=== PATIENT | female | born 1955 | race Caucasian/White ===

== ENCOUNTER 2023-01-17 11:05 | Outpatient (OUT) | payer MEDICARE, SELFPAY ==
[2023-01-17 11:45] LABS: Basophils Absolute Auto 0.1 10^3/uL (0.0-0.1); Basophils Percent Auto 0.7 % (0.2-2.0); Eosinophils Percent Auto 0.2 % (0.9-7.0); Hematocrit 33.2 % (36.0-48.0); Immature Granulocytes Abs Auto 0.04 10^3/uL (0.00-0.03); Immature Granulocytes Pct Auto 0.3 % (0.0-0.5); Lymphocytes Absolute Auto 3.2 10^3/uL (1.2-3.8); Lymphocytes Percent Auto 27.4 % (20.5-60.0); Mean Corpuscular HGB Conc 33.1 g/dL (29.9-35.2); Mean Corpuscular Hemoglobin 30.4 pg (26.7-34.0); Mean Corpuscular Volume 91.7 fL (81.0-99.0); Monocytes Absolute Auto 0.8 10^3/uL (0.3-0.8); Monocytes Percent Auto 6.5 % (1.7-12.0); Neutrophils Absolute Auto 7.6 10^3/uL (1.4-6.5); Neutrophils Percent Auto 64.9 % (43.0-75.0); Platelet Count 260 10^3/uL (150-450); Red Blood Count 3.62 10^6/uL (4.20-5.40); Red Cell Distribution Width 13.2 % (11.0-15.0); White Blood Count 11.7 10^3/uL (4.0-11.0)
[2023-01-17 12:22] LABS: Estimated Average Glucose 154 mg/dL
[2023-01-17 12:25] LABS: Alanine Aminotransferase 24 U/L (14-59); Albumin Globulin Ratio 0.9; Albumin Level 3.6 g/dL (3.4-5.0); Alkaline Phosphatase 85 U/L (46-116); Anion Gap 13.3; Aspartate Amino Transferase 29 U/L (15-37); BUN Creatinine Ratio 7.3; Bilirubin Total 0.4 mg/dL (0.2-1.0); Calcium 8.9 mg/dL (8.5-10.1); Carbon Dioxide 25.3 mmol/L (21.0-32.0); Chloride 102 mmol/L (98-107); Cholesterol 109 mg/dL (<=200); Estimated GFR (African America 60 (>=60); Estimated GFR (Non-African Ame 50 (>=60); Glucose 115 mg/dL (74-106); HDL Cholesterol 36 mg/dL (40-60); Potassium 4.6 mmol/L (3.5-5.1); Sodium 136 mmol/L (136-145); Total Protein 7.6 g/dL (6.4-8.2); Triglycerides 71 mg/dL (<=150); VLDL CHOLESTEROL 14.2 mg/dL
== END 2023-01-17 11:06 | disposition home or self-care (01) ==
LOC: LAB 11:16
PROVIDERS: Family Provider Internal Medicine; PCP Family Medicine; Visit Provider Family Medicine
DX: E11.65 Type 2 diabetes mellitus with hyperglycemia (principal); I10 Essential (primary) hypertension
CPT/HCPCS: 36415; 80053; 80061; 83036; 85025

== ENCOUNTER 2023-02-13 11:13 | Outpatient (OUT) | payer MEDICARE, SELFPAY ==
--- NOTE | 2023-02-13 11:17 | MM_ITS ---
Patient Name: HOLLIE WEBER MR#: [id number] : 1955 Exam Date: 02/13/2023 Ordering Doctor: DR Vanessa Baldwin M.D. RADIOLOGY REPORT PROCEDURE: MM TOMOSYNTHESIS SCREENING BI COMPARISON: None. INDICATIONS: Screening Calculator Name NCI Breast Cancer Risk Assessment Tool 5 Year Breast Cancer Risk 1.90% Lifetime Breast Cancer Risk 6.40% Personal Breast Cancer No Personal Ovarian Cancer No Treatments None Family Cancers None LOCATION: [facility] BREAST COMPOSITION: Scattered areas fibroglandular density. FINDINGS: DIAGNOSTIC CATEGORY 2--BENIGN FINDING: RIGHT BREAST: No significant suspicious finding. LEFT BREAST: No significant suspicious finding. Scattered benign-appearing calcifications are present. Scattered benign-appearing lymph nodes are present. RECOMMENDATIONS: ROUTINE MAMMOGRAM AND CLINICAL EVALUATION IN 12 MONTHS. PLEASE NOTE: A NORMAL MAMMOGRAM DOES NOT EXCLUDE THE POSSIBILITY OF BREAST CANCER. A CLINICALLY SUSPICIOUS PALPABLE LUMP SHOULD BE BIOPSIED. Dictated by: Justin Blanco M.D. on 02/13/2023 at 15:13 Approved by: Justin Blanco M.D. on 02/13/2023 at 15:15
== END 2023-02-13 11:14 | disposition home or self-care (01) ==
LOC: MAMMO 11:13
PROVIDERS: Family Provider Internal Medicine; PCP Family Medicine; Visit Provider Family Medicine
DX: Z12.31 Encounter for screening mammogram for malignant neoplasm of breast (principal)
CPT/HCPCS: 77063; 77067

== ENCOUNTER 2023-05-30 13:42 | Outpatient (OUT) | payer MEDICARE, SELFPAY ==
--- OUTSIDE RECORDS SUMMARY | 2023-05-30 14:01 | XMS_ITS | CCD ---
Author Name Unknown Address [address] [place] [address] Organization [facility] Care Team Providers Care Sustainability Officer Name Role Phone Vanessa Baldwin Unavailable Allergies Allergy Classification Reported Allergen(s) Allergy Type Date of Onset Reaction(s) Facility (9 sources) Codeine Drug Allergy vomiting Lateral SV [facility] Other (9 sources) Morphine Drug Allergy vomiting [facility] Other (9 sources) Nalbuphine Drug Allergy Hallucinated [facility] Other Medications Current Medications Medication Drug Class(es) Dates Sig (Normalized) Sig (Original) 0.25 MG, 0.5 MG Dose 3 ML semaglutide 0.68 MG/ML Pen Injector [Ozempic] (4 sources) inject 0.5 mg by subcutaneous injection every week Ozempic (0.25 or 0.5 MG/DOSE) 2 MG/3ML 0.5mg Subcutaneous weekly Active inject 0.5 mg by sub cutaneous injection every week Ozempic (0.25 or 0.5 MG/DOSE) 2 MG/3ML 0.5mg Subcutaneous weekly for 90 days Active ALPRAZolam 0.5 mg oral tablet (9 sources) Benzodiazepine Start: 03-06-2023 take 1 tablet by mouth every eight hours ALPRAZolam 0.5 MG 1 tablet three times a day Feb, Active Start: 02-02-2023 take 1 tablet by mela th every eight hours ALPRAZolam 0.5 MG 1 tablet three times a day for 30 days Jan, Active take 1 tablet by mela th every eight hours ALPRAZolam 0.5 MG 1 tablet three times a day Active ARIPiprazole 2 mg oral tablet (9 sources) Atypical Antipsychotic take 1 tablet by mouth every twenty-four hours ARIPiprazole 2 MG 1 tablet once a day Active aspirin 81 mg delayed release oral tablet (9 sources) Platelet Aggregation Inhibitor, Nonsteroidal Anti-inflammatory Drug take 1 tablet by mouth every twenty-four hours Aspirin 81 81 MG 1 tablet once a day Active atorvastatin 20 mg oral tablet (9 sources) HMG-CoA Reductase Inhibitor Atorvastatin Calcium 20 MG 1 tablet every morning for 90 days Active carvedilol 3.125 mg oral tablet (9 sources) alpha-Adrenergic Willie, beta-Adrenergic Willie take 1 tablet by mouth every twelve hours Carvedilol 3.125 MG 1 tablet twice a day Active escitalopram 20 mg oral tablet (9 sources) Serotonin Reuptake Inhibitor take 1 tablet by mouth every twelve hours Escitalopram Oxalate 20 MG 1 tablet twice a day for 90 days Active gabapentin 800 mg oral tablet (9 sources) Anti-epileptic Agent Gabapentin 800 MG 1tablet four times a day for 90 days Active lisinopril 10 mg oral tablet (9 sources) Angiotensin Converting Enzyme Inhibitor take 1 tablet by mouth every twenty-four hours Lisinopril 10 MG 1 tablet once a day Active metFORMIN hydrochloride 500 mg oral tablet (9 sources) Biguanide take 2 tablets by mouth every twenty-four hours metFORMIN HCl 500 MG 2 tablets once a day Active methylPREDNISolone 4 mg oral tablet (3 sources) Corticosteroid Start : 04-10 methylPREDNISolone 4 MG as directed Orally for 6 days Mar, Active ozempic (0.25 or 0.5 mg/dose) 2 mg/3ml solution pen-injector (5 sources) inject 0.5 mg by subcutaneous injection every week Ozempic (0.25 or 0.5 MG/DOSE) 2 MG/3ML 0.5mg Subcutaneous weekly Active pantoprazole 40 mg delayed release oral tablet (9 sources) Proton Pump Inhibitor Pantoprazole Sodium 40 MG 1 tablet every morning for 90 days Active microencapsulated potassium chloride 20 meq extended release oral tablet (9 sources) take 1 tablet by mouth every twenty-four hours Klor-Con M20 20 MEQ 1 tablet with food Orally Once a day for 90 days Active spironolactone 25 mg oral tablet (9 sources) Aldosterone Antagonist take 1 tablet by mouth every twenty-four hours Spironolactone 25 MG 1 tablet once a day Active tiZANidine 4 mg oral tablet (8 sources) Central alpha-2 Adrenergic Agonist take 1 tablet by mouth every eight hours tiZANidine HCl 4 MG 1 tablet as needed Orally Three times a day for 10 days Active Problems Active Problems Problem Classification Problem Date Documented Da te Episodic/Chronic Anxiety disorders (11 sources) Anxiety; Translations: [Anxiety disorder, unspecified] Chronic Coronary atherosclerosis and other heart disease (10 sources) Coronary arteriosclerosis; Translations: [Atherosclerotic heart disease of [place] coronary artery without angina pectoris] Chronic Diabetes mellitus with complications (12 sources) Type 2 diabetes mellitus; Translations: [Type 2 diabetes mellitus with hyperglycemia] Chronic Esophageal disorders (10 sources) Gastroesophageal reflux disease without esophagitis; Translations: [Gastro-esophageal reflux disease without esophagitis] Chronic Essential hypertension (11 sources) Essential hypertension; Translations: [Essential (primary) hypertension] Chronic Other screening for suspected conditions (not mental disorders or infectious disease) (1 source) Encounter for screening mammogram for malignant neoplasm of breast Episodic Screening and history of mental health and substance abuse codes (1 source) Personal history of nicotine dependence Episodic Spondylosis; intervertebral disc disorders; other back problems (1 source) Muscle spasm of back Episodic Past or Other Problems Problem Classification Problem Date Documented Da te Episodic/Chronic Unclassified (1 source) Lumbar pain M54.50 Vital Signs Date Time Vital Sign Value Performing Clinician Facility 04-10-2023 11:15-0500 Body height 162.56 cm Vanessa Baldwin Other [facility] Other 04-10-2023 11:15-0500 Body mass index (BMI) [Ratio] 40.16 kg/m2 Vanessa Baldwin [facility] Other 04-10-2023 11:15-0500 Body weight 106.14 kg Vanessa Baldwin Other [facility] Other 04-10-2023 11:15-0500 Diastolic blood pressure 84 mm[Hg] Vanessa Baldwin Other [facility] Other 04-10-2023 11:15-0500 SaO2% (BldA) [Mass fraction] 95 % Vanessa Baldwin Other [facility] Other 04-10-2023 11:15-0500 Systolic blood pressure 126 mm[Hg] Vanessa Baldwin Other [facility] Other 01-24-2023 11:15-0400 Body height 162.56 cm Vanessa Baldwin [facility] Other 01-24-2023 11:15-0400 Body mass index (BMI) [Ratio] 39.37 kg/m2 Vanessa Baldwin Other [facility] Other 01-24-2023 11:15-0400 Body weight 104.06 kg Vanessa Baldwin Other [facility] Other 01-24-2023 11:15-0400 Diastolic blood pressure 74 mm[Hg] Vanessa Baldwin Other [facility] Other 01-24-2023 11:15-0400 Systolic blood pressure 112 mm[Hg] Vanessa Baldwin Other [facility] Other 01-17-2023 10:30-0400 Body height 162.56 cm Vanessa Baldwin Other [facility] Other 01-17-2023 10:30-0400 Body mass index (BMI) [Ratio] 39.82 kg/m2 Vanessa Baldwin Other [facility] Other 01-17-2023 10:30-0400 Body weight 105.24 kg Vanessa Baldwin Other [facility] Other 01-17-2023 10:30-0400 Diastolic blood pressure 64 mm[Hg] Vanessa Baldwin Other [facility] Other 01-17-2023 10:30-0400 Systolic blood pressure 100 mm[Hg] Vanessa Baldwin Other [facility] Other Encounters Encounter Date Encounter Type Care Provider Facility Start: 05-02-2023 End: 05-02-2023 ambulatory Vanessa Nicolasa [facility] Other Start: 05-02-2023 Telephone encounter Vanessa Nicolasa [facility] Start: 04-24-2023 End: 04-24-2023 ambulatory Vanessa Nicolasa [facility] Other Start: 04-24-2023 Telephone encounter Vanessa Nicolasa [facility] Start: 04-10-2023 End: 04-10-2023 ambulatory Vanessa Nicolasa [facility] Other Start: 04-10-2023 Office outpatient vi sit 15 minutes Vanessa Nicolasa [facility] Start: 04-03-2023 End: 04-03-2023 ambulatory Vanessa Nicolasa [facility] Other Start: 04-03-2023 Telephone encounter Vanessa Nicolasa [facility] Start: 03-06-2023 End: 03-06-2023 ambulatory Vanessa Nicolasa Other [facility] Other Start: 03-06-2023 Telephone encounter Vanessa Baldwin [facility] Start: 02-02-2023 End: 02-02-2023 ambulatory Vanessa Nicolasa [facility] Other Start: 02-02-2023 Telephone encounter Vanessa Baldwin [facility] Start: 01-24-2023 End: 01-24-2023 ambulatory Vanessa Nicolasa [facility] Other Start: 01-24-2023 Office outpatient vi sit 15 minutes Vanessa Nicolasa [facility] Start: 01-17-2023 End: 01-17-2023 ambulatory Vanessa Baldwin [facility] Other Start: 01-17-2023 Office outpatient ne w 45 minutes Vanessa Baldwin [facility] Immunizations Immunization Date Immunization Notes Care Provider Keyana bass 04-10-2023 influenza, high dose seasonal, preservative-free Vanessa Baldwin [facility] Other Payers Date Payer Category Payer Policy ID Private Health Insurance [id number] Social History Date Type Detail Facility Unknown if ever smoked [facility] Other Sex Assigned At Sex Assigned At Bir th [facility] Other Evaluation note 04-10-2023 Note Date & Type Note Facility 04-10-2023 Evaluation note Encounter Date Diagnosis Assessment Notes Mar, Lumbar paraspinal muscle spasm (ICD-10 - M62.830) Take meds prn and try to stretch often and use heat and ice. Mar, Anxiety (ICD-10 - F41.9) Pt states she is stable on present meds and doses. Mar, Essential (primary) hypertension (ICD-10 - I10) Blood pressure remains well controlled at this time. Denies cardiac symptoms. Shows no signs or symptoms or poor control. Patient to continue with above medication and we will continue to monitor. Advised to pay attention to body and symptoms. Any developing patterns. Stay well hydrated. [facility] Other Evaluation note 02-02-2023 Note Date & Type Note Facility 02-02-2023 Evaluation note Encounter Date Diagnosis Assessment Notes Jan, Type 2 diabetes mellitus with hyperglycemia , without long-term current use of insulin (ICD-10 - E11.65) [facility] Other Evaluation note 01-24-2023 Note Date & Type Note Facility 01-24-2023 Evaluation note Encounter Date Diagnosis Assessment Notes Dec, Lumbar pain (ICD-10 - M54.50) Hx of adverse reactions to steroids. add muscle relaxer to tylenol. Pt declines referral to PT at this time Dec, Type 2 diabetes mellitus with hyperglycemi a, without long-term current use of insulin (ICD-10 - E11.65) Reviewed labs, gave pt a copy - A1C7.0. Cholesterol well controlled. Continue present meds. [facility] Other Evaluation note 01-17-2023 Note Date & Type Note Facility 01-17-2023 Evaluation note Encounter Date Diagnosis Assessment Notes Dec, Essential (primary) hypertension (ICD-10 - I10) Refilled meds for chronic problems Dec, Type 2 diabetes mellitus with hyperglycemia, without long-term current use of insulin (ICD-10 - E11.65) Check labs today diabetic eye exam annually Dec, Coronary artery disease involving [place] coronary artery of [place] heart without angina pectoris (ICD-10 - I25.10) Pt agrees to referral to get established with a local rubber curer. Dec, Anxiety (ICD-10 - F41.9) pt states her chronic problem is controlled w xanax tid and lexapro Dec, GERD without esophagitis (ICD-10 - K21.9) refilled med for chronic problem Dec, Screening mammogram for breast cancer (ICD-10 - Z12.31) Dec, Personal history of nicotine dependence (ICD-10 - Z87.891) [facility] Other Evaluation note Note Date & Type Note Facility Evaluation note No Information [facility] Other History general Narrative - Reported Note Date & Type Note Facility History general Narrative - Reported Type Medical History Hypertention Medical History Diabetes Medical History Neuropathy Medical History Heart Attack Surgical History Hysterectomy Surgical History Back surgery Surgical History Right CTR Surgical History Bilateral shoulder surgery Surgical History Heart Stents X2 Surgical History Left TKR [facility] Other History general Narrative - Reported Note Date & Type Note Facility History general Narrative - Reported Type Medical History Hypertention Medical History Diabetes Medical History Neuropathy Medical History Heart Attack Medical History GERD Surgical History Hysterectomy Surgical History Back surgery Surgical History Right CTR Surgical History Bilateral shoulder surgery Surgical History Heart Stents X2 Surgical History Left TKR [facility] Other Reason for Referral Reason *Waiting for appt Get established, has stents, moved from [place]. Had [place] 2014 Diagnosis 1 Coronary artery dise ase involving [place] coronary artery of [place] heart without angina pectoris (I25.10) Referral Organization [facility] [place] Referring Provider First Name Vanessa Referring Provider Last Name Nicolasa Referring Provider Specialty [facility] Referred Organization [facility] Cardiology Referred Provider Alexandru Pachecoa Referred Address [address] [place] [address],[place] [address],[place], [place],[id number] Referred Provider Specialty Cardiovascul ar Disease Referral Priority Routine General Notes Radha Baker 02:31:53 PM >received today, sent P2P. pt may need to fill out a records release form to have old records sent to us Additional Source Comments REASON FOR VISIT (unrecogniz ed section and content) Check Up-Medsback painRefill RefillrefillRefill3 month Follow upcoughingCardio Referral Update FOR RECORDS PERTAINING TO PATIENTS WHO ARE OR HAVE BEEN ENROLLED IN A CHEMICAL DEPENDENCY/SUBSTANCEABUSE PROGRAM, SOME INFORMATION MAY BE OMITTED. This clinical summary was aggregated from multiple sources. Caution should be exercised in using it in the provision of clinical care. This summary normalizes information from multiple sources, and as a consequence, information in this document may materially change the coding, format and clinical context of patient data. In addition, data may be omitted in some cases. CLINICAL DECISIONS SHOULD BE BASED ON THE PRIMARY CLINICAL RECORDS. [employer] provides no warranty or guarantee of the accuracy or completeness of information in this document.
[2023-05-30 14:18] LABS: Estimated Average Glucose 283 mg/dL; Glycohemoglobin A1C 11.5 % (4.5-6.2)
[2023-05-30 14:23] LABS: Basophils Absolute Auto 0.1 10^3/uL (0.0-0.1); Basophils Percent Auto 0.8 % (0.2-2.0); Hematocrit 36.6 % (36.0-48.0); Immature Granulocytes Abs Auto 0.07 10^3/uL (0.00-0.03); Immature Granulocytes Pct Auto 0.5 % (0.0-0.5); Lymphocytes Absolute Auto 3.6 10^3/uL (1.2-3.8); Lymphocytes Percent Auto 25.1 % (20.5-60.0); Mean Corpuscular HGB Conc 32.8 g/dL (29.9-35.2); Mean Corpuscular Hemoglobin 29.7 pg (26.7-34.0); Mean Corpuscular Volume 90.6 fL (81.0-99.0); Mean Platelet Volume 10.9 fL (9.5-13.5); Monocytes Absolute Auto 0.9 10^3/uL (0.3-0.8); Neutrophils Absolute Auto 9.7 10^3/uL (1.4-6.5); Neutrophils Percent Auto 67.6 % (43.0-75.0); Platelet Count 242 10^3/uL (150-450); Red Blood Count 4.04 10^6/uL (4.20-5.40); Red Cell Distribution Width 12.6 % (11.0-15.0); White Blood Count 14.3 10^3/uL (4.0-11.0)
== END 2023-05-30 13:43 | disposition home or self-care (01) ==
LOC: LAB 13:44
PROVIDERS: Family Provider Internal Medicine; PCP Family Medicine; Visit Provider Family Medicine
DX: E11.65 Type 2 diabetes mellitus with hyperglycemia (principal)
CPT/HCPCS: 36415; 83036; 85025

== ENCOUNTER 2023-07-24 12:42 | Outpatient (OUT) | payer MEDICARE, SELFPAY ==
--- NOTE | 2023-07-24 13:56 | PM.CN ---
Consult Note: HPI Data of Consult Patient: new to practice Consult date: 07/24/23 Requesting Physician: Maribell Malik MD Primary Care Provider: Vanessa Baldwin MD Family Provider: Shai Abdalla DO Consult Narrative Reason for consult: low back pain Narrative: 67yof who presents for evaluation. longstanding low back pain, had lumbar fusion 16 years ago in [place]. no recent MRI. has completed PT and engages in series of provider directed home exercises >6 weeks, without benefit. utilizes gabapentin, xanax. denies adverse med side effects. cc:: CC: Maribell Malik MD Review of Systems ROS Status of ROS 10 or more systems reviewed and unremarkable except as noted in history and below Meds Home Medications and Allergies Home Medications ?Medication ?Instructions ?Recorded ?Confirmed ?Type alprazolam 0.25 mg tablet (Xanax) 0.25 mg PO TID 07/24/23 07/24/23 History aripiprazole 2 mg tablet (Abilify) 2 mg PO DAILY 07/24/23 07/24/23 History aspirin 325 mg capsule 325 mg PO DAILY 07/24/23 07/24/23 History atorvastatin 20 mg tablet 20 mg PO DAILY 07/24/23 07/24/23 History carvedilol 3.125 mg tablet 3.125 mg PO BID 07/24/23 07/24/23 History escitalopram oxalate 20 mg tablet 20 mg PO BID 07/24/23 07/24/23 History (Lexapro) etodolac 400 mg tablet (Lodine) 400 mg PO Q12H PRN pain 07/24/23 07/24/23 History gabapentin 800 mg tablet 800 mg PO TID 07/24/23 07/24/23 History lisinopril 10 mg tablet 10 mg PO DAILY 07/24/23 07/24/23 History metformin 500 mg tablet 500 mg PO TID 07/24/23 07/24/23 History pantoprazole 40 mg granules 40 mg PO DAILY 07/24/23 07/24/23 History delayed-release for susp in packet (Protonix) potassium 20 mg chewable tablet 20 mg PO .QD 07/24/23 07/24/23 History spironolactone 25 mg tablet 25 mg PO DAILY 07/24/23 07/24/23 History tizanidine 4 mg capsule (Zanaflex) 4 mg PO TID PRN muscle spasticity 07/24/23 07/24/23 History Exam Narrative Exam Narrative: Psych-alert and oriented x 3. Attentive and appropriate, constitutionally normal, displays normal mood and affect per situation. There are no obvious deficits in memory, reasoning, or intellect.? Skin-no obvious rashes, bruising, erythema noted to the patient's area of pain.? Extremities- extremities are warm with minimal edema and palpable pulses. Lumbar-tenderness to palpation noted in the lumbar spine and paraspinal musculature. Pain is elicited with flexion, extension, and lateral rotation of the lumbar spine. Range of motion is diminished with these motions. Facet loading maneuvers are positive. Strength-noted to be unremarkable Sensory-no notable sensory deficits in the bilateral lower extremities to touch or pinprick in all dermatomal distributions with the exception to decreased sensation to the bilateral L4, 5 dermatomal distribution Coordination remains intact.? Gait remains non-antalgic. Assessment and Plan Assessment and Plan (1) Lumbar stenosis with neurogenic claudication: (2) Lumbar postlaminectomy syndrome: Plan 67yof who presents for evaluation. worsening low back pain for several years. failed conservative measures, as noted. given no recent MRI, would like to update lumbar mri without contrast. she is in agreement. meds reviewed. will trial etodolac 400mg bid prn and tizanidine 4mg tid prn. follow up after imaging.
== END 2023-07-24 12:43 | disposition home or self-care (01) ==
LOC: PM 12:43
PROVIDERS: Family Provider Internal Medicine; PCP Family Medicine; Visit Provider Anesthesiology
DX: M48.062 Spinal stenosis, lumbar region with neurogenic claudication (principal); M96.1 Postlaminectomy syndrome, not elsewhere classified
CPT/HCPCS: G0463

== ENCOUNTER 2023-08-01 09:47 | Outpatient (OUT) | payer MEDICARE, SELFPAY ==
--- NOTE | 2023-08-01 09:50 | MR_ITS ---
[address] [address] Patient Name: HOLLIE WEBER MRN: [facility]:[id number] date: 1955 Sex: F Assigned Patient Location: MRI Current Patient Location: MRI Accession/Order Number: [id number] Exam Date: 08/01/2023 10:06 Report Date: 08/01/2023 14:29 At the request of: VERONICA GIEDRAITIS Procedure: MR lumbar spine wo con EXAM: MR lumbar spine wo con CLINICAL INDICATION: lumbar stenosis, neurogenic claudication COMPARISON: None TECHNIQUE/PROTOCOL: Noncontrast lumbar spine MR protocol (Sagittal T1, T2, STIR and axial T1, T2 sequences). FINDINGS: Segmentation: Normal. Conus: Terminates at L1. Spinal Cord and Cauda Equina: Normal. Epidural Hematoma: None. Alignment: Normal. Marrow Signal: Normal. Vertebral Body Heights: Maintained. Sacroiliac Joints: Grossly normal given only partially visualized. Paraspinal Soft Tissues: Normal. Retroperitoneal Soft Tissues: No acute abnormalities. Postoperative Changes: Posterior instrumented fusion from L3 to L5 with laminectomies. Spondylotic Changes: Multilevel spondylotic changes include diffuse disc desiccation and varying degrees of intervertebral disc height loss, osteophytic ridging, and facet/ligamentum flavum hypertrophy. T12-L1: No disc bulge or herniation. No high-grade spinal canal narrowing. Mild bilateral foraminal narrowing. Mild bilateral facet/ligamentum flavum hypertrophy. L1-L2: No disc bulge or herniation. No high-grade spinal canal or foraminal narrowing. Mild bilateral facet/ligamentum flavum hypertrophy. L2-L3: Disc bulge indents the ventral thecal sac. This in conjunction with moderate bilateral facet/ligamentum flavum hypertrophy overall results in moderate spinal canal narrowing. Moderate bilateral foraminal narrowing. Small bilateral facet joint effusions. L3-L4: Laminectomy changes. No disc bulge or herniation. No high-grade spinal canal narrowing. Mild bilateral foraminal narrowing. L4-L5: Laminectomy changes. No disc bulge or herniation. No high-grade spinal canal narrowing. Mild bilateral foraminal narrowing. L5-S1: No disc bulge or herniation. No high-grade spinal canal narrowing. Mild bilateral foraminal narrowing. Mild bilateral facet hypertrophy. MR/MR lumbar spine wo con IMPRESSION: 1. Multilevel spondylotic changes without high-grade spinal canal or foraminal narrowing at any lumbar level. 2. Spinal canal narrowing is moderate at L2-L3. 3. Foraminal narrowing is moderate bilaterally at L2-L3. 4. Posterior instrumented fusion from L3 to L5 with laminectomies. Electronically authenticated by: JACKIE SY Date: 08/01/2023 14:29
== END 2023-08-01 09:48 | disposition home or self-care (01) ==
LOC: MRI 09:47
PROVIDERS: Family Provider Internal Medicine; PCP Family Medicine; Visit Provider Anesthesiology
DX: M48.062 Spinal stenosis, lumbar region with neurogenic claudication (principal); M47.816 Spondylosis without myelopathy or radiculopathy, lumbar region
CPT/HCPCS: 72148

== ENCOUNTER 2023-08-03 09:35 | Outpatient (OUT) | payer MEDICARE, SELFPAY ==
--- NOTE | 2023-08-03 09:47 | P.CN_ITS ---
Consult Note: HPI Data of Consult Patient: new to practice Consult date: 07/24/23 Requesting Physician: Lucy Mccallum NP Primary Care Provider: Vanessa Baldwin MD Family Provider: Shai Abdalla DO Consult Narrative Reason for consult: low back pain Narrative: 67yof who presents for evaluation. longstanding low back pain, had lumbar fusion 16 years ago in [place]. has completed PT and engages in series of provider directed home exercises >6 weeks, without benefit. utilizes gabapentin, xanax, lodine, zanaflex. denies adverse med side effects. Lumbar MRI completed results below. Patient reports pain 8/10 increasing to 10/10 with standing and activity, pain most significant in low back. cc:: CC: Lucy Mccallum NP Review of Systems ROS Status of ROS 10 or more systems reviewed and unremark able except as noted in history and below Musculoskeletal Reports: back pain Meds Home Medications and Allergies Home Medications ?Medication ?Instructions ?Recorded ?Confirmed ?Type alprazolam 0.25 mg tablet (Xanax) 0.25 mg PO TID 07/24/23 07/24/23 History aripiprazole 2 mg tablet (Abilify) 2 mg PO DAILY 07/24/23 07/24/23 History aspirin 325 mg capsule 325 mg PO DAILY 07/24/23 07/24/23 History atorvastatin 20 mg tablet 20 mg PO DAILY 07/24/23 07/24/23 History carvedilol 3.125 mg tablet 3.125 mg PO BID 07/24/23 07/24/23 History escitalopram oxalate 20 mg tablet 20 mg PO BID 07/24/23 07/24/23 History (Lexapro) etodolac 400 mg tablet (Lodine) 400 mg PO Q12H PRN pain 07/24/23 07/24/23 History gabapentin 800 mg tablet 800 mg PO TID 07/24/23 07/24/23 History lisinopril 10 mg tablet 10 mg PO DAILY 07/24/23 07/24/23 History metformin 500 mg tablet 500 mg PO TID 07/24/23 07/24/23 History pantoprazole 40 mg granules 40 mg PO DAILY 07/24/23 07/24/23 History delayed-release for susp in packet (Protonix) potassium 20 mg chewable tablet 20 mg PO .QD 07/24/23 07/24/23 History spironolactone 25 mg tablet 25 mg PO DAILY 07/24/23 07/24/23 History tizanidine 4 mg capsule (Zanaflex) 4 mg PO TID PRN muscle spasticity 07/24/23 07/24/23 History Allergies Allergy/AdvReac Type Severity Reaction Status Date / Time codeine Allergy Mild Verified 07/24/23 14:14 morphine Allergy Mild Verified 07/24/23 14:14 [email or web address] [From Nubain] AdvReac Mild Verified 07/24/23 14:14 Exam Constitutional Documenting provider has reviewed patient's vital signs: yes Common normals: no apparent distress, oriented x3, healthy appearing, alert and well nourished General appearance: cooperative HENMT Common normals: normocephalic, hearing grossly normal bilaterally and moist oral mucous membranes Head and scalp: normocephalic Eye Common normals: PERRL Pupil: PERRL Neck & C-Spine Common normals: full ROM General: normal visual inspection Chest Common normals: inspection of chest normal Respiratory Common normals: normal respiratory effort, no retractions and no use of accessory muscles Back & Pelvis Thoracic spine/upper back: pain with ROM Lumbar spine/lower back: ROM limited, pain with ROM, lumbar spinal tenderness, paraspinal muscle tenderness and straight leg raise negative bilaterally Sacroiliac joints: SI joint(s) abnormal Other: positive facet loading tenderenss over bilateral L1-2 L2-3 facets bilateral positive dandy(patricks), gaenslens, thigh thrust, compression test Neuro Common normals: oriented x3, CN's II-XII intact bilaterally, moves all extremities, no focal motor deficits, no sensory deficits noted and deep tendon reflexes 2+ bilaterally Sensorium/orientation: alert Gait (neuro): antalgic Motor exam: strength 5/5 throughout and no movement abnormalities noted Psych Common normals: mental status grossly normal, thought process normal, cooperative, affect normal, speech normal and activity/motor behavior normal Speech: normal speech Thought process: normal thought process Results Imaging Lumbar MRI: Attestation: I have reviewed the pertinent imaging results. Radiologist's impression: T12-L1: No disc bulge or herniation. No high-grade spinal canal narrowing. Mild bilateral foraminal narrowing. Mild bilateral facet/ligamentum flavum hypertrophy. L1-L2: No disc bulge or herniation. No high-grade spinal canal or foraminal narrowing. Mild bilateral facet/ligamentum flavum hypertrophy. L2-L3: Disc bulge indents the ventral thecal sac. This in conjunction with moderate bilateral facet/ligamentum flavum hypertrophy overall results in moderate spinal canal narrowing. Moderate bilateral foraminal narrowing. Small bilateral facet joint effusions. L3-L4: Laminectomy changes. No disc bulge or herniation. No high-grade spinal canal narrowing. Mild bilateral foraminal narrowing. L4-L5: Laminectomy changes. No disc bulge or herniation. No high-grade spinal canal narrowing. Mild bilateral foraminal narrowing. L5-S1: No disc bulge or herniation. No high-grade spinal canal narrowing. Mild bilateral foraminal narrowing. Mild bilateral facet hypertrophy. Assessment and Plan Assessment and Plan (1) Lumbar stenosis with neurogenic claudication: (2) Lumbar postlaminectomy syndrome: (3) S/P lumbar fusion: (4) Lumbar spondylosis: Plan bilateral L1-2 L2-3 MBB x2 working towards RFA continue medications, NNCP chroniz benzo f/u 1 week after each injection
--- OUTSIDE RECORDS SUMMARY | 2023-08-03 09:50 | XMS_ITS | CCD ---
Author Organization [facility] Care Team Providers Care Lithographers Printer Name Role Phone Vanessa Baldwin Unavailable Helena GUERRA, Maribell Art Attending Unavailable Allergies Allergy Classification Reported Allergen(s) Allergy Type Date of Onset Reaction(s) Facility (10 sources) Codeine Drug Allergy 4 [facility] (10 sources) Morphine Drug Allergy 4 [facility] (9 sources) Nalbuphine Drug Allergy [facility] (powering [employer]) [facility] Other (1 source) Nalbuphine Drug Allergy 4 [facility] Medications Current Medications Medication Drug Class(es) Dates [...] days Active ALPRAZolam 0.5 mg oral tablet (12 sources) Benzodiazepine Start: 05-29-2023 End: 06-30-2023 take 0.5 mg by mouth three times daily Alprazolam Active 0.5 MG PO Three times daily June 30, 2023 1:06pm Start: 03-06-2023 take 1 tablet by mela th every [...] day Active ARIPiprazole 2 mg oral tablet (10 sources) Atypical Antipsychotic Start: 05-29-2023 take 2 mg by mouth once daily Aripiprazole Active 2 MG PO Daily May 29, 2023 1:00am take 1 tablet by mela th every twenty-four hours ARIPiprazole 2 MG 1 tablet once a day Active aspirin 81 mg delayed release oral tablet (10 sources) Platelet Aggregation Inhibitor, Nonsteroidal Anti-inflammatory Drug Start: 05-29-2023 take 1 tablet by mouth once daily Aspirin (Adult Aspirin Regimen) 81 mg tablet,delayed release (DR/EC) Active 81 MG PO Daily May 29, 2023 1:00am take 1 tablet by mela th every twenty-four hours Aspirin 81 81 MG 1 tablet once a day Active atorvastatin 20 mg oral tablet (10 sources) HMG-CoA Reductase Inhibitor Start: 05-29-2023 take 20 mg by mouth once daily Atorvastatin Active 20 MG PO Daily May 29, 2023 1:00am Atorvastatin Salvador cium 20 MG 1 tablet every morning for 90 days Active carvedilol 3.125 mg oral tablet (10 sources) alpha-Adrenergic Willie, beta-Adrenergic Willie Start: 05-29-2023 take 3.125 mg by mouth twice daily Carvedilol Active 3.125 MG PO Twice daily May 29, 2023 1:00am take 1 tablet by mela th every twelve hours Carvedilol 3.125 MG 1 tablet twice a day Active escitalopram 20 mg oral tablet (10 sources) Serotonin Reuptake Inhibitor Start: 05-29-2023 take 20 mg by mouth twice daily Escitalopram Oxalate Active 20 MG PO Twice daily May 29, 2023 1:00am take 1 tablet by mela th every twelve hours Escitalopram Oxalate 20 MG 1 tablet twic e a day for 90 days Active gabapentin 800 mg oral tablet (10 sources) Anti-epileptic Agent Start: 05-29-2023 take 800 mg by mouth four times daily Gabapentin Active 800 MG PO Four times daily May 29, 2023 1:00am Gabapentin 800 M G 1tablet four times a day for 90 days Active lisinopril 10 mg oral tablet (10 sources) Angiotensin Converting Enzyme Inhibitor Start: 05-29-2023 take 10 mg by mouth once daily Lisinopril Active 10 MG PO Daily May 29, 2023 1:00am take 1 tablet by mela th every twenty-four hours Lisinopril 10 MG 1 tablet once a day Active metFORMIN hydrochloride 500 mg oral tablet (10 sources) Biguanide Start: 05-29-2023 take 2 tablets by mouth once daily Metformin Active 500 MG PO Daily May 29, 2023 1:00am 2 tablets once a day take 2 tablets by mo [facility] every twenty-four hours metFORMIN HCl 500 MG 2 tablets once a day Active methylPREDNISolone 4 mg oral tablet (3 sources) Corticosteroid Start: 04-10-2023 methylPREDNISolone 4 MG as directed Orally for 6 days Mar, Active ozempic (0.25 or 0.5 mg/dose) 2 mg/3ml solution pen-injector (5 sources) inject 0.5 mg by subcutaneous injection every week Ozempic (0.25 or 0.5 MG/DOSE) 2 MG/3ML 0.5mg Subcutaneous weekly Active pantoprazole 40 mg delayed release oral tablet (10 sources) Proton Pump Inhibitor Start: 05-29-2023 take 40 mg by mouth once daily in the morning Pantoprazole Active 40 MG PO Every morning May 29, 2023 1:00am Pantoprazole Sod ium 40 MG 1 tablet every morning for 90 days Active microencapsulated potassium chloride 20 meq extended release oral tablet (10 sources) Start: 05-29-2023 Potassium Chlo ride (Klor-Con M20) 20 mEq tablet,ER particles/crystals Active 20 MEQ PO Daily May 29, 2023 1:00am take 1 tablet by mela every twenty-four hours Klor-Con M20 20 MEQ 1 tablet with food Orally Once a day for 90 days Active spironolactone 25 mg oral tablet (10 sources) Aldosterone Antagonist Start: 05-29-2023 take 25 mg by mouth once daily Spironolactone Active 25 MG PO Daily May 29, 2023 1:00am take 1 tablet by mela every twenty-four hours Spironolactone 25 MG 1 tablet once a day Active Tirzepatide (1 source) Start: 06-08-2023 Tirzepatide (Mounjaro) 2.5 mg/0.5 mL pen injector Active 2.5 MG SUBCUT every week 2 June 08, 2023 12:00am tiZANidine 4 mg oral tablet (9 sources) Central alpha-2 Adrenergic Agonist Start: 05-29-2023 take 4 mg by mouth three times daily Tizanidine Active 4 MG PO Three times daily May 29, 2023 1:00am take 1 tablet by mouth every eig ht hours tiZANidine HCl 4 MG 1 tablet as needed Orally Three times a day for 10 days Active Completed/Discontinued Medications Medication Drug Class(es) Dates Sig (Normalized) Sig (Original) Semaglutide (2 sources) Start: 05-30-2023 End: 06-08-2023 Semaglutide (Ozempic) 0.25 mg or 0.5 mg (2 mg/3 mL) pen injector Discontinued 0.5 MG SUBCUT every week 3 May 30, 2023 1:00am June 08, 2023 12:49pm for 4 weeks Start: 05-29-2023 End: 05-30-2023 inject 0.5 mg by subcutaneous injection every week Semaglutide (Ozempic) 0.25 mg or 0.5 mg (2 mg/3 mL) pen injector Discontinued 0.5 MG SUBCUT every week May 29, 2023 1:00am May 30, 2023 2:13pm 0.5mg Subcutaneous weekly Problems Active Problems Problem Classification Problem Date Documented Da te Episodic/Chronic Anxiety disorders (13 sources) Anxiety; Translations: [Anxiety disorder, unspecified] Chronic Coronary atherosclerosis and other heart disease (10 sources) Coronary arteriosclerosis; Translations: [Atherosclerotic heart disease of ewiiaapaayp coronary artery without angina pectoris] Chronic Diabetes mellitus with complications (14 sources) Type 2 diabetes mellitus; Translations: [Type 2 diabetes mellitus with hyperglycemia] Chronic Esophageal disorders (10 sources) Gastroesophageal reflux disease without esophagitis; Translations: [Gastro-esophageal reflux disease without esophagitis] Chronic Essential hypertension (12 sources) Essential hypertension; Translations: [Essential (primary) hypertension] Chronic Other screening for suspected conditions (not mental disorders or infectious disease) (1 source) Encounter for screening mammogram for malignant neoplasm of breast Episodic Screening and history of mental health and substance abuse codes (1 source) Personal history of nicotine dependence Episodic Spondylosis; intervertebral disc disorders; other back problems (2 sources) Muscle spasm of back; Translations: [Spasm of muscle of lower back] Episodic Past or Other Problems Problem Classification Problem Date Documented Da te Episodic/Chronic Unclassified (1 source) Lumbar pain M54.50 Results Test Name Value Interpretation Reference Range Facil ity Basophils Auto (Bld) [#/Vol] on 05-30-2023 Basophils (Bld) [#/Vol] 0.1 10 3/uL 0.0-0.1 [facility] Basophils/100 WBC Auto (Bld) on 05-30-2023 Basophils/100 WBC (Bld) 0.8 % 0.2-2.0 [facility] Eosinophils/100 WBC Auto (Bl d)on 05-30-2023 Eosinophils/100 WBC (Bld) 0.0 % 0.9-7.0 [facility] Erythrocyte distribution wid th Auto (RBC) [Ratio]on 05-30-2023 Erythrocyte distribution width (RBC) [Ratio] 12.6 % 11.0-15.0 [facility] Glucose mean value [Mass/vol ume] in Blood Estimated from glycated hemoglobinon 05-30-2023 Average glucose Estimated from glycated hemoglobin (Bld) [Mass/Vol] 283 mg/dL [facility] Hematocrit Auto (Bld) [Volum e fraction]on 05-30-2023 Hematocrit (Bld) [Volume fraction] 36.6 % 36.0-48.0 [facility] Hemoglobin [Mass/volume] in Bloodon 05-30-2023 Hemoglobin (Bld) [Mass/Vol] 12.0 g/dL 12.0-16.0 [facility] Laboratory - Hematology and Cell countson 05-30-2023 HbA1c (Bld) [Mass fraction] 11.5 % 4.5-6.2 [facility] Comment on above: ADA RECOMMENDED LIMI T 4.0 - 6.0ADA THERAPEUTIC TARGET < 7.0ACTION SUGGESTED> 7.0 Immature granulocytes/100 WBC (Bld) 0.5 % 0.0-0.5 [facility] Leukocytes [#/volume] correc krysta for nucleated erythrocytes in Blood by Automated counon 05-30-2023 WBC corrected for nucl RBC Auto (Bld) [#/Vol] 14.3 10 3/uL 4.0-11.0 [facility] Lymphocytes Auto (Bld) [#/Vo l]on 05-30-2023 Lymphocytes (Bld) [#/Vol] 3.6 10 3/uL 1.2-3.8 [facility] Lymphocytes/100 WBC Auto (Bl d)on 05-30-2023 Lymphocytes/100 WBC (Bld) 25.1 % 20.5-60.0 [facility] MCH Auto (RBC) [Entitic mass ]on 05-30-2023 MCH (RBC) [Entitic mass] 29.7 pg 26.7-34.0 [facility] MCHC Auto (RBC) [Mass/Vol]on 05-30-2023 MCHC (RBC) [Mass/Vol] 32.8 g/dL 29.9-35.2 [facility] MCV Auto (RBC) [Entitic vol] on 05-30-2023 MCV (RBC) [Entitic vol] 90.6 fL 81.0-99.0 [facility] Monocytes Auto (Bld) [#/Vol] on 05-30-2023 Monocytes (Bld) [#/Vol] 0.9 10 3/uL 0.3-0.8 [facility] Monocytes/100 WBC Auto (Bld) on 05-30-2023 Monocytes/100 WBC (Bld) 6.0 % 1.7-12.0 [facility] Neutrophils Auto (Bld) [#/Vo l]on 05-30-2023 Neutrophils (Bld) [#/Vol] 9.7 10 3/uL 1.4-6.5 [facility] Neutrophils/100 WBC Auto (Bl d)on 05-30-2023 Neutrophils/100 WBC (Bld) 67.6 % 43.0-75.0 [facility] No Panel Informationon 05-29 Eosinophils # (Auto) 0.0 10 3/uL 0.0-0.7 [facility] Immature Granulocyte # (Auto) 0.07 10 3/uL 0.00-0.03 [facility] Platelet mean volume Auto (B ld) [Entitic vol]on 05-30-2023 Platelet mean volume (Bld) [Entitic vol] 10.9 fL 9.5-13.5 [facility] Platelets Auto (Bld) [#/Vol] on 05-30-2023 Platelets (Bld) [#/Vol] 242 10 3/uL 150-450 [facility] RBC Auto (Bld) [#/Vol]on RBC (Bld) [#/Vol] 4.04 10 6/uL 4.20-5.40 [facility] Vital Signs Date Time Vital Sign Value Performing Clinician Facility 07-10-2023 11:10-0400 Body height 162.56 cm [facility] 07-10-2023 11:10-0400 Body mass index (BMI) [Ratio] 40.6 kg/m2 [facility] 07-10-2023 11:10-0400 Body weight 107.27 kg [facility] 07-10-2023 11:10-0400 Diastolic blood pressure 76 mm[Hg] [facility] 07-10-2023 11:10-0400 Heart rate 77 /min [facility] 07-10-2023 11:10-0400 Systolic blood pressure 115 mm[Hg] [facility] 05-30-2023 13:03-0500 Body height 162.56 cm [facility] 05-30-2023 13:03-0500 Body mass index (BMI) [Ratio] 40.8 kg/m2 [facility] 05-30-2023 13:03-0500 Body weight 108.12 kg [facility] 05-30-2023 13:03-0500 Diastolic blood pressure 80 mm[Hg] [facility] 05-30-2023 13:03-0500 Heart rate 90 /min [facility] 05-30-2023 13:03-0500 SaO2% (BldA) [Mass fraction] 97 % [facility] 05-30-2023 13:03-0500 Systolic blood pressure 126 mm[Hg] [facility] 04-10-2023 11:15-0500 Body height 162.56 cm Vanessa Baldwin Other [facility] Other 04-10-2023 11:15-0500 Body mass index (BMI) [Ratio] 40.16 kg/m2 Vanessa Baldwin Other [facility] Other 04-10-2023 11:15-0500 Body weight 106.14 kg Vanessa Baldwin Other [facility] Other 04-10-2023 11:15-0500 Diastolic blood pressure 84 mm[Hg] Vanessa Baldwin Other [facility] Other 04-10-2023 11:15-0500 SaO2% (BldA) [Mass fraction] 95 % Vanessa Baldwin Other [facility] Other 04-10-2023 11:15-0500 Systolic blood pressure 126 mm[Hg] Vanessa Baldwin Other [facility] Other 01-24-2023 11:15-0400 Body height 162.56 cm Vanessa Baldwin Other [facility] Other 01-24-2023 11:15-0400 Body mass index (BMI) [Ratio] 39.37 kg/m2 Vanessa Baldwin Other [facility] Other 01-24-2023 11:15-0400 Body weight 104.06 kg Vanessa Baldwin Other [facility] Other 01-24-2023 11:15-0400 Diastolic blood pressure 74 mm[Hg] Vanessa Baldwin Other [facility] Other 01-24-2023 11:15-0400 Systolic blood pressure 112 mm[Hg] Vanessa Baldwin Other [facility] Other 01-17-2023 10:30-0400 Body height 162.56 cm Vanessa Baldwin Other [facility] Other 01-17-2023 10:30-0400 Body mass index (BMI) [Ratio] 39.82 kg/m2 Vanessa Baldwin Other [facility] Other 01-17-2023 10:30-0400 Body weight 105.24 kg Vanessa Baldwin Other [facility] Other 01-17-2023 10:30-0400 Diastolic blood pressure 64 mm[Hg] Vanessa Baldwin Other [facility] Other 01-17-2023 10:30-0400 Systolic blood pressure 100 mm[Hg] Vanessa Baldwin Other [facility] Other Encounters Encounter Date Encounter Type Care Provider Facility Start: 07-24-2023 End: 07-25-2023 ambulatory Maribell Malik MD Facility:[facility] Start: 07-10-2023 End: 07-10-2023 ambulatory [facility] Work Phone: Start: 07-10-2023 End: 07-10-2023 Patient encounter procedure [facility] Work Phone: Start: 05-30-2023 End: 05-30-2023 Patient encounter procedure [facility] Work Phone: Start: 05-02-2023 End: 05-02-2023 ambulatory Vanessa Baldwin Other [facility] Other Start: 05-02-2023 Telephone encounter Vanessa Baldwin [employer] Start: 04-24-2023 End: 04-24-2023 ambulatory Vanessa Baldwin Other [facility] Other Start: 04-24-2023 Telephone encounter Vanessa DICK [facility] Start: 04-10-2023 End: 04-10-2023 ambulatory Vanessa Baldwin Other [facility] Other Start: 04-10-2023 Office outpatient visit 15 minutes Vanessa Baldwin [facility] Start: 04-03-2023 End: 04-03-2023 ambulatory Vanessa Baldwin Other [facility] Other Start: 04-03-2023 Telephone encounter Vanessa Baldwin [facility] Start: 03-06-2023 End: 03-06-2023 ambulatory Vanessa Baldwin Other [facility] Other Start: 03-06-2023 Telephone encounter Vanessa Baldwin [facility] Start: 02-02-2023 End: 02-02-2023 ambulatory Vanessa Baldwin Other [facility] Other Start: 02-02-2023 Telephone encounter Vanessa Baldwin [facility] Start: 01-24-2023 End: 01-24-2023 ambulatory Vanessa Baldwin Other [facility] Other Start: 01-24-2023 Office outpatient visit 15 minutes Vanessa Baldwin [facility] Start: 01-17-2023 End: 01-17-2023 ambulatory Vanessa Baldwin Other [facility] Other Start: 01-17-2023 Office outpatient ne w 45 minutes Vanessa Baldwin [facility] Immunizations Immunization Date Immunization Notes Care Provider Fa shelia 04-10-2023 influenza, high dose seasonal, preservative-free Vanessa Nicolasa Other [facility] Other 04-10-2023 influenza virus vaccine, unspecified formulation [facility] Payers Date Payer Category Payer Private Health Insurance 1955 Unknown [id number] Private Health Insurance [id number] Social History Date Type Detail Facility Unknown if ever smoked [facility] Other Sex Assigned At Sex Assigned At Bir th [facility] Other Start: 05-29-2023 Tobacco smoking status NHIS Ex-smoker (finding) [facility] Start: 1955 Sex Assigned At Female F [facility] Evaluation note 04-10-2023 Note Date & Type [...] symptoms. Any developing patterns. Stay well hydrated. [facility] Other Evaluation note 02-02-2023 Note Date & Type Note Facility 02-02-2023 Evaluation note Encounter Date Diagnosis Assessment Notes Jan, Type 2 diabetes mellitus with hyperglycemia , without long-term current use of insulin (ICD-10 - E11.65) [facility] Other Evaluation note 01-24-2023 Note Date & [...] A1C7.0. Cholesterol well controlled. Continue present meds. [facility] Other Evaluation note 01-17-2023 Note Date & Type Note Facility 01-17-2023 Evaluation note Encounter Date Diagnosis Assessment Notes Dec, Essential (primary) hypertension (ICD-10 - I10) Refilled meds for chronic problems Dec, Type 2 diabetes mellitus with hyperglycemia, without long-term current use of insulin (ICD-10 - E11.65) Check labs today diabetic eye exam annually Dec, Coronary artery disease involving ewiiaapaayp coronary artery of ewiiaapaayp heart without angina pectoris (ICD-10 - I25.10) Pt agrees to referral to get established with a local sr community manager. Dec, Anxiety (ICD-10 - F41.9) pt states her chronic problem is controlled w xanax tid and lexapro Dec, GERD without esophagitis (ICD-10 - K21.9) refilled med for chronic problem Dec, Screening mammogram for breast cancer (ICD-10 - Z12.31) Dec, Personal history of nicotine dependence (ICD-10 - Z87.891) [facility] Other Evaluation note Note Date & Type Note Facility Evaluation note No Information [facility] Other Evaluation note Note Date & Type Note Facility Evaluation note Diagnosis Onset Date Anxiety acute [id number] acute [facility] Work Phone: History general Narrative - Reported Note Date & Type Note Facility History general Narrative - Reported Type Medical History Hypertention Medical History Diabetes Medical History Neuropathy Medical History Heart Attack Surgical History Hysterectomy Surgical History Back surgery Surgical History Right CTR Surgical History Bilateral shoulder surgery Surgical History Heart Stents X2 Surgical History Left TKR [facility] Other History general Narrative - Reported Note Date & Type Note Facility History general Narrative - Reported Type Medical History Hypertention Medical History Diabetes Medical History Neuropathy Medical History Heart Attack Medical History GERD Surgical History Hysterectomy Surgical History Back surgery Surgical History Right CTR Surgical History Bilateral shoulder surgery Surgical History Heart Stents X2 Surgical History Left TKR [facility] Other Reason for Referral Reason *Waiting for appt Get established, has stents, moved from [place]. Had [place] in 2015 Diagnosis 1 Coronary artery dise ase involving ewiiaapaayp coronary artery of ewiiaapaayp heart without angina pectoris (I25.10) Referral Organization [facility] Darrin montero Referring Provider First Name Vanessa Referring Provider Last Name Nicolasa Referring Provider Specialty Family [facility] Referred Organization [facility] Cardiology Referred Provider Christal Pacheco Referred Address [address],[place], [place],[id number] Referred Provider Specialty Cardiovascul ar Disease Referral Priority Routine General Notes Radha Baker 02:31:53 PM >received today, sent P2P. pt may need to fill out a records release form to have old records sent to us Chief Complaint and Reason for Visit Chief Complaint weightloss 3 MONTH CHECK UP Reason for Visit Anxiety [id number] Family History No Family History Records Found Relationship Condition Age at Onset Recorded Date/T vanessa daughter Hypertension Unknown father Diabetes mellitus Unknown Heart disease Unknown History of stroke Unknown Hypertension Unknown Unknown Not Specified Unknown Diabetes mellitus Unknown Family history of mental disorder Unknown natural son Family history of mental disorder Unknown Advance Directives No Advanced Directives Records Found Advance Directive Response Recorded Date/ Time Advance Directives No April 18, 2023 4:51pm Summary Purpose Additional Source Comments REASON FOR VISIT (unrecogniz ed section and content) Check Up-Medsback painRefill RefillrefillRefill3 month Follow upcoughingCardio Referral Update Care Teams (unrecognized sec tion and content) Team Status: Active Member Role Status Dates Vanessa Baldwin MD Primary Care Provider Active Team Status: Inactive Member Role Status Dates Vanessa Baldwin MD Primary Care Provide r, Attending Provider Active Start: May 30, 2023 End: May 30, 2023 Team Status: Inactive Member Role Status Dates Vanessa Baldwin MD Primary Care Provide r, Attending Provider Active Start: July 10, 2023 End: July 10, 2023 Goals (unrecognized section and content) Goals may be documented in a n alternate section INFORMATION SOURCE (unrecogn ized section and content) DATE CREATED AUTHOR 07/26/2023 [facility] FOR RECORDS PERTAINING TO PATIENTS WHO ARE [...] BE BASED ON THE PRIMARY CLINICAL RECORDS. [employer] provides no warranty or guarantee of the accuracy or completeness of information in this document.
== END 2023-08-03 09:36 | disposition home or self-care (01) ==
LOC: PM 09:36
PROVIDERS: Family Provider Internal Medicine; PCP Family Medicine; Visit Provider Nurse Practitioner
DX: M48.062 Spinal stenosis, lumbar region with neurogenic claudication (principal); M96.1 Postlaminectomy syndrome, not elsewhere classified; Z98.890 Other specified postprocedural states; M47.816 Spondylosis without myelopathy or radiculopathy, lumbar region
CPT/HCPCS: G0463

== ENCOUNTER 2023-08-08 11:22 | Emergency (ER) | payer MEDICARE, SELFPAY ==
[2023-08-08] VITALS (14 sets, daily range): BP systolic 143–181; BP diastolic 85–97; PULSE 65–88; TEMP 36.7; O2SAT 94–98; BMI 39.1
--- NOTE | 2023-08-08 11:31 | CT_ITS ---
The [address] [address] Patient Name: HOLLIE WEBER MRN: [id number] date: 1955 Sex: F Assigned Patient Location: ER Current Patient Location: ER Accession/Order Number: [id number] Exam Date: 08/08/2023 11:37 Report Date: 08/08/2023 11:55 At the request of: SARAHY RUSSELL Procedure: CT stroke head/brain wo con EXAM: CT stroke head/brain wo con HISTORY: Stroke COMPARISON: None available at the time of dictation. TECHNIQUE: Axial unenhanced CT images were obtained through the brain. Individualized dose optimization technique was used for the performed procedure by employing the following: Automated exposure control, adjustment of the mA and/or kV according to patient's size, and/or the use of the iterative construction technique. Coronal and sagittal reformats were performed. FINDINGS: No acute intracranial abnormality. No acute infarct, hemorrhage or mass. No midline shift. Puente-white matter differentiation is preserved. Mild cerebral volume loss. No acute osseous abnormality. Paranasal sinuses are clear. Mastoid air cells are open. Orbits are normal. CT/CT stroke head/brain wo con IMPRESSION: 1. No acute intracranial abnormality. No acute intracranial infarct visualized by this modality. (MRI is more sensitive). No acute intracranial hemorrhage Electronically authenticated by: MATEO AL Date: 08/08/2023 11:55
--- NOTE | 2023-08-08 11:34 | ED.NEUROSD1 ---
HPI - Neuro Symptoms/Deficit General Chief Complaint: Neuro Symptoms/Deficit Stated Complaint: STROKE LIKE SYMPTOMS Time Seen by Provider: 08/08/23 11:31 Source: patient and family Mode of arrival: walk-in Limitations: no limitations History of Present Illness HPI Narrative: This patient is here for a problem with her. She said when she woke up this morning everything was fine she had no difficulties whatsoever. She said she was talking to a family member on the telephone and noticed that she had some slurring of her speech and she was not able to express what she wanted to express. I saw this patient immediately upon arrival and now at this time she is admits that she is much better. She did not notice any diplopia dysarthria or dysphagia. She does not have a headache. She did not notice any weakness of her trunk torso or extremities. The family has arrived after she had a CAT scan. The son was with her during this event and he says very emphatically that she did not have any slurring of her words he says that sometimes she can express what she wants to say. This is not a new phenomenon common she had a stroke in [place] approximately 4 to 5 years ago and occasionally has expressive aphasia. In fact that is what happened today the way he describes it and she concurs that she has had these episodes before. Related Data Home Medications ?Medication ?Instructions ?Recorded ?Confirmed alprazolam 0.25 mg tablet (Xanax) 0.25 mg PO TID 07/24/23 07/24/23 aripiprazole 2 mg tablet (Abilify) 2 mg PO DAILY 07/24/23 07/24/23 aspirin 325 mg capsule 325 mg PO DAILY 07/24/23 07/24/23 atorvastatin 20 mg tablet 20 mg PO DAILY 07/24/23 07/24/23 carvedilol 3.125 mg tablet 3.125 mg PO BID 07/24/23 07/24/23 escitalopram oxalate 20 mg tablet 20 mg PO BID 07/24/23 07/24/23 (Lexapro) etodolac 400 mg tablet (Lodine) 400 mg PO Q12H PRN pain 07/24/23 07/24/23 gabapentin 800 mg tablet 800 mg PO TID 07/24/23 07/24/23 lisinopril 10 mg tablet 10 mg PO DAILY 07/24/23 07/24/23 metformin 500 mg tablet 500 mg PO TID 07/24/23 07/24/23 pantoprazole 40 mg granules 40 mg PO DAILY 07/24/23 07/24/23 delayed-release for susp in packet (Protonix) potassium 20 mg chewable tablet 20 mg PO .QD 07/24/23 07/24/23 spironolactone 25 mg tablet 25 mg PO DAILY 07/24/23 07/24/23 tizanidine 4 mg capsule (Zanaflex) 4 mg PO TID PRN muscle spasticity 07/24/23 07/24/23 Allergies Allergy/AdvReac Type Severity Reaction Status Date / Time codeine Allergy Mild Verified 07/24/23 14:14 morphine Allergy Mild Verified 07/24/23 14:14 nalbuphine [From Nubain] AdvReac Mild Verified 07/24/23 14:14 [facility] Medical History (Updated 08/08/23 @ 13:00 by José Miguel Shultz MD) Low back pain ?M54.50 - Low back pain, unspecified (ICD-10) Osteoarthritis ?M19.90 - Unspecified osteoarthritis, unspecified site (ICD-10) Heartburn ?R12 - Heartburn (ICD-10) Acid reflux ?K21.9 - Gastro-esophageal reflux disease without esophagitis (ICD-10) Diabetes ?E11.9 - Type 2 diabetes mellitus without complications (ICD-10) Past heart attack ?I25.2 - Old myocardial infarction (ICD-10) Hypertension ?I10 - Essential (primary) hypertension (ICD-10) High cholesterol ?E78.00 - Pure hypercholesterolemia, unspecified (ICD-10) Surgical History (Updated 08/08/23 @ 09:52 by Kassidy Macias) History of total knee replacement ?Z96.659 - Presence of unspecified artificial knee joint (ICD-10) H/O shoulder surgery ?Z98.890 - Other specified postprocedural states (ICD-10) History of lumbar surgery ?Z98.890 - Other specified postprocedural states (ICD-10) History of hysterectomy ?Z90.710 - Acquired absence of both cervix and uterus (ICD-10) Exam Narrative Exam Narrative: Patient was seen on arrival and is awake and alert following all commands. She is not repeating herself. She has no headache. Vital signs are noted. Based on her history a CT was ordered immediately without delay. It was put on the stroke protocol. It was read in a timely fashion and is negative for any acute process Examination here initially showed her GCS to be 15. She acknowledges that she has no difficulty with her speech or expressing herself at this time. The NIH score is 0. Cognition is normal. Her lungs were clear there is no respiratory distress. Heart rate and rhythm were normal. Skin is warm and dry mucous membranes are moist and pink. Constitutional Vital Signs, click to edit/add: Last Vital Signs Temp 98.1 F 08/08/23 11:26 Pulse 74 08/08/23 11:26 Resp 18 08/08/23 11:26 BP 181/90 H 08/08/23 11:26 Pulse Ox 98 08/08/23 11:38 O2 Del Method Room Air 08/08/23 11:38 Course Vital Signs Vital signs: Vital Signs Temperature 98.1 F 08/08/23 11:26 Pulse Rate 74 08/08/23 11:26 Respiratory Rate 18 08/08/23 11:26 Blood Pressure 181/90 H 08/08/23 11:26 Pulse Oximetry 95 08/08/23 11:26 Oxygen Delivery Method Room Air 08/08/23 11:26 Temperature 98.1 F 08/08/23 11:26 Pulse Rate 74 08/08/23 11:26 Respiratory Rate 18 08/08/23 11:26 Blood Pressure 181/90 H 08/08/23 11:26 Pulse Oximetry 98 08/08/23 11:38 Oxygen Delivery Method Room Air 08/08/23 11:38 MDM - Neuro Symptoms/Deficit MDM Narrative Medical decision making narrative: This patient presents with what appears to be a recurring episode of expressive aphasia that was transient. It does not appear to be an acute neurological deficit today. I did speak with primary care doctor she will see her on and do a carotid ultrasound. Additionally they will look into the decreasing levels of sodium. This was explained to the patient and she will make the follow-up appointment. CT angiography of the head was not advised at this time. Lab Data Labs: Lab Results 08/08/23 08/08/23 Range/Units 11:30 11:40 WBC 15.9 H (4.0-11.0) 10^3/uL RBC 4.28 (4.20-5.40) 10^6/uL Hgb 12.6 (12.0-16.0) g/dL Hct 37.5 (36.0-48.0) % MCV 87.6 (81.0-99.0) fL MCH 29.4 (26.7-34.0) pg MCHC 33.6 (29.9-35.2) g/dL RDW 13.1 (11.0-15.0) % Plt Count 261 (150-450) 10^3/uL MPV 10.6 (9.5-13.5) fL Neut % (Auto) 64.0 (43.0-75.0) % Lymph % (Auto) 28.9 (20.5-60.0) % [place] % (Auto) 6.0 (1.7-12.0) % Eos % (Auto) 0.3 L (0.9-7.0) % Baso % (Auto) 0.4 (0.2-2.0) % Neut # (Auto) 10.2 H (1.4-6.5) 10^3/uL Lymph # (Auto) 4.6 H (1.2-3.8) 10^3/uL [place] # (Auto) 1.0 H (0.3-0.8) 10^3/uL Eos # (Auto) 0.0 (0.0-0.7) 10^3/uL Baso # (Auto) 0.1 (0.0-0.1) 10^3/uL Abs Immat Gran (auto) 0.06 H (0.00-0.03) 10^3/uL Imm/Tot Granulo (auto) 0.4 (0.0-0.5) % PT 10.9 (9.0-11.6) sec INR 1.03 Sodium 124 L* (136-145) mmol/L Potassium 4.1 (3.5-5.1) mmol/L Chloride 89 L (98-107) mmol/L Carbon Dioxide 21.5 (21.0-32.0) mmol/L Anion Gap 17.6 BUN 11.0 (7.0-18.0) mg/dL Creatinine 1.19 H (0.55-1.02) mg/dL Est GFR ( Amer) 55 L (>=60) Est GFR (Non-Af Amer) 45 L (>=60) BUN/Creatinine Ratio 9.2 Glucose 110 H (74-106) mg/dL Calcium 9.8 (8.5-10.1) mg/dL Total Bilirubin 0.6 (0.2-1.0) mg/dL AST 25 (15-37) U/L ALT 21 (14-59) U/L Alkaline Phosphatase 99 (46-116) U/L Troponin I High Sens 6.4 (4.0-51.3) pg/mL Total Protein 8.7 H (6.4-8.2) g/dL Albumin 4.3 (3.4-5.0) g/dL Globulin 4.4 g/dL Albumin/Globulin Ratio 1.0 POC Glucose 106 (74-106) mg/dL Discharge Plan Discharge Stand Alone Forms: Portal Instructions Chief Complaint: Neuro Symptoms/Deficit Clinical Impression: Expressive aphasia, Disorder of electrolytes Patient Disposition: Home, Self-Care Time of Disposition Decision: 13:00 Prescriptions / Home Meds: No Action metformin 500 mg tablet 500 mg PO TID potassium 20 mg tablet,chewable 20 mg PO .QD escitalopram oxalate [Lexapro] 20 mg tablet 20 mg PO BID aspirin 325 mg capsule 325 mg PO DAILY aripiprazole [Abilify] 2 mg tablet 2 mg PO DAILY atorvastatin 20 mg tablet 20 mg PO DAILY pantoprazole [Protonix] [address] for susp in packet 40 mg PO DAILY carvedilol 3.125 mg tablet 3.125 mg PO BID Rx Instructions: must administer with a meal/food spironolactone 25 mg tablet 25 mg PO DAILY lisinopril 10 mg tablet 10 mg PO DAILY alprazolam [Xanax] 0.25 mg tablet 0.25 mg PO TID gabapentin 800 mg tablet 800 mg PO TID etodolac [Lodine] 400 mg tablet 400 mg PO Q12H PRN (Reason: pain) tizanidine [Zanaflex] 4 mg capsule 4 mg PO TID PRN (Reason: muscle spasticity) Print Language: Luxembourger Additional Instructions: Continue aspirin/follow-up with your doctor on /return any worrisome or different symptoms Referrals: Vanessa Baldwin MD [Primary Care Provider] - 1 week
[2023-08-08 11:36] LABS: Glucometer 106 mg/dL (74-106)
[2023-08-08 11:47] LABS: Basophils Absolute Auto 0.1 10^3/uL (0.0-0.1); Basophils Percent Auto 0.4 % (0.2-2.0); Eosinophils Percent Auto 0.3 % (0.9-7.0); Hematocrit 37.5 % (36.0-48.0); Hemoglobin 12.6 g/dL (12.0-16.0); Immature Granulocytes Abs Auto 0.06 10^3/uL (0.00-0.03); Immature Granulocytes Pct Auto 0.4 % (0.0-0.5); Lymphocytes Absolute Auto 4.6 10^3/uL (1.2-3.8); Lymphocytes Percent Auto 28.9 % (20.5-60.0); Mean Corpuscular HGB Conc 33.6 g/dL (29.9-35.2); Mean Corpuscular Hemoglobin 29.4 pg (26.7-34.0); Mean Corpuscular Volume 87.6 fL (81.0-99.0); Mean Platelet Volume 10.6 fL (9.5-13.5); Neutrophils Absolute Auto 10.2 10^3/uL (1.4-6.5); Platelet Count 261 10^3/uL (150-450); Red Blood Count 4.28 10^6/uL (4.20-5.40); Red Cell Distribution Width 13.1 % (11.0-15.0); White Blood Count 15.9 10^3/uL (4.0-11.0)
[2023-08-08 12:03] LABS: Alanine Aminotransferase 21 U/L (14-59); Albumin Level 4.3 g/dL (3.4-5.0); Alkaline Phosphatase 99 U/L (46-116); Anion Gap 17.6; Aspartate Amino Transferase 25 U/L (15-37); BUN Creatinine Ratio 9.2; Bilirubin Total 0.6 mg/dL (0.2-1.0); Calcium 9.8 mg/dL (8.5-10.1); Carbon Dioxide 21.5 mmol/L (21.0-32.0); Chloride 89 mmol/L (98-107); Estimated GFR (African America 55 (>=60); Estimated GFR (Non-African Ame 45 (>=60); Glucose 110 mg/dL (74-106); Potassium 4.1 mmol/L (3.5-5.1); Total Protein 8.7 g/dL (6.4-8.2); Troponin I High Sensitivity 6.4 pg/mL (4.0-51.3)
[2023-08-08 12:04] LABS: Globulin 4.4 g/dL
[2023-08-08 12:05] LABS: Sodium 124 mmol/L (136-145)
[2023-08-08 12:12] LABS: INR 1.03; Prothrombin Time 10.9 sec (9.0-11.6)
--- NOTE | 2023-08-08 13:20 | ECG_ITS ---
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
== END 2023-08-08 13:17 | disposition home or self-care (01) ==
PROVIDERS: Emergency Provider Emergency Medicine Emergency Medical Services; Family Provider Internal Medicine; PCP Family Medicine
DX: E87.8 Other disorders of electrolyte and fluid balance, not elsewhere classified (principal); R47.01 Aphasia; E11.9 Type 2 diabetes mellitus without complications; Z79.82 Long term (current) use of aspirin; Z79.899 Other long term (current) drug therapy; Z79.84 Long term (current) use of oral hypoglycemic drugs; M19.90 Unspecified osteoarthritis, unspecified site; R12 Heartburn; K21.9 Gastro-esophageal reflux disease without esophagitis; I25.2 Old myocardial infarction; I10 Essential (primary) hypertension; E78.00 Pure hypercholesterolemia, unspecified; Z96.659 Presence of unspecified artificial knee joint; Z90.710 Acquired absence of both cervix and uterus; Z86.73 Personal history of transient ischemic attack (TIA), and cerebral infarction without residual deficits
CPT/HCPCS: 36415; 70450; 80053; 84484; 85025; 85610; 93005; 99285

== ENCOUNTER 2023-08-16 14:15 | Outpatient (OUT) | payer MEDICARE, SELFPAY ==
--- NOTE | 2023-08-16 | XR_ITS ---
[address] [address] Patient Name: HOLLIE WEBER MRN: [id number] date: 1955 Sex: F Assigned Patient Location: Current Patient Location: Accession/Order Number: [id number] Exam Date: 08/16/2023 14:17 Report Date: 08/16/2023 15:17 At the request of: ANSELMO GUAJARDO Procedure: XR foot MARIANNE min 3V EXAMINATION: XR foot MARIANNE min 3V HISTORY: BILATERAL FOOT PAIN COMPARISON: No relevant comparison available. FINDINGS: RIGHT FINDINGS: BONES: No acute fracture or dislocation. Moderate enthesopathic spurring of the calcaneus. Mild to moderate degenerative changes with joint space narrowing and marginal osteophyte formation SOFT TISSUES: Negative. No visible soft tissue swelling. OTHER: Negative. LEFT FINDINGS: BONES: No acute fracture or dislocation. Moderate enthesopathic spurring of the calcaneus. Mild to moderate degenerative changes with joint space narrowing and marginal osteophyte formation SOFT TISSUES: Negative. No visible soft tissue swelling. OTHER: Negative. XR/XR foot MARIANNE min 3V IMPRESSION: RIGHT CONCLUSION: Mild to moderate degenerative changes LEFT CONCLUSION: Mild to moderate degenerative changes Electronically authenticated by: KERVIN TRINIDAD Date: 08/16/2023 15:17
== END 2023-08-16 14:16 | disposition home or self-care (01) ==
LOC: EC 14:15
PROVIDERS: Family Provider Internal Medicine; PCP Family Medicine; Visit Provider Podiatrist Foot & Ankle Surgery
DX: M79.671 Pain in right foot (principal); M79.672 Pain in left foot
CPT/HCPCS: 73630

== ENCOUNTER 2023-08-28 10:18 | Day surgery (SDC) | payer MEDICARE, SELFPAY ==
--- OUTSIDE RECORDS SUMMARY | 2023-08-28 10:29 | XMS_ITS ---
Patient Summarization (C-CDA 2.1 CCD) Created on: August 28, 2023 Shireen Valverde : 1955 Sex: Female Author Organization Sample organization Care Team Providers Care Correctional Substance Abuse Counselor Name Role Phone Vanessa Baldwin Helena GUERRA, Maribell Art Attending Unavailable Allergies Allergy Classification Reported Allergen(s) Allergy Type Date of Onset Reaction(s) Facility (10 sources) Codeine Drug Allergy 4 [facility] (10 sources) Morphine Drug Allergy 4 [facility] (9 sources) Nalbuphine Drug Allergy Hallucinated [facility] Other (1 source) Nalbuphine Drug Allergy 4 [facility] Encounters Encounter Date Encounter Type Care Provider Facility Start: 07-24-2023 End: 07-25-2023 ambulatory Maribell Malik MD Facility:[facility] Start: 07-10-2023 End: 07-10-2023 ambulatory [facility] Work Phone: Start: 07-10-2023 End: 07-10-2023 Patient encounter procedure [facility] Work Phone: Start: 05-30-2023 End: 05-30-2023 Patient encounter procedure [facility] Work Phone: Start: 05-02-2023 End: 05-02-2023 ambulatory Vanessa Baldwin Other [facility] Other Start: 05-02-2023 Telephone encounter Vanessa Baldwin [employer] Start: 04-24-2023 End: 04-24-2023 ambulatory Vanessa Baldwin Other [facility] Other Start: 04-24-2023 Telephone encounter Vanessa Baldwin [facility] Start: 04-10-2023 End: 04-10-2023 ambulatory Vanessa Baldwin Other [facility] Other Start: 04-10-2023 Office outpatient visit 15 minutes Vanessa Baldwin [facility] Start: 04-03-2023 End: 04-03-2023 ambulatory Vanessa Baldwin Other [facility] Other Start: 04-03-2023 Telephone encounter Vanessa Baldwin [facility] Start: 03-06-2023 End: 03-06-2023 ambulatory Vanessa Nicolasa Other [facility] Other Start: 03-06-2023 Telephone encounter Vanessa Baldwin [facility] Start: 02-02-2023 End: 02-02-2023 ambulatory Vanessa Nicolasa Other [facility] Other Start: 02-02-2023 Telephone encounter Vanessa Baldwin [facility] Start: 01-24-2023 End: 01-24-2023 ambulatory Vanessa Baldwin Other [facility] Other Start: 01-24-2023 Office outpatient visit 15 minutes Vanessa Baldwin [facility] Start: 01-17-2023 End: 01-17-2023 ambulatory Vanessa Baldwin Other [facility] Other Start: 01-17-2023 Office outpatient ne w 45 minutes Vanessa Nicolasa [facility] Immunizations Immunization Date Immunization Notes Care Provider Fa cility 04-10-2023 influenza, high dose seasonal, preservative-free Vanessa Nicolasa Other [facility] Other 04-10-2023 influenza virus vaccine, unspecified formulation [facility] Medications Current Medications Medication Drug Class(es) [...] a day take 2 tablets by mo [facility] every twenty-four hours metFORMIN HCl 500 MG [...] tablet by mela th every twenty-four hours Klor-Con M20 20 MEQ 1 tablet with food Orally Once a day for 90 days Active spironolactone 25 mg oral tablet (10 sources) Aldosterone Antagonist Start: 05-29-2023 take 25 mg by mouth once daily Spironolactone Active 25 MG PO Daily May 29, 2023 1:00am take 1 tablet by mela th every twenty-four hours Spironolactone 25 MG 1 [...] May 30, 2023 2:13pm 0.5mg Subcutaneous weekly Payers Date Payer Category Payer Private Health Insurance 1955 Unknown [id number] Private Health Insurance [id number] Problems Active Problems Problem Classification Problem Date Documented Da te Episodic/Chronic Anxiety disorders (13 sources) Anxiety; Translations: [Anxiety disorder, unspecified] Chronic Coronary atherosclerosis and other heart disease (10 sources) Coronary arteriosclerosis; Translations: [Atherosclerotic heart disease of [place] coronary artery without angina pectoris] Chronic Diabetes [...] Basophils (Bld) [#/Vol] 0.1 10 3/uL 0.0-0.1 [facility] Basophils/100 WBC Auto (Bld) on 05-30-2023 Basophils/100 WBC (Bld) 0.8 % 0.2-2.0 [facility] Eosinophils/100 WBC Auto (Bl d)on 05-30-2023 Eosinophils/100 WBC (Bld) 0.0 % 0.9-7.0 [facility] Erythrocyte distribution wid th Auto (RBC) [Ratio]on 05-30-2023 Erythrocyte distribution width (RBC) [Ratio] 12.6 % 11.0-15.0 [facility] Glucose mean value [Mass/vol ume] in Blood Estimated from glycated hemoglobinon 05-30-2023 Average glucose Estimated from glycated hemoglobin (Bld) [Mass/Vol] 283 mg/dL [facility] Hematocrit Auto (Bld) [Volum e fraction]on 05-30-2023 Hematocrit (Bld) [Volume fraction] 36.6 % 36.0-48.0 [facility] Hemoglobin [Mass/volume] in Bloodon 05-30-2023 Hemoglobin (Bld) [Mass/Vol] 12.0 g/dL 12.0-16.0 [facility] Laboratory - Hematology and Cell countson 05-30-2023 HbA1c (Bld) [Mass fraction] 11.5 % 4.5-6.2 [facility] Comment on above: ADA RECOMMENDED LIMI T 4.0 - 6.0ADA THERAPEUTIC TARGET < 7.0ACTION SUGGESTED> 7.0 Immature granulocytes/100 WBC (Bld) 0.5 % 0.0-0.5 [facility] Leukocytes [#/volume] correc krysta for nucleated erythrocytes in Blood by Automated counon 05-30-2023 WBC corrected for nucl RBC Auto (Bld) [#/Vol] 14.3 10 3/uL 4.0-11.0 [facility] Lymphocytes Auto (Bld) [#/Vo l]on 05-30-2023 Lymphocytes (Bld) [#/Vol] 3.6 10 3/uL 1.2-3.8 [facility] Lymphocytes/100 WBC Auto (Bl d)on 05-30-2023 Lymphocytes/100 WBC (Bld) 25.1 % 20.5-60.0 [facility] MCH Auto (RBC) [Entitic mass ]on 05-30-2023 MCH (RBC) [Entitic mass] 29.7 pg 26.7-34.0 [facility] MCHC Auto (RBC) [Mass/Vol]on 05-30-2023 MCHC (RBC) [Mass/Vol] 32.8 g/dL 29.9-35.2 [facility] MCV Auto (RBC) [Entitic vol] on 05-30-2023 MCV (RBC) [Entitic vol] 90.6 fL 81.0-99.0 [facility] Monocytes Auto (Bld) [#/Vol] on 05-30-2023 Monocytes (Bld) [#/Vol] 0.9 10 3/uL 0.3-0.8 [facility] Monocytes/100 WBC Auto (Bld) on 05-30-2023 Monocytes/100 WBC (Bld) 6.0 % 1.7-12.0 [facility] Neutrophils Auto (Bld) [#/Vo l]on 05-30-2023 Neutrophils (Bld) [#/Vol] 9.7 10 3/uL 1.4-6.5 [facility] Neutrophils/100 WBC Auto (Bl d)on 05-30-2023 Neutrophils/100 WBC (Bld) 67.6 % 43.0-75.0 [facility] No Panel Informationon 05-29 Eosinophils # (Auto) 0.0 10 3/uL 0.0-0.7 [facility] Immature Granulocyte # (Auto) 0.07 10 3/uL 0.00-0.03 [facility] Platelet mean volume Auto (B ld) [Entitic vol]on 05-30-2023 Platelet mean volume (Bld) [Entitic vol] 10.9 fL 9.5-13.5 [facility] Platelets Auto (Bld) [#/Vol] on 05-30-2023 Platelets (Bld) [#/Vol] 242 10 3/uL 150-450 [facility] RBC Auto (Bld) [#/Vol]on RBC (Bld) [#/Vol] 4.04 10 6/uL 4.20-5.40 [facility] Social History Date Type Detail Facility Start: 05-29-2023 Tobacco smoking status NHIS Ex-smoker (finding) [facility] Start: 1955 Sex Assigned At Female F [facility] Unknown if ever smoked [facility] [employer] Other Sex Assigned At Sex Assigned At Bir th [facility] Other Vital Signs Date Time Vital Sign Value Performing Clinician Facility 07-10-2023 11:10-0400 Body height 162.56 cm [facility] 07-10-2023 11:10-0400 Body mass index (BMI) [Ratio] 40.6 kg/m2 [facility] 07-10-2023 11:10-0400 Body weight 107.27 kg [facility] 07-10-2023 11:10-0400 Diastolic blood pressure 76 mm[Hg] [facility] 07-10-2023 11:10-0400 Heart rate 77 /min [facility] 07-10-2023 11:10-0400 Systolic blood pressure 115 mm[Hg] [facility] 05-30-2023 13:03-0500 Body height 162.56 cm [facility] 05-30-2023 13:03-0500 Body mass index (BMI) [Ratio] 40.8 kg/m2 [facility] 05-30-2023 13:03-0500 Body weight 108.12 kg [facility] 05-30-2023 13:03-0500 Diastolic blood pressure 80 mm[Hg] [facility] 05-30-2023 13:03-0500 Heart rate 90 /min [facility] 05-30-2023 13:03-0500 SaO2% (BldA) [Mass fraction] 97 % [facility] 05-30-2023 13:03-0500 Systolic blood pressure 126 mm[Hg] [facility] 04-10-2023 11:15-0500 Body height 162.56 cm Vanessa Baldwin Other [facility] Other 04-10-2023 11:15-0500 Body mass index (BMI) [Ratio] 40.16 kg/m2 Vanessa Baldwin Other [facility] [employer] Other 04-10-2023 11:15-0500 Body weight 106.14 kg Vanessa Baldwin Other [facility] Other 04-10-2023 11:15-0500 Diastolic blood pressure 84 mm[Hg] Vanessa Baldwin Other [facility] Other 04-10-2023 11:15-0500 SaO2% (BldA) [Mass fraction] 95 % Vanessa Baldwin Other [facility] Other 04-10-2023 11:15-0500 Systolic blood pressure 126 mm[Hg] Vanessa Baldwin Other [facility] Other 01-24-2023 11:15-0400 Body height 162.56 cm Vanessa Baldwin Other [facility] Other 01-24-2023 11:15-0400 Body mass index (BMI) [Ratio] 39.37 kg/m2 Vanessa Baldwin Other [facility] Other 01-24-2023 11:15-0400 Body weight 104.06 kg Vanessa Baldwin Other [facility] Other 01-24-2023 11:15-0400 Diastolic blood pressure 74 mm[Hg] Vanessa Baldwin Other [facility] Other 01-24-2023 11:15-0400 Systolic blood pressure 112 mm[Hg] Vanessa Baldwin Other [facility] Other 01-17-2023 10:30-0400 Body height 162.56 cm Vanessa Baldwin Other [facility] Other 01-17-2023 10:30-0400 Body mass index (BMI) [Ratio] 39.82 kg/m2 Vanessa Baldwin Other [facility] Other 01-17-2023 10:30-0400 Body weight 105.24 kg Vanessa Baldwin Other [facility] Other 01-17-2023 10:30-0400 Diastolic blood pressure 64 mm[Hg] Vanessa Baldwin Other [facility] Other 01-17-2023 10:30-0400 Systolic blood pressure 100 mm[Hg] Vanessa Baldwin Other [facility] Other Evaluation note 04-10-2023 Note Date & [...] symptoms. Any developing patterns. Stay well hydrated. [facility] Other Evaluation note 02-02-2023 Note Date & Type Note Facility 02-02-2023 Evaluation note Encounter Date Diagnosis Assessment Notes Jan, Type 2 diabetes mellitus with hyperglycemia , without long-term current use of insulin (ICD-10 - E11.65) [facility] Other Evaluation note 01-24-2023 Note Date & [...] A1C7.0. Cholesterol well controlled. Continue present meds. [facility] Other Evaluation note 01-17-2023 Note Date & Type Note Facility 01-17-2023 Evaluation note Encounter Date Diagnosis Assessment Notes Dec, Essential (primary) hypertension (ICD-10 - I10) Refilled meds for chronic problems Dec, Type 2 diabetes mellitus with hyperglycemia, without long-term current use of insulin (ICD-10 - E11.65) Check labs today diabetic eye exam annually Dec, Coronary artery disease involving [place] coronary artery of [place] heart without angina pectoris (ICD-10 - I25.10) Pt agrees to referral to get established with a local sales clerk food. Dec, Anxiety (ICD-10 - F41.9) pt states her chronic problem is controlled w xanax tid and lexapro Dec, GERD without esophagitis (ICD-10 - K21.9) refilled med for chronic problem Dec, Screening mammogram for breast cancer (ICD-10 - Z12.31) Dec, Personal history of nicotine dependence (ICD-10 - Z87.891) [facility] Other Evaluation note Note Date & Type Note Facility Evaluation note No Information [facility] Other Evaluation note Note Date & Type Note Facility Evaluation note Diagnosis Onset Date Anxiety acute [id number] acute [facility] Work Phone: History general Narrative - Reported Note Date & Type Note Facility History general Narrative - Reported Type Medical History Hypertention Medical History Diabetes Medical History Neuropathy Medical History Heart Attack Surgical History Hysterectomy Surgical History Back surgery Surgical History Right CTR Surgical History Bilateral shoulder surgery Surgical History Heart Stents X2 Surgical History Left TKR [facility] Other History general Narrative - Reported Note Date & Type Note Facility History general Narrative - Reported Type Medical History Hypertention Medical History Diabetes Medical History Neuropathy Medical History Heart Attack Medical History GERD Surgical History Hysterectomy Surgical History Back surgery Surgical History Right CTR Surgical History Bilateral shoulder surgery Surgical History Heart Stents X2 Surgical History Left TKR [facility] Other Reason for Referral Reason *Waiting for appt Get established, has stents, moved from [place]. Had [place] in 2015 Diagnosis 1 Coronary artery dise ase involving [place] coronary artery of [place] heart without angina pectoris (I25.10) Referral Organization [facility] Darrin mnotero Referring Provider First Name Vanessa Referring Provider Last Name Nicolasa Referring Provider Specialty Family [facility] Referred Organization [facility] Cardiology Referred Provider Christal Pacheco Referred Address [address],[place], [id number] Referred Provider Specialty Cardiovascul ar Disease Referral Priority Routine General Notes Radha Baker 02:31:53 PM >received today, sent P2P. pt may need to fill out a records release form to have old records sent to us Chief Complaint and Reason for Visit Chief Complaint weightloss 3 MONTH CHECK UP Reason for Visit Anxiety [id number] Family History No Family History Records Found [...] section and content) DATE CREATED AUTHOR 07/26/2023 [facility] FOR RECORDS PERTAINING TO PATIENTS WHO ARE [...] BE BASED ON THE PRIMARY CLINICAL RECORDS. [employer] provides no warranty or guarantee of the accuracy or completeness of information in this document.
[2023-08-28 11:00] VITALS: BP 119/71; PULSE 68; TEMP 36.7; O2SAT 96
[2023-08-28 11:02] LABS: Glucometer 104 mg/dL (74-106)
[2023-08-28 11:26] VITALS: PULSE 69; O2SAT 96
[2023-08-28] MEDS: BUPIVACAINE HCL 0.25% PF 25 MG/10 ML VIAL INJ (11:26)
[2023-08-28] MEDS: LIDOCAINE HCL 2% PF 100 MG/5 ML VIAL INJ (11:27)
[2023-08-28 11:30] VITALS: BP 159/71; BP 170/73; PULSE 66; O2SAT 92
--- NOTE | 2023-08-28 11:30 | W.PM.PROCNOT ---
Date of procedure: 08/28/23 Pre-op diagnosis: Lumbar spondylosis Post-op diagnosis: same as pre-op Procedure: Procedure: Bilateral L1-2, L2-3 medial branch block Medications: Bupivacaine 0.25% 6cc The patient was seen and examined in the preoperative holding area.? An informed consent was obtained and placed on the chart.? The patient was brought to the medical procedure unit and placed in the prone position.? A timeout was completed verifying correct patient, procedure site, positioning, plan, and special equipment.? Using aseptic technique, the needle was placed at left L1. Under direct fluoroscopic visualization a Quincke-tipped spinal needle was advanced to the junction of the superior articulating process with the transverse process at the designated medial branch segment.? Preceded by negative aspiration, the above-mentioned injectate was placed in 1 mL aliquots.? The procedure was repeated at left L2, 3.? The needle was removed and insertion site was covered. The same procedure, at the same levels, was completed on the right side. The patient was taken to the postprocedural recovery area and monitored for an appropriate length of time before found suitable for discharge in the company of a responsible adult. Anesthesia: Local Surgeon: Maribell Malik Pathology: none sent Condition: stable Disposition: no change
== END 2023-08-28 11:34 | disposition home or self-care (01) ==
LOC: SURGOUT 10:19
PROVIDERS: Family Provider Internal Medicine; PCP Family Medicine; Visit Provider Anesthesiology
DX: M47.816 Spondylosis without myelopathy or radiculopathy, lumbar region (principal); Z79.84 Long term (current) use of oral hypoglycemic drugs
CPT/HCPCS: 36415; 64493; 64494; 82948

== ENCOUNTER 2023-08-30 09:58 | Outpatient (OUT) | payer MEDICARE, SELFPAY ==
--- OUTSIDE RECORDS SUMMARY | 2023-08-30 10:11 | XMS_ITS ---
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 Name Role Phone Vanessa Baldwin Helena GUERRA, Maribell Art Attending Unavailable Allergies Allergy Classification Reported Allergen(s) Allergy Type Date of Onset Reaction(s) Facility (10 sources) Codeine Drug Allergy 4 [facility] (10 sources) Morphine Drug Allergy 4 [facility] (9 sources) Nalbuphine Drug Allergy Hallucinated [facility] Other (1 source) Nalbuphine Drug Allergy 4 [facility] Encounters Encounter Date Encounter Type Care Provider Facility Start: 07-24-2023 End: 07-25-2023 ambulatory Maribell Malik MD Facility:[facility] Start: 07-10-2023 End: 07-10-2023 ambulatory [facility] Work Phone: Start: 07-10-2023 End: 07-10-2023 Patient encounter procedure [facility] Work Phone: Start: 05-30-2023 End: 05-30-2023 Patient encounter procedure [facility] Work Phone: Start: 05-02-2023 End: 05-02-2023 ambulatory Vanessa Baldwin Other [facility] Other Start: 05-02-2023 Telephone encounter Vanessa Baldwin [employer] Start: 04-24-2023 End: 04-24-2023 ambulatory Vanessa Baldwin Other [facility] Other Start: 04-24-2023 Telephone encounter Vanessa Baldwin [facility] Start: 04-10-2023 End: 04-10-2023 ambulatory Vanessa Baldwin Other [facility] Other Start: 04-10-2023 Office outpatient visit 15 minutes Vanessa Baldwin [facility] Start: 04-03-2023 End: 04-03-2023 ambulatory Vanessa Baldwin Other [facility] Other Start: 04-03-2023 Telephone encounter Vanessa Baldwin [facility] Start: 03-06-2023 End: 03-06-2023 ambulatory Vanessa Nicolasa Other [facility] Other Start: 03-06-2023 Telephone encounter Vanessa Baldwin [facility] Start: 02-02-2023 End: 02-02-2023 ambulatory Vanessa Nicolasa Other [facility] Other Start: 02-02-2023 Telephone encounter Vanessa Baldwin [facility] Start: 01-24-2023 End: 01-24-2023 ambulatory Vanessa Baldwin Other [facility] Other Start: 01-24-2023 Office outpatient visit 15 minutes Vanessa Baldwin [facility] Start: 01-17-2023 End: 01-17-2023 ambulatory Vanessa Baldwin Other [facility] Other Start: 01-17-2023 Office outpatient ne w 45 minutes Vanessa Nicolasa [facility] Immunizations Immunization Date Immunization Notes Care Provider Fa cility 04-10-2023 influenza, high dose seasonal, preservative-free Vanessa Nicolasa Other [facility] Other 04-10-2023 influenza virus vaccine, unspecified formulation [facility] Medications Current Medications Medication Drug Class(es) Dates [...] a day take 2 tablets by mo [facility] every twenty-four hours metFORMIN HCl [...] Category Payer Private Health Insurance 1955 Unknown [id number] Private Health Insurance [id number] Problems Active Problems Problem Classification Problem Date Documented Da te Episodic/Chronic Anxiety disorders (13 sources) Anxiety; Translations: [Anxiety disorder, unspecified] Chronic Coronary atherosclerosis and other heart disease (10 sources) Coronary arteriosclerosis; Translations: [Atherosclerotic heart disease of [place] coronary artery without angina pectoris] Chronic Diabetes [...] Basophils (Bld) [#/Vol] 0.1 10 3/uL 0.0-0.1 [facility] Basophils/100 WBC Auto (Bld) on 05-30-2023 Basophils/100 WBC (Bld) 0.8 % 0.2-2.0 [facility] Eosinophils/100 WBC Auto (Bl d)on 05-30-2023 Eosinophils/100 WBC (Bld) 0.0 % 0.9-7.0 [facility] Erythrocyte distribution wid th Auto (RBC) [Ratio]on 05-30-2023 Erythrocyte distribution width (RBC) [Ratio] 12.6 % 11.0-15.0 [facility] Glucose mean value [Mass/vol ume] in Blood Estimated from glycated hemoglobinon 05-30-2023 Average glucose Estimated from glycated hemoglobin (Bld) [Mass/Vol] 283 mg/dL [facility] Hematocrit Auto (Bld) [Volum e fraction]on 05-30-2023 Hematocrit (Bld) [Volume fraction] 36.6 % 36.0-48.0 [facility] Hemoglobin [Mass/volume] in Bloodon 05-30-2023 Hemoglobin (Bld) [Mass/Vol] 12.0 g/dL 12.0-16.0 [facility] Laboratory - Hematology and Cell countson 05-30-2023 HbA1c (Bld) [Mass fraction] 11.5 % 4.5-6.2 [facility] Comment on above: ADA RECOMMENDED LIMI T 4.0 - 6.0ADA THERAPEUTIC TARGET < 7.0ACTION SUGGESTED> 7.0 Immature granulocytes/100 WBC (Bld) 0.5 % 0.0-0.5 [facility] Leukocytes [#/volume] correc krysta for nucleated erythrocytes in Blood by Automated counon 05-30-2023 WBC corrected for nucl RBC Auto (Bld) [#/Vol] 14.3 10 3/uL 4.0-11.0 [facility] Lymphocytes Auto (Bld) [#/Vo l]on 05-30-2023 Lymphocytes (Bld) [#/Vol] 3.6 10 3/uL 1.2-3.8 [facility] Lymphocytes/100 WBC Auto (Bl d)on 05-30-2023 Lymphocytes/100 WBC (Bld) 25.1 % 20.5-60.0 [facility] MCH Auto (RBC) [Entitic mass ]on 05-30-2023 MCH (RBC) [Entitic mass] 29.7 pg 26.7-34.0 [facility] MCHC Auto (RBC) [Mass/Vol]on 05-30-2023 MCHC (RBC) [Mass/Vol] 32.8 g/dL 29.9-35.2 [facility] MCV Auto (RBC) [Entitic vol] on 05-30-2023 MCV (RBC) [Entitic vol] 90.6 fL 81.0-99.0 [facility] Monocytes Auto (Bld) [#/Vol] on 05-30-2023 Monocytes (Bld) [#/Vol] 0.9 10 3/uL 0.3-0.8 [facility] Monocytes/100 WBC Auto (Bld) on 05-30-2023 Monocytes/100 WBC (Bld) 6.0 % 1.7-12.0 [facility] Neutrophils Auto (Bld) [#/Vo l]on 05-30-2023 Neutrophils (Bld) [#/Vol] 9.7 10 3/uL 1.4-6.5 [facility] Neutrophils/100 WBC Auto (Bl d)on 05-30-2023 Neutrophils/100 WBC (Bld) 67.6 % 43.0-75.0 [facility] No Panel Informationon 05-29 Eosinophils # (Auto) 0.0 10 3/uL 0.0-0.7 [facility] Immature Granulocyte # (Auto) 0.07 10 3/uL 0.00-0.03 [facility] Platelet mean volume Auto (B ld) [Entitic vol]on 05-30-2023 Platelet mean volume (Bld) [Entitic vol] 10.9 fL 9.5-13.5 [facility] Platelets Auto (Bld) [#/Vol] on 05-30-2023 Platelets (Bld) [#/Vol] 242 10 3/uL 150-450 [facility] RBC Auto (Bld) [#/Vol]on RBC (Bld) [#/Vol] 4.04 10 6/uL 4.20-5.40 [facility] Social History Date Type Detail Facility Start: 05-29-2023 Tobacco smoking status NHIS Ex-smoker (finding) [facility] Start: 1955 Sex Assigned At Female F [facility] Unknown if ever smoked [facility] [place] Other Sex Assigned At Sex Assigned At Bir th [facility] Other Vital Signs Date Time Vital Sign Value Performing Clinician Facility 07-10-2023 11:10-0400 Body height 162.56 cm [facility] 07-10-2023 11:10-0400 Body mass index (BMI) [Ratio] 40.6 kg/m2 [facility] 07-10-2023 11:10-0400 Body weight 107.27 kg [facility] 07-10-2023 11:10-0400 Diastolic blood pressure 76 mm[Hg] [facility] 07-10-2023 11:10-0400 Heart rate 77 /min [facility] 07-10-2023 11:10-0400 Systolic blood pressure 115 mm[Hg] [facility] 05-30-2023 13:03-0500 Body height 162.56 cm [facility] 05-30-2023 13:03-0500 Body mass index (BMI) [Ratio] 40.8 kg/m2 [facility] 05-30-2023 13:03-0500 Body weight 108.12 kg [facility] 05-30-2023 13:03-0500 Diastolic blood pressure 80 mm[Hg] [facility] 05-30-2023 13:03-0500 Heart rate 90 /min [facility] 05-30-2023 13:03-0500 SaO2% (BldA) [Mass fraction] 97 % [facility] 05-30-2023 13:03-0500 Systolic blood pressure 126 mm[Hg] [facility] 04-10-2023 11:15-0500 Body height 162.56 cm Vanessa Baldwin Other [facility] Other 04-10-2023 11:15-0500 Body mass index (BMI) [Ratio] 40.16 kg/m2 Vanessa Baldwin Other [facility] Other 04-10-2023 11:15-0500 Body weight 106.14 kg Vanessa Baldwin Other [facility] Other 04-10-2023 11:15-0500 Diastolic blood pressure 84 mm[Hg] Vanessa Baldwin Other [facility] Other 04-10-2023 11:15-0500 SaO2% (BldA) [Mass fraction] 95 % Vanessa Baldwin Other [facility] Other 04-10-2023 11:15-0500 Systolic blood pressure 126 mm[Hg] Vanessa Baldwin Other [facility] Other 01-24-2023 11:15-0400 Body height 162.56 cm Vanessa Baldwin Other [facility] Other 01-24-2023 11:15-0400 Body mass index (BMI) [Ratio] 39.37 kg/m2 Vanessa Baldwin Other [facility] Other 01-24-2023 11:15-0400 Body weight 104.06 kg Vanessa Baldwin Other [facility] Other 01-24-2023 11:15-0400 Diastolic blood pressure 74 mm[Hg] Vanessa Baldwin Other [facility] Other 01-24-2023 11:15-0400 Systolic blood pressure 112 mm[Hg] Vanessa Baldwin Other [facility] Other 01-17-2023 10:30-0400 Body height 162.56 cm Vanessa Baldwin Other [facility] Other 01-17-2023 10:30-0400 Body mass index (BMI) [Ratio] 39.82 kg/m2 Vanessa Baldwin Other [facility] Other 01-17-2023 10:30-0400 Body weight 105.24 kg Vanessa Baldwin Other [facility] Other 01-17-2023 10:30-0400 Diastolic blood pressure 64 mm[Hg] Vanessa Baldwin Other [facility] Other 01-17-2023 10:30-0400 Systolic blood pressure 100 mm[Hg] Vanessa Baldwin Other [facility] Other Evaluation note 04-10-2023 Note Date & [...] symptoms. Any developing patterns. Stay well hydrated. [facility] Other Evaluation note 02-02-2023 Note Date & Type Note Facility 02-02-2023 Evaluation note Encounter Date Diagnosis Assessment Notes Jan, Type 2 diabetes mellitus with hyperglycemia , without long-term current use of insulin (ICD-10 - E11.65) [facility] Other Evaluation note 01-24-2023 Note Date & [...] A1C7.0. Cholesterol well controlled. Continue present meds. [facility] Other Evaluation note 01-17-2023 Note Date & Type Note Facility 01-17-2023 Evaluation note Encounter Date Diagnosis Assessment Notes Dec, Essential (primary) hypertension (ICD-10 - I10) Refilled meds for chronic problems Dec, Type 2 diabetes mellitus with hyperglycemia, without long-term current use of insulin (ICD-10 - E11.65) Check labs today diabetic eye exam annually Dec, Coronary artery disease involving [place] coronary artery of [place] heart without angina pectoris (ICD-10 - I25.10) Pt agrees to referral to get established with a local director of hospitality. Dec, Anxiety (ICD-10 - F41.9) pt states her chronic problem is controlled w xanax tid and lexapro Dec, GERD without esophagitis (ICD-10 - K21.9) refilled med for chronic problem Dec, Screening mammogram for breast cancer (ICD-10 - Z12.31) Dec, Personal history of nicotine dependence (ICD-10 - Z87.891) [facility] Other Evaluation note Note Date & Type Note Facility Evaluation note No Information [facility] Other Evaluation note Note Date & Type Note Facility Evaluation note Diagnosis Onset Date Anxiety acute [id number] acute [facility] Work Phone: History general Narrative - Reported Note Date & Type Note Facility History general Narrative - Reported Type Medical History Hypertention Medical History Diabetes Medical History Neuropathy Medical History Heart Attack Surgical History Hysterectomy Surgical History Back surgery Surgical History Right CTR Surgical History Bilateral shoulder surgery Surgical History Heart Stents X2 Surgical History Left TKR [facility] Other History general Narrative - Reported Note Date & Type Note Facility History general Narrative - Reported Type Medical History Hypertention Medical History Diabetes Medical History Neuropathy Medical History Heart Attack Medical History GERD Surgical History Hysterectomy Surgical History Back surgery Surgical History Right CTR Surgical History Bilateral shoulder surgery Surgical History Heart Stents X2 Surgical History Left TKR [facility] Other Reason for Referral Reason *Waiting for appt Get established, has stents, moved from [place]. Had [place] in 2015 Diagnosis 1 Coronary artery dise ase involving [place] coronary artery of [place] heart without angina pectoris (I25.10) Referral Organization [facility] Darrin montero Referring Provider First Name Vanessa Referring Provider Last Name Nicolasa Referring Provider Specialty Family [facility] Referred Organization [facility] Cardiology Referred Provider Christal Pacheco Referred Address [address],[place], [place],[id number] Referred Provider Specialty Cardiovascul ar Disease Referral Priority Routine General Notes Radha Baker 02:31:53 PM >received today, sent P2P. pt may need to fill out a records release form to have old records sent to us Chief Complaint and Reason for Visit Chief Complaint weightloss 3 MONTH CHECK UP Reason for Visit Anxiety [id number] Family History No Family History Records Found [...] section and content) DATE CREATED AUTHOR 07/26/2023 [facility] FOR RECORDS PERTAINING TO PATIENTS WHO ARE [...] BE BASED ON THE PRIMARY CLINICAL RECORDS. [employer] provides no warranty or guarantee of the accuracy or completeness of information in this document.
--- NOTE | 2023-08-30 10:48 | P.CN_ITS ---
Consult Note: HPI Data of Consult Patient: known to practice within the last 3 years Consult date: 07/24/23 Requesting Physician: Lucy Mccallum NP Primary Care Provider: Vanessa Baldwin MD Family Provider: Shai Abdalla, Consult Narrative Reason for consult: low back pain Narrative: 67yof who presents for evaluation. longstanding low back pain, had lumbar fusion 16 years ago in [place]. has completed PT and engages in series of provider directed home exercises >6 weeks, without benefit. utilizes gabapentin, xanax, lodine, zanaflex. denies adverse med side effects. Lumbar MRI completed results below. Patient reports pain 8/10 increasing to 10/10 with standing and activity, pain most significant in low back. Recently underwent bilateral L1-2 L2-3 MBB #1 with greater than 80% improvement in low back pain and functional ability immediately following and hours after. cc:: CC: Lucy Mccallum NP Review of Systems ROS Status of ROS 10 or more systems reviewed and unremark able except as noted in history and below Musculoskeletal Reports: back pain PFSH PFSH Medical History (Updated 08/08/23 @ 13:00 by José Miguel Shultz MD) Low back pain ?M54.50 - Low back pain, unspecified (ICD-10) Osteoarthritis ?M19.90 - Unspecified osteoarthritis, unspecified site (ICD-10) Heartburn ?R12 - Heartburn (ICD-10) Acid reflux ?K21.9 - Gastro-esophageal reflux disease without esophagitis (ICD-10) Diabetes ?E11.9 - Type 2 diabetes mellitus without complications (ICD-10) Past heart attack ?I25.2 - Old myocardial infarction (ICD-10) Hypertension ?I10 - Essential (primary) hypertension (ICD-10) High cholesterol ?E78.00 - Pure hypercholesterolemia, unspecified (ICD-10) Surgical History History of total knee replacement ?Z96.659 - Presence of unspecified artificial knee joint (ICD-10) H/O shoulder surgery ?Z98.890 - Other specified postprocedural states (ICD-10) History of lumbar surgery ?Z98.890 - Other specified postprocedural states (ICD-10) History of hysterectomy ?Z90.710 - Acquired absence of both cervix and uterus (ICD-10) Meds Home Medications and Allergies Home Medications ?Medication ?Instructions ?Recorded ?Confirmed ?Type alprazolam 0.25 mg tablet (Xanax) 0.25 mg PO TID 07/24/23 08/28/23 History aripiprazole 2 mg tablet (Abilify) 2 mg PO DAILY 07/24/23 08/28/23 History aspirin 325 mg capsule 325 mg PO DAILY 07/24/23 08/28/23 History atorvastatin 20 mg tablet 20 mg PO DAILY 07/24/23 08/28/23 History carvedilol 3.125 mg tablet 3.125 mg PO BID 07/24/23 08/28/23 History escitalopram oxalate 20 mg tablet 20 mg PO BID 07/24/23 08/28/23 History (Lexapro) etodolac 400 mg tablet (Lodine) 400 mg PO Q12H PRN pain 07/24/23 08/28/23 History gabapentin 800 mg tablet 800 mg PO TID 07/24/23 08/28/23 History lisinopril 10 mg tablet 10 mg PO DAILY 07/24/23 08/28/23 History metformin 500 mg tablet 500 mg PO TID 07/24/23 08/28/23 History pantoprazole 40 mg granules 40 mg PO DAILY 07/24/23 08/28/23 History delayed-release for susp in packet (Protonix) potassium 20 mg chewable tablet 20 mg PO .QD 07/24/23 08/28/23 History spironolactone 25 mg tablet 25 mg PO DAILY 07/24/23 08/28/23 History tizanidine 4 mg capsule (Zanaflex) 4 mg PO TID PRN muscle spasticity 07/24/23 08/28/23 History Allergies Allergy/AdvReac Type Severity Reaction Status Date / Time codeine Allergy Mild Verified 08/28/23 10:57 morphine Allergy Mild Verified 08/28/23 10:57 nalbuphine [From Nubain] AdvReac Mild Verified 08/28/23 10:57 Exam Constitutional Documenting provider has reviewed patient's vital signs: yes Common normals: no apparent distress, oriented x3, healthy appearing, alert and well nourished General appearance: cooperative HENMT Common normals: normocephalic, hearing grossly normal bilaterally and moist oral mucous membranes Head and scalp: normocephalic Eye Common normals: PERRL Pupil: PERRL Neck & C-Spine Common normals: full ROM General: normal visual inspection Chest Common normals: inspection of chest normal Respiratory Common normals: normal respiratory effort, no retractions and no use of accessory muscles Back & Pelvis Thoracic spine/upper back: pain with ROM Lumbar spine/lower back: ROM limited, pain with ROM, lumbar spinal tenderness, paraspinal muscle tenderness and straight leg raise negative bilaterally Sacroiliac joints: SI joint(s) abnormal Other: positive facet loading tenderenss over bilateral L1-2 L2-3 facets bilateral positive dandy(patricks), gaenslens, thigh thrust, compression test Extremity Common normals: normal to inspection and full ROM Neuro Common normals: oriented x3, CN's II-XII intact bilaterally, moves all extremities, no focal motor deficits, no sensory deficits noted and deep tendon reflexes 2+ bilaterally Sensorium/orientation: alert Gait (neuro): antalgic Motor exam: strength 5/5 throughout and no movement abnormalities noted Psych Common normals: mental status grossly normal, thought process normal, cooperative, affect normal, speech normal and activity/motor behavior normal Speech: normal speech Thought process: normal thought process Results Additional Findings Additional findings: If on a controlled substance or opioids, I have checked an [place] report on this patient and there are no aberrancies noted in the prescribing history.??If on a controlled substance or opioid a drug screen was completed and reviewed within the last year, and if there has not been a drug screen completed we ordered one today to monitor higher risk, state monitored pain medication use. As part of providing excellent, safe, comprehensive care, the following was completed at our patient's visit: 1. A medication reconciliation and review to ensure accurate knowledge of current/active medications, including asking our patients to inform us about any avlp-pge-[id number] medications or herbal remedies/nutritional supplement s/alternative remedies. 2. A review to specifically ensure our patients have had annual screening for screening for depression, screening for tobacco use, and screening for unhealthy alcohol use. For concerning screenings had a discussion with the patient, provided patient education, and recommended follow-up with primary care provider when appropriate. If patient noted with a risk of falling, they received education on strength, gait, and balance training to prevent future risk of falling. Assessment and Plan Assessment and Plan (1) Lumbar stenosis with neurogenic claudication: (2) Lumbar postlaminectomy syndrome: (3) S/P lumbar fusion: (4) Lumbar spondylosis: Plan bilateral L1-2 L2-3 MBB x2 working towards RFA continue medications, NNCP chronic benzo use f/u 1 week after each injection
== END 2023-08-30 09:59 | disposition home or self-care (01) ==
LOC: PM 09:58
PROVIDERS: Family Provider Internal Medicine; PCP Family Medicine; Visit Provider Nurse Practitioner
DX: M48.062 Spinal stenosis, lumbar region with neurogenic claudication (principal); M96.1 Postlaminectomy syndrome, not elsewhere classified; M47.816 Spondylosis without myelopathy or radiculopathy, lumbar region
CPT/HCPCS: G0463

== ENCOUNTER 2023-09-27 10:22 | Outpatient (OUT) | payer MEDICARE, SELFPAY ==
--- OUTSIDE RECORDS SUMMARY | 2023-09-27 10:33 | XMS_ITS | CCD ---
Author Organization [facility] Care Team Providers Care Junior Database Administrator Name Role Phone Vanessa Baldwin Unavailable Helena GUERRA, Maribell Art Attending Unavailable Helena GUERRA, Maribell Art Attending Unavailable Allergies Allergy Classification Reported Allergen(s) Allergy Type Date of Onset Reaction(s) Facility (10 sources) Codeine Drug Allergy 4 [facility] (10 sources) Morphine Drug Allergy 4 [facility] (9 sources) Nalbuphine Drug Allergy [employer] Other (1 source) Nalbuphine Drug Allergy 4 [facility] Medications Current Medications Medication Drug Class(es) Dates [...] Active 0.5 MG PO Three times daily 90 June 30, 2023 1:06pm Start: 03-06-2023 take [...] 1 tablet by mela every twenty-four hours Lisinopril 10 MG 1 tablet once a day Active metFORMIN hydrochloride 500 mg oral tablet (10 sources) Biguanide Start: 05-29-2023 take 2 tablets by mouth once daily Metformin Active 500 MG PO Daily May 29, 2023 1:00am 2 tablets once a day take 2 tablets by mo [facility] every twenty-four hours metFORMIN HCl 500 [...] injector Active 2.5 MG SUBCUT every week 05 24June 08, 2023 12:00am tiZANidine 4 mg oral [...] Coronary arteriosclerosis; Translations: [Atherosclerotic heart disease of venetie ira coronary artery without angina pectoris] Chronic Diabetes [...] Basophils (Bld) [#/Vol] 0.1 10 3/uL 0.0-0.1 [facility] Basophils/100 WBC Auto (Bld) on 05-30-2023 Basophils/100 WBC (Bld) 0.8 % 0.2-2.0 [facility] Eosinophils/100 WBC Auto (Bl d)on 05-30-2023 Eosinophils/100 WBC (Bld) 0.0 % 0.9-7.0 [facility] Erythrocyte distribution wid th Auto (RBC) [Ratio]on 05-30-2023 Erythrocyte distribution width (RBC) [Ratio] 12.6 % 11.0-15.0 [facility] Glucose mean value [Mass/vol ume] in Blood Estimated from glycated hemoglobinon 05-30-2023 Average glucose Estimated from glycated hemoglobin (Bld) [Mass/Vol] 283 mg/dL [facility] Hematocrit Auto (Bld) [Volum e fraction]on 05-30-2023 Hematocrit (Bld) [Volume fraction] 36.6 % 36.0-48.0 [facility] Hemoglobin [Mass/volume] in Bloodon 05-30-2023 Hemoglobin (Bld) [Mass/Vol] 12.0 g/dL 12.0-16.0 [facility] Laboratory - Hematology and Cell countson 05-30-2023 HbA1c (Bld) [Mass fraction] 11.5 % 4.5-6.2 [facility] Comment on above: ADA RECOMMENDED LIMI T 4.0 - 6.0ADA THERAPEUTIC TARGET < 7.0ACTION SUGGESTED> 7.0 Immature granulocytes/100 WBC (Bld) 0.5 % 0.0-0.5 [facility] Leukocytes [#/volume] correc krysta for nucleated erythrocytes in Blood by Automated counon 05-30-2023 WBC corrected for nucl RBC Auto (Bld) [#/Vol] 14.3 10 3/uL 4.0-11.0 [facility] Lymphocytes Auto (Bld) [#/Vo l]on 05-30-2023 Lymphocytes (Bld) [#/Vol] 3.6 10 3/uL 1.2-3.8 [facility] Lymphocytes/100 WBC Auto (Bl d)on 05-30-2023 Lymphocytes/100 WBC (Bld) 25.1 % 20.5-60.0 [facility] MCH Auto (RBC) [Entitic mass ]on 05-30-2023 MCH (RBC) [Entitic mass] 29.7 pg 26.7-34.0 [facility] MCHC Auto (RBC) [Mass/Vol]on 05-30-2023 MCHC (RBC) [Mass/Vol] 32.8 g/dL 29.9-35.2 [facility] MCV Auto (RBC) [Entitic vol] on 05-30-2023 MCV (RBC) [Entitic vol] 90.6 fL 81.0-99.0 [facility] Monocytes Auto (Bld) [#/Vol] on 05-30-2023 Monocytes (Bld) [#/Vol] 0.9 10 3/uL 0.3-0.8 [facility] Monocytes/100 WBC Auto (Bld) on 05-30-2023 Monocytes/100 WBC (Bld) 6.0 % 1.7-12.0 [facility] Neutrophils Auto (Bld) [#/Vo l]on 05-30-2023 Neutrophils (Bld) [#/Vol] 9.7 10 3/uL 1.4-6.5 [facility] Neutrophils/100 WBC Auto (Bl d)on 05-30-2023 Neutrophils/100 WBC (Bld) 67.6 % 43.0-75.0 [facility] No Panel Informationon 05-29 Eosinophils # (Auto) 0.0 10 3/uL 0.0-0.7 [facility] Immature Granulocyte # (Auto) 0.07 10 3/uL 0.00-0.03 [facility] Platelet mean volume Auto (B ld) [Entitic vol]on 05-30-2023 Platelet mean volume (Bld) [Entitic vol] 10.9 fL 9.5-13.5 [facility] Platelets Auto (Bld) [#/Vol] on 05-30-2023 Platelets (Bld) [#/Vol] 242 10 3/uL 150-450 [facility] RBC Auto (Bld) [#/Vol]on RBC (Bld) [#/Vol] 4.04 10 6/uL 4.20-5.40 [facility] Vital Signs Date Time Vital Sign Value Performing Clinician Facility 07-10-2023 11:10-0400 Body height 162.56 cm [facility] 07-10-2023 11:10-0400 Body mass index (BMI) [Ratio] 40.6 kg/m2 [facility] 07-10-2023 11:10-0400 Body weight 107.27 kg [facility] 07-10-2023 11:10-0400 Diastolic blood pressure 76 mm[Hg] [facility] 07-10-2023 11:10-0400 Heart rate 77 /min [facility] 07-10-2023 11:10-0400 Systolic blood pressure 115 mm[Hg] [facility] 05-30-2023 13:03-0500 Body height 162.56 cm [facility] 05-30-2023 13:03-0500 Body mass index (BMI) [Ratio] 40.8 kg/m2 [facility] 05-30-2023 13:03-0500 Body weight 108.12 kg [facility] 05-30-2023 13:03-0500 Diastolic blood pressure 80 mm[Hg] [facility] 05-30-2023 13:03-0500 Heart rate 90 /min [facility] 05-30-2023 13:03-0500 SaO2% (BldA) [Mass fraction] 97 % [facility] 05-30-2023 13:03-0500 Systolic blood pressure 126 mm[Hg] [facility] 04-10-2023 11:15-0500 Body height 162.56 cm Vanessa Baldwin Other [facility] Other 04-10-2023 11:15-0500 Body mass index (BMI) [Ratio] 40.16 kg/m2 Vanessa Baldwin Other [facility] Other 04-10-2023 11:15-0500 Body weight 106.14 kg Vanessa Baldwin Other [facility] Other 04-10-2023 11:15-0500 Diastolic blood pressure 84 mm[Hg] Vanessa Baldwin Other [facility] Other 04-10-2023 11:15-0500 SaO2% (BldA) [Mass fraction] 95 % Vanessa Baldwin Other [facility] Other 04-10-2023 11:15-0500 Systolic blood pressure 126 mm[Hg] Vanessa Baldwin Other [facility] Other 01-24-2023 11:15-0400 Body height 162.56 cm Vanessa Baldwin Other [facility] Other 01-24-2023 11:15-0400 Body mass index (BMI) [Ratio] 39.37 kg/m2 Vanessa Baldwin Other [facility] Other 01-24-2023 11:15-0400 Body weight 104.06 kg Vanessa Baldwin Other [facility] Other 01-24-2023 11:15-0400 Diastolic blood pressure 74 mm[Hg] Vanessa Baldwin Other [facility] Other 01-24-2023 11:15-0400 Systolic blood pressure 112 mm[Hg] Vanessa Baldwin Other [facility] Other 01-17-2023 10:30-0400 Body height 162.56 cm Vanessa Baldwin Other [facility] Other 01-17-2023 10:30-0400 Body mass index (BMI) [Ratio] 39.82 kg/m2 Vanessa Baldwin Other [facility] Other 01-17-2023 10:30-0400 Body weight 105.24 kg Vanessa Baldwin Other [facility] Other 01-17-2023 10:30-0400 Diastolic blood pressure 64 mm[Hg] Vanessa Baldwin Other [facility] Other 01-17-2023 10:30-0400 Systolic blood pressure 100 mm[Hg] Vanessa Baldwin Other [facility] Other Encounters Encounter Date Encounter Type Care Provider Facility Start: 08-28-2023 End: 08-28-2023 ambulatory Maribell Malik MD Facility: [facility] Start: 07-24-2023 End: 07-24-2023 ambulatory Maribell Malik MD Facility: [facility] Start: 07-10-2023 End: 07-10-2023 ambulatory [facility] Work Phone: Start: 07-10-2023 End: 07-10-2023 Patient encounter procedure [facility] Work Phone: Start: 05-30-2023 End: 05-30-2023 Patient encounter procedure [facility] Work Phone: Start: 05-02-2023 End: 05-02-2023 ambulatory Vanessa Baldwin Other [facility] Other Start: 05-02-2023 Telephone encounter Vanessa Baldwin [employer] Start: 04-24-2023 End: 04-24-2023 ambulatory Vanessa Baldwin Other [facility] Other Start: 04-24-2023 Telephone encounter Vanessa Nicolasa [facility] Start: 04-10-2023 End: 04-10-2023 ambulatory Vanessa Nicolasa Other [facility] Other Start: 04-10-2023 Office outpatient visit 15 minutes Vanessa Nicolasa [facility] Start: 04-03-2023 End: 04-03-2023 ambulatory Vanessa Nicolasa Other [facility] Other Start: 04-03-2023 Telephone encounter Vanessa Nicolasa [facility] Start: 03-06-2023 End: 03-06-2023 ambulatory Vanessa Nicolasa Other [facility] Other Start: 03-06-2023 Telephone encounter Vanessa Nicolasa [facility] Start: 02-02-2023 End: 02-02-2023 ambulatory Vanessa Nicolasa Other [facility] Other Start: 02-02-2023 Telephone encounter Vanessa Nicolasa [facility] Start: 01-24-2023 End: 01-24-2023 ambulatory Vanessa Nicolasa Other [facility] Other Start: 01-24-2023 Office outpatient visit 15 minutes Vanessa Nicolasa [facility] Start: 01-17-2023 End: 01-17-2023 ambulatory Vanessa Nicolasa Other [facility] Other Start: 01-17-2023 Office outpatient ne w 45 minutes Vanessa Baldwin [facility] Immunizations Immunization Date Immunization Notes Care Provider Fa cility 04-10-2023 influenza, high dose seasonal, preservative-free Vanessa Baldwin Other [facility] Other 04-10-2023 influenza virus vaccine, unspecified formulation [facility] Payers Date Payer Category Payer Private Health Insurance 1955 Unknown [id number] 1955 Unknown [id number] Private Health Insurance [id number] Social History Date Type Detail Facility Unknown if ever smoked [facility] Other Sex Assigned At Sex Assigned At Bir th [facility] Other Start: 05-29-2023 Tobacco smoking status NHIS Ex-smoker (finding) [facility] Start: 1955 Sex Assigned At Female F [facility] Evaluation note 04-10-2023 Note Date & [...] symptoms. Any developing patterns. Stay well hydrated. [facility] Other Evaluation note 02-02-2023 Note Date & Type Note Facility 02-02-2023 Evaluation note Encounter Date Diagnosis Assessment Notes Jan, Type 2 diabetes mellitus with hyperglycemia , without long-term current use of insulin (ICD-10 - E11.65) [facility] Other Evaluation note 01-24-2023 Note Date & [...] A1C7.0. Cholesterol well controlled. Continue present meds. 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 Dec, Anxiety (ICD-10 - F41.9) pt states her chronic problem is controlled w xanax tid and lexapro Dec, GERD without esophagitis (ICD-10 - K21.9) refilled med for chronic problem Dec, Screening mammogram for breast cancer (ICD-10 - Z12.31) Dec, Personal history of nicotine dependence (ICD-10 - Z87.891) [facility] Other Evaluation note Note Date & Type Note Facility Evaluation note No Information [email or web address] Other Evaluation note Note Date & Type Note Facility Evaluation note Diagnosis Onset Date Anxiety acute [id number] [facility] Work Phone: History general Narrative - Reported Note Date & Type Note Facility History general Narrative - Reported Type Medical History Hypertention Medical History Diabetes Medical History Neuropathy Medical History Heart Attack Surgical History Hysterectomy Surgical History Back surgery Surgical History Right CTR Surgical History Bilateral shoulder surgery Surgical History Heart Stents X2 Surgical History Left TKR [facility] Other History general Narrative - Reported Note Date & Type Note Facility History general Narrative - Reported Type Medical History Hypertention Medical History Diabetes Medical History Neuropathy Medical History Heart Attack Medical History GERD Surgical History Hysterectomy Surgical History Back surgery Surgical History Right CTR Surgical History Bilateral shoulder surgery Surgical History Heart Stents X2 Surgical History Left TKR [facility] Other Reason for Referral Reason *Waiting for appt Get established, has stents, moved from [place]. Had [place] in 2015 Diagnosis 1 Coronary artery dise ase involving venetie ira coronary artery of venetie ira heart without angina pectoris (I25.10) Referral Organization [facility] [place] Referring Provider First Name Vanessa Referring Provider Last Name Nicolasa Referring Provider Specialty Family [facility] cine Referred Organization [facility] Cardiology Referred Provider TaraChristal Referred Address [address] [place] [address],[place] [address],[place], [place],[id number] Referred Provider Specialty Cardiovascul ar Disease Referral Priority Routine General Notes MinRadha carbajal 02:31:53 PM >received today, sent P2P. pt may need to fill out a records release form to have old records sent to us Chief Complaint and Reason for Visit Chief Complaint weightloss 3 MONTH CHECK UP Reason for Visit Anxiety [id number] Family History No Family History Records Found Relationship Condition Age at Onset Recorded Date/T vnaessa daughter Hypertension Unknown father Diabetes mellitus Unknown [...] ized section and content) DATE CREATED AUTHOR 09/07/2023 [facility] FOR RECORDS PERTAINING TO PATIENTS WHO [...] BE BASED ON THE PRIMARY CLINICAL RECORDS. [employer] [facility]. provides no warranty or guarantee of the accuracy or completeness of information in this document.
--- NOTE | 2023-09-27 10:36 | US_ITS ---
[address] [address] Patient Name: HOLLIE WEBER MRN: [id number] date: 1955 Sex: F Assigned Patient Location: CARD Current Patient Location: Accession/Order Number: [id number] Exam Date: 09/27/2023 10:40 Report Date: 09/28/2023 06:13 At the request of: JAYASHREE GOLDEN Procedure: US carotid duplex BI EXAMINATION: US carotid duplex BI HISTORY: Expressive Aphasia R47.01 COMPARISON: No relevant comparison available. TECHNIQUE: Duplex Doppler ultrasound analysis of carotid and vertebral arteries. . Bilateral carotid arterial duplex examination was performed using B-mode, color flow and spectral analysis. Carotid stenosis is reported according to validated velocity parameters, similar to NASCET criteria. FINDINGS: RIGHT CAROTID ARTERY: No visible stenosis or plaque. Subclavian: 143.70 cm/s / 17.94 cm/s CCA: Prox: 78.81 cm/s / 16.69 cm/s Mid: 72.34 cm/s / 19.28 cm/s Distal: 54.22 cm/s / 14.11 cm/s BULB: 40.55 cm/s / 11.98 cm/s ICA: Prox: 57.03 cm/s / 17.47 cm/s Mid: 54.84 cm/s / 15.28 cm/s Distal: 85.28 cm/s / 25.75 cm/s ECA: 114.54 cm/s / 14.38 cm/s VERTEBRAL: 64.43 cm/s / 20.83 cm/s ICA/CCA ratio: 1.6 LEFT CAROTID ARTERY: Mild plaque without significant stenosis. Subclavian: 108.2 cm/s / 0.0 cm/s CCA: Prox: 84.57 cm/s / 19.52 cm/s Mid: 81.40 cm/s / 16.69 cm/s Distal: 60.69 cm/s / 19.28 cm/s BULB: 63.28 cm/s / 17.99 cm/s ICA: Prox: 70.92 cm/s / 19.22 cm/s Mid: 77.35 cm/s / 24.06 cm/s Distal: 74.09 cm/s / 25.67 cm/s ECA: 80.55 cm/s / 12.75 cm/s VERTEBRAL: 54.72 cm/s / 12.75 cm/s ICA/CCA ratio: 1.3 US/US carotid duplex BI IMPRESSION: 1. 0-49% flow stenosis within the right left carotid arteries. 2. Minimal atherosclerotic disease. Spectral Doppler US Thresholds Stenosis (%) PSV (cm/sec) VICA/VCCA 0-49 <150 <2.5 50-69 150-225 2.5-4.0 >70 >225 >4.0 Electronically authenticated by: GUSTAVO MANLEY Date: 09/28/2023 06:13
[2023-09-27 12:19] LABS: Anion Gap 12.9; BUN Creatinine Ratio 5.9; Calcium 9.7 mg/dL (8.5-10.1); Carbon Dioxide 27.5 mmol/L (21.0-32.0); Chloride 95 mmol/L (98-107); Estimated GFR (African America >60 (>=60); Estimated GFR (Non-African Ame 54 (>=60); Glucose 152 mg/dL (74-106); Potassium 4.4 mmol/L (3.5-5.1); Sodium 131 mmol/L (136-145)
[2023-09-27 12:32] LABS: Basophils Absolute Auto 0.1 10^3/uL (0.0-0.1); Basophils Percent Auto 0.6 % (0.2-2.0); Hematocrit 35.1 % (36.0-48.0); Hemoglobin 11.8 g/dL (12.0-16.0); Immature Granulocytes Abs Auto 0.05 10^3/uL (0.00-0.03); Immature Granulocytes Pct Auto 0.4 % (0.0-0.5); Lymphocytes Absolute Auto 3.1 10^3/uL (1.2-3.8); Lymphocytes Percent Auto 25.1 % (20.5-60.0); Mean Corpuscular HGB Conc 33.6 g/dL (29.9-35.2); Mean Corpuscular Hemoglobin 29.6 pg (26.7-34.0); Mean Platelet Volume 10.6 fL (9.5-13.5); Monocytes Absolute Auto 0.9 10^3/uL (0.3-0.8); Neutrophils Absolute Auto 8.4 10^3/uL (1.4-6.5); Neutrophils Percent Auto 66.9 % (43.0-75.0); Platelet Count 302 10^3/uL (150-450); Red Blood Count 3.99 10^6/uL (4.20-5.40); Red Cell Distribution Width 12.9 % (11.0-15.0); White Blood Count 12.5 10^3/uL (4.0-11.0)
--- NOTE | 2023-09-27 14:00 | CA_ITS ---
Patient Name: HOLLIE WEBER MR#: [id number] : 1955 Exam Date: 09/27/2023 Ordering Doctor: DR Vanessa Baldwin M.D. ECHOCARDIOGRAM REPORT PROCEDURE: CA ECHO DOPPLER COMPLETE INDICATIONS: Aphasia, h/o CVA, [place], cardiac stent, hypertension, diabetes COMPARISON: None. DESCRIPTION: COMPLETE ECHOCARDIOGRAM Real-time transthoracic echocardiography with 2D, M-mode, spectral and color flow Doppler performed. QUALITY: Technically difficult due to patients condition. LEFT VENTRICLE: Normal chamber size. Mild concentric left ventricular hypertrophy. There is akinesis of the mid and distal septum and the entire apex. The remaining segments contract well. Left ventricular systolic function is mildly reduced. LV EF: Mildly reduced left ventricular ejection fraction, (45-50%). DIASTOLIC: ATRIAL SEPTUM: Visually appears intact. LEFT ATRIUM: Normal chamber size. RIGHT ATRIUM: Normal chamber size. RIGHT VENTRICLE: Normal chamber size. Normal right ventricular systolic function. TRICUSPID VALVE: Normal mobility and thickness. No stenosis with no regurgitation. Unable to assess right-sided pressures due to lack of measurable tricuspid regurgitation. MITRAL VALVE: Normal mobility and thickness. No evidence of mitral valve stenosis. There is no mitral annular calcification. No mitral regurgitation. AORTIC VALVE: Normal trileaflet appearance. No visible sclerosis. Normal leaflet mobility. No evidence of aortic valve stenosis. No aortic regurgitation. AORTIC ROOT: Normal diameter and appearance. PULMONIC VALVE: Normal thickness and mobility. No stenosis. No regurgitation. PERICARDIUM: No evidence of pericardial effusion. IVC: Collapses with inspirations. IVC is normal in size. PLEURA: CONCLUSION: 1. Mild concentric left ventricular hypertrophy. There is akinesis of the mid and distal septum and the entire apex. Global left ventricular systolic function is mildly reduced. LVEF is estimated at 45 to 50%. 2. Normal right ventricular size and systolic function. 3. No significant valvular dysfunction. 4. Unable to assess right-sided pressures due to lack of measurable tricuspid regurgitation. 5. No pericardial effusion. Adult Echocardiography Procedure Report Left Ventricle LVEDD (3.7 - 5.6 cm): 4.76 cm LVESD (2.2 - 4.0 cm): 2.85 cm LVIVS thickness (0.6 - 1.2 cm): 1.25 cm LVPW thickness (0.5 - 1.0 cm): 1.10 cm e': 0.06 m/s E - e': 10.07 LVOT Max Gradient: 3.50 mm[Hg], 4.13 mm[Hg] LVOT Area (cm2): 0.98 m/s Peak Velocity (LVOT): 0.94 m/s, 1.02 m/s Mean Velocity (LVOT): 0.59 m/s LVOT Diameter 2.61 cm Left Atrium LA Volume Index (2D A2C): 25.43 ml/m2 Left Atrium Systolic Dimension: 4.03 cm Mitral Valve MV E to A Ratio: 0.67 Mitral Valve A-Wave Peak Velocity: 0.84 m/s Mitral Valve E-Wave Peak Velocity: 0.57 m/s Right Ventricle Aorta AO Root Diam: 3.66 cm Ascending Ao Diam: 3.24 cm Aortic Valve AoV Area (Peak Mann): 5.60 cm2, 5.50 cm2, 5.69 cm2 AoV Area (VTI): 5.45 cm2, 5.69 cm2, 5.23 cm2 Peak Velocity(Antegrade Flow): 0.91 m/s, 0.95 m/s Peak Gradient(Antegrade Flow): 3.28 mm[Hg], 3.62 mm[Hg] Mean Velocity(Antegrade Flow): 0.61 m/s, 0.64 m/s Mean Gradient(Antegrade Flow): 1.71 mm[Hg], 1.88 mm[Hg] Velocity Time Integral: 20.35 cm, 21.49 cm Tricuspid Valve Pulmonic Valve Peak Velocity: 0.88 m/s Peak Gradient: 3.01 mm[Hg], 3.11 mm[Hg] Right Atrium Right Atrium Systolic Pressure: 20.91 ml, 20.91 ml Dictated by: Ming Hilton M.D. on 09/29/2023 at 09:14 Approved by: Ming Hilton M.D. on 09/29/2023 at 09:18
== END 2023-09-27 10:23 | disposition home or self-care (01) ==
LOC: CARD 10:23
PROVIDERS: Family Provider Internal Medicine; PCP Family Medicine; Visit Provider Family Medicine
DX: R47.01 Aphasia (principal); E87.1 Hypo-osmolality and hyponatremia; D72.829 Elevated white blood cell count, unspecified
CPT/HCPCS: 36415; 80048; 85025; 93306; 93880

== ENCOUNTER 2023-10-02 10:05 | Day surgery (SDC) | payer MEDICARE, SELFPAY ==
[2023-10-02 10:23] VITALS: BP 148/81; PULSE 71; TEMP 36.2; O2SAT 96
[2023-10-02 10:27] LABS: Glucometer 124 mg/dL (74-106)
[2023-10-02 11:03] VITALS: PULSE 79; O2SAT 94
[2023-10-02 11:04] VITALS: BP 138/64
[2023-10-02] MEDS: BUPIVACAINE HCL 0.25% PF 25 MG/10 ML VIAL INJ (11:05)
[2023-10-02] MEDS: LIDOCAINE HCL 2% 400 MG/20 ML MDV 15 ML INJ (11:05)
[2023-10-02 11:06] VITALS: BP 135/64; PULSE 73; O2SAT 96
--- NOTE | 2023-10-02 11:08 | W.PM.PROCNOT ---
Date of procedure: 10/02/23 Pre-op diagnosis: Pain due to lumbar spondylosis without myelopathy Post-op diagnosis: same as pre-op Procedure: Procedure: Bilateral L1-2, L2-3 medial branch block Medications: Bupivacaine 0.25% 6cc The patient was seen and examined in the preoperative holding area.? An informed consent was obtained and placed on the chart.? The patient was brought to the medical procedure unit and placed in the prone position.? A timeout was completed verifying correct patient, procedure site, positioning, plan, and special equipment.? Using aseptic technique, the needle was placed at left L1. Under direct fluoroscopic visualization a Quincke-tipped spinal needle was advanced to the junction of the superior articulating process with the transverse process at the designated medial branch segment.? Preceded by negative aspiration, the above-mentioned injectate was placed in 1 mL aliquots.? The procedure was repeated at left L2, 3.? The needle was removed and insertion site was covered. The same procedure, at the same levels, was completed on the right side. The patient was taken to the postprocedural recovery area and monitored for an appropriate length of time before found suitable for discharge in the company of a responsible adult. Anesthesia: Local Surgeon: Maribell Malik Pathology: none sent Condition: stable Disposition: no change
== END 2023-10-02 11:13 | disposition home or self-care (01) ==
PROVIDERS: Family Provider Internal Medicine; PCP Family Medicine; Visit Provider Anesthesiology
DX: M47.816 Spondylosis without myelopathy or radiculopathy, lumbar region (principal); Z79.84 Long term (current) use of oral hypoglycemic drugs
CPT/HCPCS: 36415; 64493; 64494; 82948; J0665

== ENCOUNTER 2023-10-05 11:09 | Outpatient (OUT) | payer MEDICARE, SELFPAY ==
--- NOTE | 2023-10-05 11:20 | PM.CN ---
Consult Note: HPI Data of Consult Patient: known to practice within the last 3 years Consult date: 07/24/23 Requesting Physician: Lucy Mccallum NP Primary Care Provider: Vanessa Baldwin MD Family Provider: Shai Abdalla, Consult Narrative Reason for consult: low back pain Narrative: [id number] who presents for evaluation. longstanding low back pain, had lumbar fusion 16 years ago in [place]. has completed PT and engages in series of provider directed home exercises >6 weeks, without benefit. utilizes gabapentin, xanax, lodine, zanaflex. denies adverse med side effects. Lumbar MRI completed results below. Patient reports pain 8/10 increasing to 10/10 with standing and activity, pain most significant in low back. Recently underwent bilateral L1-2 L2-3 MBB #1 and #2 with greater than 80% improvement in low back pain and functional ability immediately following and hours after. cc:: CC: Lucy Mccallum NP Review of Systems ROS Status of ROS 10 or more systems reviewed and unremarkable except as noted in history and below Musculoskeletal Reports: back pain PFSH PFSH Medical History Low back pain ?M54.50 - Low back pain, unspecified (ICD-10) Osteoarthritis ?M19.90 - Unspecified osteoarthritis, unspecified site (ICD-10) Heartburn ?R12 - Heartburn (ICD-10) Acid reflux ?K21.9 - Gastro-esophageal reflux disease without esophagitis (ICD-10) Diabetes ?E11.9 - Type 2 diabetes mellitus without complications (ICD-10) Past heart attack ?I25.2 - Old myocardial infarction (ICD-10) Hypertension ?I10 - Essential (primary) hypertension (ICD-10) High cholesterol ?E78.00 - Pure hypercholesterolemia, unspecified (ICD-10) Surgical History History of total knee replacement ?Z96.659 - Presence of unspecified artificial knee joint (ICD-10) H/O shoulder surgery ?Z98.890 - Other specified postprocedural states (ICD-10) History of lumbar surgery ?Z98.890 - Other specified postprocedural states (ICD-10) History of hysterectomy ?Z90.710 - Acquired absence of both cervix and uterus (ICD-10) Meds Home Medications and Allergies Home Medications ?Medication ?Instructions ?Recorded ?Confirmed ?Type alprazolam 0.25 mg tablet (Xanax) 0.25 mg PO TID 07/24/23 10/02/23 History aripiprazole 2 mg tablet (Abilify) 2 mg PO DAILY 07/24/23 10/02/23 History aspirin 325 mg capsule 325 mg PO DAILY 07/24/23 10/02/23 History atorvastatin 20 mg tablet 20 mg PO DAILY 07/24/23 10/02/23 History carvedilol 3.125 mg tablet 3.125 mg PO BID 07/24/23 10/02/23 History escitalopram oxalate 20 mg tablet 20 mg PO BID 07/24/23 10/02/23 History (Lexapro) etodolac 400 mg tablet (Lodine) 400 mg PO Q12H PRN pain 07/24/23 10/02/23 History gabapentin 800 mg tablet 800 mg PO TID 07/24/23 10/02/23 History lisinopril 10 mg tablet 10 mg PO DAILY 07/24/23 10/02/23 History metformin 500 mg tablet 500 mg PO TID 07/24/23 10/02/23 History pantoprazole 40 mg granules 40 mg PO DAILY 07/24/23 10/02/23 History delayed-release for susp in packet (Protonix) potassium 20 mg chewable tablet 20 mg PO .QD 07/24/23 10/02/23 History spironolactone 25 mg tablet 25 mg PO DAILY 07/24/23 10/02/23 History tizanidine 4 mg capsule (Zanaflex) 4 mg PO TID PRN muscle spasticity 07/24/23 10/02/23 History Allergies Allergy/AdvReac Type Severity Reaction Status Date / Time codeine Allergy Mild Unknown Verified 10/02/23 10:28 morphine Allergy Mild Unknown Verified 10/02/23 10:28 [id number] [From Nubain] AdvReac Mild Unknown Verified 10/02/23 10:28 Exam Constitutional Documenting provider has reviewed patient's vital signs: yes Common normals: no apparent distress, oriented x3, healthy appearing, alert and well nourished General appearance: cooperative HENMT Common normals: normocephalic, hearing grossly normal bilaterally and moist oral mucous membranes Head and scalp: normocephalic Eye Common normals: PERRL Pupil: PERRL Neck & C-Spine Common normals: full ROM General: normal visual inspection Chest Common normals: inspection of chest normal Respiratory Common normals: normal respiratory effort, no retractions and no use of accessory muscles Back & Pelvis Thoracic spine/upper back: pain with ROM Lumbar spine/lower back: ROM limited, pain with ROM, lumbar spinal tenderness, paraspinal muscle tenderness and straight leg raise negative bilaterally Sacroiliac joints: SI joint(s) abnormal Other: positive facet loading tenderenss over bilateral L1-2 L2-3 facets bilateral positive dandy(patricks), gaenslens, thigh thrust, compression test Extremity Common normals: normal to inspection and full ROM Neuro Common normals: oriented x3, CN's II-XII intact bilaterally, moves all extremities, no focal motor deficits, no sensory deficits noted and deep tendon reflexes 2+ bilaterally Sensorium/orientation: alert Gait (neuro): antalgic Motor exam: strength 5/5 throughout and no movement abnormalities noted Psych Common normals: mental status grossly normal, thought process normal, cooperative, affect normal, speech normal and activity/motor behavior normal Speech: normal speech Thought process: normal thought process Results Additional Findings Additional findings: If on a controlled substance or opioids, I have checked an [place] report on this patient and there are no aberrancies noted in the prescribing history.??If on a controlled substance or opioid a drug screen was completed and reviewed within the last year, and if there has not been a drug screen completed we ordered one today to monitor higher risk, state monitored pain medication use. As part of providing excellent, safe, comprehensive care, the following was completed at our patient's visit: 1. A medication reconciliation and review to ensure accurate knowledge of current/active medications, including asking our patients to inform us about any [id number] medications or herbal remedies/nutritional supplements/alternative remedies. 2. A review to specifically ensure our patients have had annual screening for screening for depression, screening for tobacco use, and screening for unhealthy alcohol use. For concerning screenings had a discussion with the patient, provided patient education, and recommended follow-up with primary care provider when appropriate. If patient noted with a risk of falling, they received education on strength, gait, and balance training to prevent future risk of falling. Assessment and Plan Assessment and Plan (1) Lumbar stenosis with neurogenic claudication: (2) Lumbar postlaminectomy syndrome: (3) S/P lumbar fusion: (4) Lumbar spondylosis: Plan bilateral L1-2 L2-3 facet thermal RFA under fluoroscopy, risks vs benefits reviewed. To be completed under IV sedation due to inability to lie flat and safely tolerate the procedure. Patient took xanax prior to MBBs and reports difficulty tolerating the procedures/lying flat increase tizanidine 4-8mg TID PRN myofascial pain/pain NNCP chronic benzo use f/u 1 month after RFA complete
== END 2023-10-05 11:10 | disposition home or self-care (01) ==
LOC: PM 11:09
PROVIDERS: Family Provider Internal Medicine; PCP Family Medicine; Visit Provider Nurse Practitioner
DX: M48.062 Spinal stenosis, lumbar region with neurogenic claudication (principal); M96.1 Postlaminectomy syndrome, not elsewhere classified; M47.816 Spondylosis without myelopathy or radiculopathy, lumbar region; Z98.1 Arthrodesis status
CPT/HCPCS: G0463

== ENCOUNTER 2023-11-13 06:45 | Day surgery (SDC) | payer MEDICARE, SELFPAY ==
--- OUTSIDE RECORDS SUMMARY | 2023-11-13 06:48 | XMS_ITS | CCD ---
Author Organization [facility] CliniSyor Care Team Providers Care Stoner Out Name Role Phone Vanessa Baldwin Unavailable Helena GUERRA, Maribell Art Attending Unavailable Monicaitis , Maribell Art Attending Unavailable Helena GUERRA, Maribell Art Attending Unavailable Allergies Allergy Classification Reported Allergen(s) Allergy Type Date of Onset Reaction(s) Facility (12 sources) Codeine Drug Allergy 4 [facility] (12 sources) Morphine Drug Allergy 4 [facility] (9 sources) Nalbuphine Drug Allergy [facility] Other (3 sources) Nalbuphine Drug Allergy 4 [facility] Medications [...] Subcutaneous weekly for 90 days Active ALPRAZolam 0.25 mg oral tablet (20 sources) Benzodiazepine Start: 07-28-2023 End: 08-28-2023 take 0.25 mg by mouth three times daily Alprazolam Active 0.25 MG PO Three times daily 90 August 28, 2023 4:31pm Start: 05-29-2023 End: 07-28-2023 take 0.5 mg by mouth three times daily Alprazolam Discontinued 0.5 MG PO Three times daily May 30, 2023 2:25pm June 30, 2023 1:07pm Start: 03-06-2023 take 1 tablet by mela [...] day Active ARIPiprazole 2 mg oral tablet (14 sources) Atypical Antipsychotic Start: 05-29-2023 End: 07-17-2023 take 2 mg by mouth once daily Aripiprazole Active 2 MG PO Daily July 17, 2023 4:32pm take 1 tablet by mela th every twenty-four hours ARIPiprazole 2 MG 1 tablet once a day Active aspirin 81 mg delayed release oral tablet (12 sources) Platelet Aggregation Inhibitor, Nonsteroidal Anti-inflammatory Drug Start: 05-29-2023 take 1 tablet by mouth once daily Aspirin (Adult Aspirin Regimen) 81 mg tablet,delayed release (DR/EC) Active 81 MG PO Daily May 29, 2023 1:00am take 1 tablet by mela th every twenty-four hours Aspirin 81 81 MG 1 tablet once a day Active atorvastatin 20 mg oral tablet (15 sources) HMG-CoA Reductase Inhibitor Start: 05-29-2023 End: 10-09-2023 take 20 mg by mouth once daily Atorvastatin Active 20 MG PO Daily October 09, 2023 2:29pm Atorvastatin Salvador cium 20 MG 1 tablet every morning for 90 days Active carvedilol 3.125 mg oral tablet (15 sources) alpha-Adrenergic Willie, beta-Adrenergic Willie Start: 05-29-2023 End: 10-09-2023 take 3.125 mg by mouth twice daily Carvedilol Active 3.125 MG PO Twice daily October 09, 2023 2:29pm take 1 tablet by mela th every twelve hours Carvedilol 3.125 MG 1 tablet twice a day Active escitalopram 20 mg oral tablet (16 sources) Serotonin Reuptake Inhibitor Start: 08-10-2023 take 20 mg by mouth once daily Escitalopram Oxalate Active 20 MG PO Daily August 10, 2023 2:00pm Start: 05-29-2023 End: 08-10-2023 take 20 mg by mouth twice daily Escitalopram Oxalate Discontinued 20 MG PO Twice daily July 17, 2023 4:33pm August 10, 2023 2:10pm take 1 tablet by mela every twelve hours Escitalopram Oxalate 20 MG 1 tablet twice a day for 90 days Active gabapentin 800 mg oral tablet (15 sources) Anti-epileptic Agent Start: 07-17-2023 End: 10-09-2023 take 800 mg by mouth three times daily Gabapentin Active 800 MG PO Three times daily October 09, 2023 2:29pm Start: 05-29-2023 End: 07-17-2023 take 800 mg by mouth four times daily Gabapentin Discontinued 800 MG PO Four times daily May 29, 2023 1:00am July 17, 2023 4:34pm Gabapentin 800 M G 1tablet four times a day for 90 days Active isopropyl alcohol 0.7 ml/ml medicated pad (2 sources) Start: 09-25-2023 Alcohol Swabs Active 1 PAD TOPICAL Twice daily September 25, 2023 12:00am lisinopril 10 mg oral tablet (15 sources) Angiotensin Converting Enzyme Inhibitor Start: 05-29-2023 End: 10-09-2023 take 10 mg by mouth once daily Lisinopril Active 10 MG PO Daily October 09, 2023 2:29pm [facility] Lisinopril 10 MG 1 tablet once a day Active metFORMIN hydrochloride 500 mg oral tablet (13 sources) Biguanide Start: 10-09-2023 take 2 tablets by mouth once daily Metformin Active 1000 MG PO Daily October 09, 2023 2:29pm 2 tablets once a day Start: 05-29-2023 End: 10-09-2023 take 2 tablets by mouth once daily Metformin Discontinued 500 MG PO Daily May 29, 2023 1:00am October 09, 2023 2:30pm 2 tablets once a day take 2 tablets by mo [facility] every twenty-four hours metFORMIN HCl 500 MG [...] pantoprazole 40 mg delayed release oral tablet (15 sources) Proton Pump Inhibitor Start: 05-29-2023 End: 10-09-2023 take 40 mg by mouth once daily in the morning Pantoprazole Active 40 MG PO Every morning October 09, 2023 2:30pm Pantoprazole Sod ium 40 MG 1 tablet every morning for 90 days Active microencapsulated potassium chloride 20 meq extended release oral tablet (15 sources) Start: 05-29-2023 End: 10-09-2023 Potassium Chloride (Klor-Con M20) 20 mEq tablet,ER particles/crystals Active 20 MEQ PO Daily October 09, 2023 2:30pm take 1 tablet by mela th every twenty-four hours Klor-Con M20 20 MEQ 1 tablet with food Orally Once a day for 90 days Active Semaglutide (7 sources) Start: 10-25-2023 Semaglutide (O zempic) 0.25 mg or 0.5 mg (2 mg/3 mL) pen injector Active 0.25 MG SUBCUT every week October 25, 2023 12:00am for 4 weeks Start: 05-30-2023 End: 06-08-2023 Semaglutide (Ozempic) 0.25 m g or 0.5 mg (2 mg/3 mL) pen injector Discontinued 0.5 MG SUBCUT every week May 30, 2023 1:00am June 08, 2023 12:49pm for 4 weeks Start: 05-29-2023 End: 05-30-2023 inject 0.5 mg by subcutaneous injection every week Semaglutide (Ozempic) 0.25 mg or 0.5 mg (2 mg/3 mL) pen injector Discontinued 0.5 MG SUBCUT every week May 29, 2023 1:00am May 30, 2023 2:13pm 0.5mg Subcutaneous weekly spironolactone 25 mg oral tablet (15 sources) Aldosterone Antagonist Start: 05-29-2023 End: 10-09-2023 take 25 mg by mouth once daily Spironolactone Active 25 MG PO Daily 90 October 09, 2023 2:30pm take 1 tablet by mela th every twenty-four hours Spironolactone 25 MG 1 tablet once a day Active tiZANidine 4 mg oral tablet (11 sources) Central alpha-2 Adrenergic Agonist Start: 05-29-2023 take 4 mg by mouth three times daily Tizanidine Active 4 MG PO Three times daily May 29, 2023 1:00am take 1 tablet by mouth every eig ht hours tiZANidine HCl 4 MG 1 tablet as needed Orally Three times a day for 10 days Active Completed/Discontinued Medications Medication Drug Class(es) Dates Sig (Normalized) Sig (Original) Tirzepatide (7 sources) Start: 09-20-2023 End: 10-25-2023 Tirzepatide (Mounjaro) 2.5 mg/0.5 mL pen injector Discontinued 2.5 MG SUBCUT every week 6 September 20, 2023 10:39am October 25, 2023 8:26am Start: 09-20-2023 Tirzepatide (M ounjaro) 2.5 mg/0.5 mL pen injector Active 2.5 MG SUBCUT every week 6 September 20, 2023 10:39am Start: 07-10-2023 End: 09-20-2023 Tirzepatide (Mounjaro) 2.5 m g/0.5 mL pen injector Discontinued 2.5 MG SUBCUT every week 6 July 10, 2023 12:00am September 20, 2023 10:39am Start: 06-08-2023 End: 07-10-2023 Tirzepatide (Mounjaro) 2.5 m g/0.5 mL pen injector Discontinued 2.5 MG SUBCUT every week 2 June 08, 2023 12:00am July 10, 2023 11:31am Start: 06-08-2023 Tirzepatide (M ounjaro) 2.5 mg/0.5 mL pen injector Active 2.5 MG SUBCUT every week 2 June 08, 2023 12:00am Problems Active Problems Problem Classification Problem Date Documented Da te Episodic/Chronic Acquired foot deformities (3 sources) Hammer toe; Translations: [Other hammer toe(s) (acquired), left foot] 07-28-2023 Chronic Anxiety disorders (19 sources) Anxiety; Translations: [Anxiety disorder, unspecified] Chronic Coronary atherosclerosis and other heart disease (10 sources) Coronary arteriosclerosis; Translations: [Atherosclerotic heart disease of [place] coronary artery without angina pectoris] Chronic Diabetes mellitus with complications (20 sources) Type 2 diabetes mellitus; Translations: [Type 2 diabetes mellitus with hyperglycemia] Chronic Diseases of white blood cells (4 sources) Leukocytosis; Translations: [Elevated white blood cell count, unspecified] 08-10-2023 Chronic Esophageal disorders (10 sources) Gastroesophageal reflux disease without esophagitis; Translations: [Gastro-esophageal reflux disease without esophagitis] Chronic Essential hypertension (14 sources) Essential hypertension; Translations: [Essential (primary) hypertension] Chronic Fluid and electrolyte disorders (4 sources) Hyponatremia; Translations: [Hypo-osmolality and hyponatremia] 08-10-2023 Episodic Mood disorders (6 sources) Severe major depression, single episode; Translations: [Major depressive disorder, single episode, severe without psychotic features] 07-28-2023 Chronic Other nervous system disorders (2 sources) Expressive dysphasia; Translations: [Aphasia] 08-10-2023 Chronic Other nervous system disorders (3 sources) Aphasia; Translations: [Aphasia] 08-10-2023 Chronic Other screening for suspected conditions (not mental disorders or infectious disease) (1 source) Encounter for screening mammogram for malignant neoplasm of breast Episodic Screening and history of mental health and substance abuse codes (1 source) Personal history of nicotine dependence Episodic Spondylosis; intervertebral disc disorders; other back problems (11 sources) Muscle spasm of back; Translations: [Spasm of muscle of lower back] Episodic Past or Other Problems Problem Classification Problem Date Documented Da te Episodic/Chronic Unclassified (1 source) Lumbar pain M54.50 Results Test Name Value Interpretation Reference Range Facility Basophils Auto (Bld) [#/Vol] on 09-27-2023 Basophils (Bld) [#/Vol] 0.1 10 3/uL 0.0-0.1 [facility] Basophils/100 WBC Auto (Bld) on 09-27-2023 Basophils/100 WBC (Bld) 0.6 % 0.2-2.0 [facility] Eosinophils/100 WBC Auto (Bl d)on 09-27-2023 Eosinophils/100 WBC (Bld) 0.0 % Low 0.9-7.0 [facility] Erythrocyte distribution wid th Auto (RBC) [Ratio]on 09-27-2023 Erythrocyte distribution width (RBC) [Ratio] 12.9 % 11.0-15.0 [facility] Estimated glomerular filtrat ion rate (GFR) non- Americanon 09-27-2023 GFR/1.73 sq M.predicted among non-blacks MDRD (S/P/Bld) [Vol rate/Area] 54 mL/min/{1.73_m2} Low >=60 [facility] Hematocrit Auto (Bld) [Volum e fraction]on 09-27-2023 Hematocrit (Bld) [Volume fraction] 35.1 % Low 36.0-48.0 [facility] Hemoglobin [Mass/volume] in Bloodon 09-27-2023 Hemoglobin (Bld) [Mass/Vol] 11.8 g/dL Low 12.0-16.0 [facility] Laboratory - Chemistry and C hemistry - challengeon 09-27-2023 Calcium [Mass/Vol] 9.7 mg/dL 8.5-10.1 [facility] Chloride [Moles/Vol] 95 mmol/L Low 98-107 [facility] CO2 [Moles/Vol] 27.5 mmol/L 21.0-32.0 [facility] Creatinine [Mass/Vol] 1.02 mg/dL 0.55-1.02 [facility] GFR/1.73 sq M.predicted MDRD (S/P/Bld) [Vol rate/Area] mL/min/{1.73_m2} >=60 [facility] Glucose [Mass/Vol] 152 mg/dL High 74-106 [facility] Potassium [Moles/Vol] 4.4 mmol/L 3.5-5.1 [facility] Sodium [Moles/Vol] 131 mmol/L Low 136-145 [facility] Urea nitrogen [Mass/Vol] 6.0 mg/dL Low 7.0-18.0 [facility] Urea nitrogen/Creatinine [Mass ratio] 5.9 mg/mg [facility] Laboratory - Hematology and Cell countson 09-27-2023 Immature granulocytes/100 WBC (Bld) 0.4 % 0.0-0.5 [facility] Leukocytes [#/volume] correc krysta for nucleated erythrocytes in Blood by Automated counon 09-27-2023 WBC corrected for nucl RBC Auto (Bld) [#/Vol] 12.5 10 3/uL High 4.0-11.0 [facility] Lymphocytes Auto (Bld) [#/Vo l]on 09-27-2023 Lymphocytes (Bld) [#/Vol] 3.1 10 3/uL 1.2-3.8 [facility] Lymphocytes/100 WBC Auto (Bl d)on 09-27-2023 Lymphocytes/100 WBC (Bld) 25.1 % 20.5-60.0 [facility] MCH Auto (RBC) [Entitic mass ]on 09-27-2023 MCH (RBC) [Entitic mass] 29.6 pg 26.7-34.0 [facility] MCHC Auto (RBC) [Mass/Vol]on 09-27-2023 MCHC (RBC) [Mass/Vol] 33.6 g/dL 29.9-35.2 [facility] MCV Auto (RBC) [Entitic vol] on 09-27-2023 MCV (RBC) [Entitic vol] 88.0 fL 81.0-99.0 [facility] Monocytes Auto (Bld) [#/Vol] on 09-27-2023 Monocytes (Bld) [#/Vol] 0.9 10 3/uL High 0.3-0.8 [facility] Monocytes/100 WBC Auto (Bld) on 09-27-2023 Monocytes/100 WBC (Bld) 7.0 % 1.7-12.0 [facility] Neutrophils Auto (Bld) [#/Vo l]on 09-27-2023 Neutrophils (Bld) [#/Vol] 8.4 10 3/uL High 1.4-6.5 [facility] Neutrophils/100 WBC Auto (Bl d)on 09-27-2023 Neutrophils/100 WBC (Bld) 66.9 % 43.0-75.0 [facility] No Panel Informationon 09-26 Eosinophils # (Auto) 0.0 10 3/uL 0.0-0.7 [facility] Immature Granulocyte # (Auto) 0.05 10 3/uL High 0.00-0.03 [facility] Platelet mean volume Auto (B ld) [Entitic vol]on 09-27-2023 Platelet mean volume (Bld) [Entitic vol] 10.6 fL 9.5-13.5 [facility] Platelets Auto (Bld) [#/Vol] on 09-27-2023 Platelets (Bld) [#/Vol] 302 10 3/uL 150-450 [facility] RBC Auto (Bld) [#/Vol]on RBC (Bld) [#/Vol] 3.99 10 6/uL Low 4.20-5.40 [facility] Serum or plasma anion gap de terminationon 09-27-2023 Anion gap [Moles/Vol] 12.9 mmol/L [facility] Basophils Auto (Bld) [#/Vol] on 08-08-2023 Basophils (Bld) [#/Vol] 0.1 10 3/uL 0.0-0.1 [facility] Basophils/100 WBC Auto (Bld) on 08-08-2023 Basophils/100 WBC (Bld) 0.4 % 0.2-2.0 [facility] Eosinophils/100 WBC Auto (Bl d)on 08-08-2023 Eosinophils/100 WBC (Bld) 0.3 % Low 0.9-7.0 [facility] Erythrocyte distribution wid th Auto (RBC) [Ratio]on 08-08-2023 Erythrocyte distribution width (RBC) [Ratio] 13.1 % 11.0-15.0 [facility] Estimated glomerular filtrat ion rate (GFR) non- Americanon 08-08-2023 GFR/1.73 sq M.predicted among non-blacks MDRD (S/P/Bld) [Vol rate/Area] 45 mL/min/{1.73_m2} Low >=60 [facility] Globulin Calc (S) [Mass/Vol] on 08-08-2023 Globulin (S) [Mass/Vol] 4.4 g/dL [facility] Hematocrit Auto (Bld) [Volum e fraction]on 08-08-2023 Hematocrit (Bld) [Volume fraction] 37.5 % 36.0-48.0 [facility] Hemoglobin [Mass/volume] in Bloodon 08-08-2023 Hemoglobin (Bld) [Mass/Vol] 12.6 g/dL 12.0-16.0 [facility] INR in Platelet poor plasma by Coagulation assayon 08-08-2023 INR Coag (PPP) [Relative time] 1.03 {INR} [facility] Comment on above: DESIRED INR:2.0-3.0 CONDITIONS NOT LISTED BELOW2.5-3.5 FOR PROSTHETIC HEART VALVE REPLACEMENT2.5-3.5 RECURRENT THROMBOSIS Laboratory - Chemistry and C hemistry - challengeon 08-08-2023 Albumin [Mass/Vol] 4.3 g/dL 3.4-5.0 [facility] ALP [Catalytic activity/Vol] 99 U/L 46-116 [facility] ALT [Catalytic activity/Vol] 21 U/L 14-59 [facility] AST [Catalytic activity/Vol] 25 U/L 15-37 [facility] Bilirubin [Mass/Vol] 0.6 mg/dL 0.2-1.0 [facility] Calcium [Mass/Vol] 9.8 mg/dL 8.5-10.1 [facility] Chloride [Moles/Vol] 89 mmol/L Low 98-107 [facility] CO2 [Moles/Vol] 21.5 mmol/L 21.0-32.0 [facility] Creatinine [Mass/Vol] 1.19 mg/dL High 0.55-1.02 [facility] GFR/1.73 sq M.predicted MDRD (S/P/Bld) [Vol rate/Area] 55 mL/min/{1.73_m2} Low >=60 [facility] Glucose [Mass/Vol] 110 mg/dL High 74-106 [facility] Potassium [Moles/Vol] 4.1 mmol/L 3.5-5.1 [facility] Protein [Mass/Vol] 8.7 g/dL High 6.4-8.2 [facility] Sodium [Moles/Vol] 124 mmol/L Low 136-145 [facility] Comment on above: RESULTS CALLED TO MARTÍNEZ HAMPTON RN @BY Rosibel Joshi [id number] Urea nitrogen [Mass/Vol] 11.0 mg/dL 7.0-18.0 [facility] Urea nitrogen/Creatinine [Mass ratio] 9.2 mg/mg [facility] Laboratory - Hematology and Cell countson 08-08-2023 Immature granulocytes/100 WBC (Bld) 0.4 % 0.0-0.5 [facility] Leukocytes [#/volume] correc krysta for nucleated erythrocytes in Blood by Automated counon 08-08-2023 WBC corrected for nucl RBC Auto (Bld) [#/Vol] 15.9 10 3/uL High 4.0-11.0 [facility] Lymphocytes Auto (Bld) [#/Vo l]on 08-08-2023 Lymphocytes (Bld) [#/Vol] 4.6 10 3/uL High 1.2-3.8 [facility] Lymphocytes/100 WBC Auto (Bl d)on 08-08-2023 Lymphocytes/100 WBC (Bld) 28.9 % 20.5-60.0 [facility] MCH Auto (RBC) [Entitic mass ]on 08-08-2023 MCH (RBC) [Entitic mass] 29.4 pg 26.7-34.0 [facility] MCHC Auto (RBC) [Mass/Vol]on 08-08-2023 MCHC (RBC) [Mass/Vol] 33.6 g/dL 29.9-35.2 [facility] MCV Auto (RBC) [Entitic vol] on 08-08-2023 MCV (RBC) [Entitic vol] 87.6 fL 81.0-99.0 [facility] Monocytes Auto (Bld) [#/Vol] on 08-08-2023 Monocytes (Bld) [#/Vol] 1.0 10 3/uL High 0.3-0.8 [facility] Monocytes/100 WBC Auto (Bld) on 08-08-2023 Monocytes/100 WBC (Bld) 6.0 % 1.7-12.0 [facility] Neutrophils Auto (Bld) [#/Vo l]on 08-08-2023 Neutrophils (Bld) [#/Vol] 10.2 10 3/uL High 1.4-6.5 [facility] Neutrophils/100 WBC Auto (Bl d)on 08-08-2023 Neutrophils/100 WBC (Bld) 64.0 % 43.0-75.0 [facility] No Panel Informationon 08-07 Eosinophils # (Auto) 0.0 10 3/uL 0.0-0.7 [facility] Immature Granulocyte # (Auto) 0.06 10 3/uL High 0.00-0.03 [facility] Troponin I High Sensitivity 6.4 pg/mL 4.0-51.3 [facility] Comment on above: CUT-OFF POINTS HAVE BEEN ESTABLISHED BASED ON THE FOURTHIVERS DEFINITION OF MYOCARDIAL INFARCTION. THE UPPERREFERENCE LIMIT (URL) OF TROPONIN, DEFINED THE 99THPERCENTILE OF cTnI DISTRIBUTION IN A REFERENCE POPULATION,HAS BEEN CONFIRMED THE DECISION THRESHOLD FOR MIDIAGNOSIS.99TH PERCENTILE = 51.4 PG/MLNOTE: HIGH-SENSITIVITY TROPONIN ASSAY IS NOT INTENDED TO BEUSED IN ISOLATION BUT SHOULD BE INTERPRETED IN CONJUNCTIONWITH OTHER DIAGNOSTIC AND CLINICAL INFORMATION. Platelet mean volume Auto (B ld) [Entitic vol]on 08-08-2023 Platelet mean volume (Bld) [Entitic vol] 10.6 fL 9.5-13.5 [facility] Platelets Auto (Bld) [#/Vol] on 08-08-2023 Platelets (Bld) [#/Vol] 261 10 3/uL 150-450 [facility] Prothrombin time (PT)on 07-25 PT Coag (PPP) [Time] 10.9 s 9.0-11.6 [facility] RBC Auto (Bld) [#/Vol]on RBC (Bld) [#/Vol] 4.28 10 6/uL 4.20-5.40 [facility] Serum or plasma albumin/glob ulin mass ratioon 08-08-2023 Albumin/Globulin [Mass ratio] 1.0 {ratio} [facility] Serum or plasma anion gap de terminationon 08-08-2023 Anion gap [Moles/Vol] 17.6 mmol/L [facility] Basophils Auto (Bld) [#/Vol] on 05-30-2023 Basophils (Bld) [#/Vol] 0.1 10 3/uL 0.0-0.1 [facility] Basophils/100 WBC Auto (Bld) on 05-30-2023 Basophils/100 WBC (Bld) 0.8 % 0.2-2.0 [facility] Eosinophils/100 WBC Auto (Bl d)on 05-30-2023 Eosinophils/100 WBC (Bld) 0.0 % 0.9-7.0 [facility] Erythrocyte distribution wid th Auto (RBC) [Ratio]on 05-30-2023 Erythrocyte distribution width (RBC) [Ratio] 12.6 % 11.0-15.0 [facility] Glucose mean value [Mass/vol ume] in Blood Estimated from glycated hemoglobinon 05-30-2023 Average glucose Estimated from glycated hemoglobin (Bld) [Mass/Vol] 283 mg/dL [facility] Hematocrit Auto (Bld) [Volum e fraction]on 05-30-2023 Hematocrit (Bld) [Volume fraction] 36.6 % 36.0-48.0 [facility] Hemoglobin [Mass/volume] in Bloodon 05-30-2023 Hemoglobin (Bld) [Mass/Vol] 12.0 g/dL 12.0-16.0 [facility] Laboratory - Hematology and Cell countson 05-30-2023 HbA1c (Bld) [Mass fraction] 11.5 % 4.5-6.2 [facility] Comment on above: ADA RECOMMENDED LIMI T 4.0 - 6.0ADA THERAPEUTIC TARGET < 7.0ACTION SUGGESTED> 7.0 Immature granulocytes/100 WBC (Bld) 0.5 % 0.0-0.5 [facility] Leukocytes [#/volume] correc krysta for nucleated erythrocytes in Blood by Automated counon 05-30-2023 WBC corrected for nucl RBC Auto (Bld) [#/Vol] 14.3 10 3/uL 4.0-11.0 [facility] Lymphocytes Auto (Bld) [#/Vo l]on 05-30-2023 Lymphocytes (Bld) [#/Vol] 3.6 10 3/uL 1.2-3.8 [facility] Lymphocytes/100 WBC Auto (Bl d)on 05-30-2023 Lymphocytes/100 WBC (Bld) 25.1 % 20.5-60.0 [facility] MCH Auto (RBC) [Entitic mass ]on 05-30-2023 MCH (RBC) [Entitic mass] 29.7 pg 26.7-34.0 [facility] MCHC Auto (RBC) [Mass/Vol]on 05-30-2023 MCHC (RBC) [Mass/Vol] 32.8 g/dL 29.9-35.2 [facility] MCV Auto (RBC) [Entitic vol] on 05-30-2023 MCV (RBC) [Entitic vol] 90.6 fL 81.0-99.0 [facility] Monocytes Auto (Bld) [#/Vol] on 05-30-2023 Monocytes (Bld) [#/Vol] 0.9 10 3/uL 0.3-0.8 [facility] Monocytes/100 WBC Auto (Bld) on 05-30-2023 Monocytes/100 WBC (Bld) 6.0 % 1.7-12.0 [facility] Neutrophils Auto (Bld) [#/Vo l]on 05-30-2023 Neutrophils (Bld) [#/Vol] 9.7 10 3/uL 1.4-6.5 [facility] Neutrophils/100 WBC Auto (Bl d)on 05-30-2023 Neutrophils/100 WBC (Bld) 67.6 % 43.0-75.0 [facility] No Panel Informationon 05-29 Eosinophils # (Auto) 0.0 10 3/uL 0.0-0.7 [facility] Immature Granulocyte # (Auto) 0.07 10 3/uL 0.00-0.03 [facility] Platelet mean volume Auto (B ld) [Entitic vol]on 05-30-2023 Platelet mean volume (Bld) [Entitic vol] 10.9 fL 9.5-13.5 [facility] Platelets Auto (Bld) [#/Vol] on 05-30-2023 Platelets (Bld) [#/Vol] 242 10 3/uL 150-450 [facility] RBC Auto (Bld) [#/Vol]on RBC (Bld) [#/Vol] 4.04 10 6/uL 4.20-5.40 [facility] Vital Signs Date Time Vital Sign Value Performing Clinician Facility 10-26-2023 11:10-0400 Body height 162.56 cm [facility] 10-26-2023 11:10-0400 Body mass index (BMI) [Ratio] 40.3 kg/m2 [facility] 10-26-2023 11:10-0400 Body weight 106.59 kg [facility] 10-26-2023 11:10-0400 Diastolic blood pressure 68 mm[Hg] [facility] 10-26-2023 11:10-0400 Heart rate 75 /min [facility] 10-26-2023 11:10-0400 Systolic blood pressure 102 mm[Hg] [facility] 10-09-2023 11:21-0400 Body height 162.56 cm [facility] 10-09-2023 11:21-0400 Body mass index (BMI) [Ratio] 40.6 kg/m2 [facility] 10-09-2023 11:21-0400 Body weight 107.5 kg [facility] 10-09-2023 11:21-0400 Diastolic blood pressure 68 mm[Hg] [facility] 10-09-2023 11:21-0400 Heart rate 69 /min [facility] 10-09-2023 11:21-0400 Systolic blood pressure 105 mm[Hg] [facility] 08-10-2023 13:38-0400 Body height 162.56 cm [facility] 08-10-2023 13:38-0400 Body mass index (BMI) [Ratio] 39.2 kg/m2 [facility] 08-10-2023 13:38-0400 Body weight 103.64 kg [facility] 08-10-2023 13:38-0400 Diastolic blood pressure 70 mm[Hg] [facility] 08-10-2023 13:38-0400 Heart rate 71 /min [facility] 08-10-2023 13:38-0400 Systolic blood pressure 106 mm[Hg] [facility] 07-27-2023 09:31-0400 Body height 162.56 cm [facility] 07-27-2023 09:31-0400 Body mass index (BMI) [Ratio] 40.1 kg/m2 [facility] 07-27-2023 09:31-0400 Body weight 106.14 kg [facility] 07-27-2023 09:31-0400 Diastolic blood pressure 73 mm[Hg] [facility] 07-27-2023 09:31-0400 Heart rate 66 /min [facility] 07-27-2023 09:31-0400 Systolic blood pressure 137 mm[Hg] [facility] 07-10-2023 11:10-0400 Body height 162.56 cm [facility] 07-10-2023 11:10-0400 Body mass index (BMI) [Ratio] 40.6 kg/m2 [facility] 07-10-2023 11:10-0400 Body weight 107.27 kg [facility] 07-10-2023 11:10-0400 Diastolic blood pressure 76 mm[Hg] [facility] 07-10-2023 11:10-0400 Heart rate 77 /min [facility] 07-10-2023 11:10-0400 Systolic blood pressure 115 mm[Hg] [facility] 05-30-2023 13:03-0500 Body height 162.56 cm [facility] 05-30-2023 13:03-0500 Body mass index (BMI) [Ratio] 40.8 kg/m2 [facility] 05-30-2023 13:03-0500 Body weight 108.12 kg [facility] 05-30-2023 13:03-0500 Diastolic blood pressure 80 mm[Hg] [facility] 05-30-2023 13:03-0500 Heart rate 90 /min [facility] 05-30-2023 13:03-0500 SaO2% (BldA) [Mass fraction] 97 % [facility] 05-30-2023 13:03-0500 Systolic blood pressure 126 mm[Hg] [facility] 04-10-2023 11:15-0500 Body height 162.56 cm Vanessa Baldwin Other [facility] 04-10-2023 11:15-0500 Body mass index (BMI) [Ratio] 40.16 kg/m2 Vanessa Baldwin Other [facility] 04-10-2023 11:15-0500 Body weight 106.14 kg Vanessa Baldwin Other [facility] Other 04-10-2023 11:15-0500 Diastolic blood pressure 84 mm[Hg] Vanessa Baldwin Other [facility] Other 04-10-2023 11:15-0500 SaO2% (BldA) [Mass fraction] 95 % Vanessa Baldwin Other [facility] Other 04-10-2023 11:15-0500 Systolic blood pressure 126 mm[Hg] Vanessa Baldwin Other [facility] Other 01-24-2023 11:15-0400 Body height 162.56 cm Vanessa Baldwin Other [facility] Other 01-24-2023 11:15-0400 Body mass index (BMI) [Ratio] 39.37 kg/m2 Vanessa Baldwin Other [facility] Other 01-24-2023 11:15-0400 Body weight 104.06 kg Vanessa Baldwin Other [facility] Other 01-24-2023 11:15-0400 Diastolic blood pressure 74 mm[Hg] Vanessa Baldwin Other [facility] Other 01-24-2023 11:15-0400 Systolic blood pressure 112 mm[Hg] Vanessa Baldwin Other [facility] Other 01-17-2023 10:30-0400 Body height 162.56 cm Vanessa Baldwin Other [facility] Other 01-17-2023 10:30-0400 Body mass index (BMI) [Ratio] 39.82 kg/m2 Vanessa Baldwin Other [facility] Other 01-17-2023 10:30-0400 Body weight 105.24 kg Vanessa Baldwin Other [facility] Other 01-17-2023 10:30-0400 Diastolic blood pressure 64 mm[Hg] Vanessa Baldwin Other [facility] Other 01-17-2023 10:30-0400 Systolic blood pressure 100 mm[Hg] Vanessa Baldwin Other [facility] Other Encounters Encounter Date Encounter Type Care Provider Facility Start: 10-26-2023 End: 10-26-2023 ambulatory [facility] Work Phone: Start: 10-26-2023 End: 10-26-2023 Patient encounter procedure [facility] Work Phone: Start: 10-09-2023 End: 10-09-2023 ambulatory [facility] Work Phone: Start: 10-09-2023 End: 10-09-2023 Patient encounter procedure [facility] Work Phone: Start: 10-02-2023 End: 10-02-2023 ambulatory Maribell Malik MD Facility: [facility] Start: 09-27-2023 [facility]-patient [facility] Work Phone: Start: 08-28-2023 End: 08-28-2023 [facility] Start: 08-10-2023 End: 08-10-2023 Patient encounter procedure [facility] Work Phone: Start: 08-08-2023 Non-patient / Non-visit [facility] Work Phone: Start: 07-27-2023 End: 07-27-2023 Patient encounter procedure [facility] Work Phone: Start: 07-24-2023 End: 07-24-2023 ambulatory Maribell Malik MD Facility: [facility] Start: 07-10-2023 End: 07-10-2023 ambulatory [facility] Work Phone: Start: 07-10-2023 End: 07-10-2023 Patient encounter procedure [facility] Work Phone: Start: 05-30-2023 End: 05-30-2023 Patient encounter procedure [facility] Work Phone: Start: 05-02-2023 End: 05-02-2023 ambulatory Vanessa Baldwin Other [facility] Other Start: 05-02-2023 Telephone encounter Vanessa Baldwin [facility] Start: 04-24-2023 End: 04-24-2023 ambulatory Vanessa Baldwin Other [facility] Other Start: 04-24-2023 Telephone encounter Vanessa Baldwin [facility] Start: 04-10-2023 End: 04-10-2023 ambulatory Vanessa Baldwin Other [facility] Other Start: 04-10-2023 Office outpatient visit 15 minutes Vanessa Baldwin [facility] Start: 04-03-2023 End: 04-03-2023 ambulatory Vanessa Baldwin Other [facility] Other Start: 04-03-2023 Telephone encounter Vanessa Baldwin [facility] Start: 03-06-2023 End: 03-06-2023 ambulatory Vanessa Baldwin Other [facility] Other Start: 03-06-2023 Telephone encounter Vanessa Baldwin [facility] Start: 02-02-2023 End: 02-02-2023 ambulatory Vanessa Baldwin Other [facility] Other Start: 02-02-2023 Telephone encounter Vanessa Baldwin [facility] Start: 01-24-2023 End: 01-24-2023 ambulatory Vanessa Baldwin Other [facility] Other Start: 01-24-2023 Office outpatient visit 15 minutes Vanessa Baldwin [facility] Start: 01-17-2023 End: 01-17-2023 ambulatory Vanessa Baldwin Other [facility] Other Start: 01-17-2023 Office outpatient ne w 45 minutes Vanessa Baldwin [facility] Plan of Treatment Date Care Activity Detail Author Patient Education Low back pain in adults [facility] Work Phone: US Heart Transthoracic [facility] US.doppler Carotid a rteries - bilateral [facility] Immunizations Immunization Date Immunization Notes Care Provider Fa cility 04-10-2023 influenza, high dose seasonal, preservative-free Vanessa Baldwin Other [facility] Other 04-10-2023 influenza virus vaccine, unspecified formulation [facility] Payers Date Payer Category Payer Private Health Insurance 1955 Unknown [id number] 1955 Unknown [id number] 1955 Unknown [id number] Private Health Insurance [id number] Social History Date Type Detail Facility Unknown if ever smoked [facility] Other Sex Assigned At Sex Assigned At Bir th [facility] Other Start: 05-29-2023 Tobacco smoking status NHIS Ex-smoker (finding) [facility] Start: 1955 Sex Assigned At Female [facility] Medical Equipment Procedure Code Equipment Code Equipment Origin al Text Equipment Identifier Dates Blood Sugar Diagnostic (Accu-Chek Guide Test Strips) strip Start: 09-25-2023 Lancets (Accu-Ch ek Softclix Lancets) misc Start: 09-25-2023 Blood Sugar Diagnostic (Accu-Chek Guide Test Strips) strip Start: 09-25-2023 Lancets (Accu-Ch ek Softclix Lancets) misc Start: 09-25-2023 Evaluation note 04-10-2023 Note Date & Type [...] symptoms. Any developing patterns. Stay well hydrated. [facility] Other Evaluation note 02-02-2023 Note Date & Type Note Facility 02-02-2023 Evaluation note Encounter Date Diagnosis Assessment Notes Jan, Type 2 diabetes mellitus with hyperglycemia , without long-term current use of insulin (ICD-10 - E11.65) [facility] Other Evaluation note 01-24-2023 Note Date & [...] A1C7.0. Cholesterol well controlled. Continue present meds. [facility] Other Evaluation note 01-17-2023 Note Date & Type Note Facility 01-17-2023 Evaluation note Encounter Date Diagnosis Assessment Notes Dec, Essential (primary) hypertension (ICD-10 - I10) Refilled meds for chronic problems Dec, Type 2 diabetes mellitus with hyperglycemia, without long-term current use of insulin (ICD-10 - E11.65) Check labs today diabetic eye exam annually Dec, Coronary artery disease involving sleetmute coronary artery of sleetmute heart without angina pectoris (ICD-10 - I25.10) Pt agrees to referral to get established with a local resort desk clerk. Dec, Anxiety (ICD-10 - F41.9) pt states her chronic problem is controlled w xanax tid and lexapro Dec, GERD without esophagitis (ICD-10 - K21.9) refilled med for chronic problem Dec, Screening mammogram for breast cancer (ICD-10 - Z12.31) Dec, Personal history of nicotine dependence (ICD-10 - Z87.891) [facility] Other Evaluation note Note Date & Type Note Facility Evaluation note No Information [facility] Other Evaluation note Note Date & Type Note Facility Evaluation note Diagnosis Onset Date Anxiety acute [id number] [facility] Work Phone: Evaluation note Note Date & Type Note Facility Evaluation note Diagnosis Onset Date Anxiety acute Depression, major, single episode, severe acute Diabetic peripheral neuropathy acute Hammertoe of left foot acute Lumbar back pain with radicu lopathy affecting lower extremity acute Anxiety acute Depression, major, single episode, severe acute Expressive aphasia acute Hyponatremia acute Leukocytosis acute Lumbar back pain with radicu lopathy affecting lower extremity acute [facility] Work Phone: Evaluation note Note Date & Type Note Facility Evaluation note Diagnosis Onset Date Anxiety acute Depression, major, single episode, severe acute Expressive aphasia acute Hyponatremia acute Leukocytosis acute Lumbar back pain with radicu lopathy affecting lower extremity acute Anxiety acute Depression, major, single episode, severe acute Expressive aphasia acute Lumbar back pain with radicu lopathy affecting lower extremity acute Diabetic peripheral neuropathy acute Lumbar back pain with radicu lopathy affecting lower extremity acute [facility] Work Phone: History general Narrative - Reported Note Date & Type Note Facility History general Narrative - Reported Type Medical History Hypertention Medical History Diabetes Medical History Neuropathy Medical History Heart Attack Surgical History Hysterectomy Surgical History Back surgery Surgical History Right CTR Surgical History Bilateral shoulder surgery Surgical History Heart Stents X2 Surgical History Left TKR [facility] Other History general Narrative - Reported Note Date & Type Note Facility History general Narrative - Reported Type Medical History Hypertention Medical History Diabetes Medical History Neuropathy Medical History Heart Attack Medical History GERD Surgical History Hysterectomy Surgical History Back surgery Surgical History Right CTR Surgical History Bilateral shoulder surgery Surgical History Heart Stents X2 Surgical History Left TKR [facility] Other Reason for Referral Reason *Waiting for appt Get established, has stents, moved from [place]. Had [place] in 2015 Diagnosis 1 Coronary artery dise ase involving sleetm[place] coronary artery of [place]etm[place] heart without angina pectoris (I25.10) Referral Organization [facility] Referring Provider First Name Vanessa Referring Provider Last Name Nicolasa Referring Provider Specialty Family [facility] Referred Organization [facility] Cardiology Referred Provider Christal Pacheco Referred Address [address] [place] [address],[address],[id number] Referred Provider Specialty Cardiovascul ar Disease Referral Priority Routine General Notes Radha Baker 02:31:53 PM >received today, sent P2P. pt may need to fill out a records release form to have old records sent to us Chief Complaint and Reason for Visit Chief Complaint weightloss 3 MONTH CHECK UP Reason for Visit Anxiety [id number] Chief Complaint foot exams for shoes [facility] follow up 3 month follow up Reason for Visit Anxiety Depression, major, single episode, severe Diabetic peripheral neuropathy Hammertoe of left foot Lumbar back pain with radiculopathy affecting lower extremity Anxiety Depression, major, single episode, severe Expressive aphasia Hyponatremia Leukocytosis Lumbar back pain with radiculopathy affecting lower extremity Chief Complaint [facility] follow up 3 month follow up discuss meds Reason for Visit Anxiety Depression, major, single episode, severe Expressive aphasia Hyponatremia Leukocytosis Lumbar back pain with radiculopathy affecting lower extremity Anxiety Depression, major, single episode, severe Expressive aphasia Lumbar back pain with radiculopathy affecting lower extremity Diabetic peripheral neuropathy Lumbar back pain with radiculopathy affecting lower extremity Family History Relationship Condition Age at Onset Recorded Date/T vanessa daughter Hypertension Unknown father Diabetes mellitus Unknown Heart disease Unknown History of stroke Unknown Hypertension Unknown Unknown Not Specified Unknown Diabetes mellitus Unknown Family history of mental disorder Unknown natural son Family history of mental disorder Unknown Relationship Condition Age at Onset Recorded Date/T vanessa daughter Hypertension Unknown father Diabetes mellitus Unknown Heart disease Unknown History of stroke Unknown Hypertension Unknown Unknown mother Unknown Diabetes mellitus Unknown Family history of mental disorder Unknown son Family history of mental disorder Unknown Advance Directives Advance Directive Response Recorded Date/ Time Advance Directives No April 18, 2023 4:51pm Summary Purpose Additional Source Comments REASON FOR VISIT (unrecogniz ed section and content) Check Up-Medsback painRefill RefillrefillRefill3 month Follow upcoughingCardio Referral Update Care Teams (unrecognized sec tion and content) Team Status: Active Member Role Status Dates Vanessa Baldwin MD Primary Care Provider Active Team Status: Active Member Role Status Dates Vanessa Baldwin MD Primary Care Provider Active Start: August 08, 2023 José Miguel Shultz Attending Provider Active Start: August 08, 2023 Team Status: Inactive Member Role Status Dates Vanessa Baldwin MD Primary Care Provide r, Attending Provider Active Start: August 10, 2023 End: August 10, 2023 Team Status: Active Member Role Status Dates Vanessa Baldwin MD Primary Care Provide r, Attending Provider Active Start: September 27, 2023 Team Status: Inactive Member Role Status Dates Vanessa Baldwin MD Primary Care Provide r, Attending Provider Active Start: October 09, 2023 End: October 09, 2023 Team Status: Inactive Member Role Status Dates Vanessa Baldwin MD Primary Care Provide r, Attending Provider Active Start: October 26, 2023 End: October 26, 2023 Team Status: Active Member Role Status Abdias Baldwin MD Primary Care Provider Active Team Status: Inactive Member Role Status Abdias Baldwin MD Primary Care Provide r, Attending Provider Active Start: May 30, 2023 End: May 30, 2023 Team Status: Inactive Member Role Status Abdias Baldwin MD Primary Care Provide r, Attending Provider Active Start: July 10, 2023 End: July 10, 2023 Team Status: Inactive Member Role Status Abdias Baldwin MD Primary Care Provide r, Attending Provider Active Start: July 27, 2023 End: July 27, 2023 Team Status: Active Member Role Status Abdias Baldwin MD Primary Care Provider Active Start: August 08, 2023 José Miguel Lexii Attending Provider Active Start: August 08, 2023 Team Status: Inactive Member Role Status Abdias Baldwin MD Primary Care Provide r, Attending Provider Active Start: August 10, 2023 End: August 10, 2023 Team Status: Active Member Role Status Abdias Baldwin MD Primary Care Provide r, Attending Provider Active Start: September 27, 2023 Team Status: Inactive Member Role Status Abdias Baldwin MD Primary Care Provide r, Attending Provider Active Start: October 09, 2023 End: October 09, 2023 Team Status: Inactive Member Role Status Abdias Baldwin MD Primary Care Provide r, Attending Provider Active Start: October 26, 2023 End: October 26, 2023 Goals (unrecognized section and content) Goals may be documented in a n alternate section INFORMATION SOURCE (unrecogn ized section and content) DATE CREATED AUTHOR 10/14/2023 [facility] FOR RECORDS PERTAINING TO PATIENTS WHO ARE [...] BE BASED ON THE PRIMARY CLINICAL RECORDS. [email or web address] [facility]. provides no warranty or guarantee of the accuracy or completeness of information in this document.
[2023-11-13 07:11] LABS: Glucometer 202 mg/dL (74-106)
[2023-11-13 07:16] VITALS: BP 133/70; PULSE 82; TEMP 36.3; O2SAT 94
[2023-11-13] MEDS: 0.9 % SODIUM CHLORIDE 500 ML IV (07:19)
[2023-11-13] MEDS: LIDOCAINE HCL 2% 400 MG/20 ML MDV 16 ML INJ (08:13)
[2023-11-13] MEDS: TRIAMCINOLONE ACETONIDE 40 MG/ML VIAL 80 MG INJ (08:13)
[2023-11-13] MEDS: BUPIVACAINE HCL 0.25% PF 25 MG/10 ML VIAL 4 ML INJ (08:13)
--- NOTE | 2023-11-13 08:18 | P.ON_ITS ---
Date of procedure: 11/13/23 Pre-op diagnosis: Pain due to lumbar spondylosis without myelopathy Post-op diagnosis: same as pre-op Procedure: Procedure: Bilateral L1-2, L2-3 radiofrequency ablation Medications: Bupivacaine 0.25% 6cc, lidocaine 2% 5cc, kenalog 80mg The patient was seen and examined in the preoperative holding area.? The site was marked.? Written informed consent was obtained and placed on the chart.? The patient was brought to the medical procedure unit and placed in the prone position.? A timeout was completed verifying correct patient, procedure, positioning, and special requirements.? The skin overlying the target points, the designated medial branch, were prepped and draped in the usual sterile fashion.? The target point was achieved with a 20-gauge 15 cm with a 10 mm curved active tip radiofrequency cannula under direct fluoroscopic visualization.? The needle was inserted at level L1 on the right side. Needle tip position was confirmed with lateral fluoroscopic position.? Motor stimulation was carried out at 2 Hz up to 5 volts with the absence of extremity activity.? This was repeated at level L2, 3 on right side.?? Sensory stimulation was carried out.? Concordant pain was realized at the above- mentioned sites.? Then radiofrequency lesioning was carried out times 90 seconds at 80 degrees times 2 lesions at each level.? The radiofrequency probe was removed prior to cannula removal.? The above-mentioned injectate was placed in 1 mL increments.? The needle was removed. The same procedure, with the same steps, was then completed on the left side at the same levels. Insertion sites were covered.? The patient was taken to the postoperative recovery area and monitored for an appropriate length of time before being found suitable for discharge in the company of a responsible adult. Anesthesia: MAC Surgeon: Maribell Malik Pathology: none sent Condition: stable Disposition: no change
[2023-11-13 08:23] VITALS: BP 103/47; PULSE 70; TEMP 36.3; O2SAT 95
[2023-11-13 08:31] VITALS: BP 95/49; PULSE 67; TEMP 36.6; O2SAT 93
== END 2023-11-13 08:47 | disposition home or self-care (01) ==
LOC: SURGOUT 06:46
PROVIDERS: Family Provider Internal Medicine; PCP Family Medicine; Visit Provider Anesthesiology
DX: M47.816 Spondylosis without myelopathy or radiculopathy, lumbar region (principal); E11.9 Type 2 diabetes mellitus without complications; Z79.84 Long term (current) use of oral hypoglycemic drugs
CPT/HCPCS: 36415; 64635; 64636; 82948; J0665; J2704; J3301

== ENCOUNTER 2023-12-14 09:57 | Outpatient (OUT) | payer MEDICARE, SELFPAY ==
--- OUTSIDE RECORDS SUMMARY | 2023-12-14 10:18 | XMS_ITS | CCD ---
Author Organization [facility] Care Team Providers Care Clinical Education Academic Coordinator Name Role Phone Vanessa Baldwin Unavailable Monicaitis , Maribell Art Attending Unavailable Giedraitis , Andviet Art Attending Unavailable Aprileditis , Maribell Art Attending Unavailable Helena GUERRA, Maribell Art Attending Unavailable Richard Baker Attending Unavailab Richard Head Admitting Unavailab Vanessa Burleson Primary Care Unavailable Allergies Allergy Classification Reported Allergen(s) Allergy Type Date of Onset Reaction(s) Facility (12 sources) Codeine Drug Allergy 4 [facility] (12 sources) Morphine Drug Allergy 4 [facility] (9 sources) Nalbuphine Drug Allergy [facility] Other (4 sources) Nalbuphine; Translations: [nalbuphine] Drug Allergy 4 [facility] (1 source) Codeine Drug Allergy [address] [place] [address] Repository (1 source) Morphine Drug Allergy [address] [place] [address] Repository Medications Current Medications Medication Drug Class(es) Dates [...] Active 0.25 MG PO Three times daily August 28, 2023 4:31pm Start: 05-29-2023 End: [...] 2023 2:10pm take 1 tablet by mela th every [...] a day take 2 tablets by mo [facility] every twenty-four hours metFORMIN HCl 500 [...] 09, 2023 2:30pm take 1 tablet by [facility] every twenty-four hours Klor-Con M20 20 MEQ [...] daily Spironolactone Active 25 MG PO Daily October 09, 2023 2:30pm take [...] 25, 2023 8:26am Start: 09-20-2023 Tirzepatide (M franciscojaro) 2.5 mg/0.5 mL pen injector Active 2.5 [...] 10, 2023 11:31am Start: 06-08-2023 Tirzepatide (M ruthnjaro) 2.5 mg/0.5 mL pen injector Active 2.5 [...] Coronary arteriosclerosis; Translations: [Atherosclerotic heart disease of [place] coronary artery without angina pectoris] Chronic Diabetes [...] Basophils (Bld) [#/Vol] 0.1 10 3/uL 0.0-0.1 [facility] Basophils/100 WBC Auto (Bld) on 09-27-2023 Basophils/100 WBC (Bld) 0.6 % 0.2-2.0 [facility] Eosinophils/100 WBC Auto (Bl d)on 09-27-2023 Eosinophils/100 WBC (Bld) 0.0 % Low 0.9-7.0 [facility] Erythrocyte distribution wid th Auto (RBC) [Ratio]on 09-27-2023 Erythrocyte distribution width (RBC) [Ratio] 12.9 % 11.0-15.0 [facility] Estimated glomerular filtrat ion rate (GFR) non- Americanon 09-27-2023 GFR/1.73 sq M.predicted among non-blacks MDRD (S/P/Bld) [Vol rate/Area] 54 mL/min/{1.73_m2} Low >=60 [facility] Hematocrit Auto (Bld) [Volum e fraction]on 09-27-2023 Hematocrit (Bld) [Volume fraction] 35.1 % Low 36.0-48.0 [facility] Hemoglobin [Mass/volume] in Bloodon 09-27-2023 Hemoglobin (Bld) [Mass/Vol] 11.8 g/dL Low 12.0-16.0 [facility] Laboratory - Chemistry and C hemistry - challengeon 09-27-2023 Calcium [Mass/Vol] 9.7 mg/dL 8.5-10.1 [facility] Chloride [Moles/Vol] 95 mmol/L Low 98-107 [facility] CO2 [Moles/Vol] 27.5 mmol/L 21.0-32.0 [facility] Creatinine [Mass/Vol] 1.02 mg/dL 0.55-1.02 [facility] GFR/1.73 sq M.predicted MDRD (S/P/Bld) [Vol rate/Area] mL/min/{1.73_m2} >=60 [facility] Glucose [Mass/Vol] 152 mg/dL High 74-106 [facility] Potassium [Moles/Vol] 4.4 mmol/L 3.5-5.1 [facility] Sodium [Moles/Vol] 131 mmol/L Low 136-145 [facility] Urea nitrogen [Mass/Vol] 6.0 mg/dL Low 7.0-18.0 [facility] Urea nitrogen/Creatinine [Mass ratio] 5.9 mg/mg [facility] Laboratory - Hematology and Cell countson 09-27-2023 Immature granulocytes/100 WBC (Bld) 0.4 % 0.0-0.5 [facility] Leukocytes [#/volume] correc krysta for nucleated erythrocytes in Blood by Automated counon 09-27-2023 WBC corrected for nucl RBC Auto (Bld) [#/Vol] 12.5 10 3/uL High 4.0-11.0 [facility] Lymphocytes Auto (Bld) [#/Vo l]on 09-27-2023 Lymphocytes (Bld) [#/Vol] 3.1 10 3/uL 1.2-3.8 [facility] Lymphocytes/100 WBC Auto (Bl d)on 09-27-2023 Lymphocytes/100 WBC (Bld) 25.1 % 20.5-60.0 [facility] MCH Auto (RBC) [Entitic mass ]on 09-27-2023 MCH (RBC) [Entitic mass] 29.6 pg 26.7-34.0 [facility] MCHC Auto (RBC) [Mass/Vol]on 09-27-2023 MCHC (RBC) [Mass/Vol] 33.6 g/dL 29.9-35.2 [facility] MCV Auto (RBC) [Entitic vol] on 09-27-2023 MCV (RBC) [Entitic vol] 88.0 fL 81.0-99.0 [facility] Monocytes Auto (Bld) [#/Vol] on 09-27-2023 Monocytes (Bld) [#/Vol] 0.9 10 3/uL High 0.3-0.8 [facility] Monocytes/100 WBC Auto (Bld) on 09-27-2023 Monocytes/100 WBC (Bld) 7.0 % 1.7-12.0 [facility] Neutrophils Auto (Bld) [#/Vo l]on 09-27-2023 Neutrophils (Bld) [#/Vol] 8.4 10 3/uL High 1.4-6.5 [facility] Neutrophils/100 WBC Auto (Bl d)on 09-27-2023 Neutrophils/100 WBC (Bld) 66.9 % 43.0-75.0 [facility] No Panel Informationon 09-26 Eosinophils # (Auto) 0.0 10 3/uL 0.0-0.7 [facility] Immature Granulocyte # (Auto) 0.05 10 3/uL High 0.00-0.03 [facility] Platelet mean volume Auto (B ld) [Entitic vol]on 09-27-2023 Platelet mean volume (Bld) [Entitic vol] 10.6 fL 9.5-13.5 [facility] Platelets Auto (Bld) [#/Vol] on 09-27-2023 Platelets (Bld) [#/Vol] 302 10 3/uL 150-450 [facility] RBC Auto (Bld) [#/Vol]on RBC (Bld) [#/Vol] 3.99 10 6/uL Low 4.20-5.40 [facility] Serum or plasma anion gap de terminationon 09-27-2023 Anion gap [Moles/Vol] 12.9 mmol/L [facility] Basophils Auto (Bld) [#/Vol] on 08-08-2023 Basophils (Bld) [#/Vol] 0.1 10 3/uL 0.0-0.1 [facility] Basophils/100 WBC Auto (Bld) on 08-08-2023 Basophils/100 WBC (Bld) 0.4 % 0.2-2.0 [facility] Eosinophils/100 WBC Auto (Bl d)on 08-08-2023 Eosinophils/100 WBC (Bld) 0.3 % Low 0.9-7.0 [facility] Erythrocyte distribution wid th Auto (RBC) [Ratio]on 08-08-2023 Erythrocyte distribution width (RBC) [Ratio] 13.1 % 11.0-15.0 [facility] Estimated glomerular filtrat ion rate (GFR) non- Americanon 08-08-2023 GFR/1.73 sq M.predicted among non-blacks MDRD (S/P/Bld) [Vol rate/Area] 45 mL/min/{1.73_m2} Low >=60 [facility] Globulin Calc (S) [Mass/Vol] on 08-08-2023 Globulin (S) [Mass/Vol] 4.4 g/dL [facility] Hematocrit Auto (Bld) [Volum e fraction]on 08-08-2023 Hematocrit (Bld) [Volume fraction] 37.5 % 36.0-48.0 [facility] Hemoglobin [Mass/volume] in Bloodon 08-08-2023 Hemoglobin (Bld) [Mass/Vol] 12.6 g/dL 12.0-16.0 [facility] INR in Platelet poor plasma by Coagulation assayon 08-08-2023 INR Coag (PPP) [Relative time] 1.03 {INR} [facility] Comment on above: DESIRED INR:2.0-3.0 CONDITIONS NOT LISTED BELOW2.5-3.5 FOR PROSTHETIC HEART VALVE REPLACEMENT2.5-3.5 RECURRENT THROMBOSIS Laboratory - Chemistry and C hemistry - challengeon 08-08-2023 Albumin [Mass/Vol] 4.3 g/dL 3.4-5.0 [facility] ALP [Catalytic activity/Vol] 99 U/L 46-116 [facility] ALT [Catalytic activity/Vol] 21 U/L 14-59 [facility] AST [Catalytic activity/Vol] 25 U/L 15-37 [facility] Bilirubin [Mass/Vol] 0.6 mg/dL 0.2-1.0 [facility] Calcium [Mass/Vol] 9.8 mg/dL 8.5-10.1 [facility] Chloride [Moles/Vol] 89 mmol/L Low 98-107 [facility] CO2 [Moles/Vol] 21.5 mmol/L 21.0-32.0 [facility] Creatinine [Mass/Vol] 1.19 mg/dL High 0.55-1.02 [facility] GFR/1.73 sq M.predicted MDRD (S/P/Bld) [Vol rate/Area] 55 mL/min/{1.73_m2} Low >=60 [facility] Glucose [Mass/Vol] 110 mg/dL High 74-106 [facility] Potassium [Moles/Vol] 4.1 mmol/L 3.5-5.1 [facility] Protein [Mass/Vol] 8.7 g/dL High 6.4-8.2 [facility] Sodium [Moles/Vol] 124 mmol/L Low 136-145 [facility] Comment on above: RESULTS CALLED TO MARTÍNEZ HAMPTON RN @BY Rosibel Joshi [id number] Urea nitrogen [Mass/Vol] 11.0 mg/dL 7.0-18.0 [facility] Urea nitrogen/Creatinine [Mass ratio] 9.2 mg/mg [facility] Laboratory - Hematology and Cell countson 08-08-2023 Immature granulocytes/100 WBC (Bld) 0.4 % 0.0-0.5 [facility] Leukocytes [#/volume] correc krysta for nucleated erythrocytes in Blood by Automated counon 08-08-2023 WBC corrected for nucl RBC Auto (Bld) [#/Vol] 15.9 10 3/uL High 4.0-11.0 [facility] Lymphocytes Auto (Bld) [#/Vo l]on 08-08-2023 Lymphocytes (Bld) [#/Vol] 4.6 10 3/uL High 1.2-3.8 [facility] Lymphocytes/100 WBC Auto (Bl d)on 08-08-2023 Lymphocytes/100 WBC (Bld) 28.9 % 20.5-60.0 [facility] MCH Auto (RBC) [Entitic mass ]on 08-08-2023 MCH (RBC) [Entitic mass] 29.4 pg 26.7-34.0 [facility] MCHC Auto (RBC) [Mass/Vol]on 08-08-2023 MCHC (RBC) [Mass/Vol] 33.6 g/dL 29.9-35.2 [facility] MCV Auto (RBC) [Entitic vol] on 08-08-2023 MCV (RBC) [Entitic vol] 87.6 fL 81.0-99.0 [facility] Monocytes Auto (Bld) [#/Vol] on 08-08-2023 Monocytes (Bld) [#/Vol] 1.0 10 3/uL High 0.3-0.8 [facility] Monocytes/100 WBC Auto (Bld) on 08-08-2023 Monocytes/100 WBC (Bld) 6.0 % 1.7-12.0 [facility] Neutrophils Auto (Bld) [#/Vo l]on 08-08-2023 Neutrophils (Bld) [#/Vol] 10.2 10 3/uL High 1.4-6.5 [facility] Neutrophils/100 WBC Auto (Bl d)on 08-08-2023 Neutrophils/100 WBC (Bld) 64.0 % 43.0-75.0 [facility] No Panel Informationon 08-07 Eosinophils # (Auto) 0.0 10 3/uL 0.0-0.7 [facility] Immature Granulocyte # (Auto) 0.06 10 3/uL High 0.00-0.03 [facility] Troponin I High Sensitivity 6.4 pg/mL 4.0-51.3 [facility] Comment on above: CUT-OFF POINTS HAVE BEEN ESTABLISHED BASED ON THE FOURTHIVERSAL DEFINITION OF MYOCARDIAL INFARCTION. THE UPPERREFERENCE LIMIT [...] volume (Bld) [Entitic vol] 10.6 fL 9.5-13.5 [facility] Platelets Auto (Bld) [#/Vol] on 08-08-2023 Platelets (Bld) [#/Vol] 261 10 3/uL 150-450 [facility] Prothrombin time (PT)on 07-25 PT Coag (PPP) [Time] 10.9 s 9.0-11.6 [facility] RBC Auto (Bld) [#/Vol]on RBC (Bld) [#/Vol] 4.28 10 6/uL 4.20-5.40 [facility] Serum or plasma albumin/glob ulin mass ratioon 08-08-2023 Albumin/Globulin [Mass ratio] 1.0 {ratio} [facility] Serum or plasma anion gap de terminationon 08-08-2023 Anion gap [Moles/Vol] 17.6 mmol/L Fi relaCount includes the [facility] Basophils Auto (Bld) [#/Vol] on 05-30-2023 Basophils (Bld) [#/Vol] 0.1 10 3/uL 0.0-0.1 [facility] Basophils/100 WBC Auto (Bld) on 05-30-2023 Basophils/100 WBC (Bld) 0.8 % 0.2-2.0 [facility] Eosinophils/100 WBC Auto (Bl d)on 05-30-2023 Eosinophils/100 WBC (Bld) 0.0 % 0.9-7.0 [facility] Erythrocyte distribution wid th Auto (RBC) [Ratio]on 05-30-2023 Erythrocyte distribution width (RBC) [Ratio] 12.6 % 11.0-15.0 [facility] Glucose mean value [Mass/vol ume] in Blood Estimated from glycated hemoglobinon 05-30-2023 Average glucose Estimated from glycated hemoglobin (Bld) [Mass/Vol] 283 mg/dL [facility] Hematocrit Auto (Bld) [Volum e fraction]on 05-30-2023 Hematocrit (Bld) [Volume fraction] 36.6 % 36.0-48.0 [facility] Hemoglobin [Mass/volume] in Bloodon 05-30-2023 Hemoglobin (Bld) [Mass/Vol] 12.0 g/dL 12.0-16.0 [facility] Laboratory - Hematology and Cell countson 05-30-2023 HbA1c (Bld) [Mass fraction] 11.5 % 4.5-6.2 [facility] Comment on above: ADA RECOMMENDED LIMI T 4.0 - 6.0ADA THERAPEUTIC TARGET < 7.0ACTION SUGGESTED> 7.0 Immature granulocytes/100 WBC (Bld) 0.5 % 0.0-0.5 [facility] Leukocytes [#/volume] correc krysta for nucleated erythrocytes in Blood by Automated counon 05-30-2023 WBC corrected for nucl RBC Auto (Bld) [#/Vol] 14.3 10 3/uL 4.0-11.0 [facility] Lymphocytes Auto (Bld) [#/Vo l]on 05-30-2023 Lymphocytes (Bld) [#/Vol] 3.6 10 3/uL 1.2-3.8 [facility] Lymphocytes/100 WBC Auto (Bl d)on 05-30-2023 Lymphocytes/100 WBC (Bld) 25.1 % 20.5-60.0 [facility] MCH Auto (RBC) [Entitic mass ]on 05-30-2023 MCH (RBC) [Entitic mass] 29.7 pg 26.7-34.0 [facility] MCHC Auto (RBC) [Mass/Vol]on 05-30-2023 MCHC (RBC) [Mass/Vol] 32.8 g/dL 29.9-35.2 [facility] MCV Auto (RBC) [Entitic vol] on 05-30-2023 MCV (RBC) [Entitic vol] 90.6 fL 81.0-99.0 [facility] Monocytes Auto (Bld) [#/Vol] on 05-30-2023 Monocytes (Bld) [#/Vol] 0.9 10 3/uL 0.3-0.8 [facility] Monocytes/100 WBC Auto (Bld) on 05-30-2023 Monocytes/100 WBC (Bld) 6.0 % 1.7-12.0 [facility] Neutrophils Auto (Bld) [#/Vo l]on 05-30-2023 Neutrophils (Bld) [#/Vol] 9.7 10 3/uL 1.4-6.5 [facility] Neutrophils/100 WBC Auto (Bl d)on 05-30-2023 Neutrophils/100 WBC (Bld) 67.6 % 43.0-75.0 [facility] No Panel Informationon 05-29 Eosinophils # (Auto) 0.0 10 3/uL 0.0-0.7 [facility] Immature Granulocyte # (Auto) 0.07 10 3/uL 0.00-0.03 [facility] Platelet mean volume Auto (B ld) [Entitic vol]on 05-30-2023 Platelet mean volume (Bld) [Entitic vol] 10.9 fL 9.5-13.5 [facility] Platelets Auto (Bld) [#/Vol] on 05-30-2023 Platelets (Bld) [#/Vol] 242 10 3/uL 150-450 [facility] RBC Auto (Bld) [#/Vol]on RBC (Bld) [#/Vol] 4.04 10 6/uL 4.20-5.40 [facility] Vital Signs Date Time Vital Sign Value Performing Clinician Facility 10-26-2023 11:10-0400 Body height 162.56 cm [facility] 10-26-2023 11:10-0400 Body mass index (BMI) [Ratio] 40.3 kg/m2 [facility] 10-26-2023 11:10-0400 Body weight 106.59 kg [facility] 10-26-2023 11:10-0400 Diastolic blood pressure 68 mm[Hg] [facility] 10-26-2023 11:10-0400 Heart rate 75 /min [facility] 10-26-2023 11:10-0400 Systolic blood pressure 102 mm[Hg] [facility] 10-09-2023 11:21-0400 Body height 162.56 cm [facility] 10-09-2023 11:21-0400 Body mass index (BMI) [Ratio] 40.6 kg/m2 [facility] 10-09-2023 11:21-0400 Body weight 107.5 kg [facility] 10-09-2023 11:21-0400 Diastolic blood pressure 68 mm[Hg] [facility] 10-09-2023 11:21-0400 Heart rate 69 /min [facility] 10-09-2023 11:21-0400 Systolic blood pressure 105 mm[Hg] [facility] 08-10-2023 13:38-0400 Body height 162.56 cm [facility] 08-10-2023 13:38-0400 Body mass index (BMI) [Ratio] 39.2 kg/m2 [facility] 08-10-2023 13:38-0400 Body weight 103.64 kg [facility] 08-10-2023 13:38-0400 Diastolic blood pressure 70 mm[Hg] [facility] 08-10-2023 13:38-0400 Heart rate 71 /min [facility] 08-10-2023 13:38-0400 Systolic blood pressure 106 mm[Hg] [facility] 07-27-2023 09:31-0400 Body height 162.56 cm [facility] 07-27-2023 09:31-0400 Body mass index (BMI) [Ratio] 40.1 kg/m2 [facility] 07-27-2023 09:31-0400 Body weight 106.14 kg [facility] 07-27-2023 09:31-0400 Diastolic blood pressure 73 mm[Hg] [facility] 07-27-2023 09:31-0400 Heart rate 66 /min [facility] 07-27-2023 09:31-0400 Systolic blood pressure 137 mm[Hg] [facility] 07-10-2023 11:10-0400 Body height 162.56 cm [facility] 07-10-2023 11:10-0400 Body mass index (BMI) [Ratio] 40.6 kg/m2 [facility] 07-10-2023 11:10-0400 Body weight 107.27 kg [facility] 07-10-2023 11:10-0400 Diastolic blood pressure 76 mm[Hg] [facility] 07-10-2023 11:10-0400 Heart rate 77 /min [facility] 07-10-2023 11:10-0400 Systolic blood pressure 115 mm[Hg] [facility] 05-30-2023 13:03-0500 Body height 162.56 cm [facility] 05-30-2023 13:03-0500 Body mass index (BMI) [Ratio] 40.8 kg/m2 [facility] 05-30-2023 13:03-0500 Body weight 108.12 kg [facility] 05-30-2023 13:03-0500 Diastolic blood pressure 80 mm[Hg] [facility] 05-30-2023 13:03-0500 Heart rate 90 /min [facility] 05-30-2023 13:03-0500 SaO2% (BldA) [Mass fraction] 97 % [facility] 05-30-2023 13:03-0500 Systolic blood pressure 126 mm[Hg] [facility] 04-10-2023 11:15-0500 Body height 162.56 cm Vanessa Baldwin Other [facility] [employer] Other 04-10-2023 11:15-0500 Body mass index (BMI) [Ratio] 40.16 kg/m2 Vanessa Baldwin Other [employer] Other 04-10-2023 11:15-0500 Body weight 106.14 kg Vanessa Baldwin Other [employer] Other 04-10-2023 11:15-0500 Diastolic blood pressure 84 mm[Hg] Vanessa Baldwin Other [employer] Other 04-10-2023 11:15-0500 SaO2% (BldA) [Mass fraction] 95 % Vanessa Baldwin Other [employer] Other 04-10-2023 11:15-0500 Systolic blood pressure 126 mm[Hg] Vanessa Baldwin Other [employer] Other 01-24-2023 11:15-0400 Body height 162.56 cm Vanessa Baldwin Other [employer] Other 01-24-2023 11:15-0400 Body mass index (BMI) [Ratio] 39.37 kg/m2 Vanessa Baldwin Other [employer] Other 01-24-2023 11:15-0400 Body weight 104.06 kg Vanessa Baldwin Other [employer] Other 01-24-2023 11:15-0400 Diastolic blood pressure 74 mm[Hg] Vanessa Baldwin Other [employer] Other 01-24-2023 11:15-0400 Systolic blood pressure 112 mm[Hg] Vanessa Baldwin Other [employer] Other 01-17-2023 10:30-0400 Body height 162.56 cm Vanessa Baldwin Other [employer] Other 01-17-2023 10:30-0400 Body mass index (BMI) [Ratio] 39.82 kg/m2 Vanessa Baldwin Other [employer] Other 01-17-2023 10:30-0400 Body weight 105.24 kg Vanessa Baldwin Other [employer] Other 01-17-2023 10:30-0400 Diastolic blood pressure 64 mm[Hg] Vanessa Baldwin Other [employer] Other 01-17-2023 10:30-0400 Systolic blood pressure 100 mm[Hg] Vanessa Baldwin Other [employer] Other Encounters Encounter Date Encounter Type Care Provider Facility Start: 11-28-2023 ambulatory Richard Fisher acility:[facility] Start: 11-13-2023 End: 11-13-2023 ambulatory Maribell Malik MD Facility:[facility] Start: 10-26-2023 End: 10-26-2023 ambulatory [facility] Work Phone: Start: 10-26-2023 End: 10-26-2023 Patient encounter procedure [facility] Work Phone: Start: 10-09-2023 End: 10-09-2023 ambulatory [facility] Work Phone: Start: 10-09-2023 End: 10-09-2023 Patient encounter procedure [facility] Work Phone: Start: 10-02-2023 End: 10-02-2023 ambulatory Maribell Malik MD Facility: [facility] Start: 09-27-2023 Non-patient / Non-visit [facility] Work Phone: Start: 08-28-2023 End: 08-28-2023 ambulatory Maribell Malik MD Facility: [facility] Start: 08-10-2023 End: 08-10-2023 Patient encounter procedure [facility] Work Phone: Start: 08-08-2023 Non-patient / Non-visit [facility] Work Phone: Start: 07-27-2023 End: 07-27-2023 Patient encounter procedure [facility] Work Phone: Start: 07-24-2023 End: 07-24-2023 ambulatory Maribell Malik MD Facility: [facility] Start: 07-10-2023 End: 07-10-2023 ambulatory [facility] Work Phone: Start: 07-10-2023 End: 07-10-2023 Patient encounter procedure [facility] Work Phone: Start: 05-30-2023 End: 05-30-2023 Patient encounter procedure [facility] Work Phone: Start: 05-02-2023 End: 05-02-2023 ambulatory Vanessa Bladwin Other [employer] Other Start: 05-02-2023 Telephone encounter Vanessajose manuel Baldwin [facility] Start: 04-24-2023 End: 04-24-2023 ambulatory Vanessa Nicolasa Other [employer] Other Start: 04-24-2023 Telephone encounter Vanessa Nicolasa [facility] Start: 04-10-2023 End: 04-10-2023 ambulatory Vanessa Nicolasa Other [employer] Other Start: 04-10-2023 Office outpatient visit 15 minutes Vanessa Baldwin [facility] Start: 04-03-2023 End: 04-03-2023 ambulatory Vanessa Baldwin Other [employer] Other Start: 04-03-2023 Telephone encounter Vanessajose manuel Baldwin [facility] Start: 03-06-2023 End: 03-06-2023 ambulatory Vanessa Nicolasa Other [employer] Other Start: 03-06-2023 Telephone encounter Vanessa Nicolasa [facility] Start: 02-02-2023 End: 02-02-2023 ambulatory Vanessa Nicolasa Other [employer] Other Start: 02-02-2023 Telephone encounter Vanessa Nicolasa [facility] Start: 01-24-2023 End: 01-24-2023 ambulatory Vanessa Baldwin Other [employer] Other Start: 01-24-2023 Office outpatient visit 15 minutes Vanessa Baldwin [facility] Start: 01-17-2023 End: 01-17-2023 ambulatory Vanessa Baldwin Other [employer] Other Start: 01-17-2023 Office outpatient ne w 45 minutes Vanessa Baldwin [facility] Plan of Treatment Date Care Activity Detail Author Patient Education Low back pain in adults [facility] Work Phone: US Heart Transthoracic [facility] US.doppler Carotid a rteries - bilateral [facility] Immunizations Immunization Date Immunization Notes Care Provider Keyana bass 04-10-2023 influenza, high dose seasonal, preservative-free Vanessa Baldwin Other [facility] [employer] Other 04-10-2023 influenza virus vaccine, unspecified formulation [facility] Payers Date Payer Category Payer Self-pay 2023 Private Health Insurance 1955 Unknown [id number] [id number]. [id number] 1955 Unknown [id number] 2.16. [id number] 1955 Unknown [id number] 2.16. [id number] 1955 Unknown [id number] 2.16. [id number] Private Health Insurance [id number] Unknown [id number] Social History Date Type Detail Facility Unknown if ever smoked [facility] [employer] Other Sex Assigned At Sex Assigned At Bir th [employer] Other Start: 05-29-2023 Tobacco smoking status NHIS Ex-smoker (finding) [facility] Start: 1955 Sex Assigned At Female F [facility] Medical Equipment Procedure Code Equipment Code Equipment Origin al Text Equipment Identifier Dates Blood Sugar Diagnostic (Accu-Chek Guide Test Strips) strip Start: 09-25-2023 Lancets (Accu-Ch ek Softclix Lancets) [facility] Start: 09-25-2023 Blood Sugar Diagnostic (Accu-Chek Guide Test Strips) strip Start: 09-25-2023 Lancets (Accu-Ch ek Softclix Lancets) [facility] Start: 09-25-2023 Evaluation note 01-15-2024 Note Date & Type Note Facility 04-10-2023 [...] symptoms. Any developing patterns. Stay well hydrated. [employer] Other Evaluation note 02-02-2023 Note Date & Type Note Facility 02-02-2023 Evaluation note Encounter Date Diagnosis Assessment Notes Jan, Type 2 diabetes mellitus with hyperglycemia , without long-term current use of insulin (ICD-10 - E11.65) [employer] Other Evaluation note 01-24-2023 Note Date & [...] A1C7.0. Cholesterol well controlled. Continue present meds. [employer] Other Evaluation note 01-17-2023 Note Date & Type Note Facility 01-17-2023 Evaluation note Encounter Date Diagnosis Assessment Notes Dec, Essential (primary) hypertension (ICD-10 - I10) Refilled meds for chronic problems Dec, Type 2 diabetes mellitus with hyperglycemia, without long-term current use of insulin (ICD-10 - E11.65) Check labs today diabetic eye exam annually Dec, Coronary artery disease involving [place] coronary artery of [place] heart without angina pectoris (ICD-10 - I25.10) Pt agrees to referral to get established with a local sw[facility] tender. Dec, Anxiety (ICD-10 - F41.9) pt states her chronic problem is controlled w xanax tid and lexapro Dec, GERD without esophagitis (ICD-10 - K21.9) refilled med for chronic problem Dec, Screening mammogram for breast cancer (ICD-10 - Z12.31) Dec, Personal history of nicotine dependence (ICD-10 - Z87.891) [employer] Other Evaluation note Note Date & Type Note Facility Evaluation note No Information [employer] Other Evaluation note Note Date & Type Note Facility Evaluation note Diagnosis Onset Date Anxiety acute [id number] acute [facility] Work Phone: Evaluation note Note Date & [...] with radicu lopathy affecting lower extremity acute [facility] Work Phone: Evaluation note Note Date & [...] with radicu lopathy affecting lower extremity acute [facility] Work Phone: History general Narrative - Reported Note Date & Type Note Facility History general Narrative - Reported Type Medical History Hypertention Medical History Diabetes Medical History Neuropathy Medical History Heart Attack Surgical History Hysterectomy Surgical History Back surgery Surgical History Right CTR Surgical History Bilateral shoulder surgery Surgical History Heart Stents X2 Surgical History Left TKR [employer] Other History general Narrative - Reported Note Date & Type Note Facility History general Narrative - Reported Type Medical History Hypertention Medical History Diabetes Medical History Neuropathy Medical History Heart Attack Medical History GERD Surgical History Hysterectomy Surgical History Back surgery Surgical History Right CTR Surgical History Bilateral shoulder surgery Surgical History Heart Stents X2 Surgical History Left TKR [employer] Other Reason for Referral Reason *Waiting for appt Get established, has stents, moved from [place]. Had DC in 2015 Diagnosis 1 Coronary artery dise ase involving [place] coronary artery of [place] heart without angina pectoris (I25.10) Referral Organization [facility] Rm Clifford C winston Referring Provider First Name Vanessa Referring Provider Last Name Nicolasa Referring Provider Specialty Family [facility] cine Referred Organization [facility] Cardiology Referred Provider Christal Pacheco Referred Address [address] [place] [address],[address],[phone] Referred Provider Specialty Cardiovascul ar Disease Referral Priority Routine General Notes Radha Baker 02:31:53 PM >received today, sent P2P. pt may need to fill out a records release form to have old records sent to us Chief Complaint and Reason for Visit Chief Complaint weightloss 3 MONTH CHECK UP Reason for Visit Anxiety [id number] Chief Complaint foot exams for shoes [facility] follow up 3 month follow up Reason for Visit Anxiety Depression, major, single episode, severe Diabetic peripheral neuropathy Hammertoe of left foot Lumbar back pain with radiculopathy affecting lower extremity Anxiety Depression, major, single episode, severe Expressive aphasia Hyponatremia Leukocytosis Lumbar back pain with radiculopathy affecting lower extremity Chief Complaint [facility] follow up 3 month follow up discuss meds Reason for Visit Anxiety Depression, major, single episode, severe Expressive aphasia Hyponatremia Leukocytosis Lumbar back pain with radiculopathy affecting lower extremity Anxiety Depression, major, single episode, severe Expressive aphasia Lumbar back pain with radiculopathy affecting lower extremity Diabetic peripheral neuropathy Lumbar back pain with radiculopathy affecting lower extremity Family History No Family History Records Found [...] 2023 End: October 26, 2023 Team Status: Inactive Member Role Status [...] July 27, 2023 End: July 27, 2023 Goals (unrecognized section and content) Goals may be documented in a n alternate section INFORMATION SOURCE (unrecogn ized section and content) DATE CREATED AUTHOR 2023 [facility] DATE CREATED AUTHOR 'S ERNESTO ATION 11/29/2023 [facility] FOR RECORDS PERTAINING TO PATIENTS WHO ARE [...] BE BASED ON THE PRIMARY CLINICAL RECORDS. [facility]. provides no warranty or guarantee of the accuracy or completeness of information in this document.
--- NOTE | 2023-12-14 10:40 | P.CN_ITS ---
Consult Note: HPI Data of Consult Patient: known to practice within the last 3 years Consult date: 07/24/23 Requesting Physician: Lucy Mccallum NP Primary Care Provider: Vanessa Baldwin MD Family Provider: Shai Abdalla, Consult Narrative Reason for consult: low back pain Narrative: 67yof who presents for evaluation. longstanding low back pain, had lumbar fusion 16 years ago in [place]. has completed PT and engages in series of provider directed home exercises >6 weeks, without benefit. utilizes gabapentin, xanax, lodine, zanaflex. denies adverse med side effects. Lumbar MRI completed results below. Patient reports pain 6/10 increasing to 6/10 with standing and activity, pain most significant in low back. Recently underwent bilateral L1-2 L2-3 facet joint RFA with 80% improvement ongoing in axial low back pain. cc:: CC: Lucy Mccallum NP Review of Systems ROS Status of ROS 10 or more systems reviewed and unremark able except as noted in history and below Musculoskeletal Reports: back pain, extremity pain and joint pain PFSH PFSH Medical History Low back pain ?M54.50 - Low back pain, unspecified (ICD-10) Osteoarthritis ?M19.90 - Unspecified osteoarthritis, unspecified site (ICD-10) Heartburn ?R12 - Heartburn (ICD-10) Acid reflux ?K21.9 - Gastro-esophageal reflux disease without esophagitis (ICD-10) Diabetes ?E11.9 - Type 2 diabetes mellitus without complications (ICD-10) Past heart attack ?I25.2 - Old myocardial infarction (ICD-10) Hypertension ?I10 - Essential (primary) hypertension (ICD-10) High cholesterol ?E78.00 - Pure hypercholesterolemia, unspecified (ICD-10) Surgical History History of total knee replacement ?Z96.659 - Presence of unspecified artificial knee joint (ICD-10) H/O shoulder surgery ?Z98.890 - Other specified postprocedural states (ICD-10) History of lumbar surgery ?Z98.890 - Other specified postprocedural states (ICD-10) History of hysterectomy ?Z90.710 - Acquired absence of both cervix and uterus (ICD-10) Meds Home Medications and Allergies Home Medications ?Medication ?Instructions ?Recorded ?Confirmed ?Type alprazolam 0.25 mg tablet (Xanax) 0.25 mg PO TID 07/24/23 11/13/23 History aripiprazole 2 mg tablet (Abilify) 2 mg PO DAILY 07/24/23 11/13/23 History aspirin 325 mg capsule 325 mg PO DAILY 07/24/23 11/13/23 History atorvastatin 20 mg tablet 20 mg PO DAILY 07/24/23 11/13/23 History carvedilol 3.125 mg tablet 3.125 mg PO BID 07/24/23 11/13/23 History escitalopram oxalate 20 mg tablet 20 mg PO BID 07/24/23 11/13/23 History (Lexapro) etodolac 400 mg tablet (Lodine) 400 mg PO Q12H PRN pain 07/24/23 11/13/23 History gabapentin 800 mg tablet 800 mg PO TID 07/24/23 11/13/23 History lisinopril 10 mg tablet 10 mg PO DAILY 07/24/23 11/13/23 History metformin 500 mg tablet 500 mg PO TID 07/24/23 11/13/23 History pantoprazole 40 mg granules 40 mg PO DAILY 07/24/23 11/13/23 History delayed-release for susp in packet (Protonix) potassium 20 mg chewable tablet 20 mg PO .QD 07/24/23 11/13/23 History spironolactone 25 mg tablet 25 mg PO DAILY 07/24/23 11/13/23 History tizanidine 4 mg capsule (Zanaflex) 4 mg PO TID PRN muscle spasticity 07/24/23 11/13/23 History Allergies Allergy/AdvReac Type Severity Reaction Status Date / Time codeine Allergy Mild Unknown Verified 11/13/23 07:20 morphine Allergy Mild Unknown Verified 11/13/23 07:20 nalbuphine [From Nubain] AdvReac Mild Unknown Verified 11/13/23 07:20 Exam Constitutional Documenting provider has reviewed patient's vital signs: yes Common normals: no apparent distress, oriented x3, healthy appearing, alert and well nourished General appearance: cooperative HENMT Common normals: normocephalic, hearing grossly normal bilaterally and moist oral mucous membranes Head and scalp: normocephalic Eye Common normals: PERRL Pupil: PERRL Neck & C-Spine Common normals: full ROM General: normal visual inspection Chest Common normals: inspection of chest normal Respiratory Common normals: normal respiratory effort, no retractions and no use of accessory muscles Back & Pelvis Thoracic spine/upper back: pain with ROM Lumbar spine/lower back: ROM limited and straight leg raise positive left; no pain with ROM Sacroiliac joints: SI joint(s) abnormal Other: bilateral positive dandy(patricks), gaenslens, thigh thrust, compression test positive left straight leg raise Extremity Common normals: normal to inspection and full ROM Neuro Common normals: oriented x3, CN's II-XII intact bilaterally, moves all extremities, no focal motor deficits, no sensory deficits noted and deep tendon reflexes 2+ bilaterally Sensorium/orientation: alert Gait (neuro): antalgic Motor exam: strength 5/5 throughout and no movement abnormalities noted Psych Common normals: mental status grossly normal, thought process normal, cooperative, affect normal, speech normal and activity/motor behavior normal Speech: normal speech Thought process: normal thought process Results Additional Findings Additional findings: If on a controlled substance or opioids, I have checked an [place] report on this patient and there are no aberrancies noted in the prescribing history.??If on a controlled substance or opioid a drug screen was completed and reviewed within the last year, and if there has not been a drug screen completed we ordered one today to monitor higher risk, state monitored pain medication use. As part of providing excellent, safe, comprehensive care, the following was completed at our patient's visit: 1. A medication reconciliation and review to ensure accurate knowledge of current/active medications, including asking our patients to inform us about any [id number] medications or herbal remedies/nutritional supplements/alternative remedies. 2. A review to specifically ensure our patients have had annual screening for screening for depression, screening for tobacco use, and screening for unhealthy alcohol use. For concerning screenings had a discussion with the patient, provided patient education, and recommended follow-up with primary care provider when appropriate. If patient noted with a risk of falling, they received education on strength, gait, and balance training to prevent future risk of falling. Assessment and Plan Assessment and Plan (1) Sacroiliitis: (2) Lumbar spondylosis: (3) S/P lumbar fusion: (4) Lumbar postlaminectomy syndrome: (5) Lumbar stenosis with neurogenic claudication: Plan bilateral SIJ injection under fluoroscopy continue HEP as tolerated continue current medications f/u 1-2 weeks after SIJ injection
== END 2023-12-14 09:58 | disposition home or self-care (01) ==
LOC: PM 09:57
PROVIDERS: Family Provider Internal Medicine; PCP Family Medicine; Visit Provider Nurse Practitioner
DX: M47.816 Spondylosis without myelopathy or radiculopathy, lumbar region (principal); M46.1 Sacroiliitis, not elsewhere classified; M96.1 Postlaminectomy syndrome, not elsewhere classified; M48.062 Spinal stenosis, lumbar region with neurogenic claudication; Z98.1 Arthrodesis status
CPT/HCPCS: G0463

== ENCOUNTER 2024-01-21 12:49 | Emergency (ER) | payer OTHER, SELFPAY ==
--- OUTSIDE RECORDS SUMMARY | 2024-01-21 13:02 | XMS_ITS | CCD ---
Author Organization [facility] Care Team Providers Care Driller Helper Name Role Phone Vanessa Baldwin Unavailable Helena GUERRA, Maribell Art Attending Unavailable Helena GUERRA, Andviet Art Attending Unavailable Helena GUERRA, Maribell Art Attending Unavailable Helena GUERRA, Maribell Art Attending Unavailable Richard Baker Attending Unavailab Richard Head Admitting Unavailab Vanessa Burleson Primary Care Unavailable MD Vanessa Baldwin Primary Care Provider MD Richard Baker Attending Provider Allergies Allergy Classification Reported Allergen(s) Allergy Type Date of Onset Reaction(s) Facility (13 sources) Codeine Drug Allergy 4 [facility] (13 sources) Morphine Drug Allergy 4 [facility] (9 sources) Nalbuphine Drug Allergy [facility] Other (5 sources) Nalbuphine; Translations: [nalbuphine] Drug Allergy 4 [facility] (1 source) Codeine Drug Allergy [address] [facility] Repository (1 source) Morphine Drug Allergy [address] [place] [address] Repository Medications Current Medications Medication Drug Class(es) [...] tablet (20 sources) Benzodiazepine Start: 07-28-2023 End: 01-03-2024 take 0.25 mg by mouth three times daily Alprazolam Active 0.25 MG PO Three times daily January 03, 2024 8:21am Start: 05-29-2023 End: 07-28-2023 take 0.5 mg [...] 1 tablet three times a day Active amoxicillin 875 mg / clavulanate 125 mg oral tablet (1 source) Penicillin-class Antibacterial Start: 01-09-2024 take 1 tablet by mouth twice daily Amoxicillin-Pot Clavulanate Active 1 TAB PO Twice daily January 09, 2024 12:00am ARIPiprazole 2 mg oral tablet (17 sources) Atypical Antipsychotic Start: 05-29-2023 End: 01-03-2024 take 2 mg by mouth once daily Aripiprazole Active 2 MG PO Daily January 03, 2024 8:21am take 1 tablet by mela th every twenty-four hours ARIPiprazole 2 MG 1 tablet once a day Active aspirin 81 mg delayed release oral tablet (14 sources) Platelet Aggregation Inhibitor, Nonsteroidal Anti-inflammatory Drug Start: 05-29-2023 End: 01-03-2024 take 1 tablet by mouth once daily Aspirin (Adult Aspirin Regimen) 81 mg tablet,delayed release (DR/EC) Active 81 MG PO Daily January 03, 2024 8:21am take 1 tablet by mela th every twenty-four hours Aspirin 81 81 MG 1 tablet once a day Active atorvastatin 20 mg oral tablet (19 sources) HMG-CoA Reductase Inhibitor Start: 05-29-2023 End: 01-03-2024 take 20 mg by mouth once daily Atorvastatin Active 20 MG PO Daily January 03, 2024 8:22am Atorvastatin Salvador cium 20 MG 1 tablet every morning for 90 days Active carvedilol 3.125 mg oral tablet (19 sources) alpha-Adrenergic Willie, beta-Adrenergic Willie Start: 05-29-2023 End: 01-03-2024 take 3.125 mg by mouth twice daily Carvedilol Active 3.125 MG PO Twice daily January 03, 2024 8:22am take 1 tablet by mela th every twelve hours Carvedilol 3.125 MG 1 tablet twice a day Active escitalopram 20 mg oral tablet (20 sources) Serotonin Reuptake Inhibitor Start: 08-10-2023 End: 01-03-2024 take 20 mg by mouth once daily Escitalopram Oxalate Active 20 MG PO Daily January 03, 2024 8:22am Start: 05-29-2023 End: 08-10-2023 take 20 mg by mouth twice daily Escitalopram Oxalate Discontinued 20 MG PO Twice daily July 17, 2023 4:33pm August 10, 2023 2:10pm take 1 tablet by mela th every twelve hours Escitalopram Oxalate 20 MG 1 tablet twice a day for 90 days Active isopropyl alcohol 0.7 ml/ml medicated pad (3 sources) Start: 09-25-2023 Alcohol Swabs Active 1 PAD TOPICAL Twice daily September 25, 2023 12:00am lisinopril 10 mg oral tablet (19 sources) Angiotensin Converting Enzyme Inhibitor Start: 05-29-2023 End: 01-03-2024 take 10 mg by mouth once daily Lisinopril Active 10 MG PO Daily January 03, 2024 8:22am take 1 tablet by mela th every twenty-four hours Lisinopril 10 MG 1 tablet once a day Active metFORMIN hydrochloride 500 mg oral tablet (16 sources) Biguanide Start: 10-09-2023 End: 01-03-2024 take 2 tablets by mouth once daily Metformin Active 1000 MG PO Daily January 03, 2024 8:22am 2 tablets once a day Start: 05-29-2023 End: 10-09-2023 take 2 tablets by mouth once daily Metformin Discontinued 500 MG PO Daily May 29, 2023 1:00am October 09, 2023 2:30pm 2 tablets once a day take 2 tablets by [facility] every twenty-four hours metFORMIN HCl 500 MG [...] pantoprazole 40 mg delayed release oral tablet (19 sources) Proton Pump Inhibitor Start: 05-29-2023 End: 01-03-2024 take 40 mg by mouth once daily in the morning Pantoprazole Active 40 MG PO Every morning January 03, 2024 8:22am Pantoprazole Sod ium 40 MG 1 tablet every morning for 90 days Active microencapsulated potassium chloride 20 meq extended release oral tablet (20 sources) Start: 01-03-2024 take 1 tablet by mouth once daily Potassium Chloride (Klor-Con M20) 20 mEq tablet,ER particles/crystals Active 0 .ROUTE .COMPLEX January 03, 2024 8:22am TAKE 1 TABLET BY MOUTH EVERY DAY Start: 05-29-2023 End: 01-01-2024 Potassium Chloride (Klor-Con M20) 20 mEq tablet,ER particles/crystals Discontinued 20 MEQ PO Daily December 21, 2023 12:20pm January 01, 2024 8:54am take 1 tablet by [facility] every twenty-four hours Klor-Con M20 20 MEQ 1 tablet with food Orally Once a day for 90 days Active pregabalin 225 mg oral capsule (4 sources) Start: 11-23-2023 End: 01-03-2024 take 225 mg by mouth twice daily Pregabalin Active 225 MG PO Twice daily 60 January 03, 2024 8:22am Start: 10-26-2023 End: 11-23-2023 take 1 capsule by mouth twice daily Pregabalin (Lyrica) 200 mg capsule Discontinued 200 MG PO Twice daily 60 October 26, 2023 12:00am November 23, 2023 8:39am Semaglutide (12 sources) Start: 01-03-2024 Semaglutide (O zempic) 0.25 mg or 0.5 mg (2 mg/3 mL) pen injector Active 0.25 MG SUBCUT every week 4.784 90 January 03, 2024 8:22am Start: 10-26-2023 End: 01-03-2024 Semaglutide (Ozempic) 0.25 m g or 0.5 mg (2 mg/3 mL) pen injector Discontinued 0.25 MG SUBCUT every week 4.78October 26, 2023 11:29am January 03, 2024 8:24am Start: 10-25-2023 End: 10-26-2023 Semaglutide (Ozempic) 0.25 m g or 0.5 mg (2 mg/3 mL) pen injector Discontinued 0.25 MG SUBCUT every week 3 October 25, 2023 12:00am October 26, 2023 11:40am for 4 weeks Start: 10-25-2023 Semaglutide (O zempic) 0.25 mg or 0.5 mg (2 mg/3 mL) pen injector Active 0.25 MG SUBCUT every week 3 October 25, 2023 12:00am for 4 weeks [...] Subcutaneous weekly spironolactone 25 mg oral tablet (19 sources) Aldosterone Antagonist Start: 05-29-2023 End: 01-03-2024 take 25 mg by mouth once daily Spironolactone Active 25 MG PO Daily January 03, 2024 8:23am take 1 tablet by mela th every twenty-four hours Spironolactone 25 MG 1 tablet once a day Active tiZANidine 4 mg oral tablet (12 sources) Central alpha-2 Adrenergic Agonist Start: 05-29-2023 take 4 mg by mouth three times daily Tizanidine Active 4 MG PO Three times daily May 29, 2023 1:00am take 1 tablet by mouth every eig ht hours tiZANidine HCl 4 MG 1 tablet as needed Orally Three times a day for 10 days Active Completed/Discontinued Medications Medication Drug Class(es) Dates Sig (Normalized) Sig (Original) gabapentin 800 mg oral tablet (18 sources) Anti-epileptic Agent Start: 07-17-2023 End: 10-26-2023 take 800 mg by mouth three times daily Gabapentin Discontinued 800 MG PO Three times daily October 09, 2023 2:29pm October 26, 2023 11:40am Start: 05-29-2023 End: 07-17-2023 take 800 mg by mouth four times daily Gabapentin Discontinued 800 MG PO Four times daily May 29, 2023 1:00am July 17, 2023 4:34pm Gabapentin 800 M G 1tablet four times a day for 90 days Active Potassium Chloride (Klor-Con M20) 20 mEq tablet,ER particles/crystals (1 source) Start: 01-01-2024 End: 01-03-2024 take 1 tablet by mouth once daily Potassium Chloride (Klor-Con M20) 20 mEq tablet,ER particles/crystals Discontinued 0 .ROUTE .COMPLEX January 01, 2024 8:54am January 03, 2024 8:23am TAKE 1 TABLET BY MOUTH EVERY DAY Tirzepatide (10 sources) Start: 09-20-2023 End: 10-25-2023 Tirzepatide (Mounjaro) [...] Documented Da te Episodic/Chronic Acquired foot deformities (4 sources) Hammer toe; Translations: [Other hammer toe(s) (acquired), left foot] 07-28-2023 Chronic Anxiety disorders (20 sources) Anxiety; Translations: [Anxiety disorder, unspecified] Chronic Coronary atherosclerosis and other heart disease (10 sources) Coronary arteriosclerosis; Translations: [Atherosclerotic heart disease of [place] coronary artery without angina pectoris] Chronic Diabetes mellitus with complications (20 sources) Type 2 diabetes mellitus; Translations: [Type 2 diabetes mellitus with hyperglycemia] Chronic Diseases of white blood cells (5 sources) Leukocytosis; Translations: [Elevated white blood cell count, unspecified] 08-10-2023 Chronic Esophageal disorders (10 sources) Gastroesophageal reflux disease without esophagitis; Translations: [Gastro-esophageal reflux disease without esophagitis] Chronic Essential hypertension (15 sources) Essential hypertension; Translations: [Essential (primary) hypertension] Chronic Fluid and electrolyte disorders (5 sources) Hyponatremia; Translations: [Hypo-osmolality and hyponatremia] 08-10-2023 Episodic Mood disorders (7 sources) Severe major depression, single episode; Translations: [Major depressive disorder, single episode, severe without psychotic features] 07-28-2023 Chronic Other nervous system disorders (3 sources) Expressive dysphasia; Translations: [Aphasia] 08-10-2023 Chronic [...] Spondylosis; intervertebral disc disorders; other back problems (14 sources) Muscle spasm of back; Translations: [Spasm of muscle of lower back] Episodic Past or Other Problems Problem Classification Problem Date Documented Da te Episodic/Chronic Unclassified (1 source) Lumbar pain M54.50 Results Test Name Value Interpretation Reference Range Facility Basophils Auto (Bld) [#/Vol] on 09-27-2023 Basophils (Bld) [#/Vol] 0.1 10 3/uL 0.0-0.[address] [facility] Basophils/100 WBC Auto (Bld) on 09-27-2023 Basophils/100 WBC (Bld) 0.6 % 0.2-2.[address] [facility] Eosinophils/100 WBC Auto (Bl d)on 09-27-2023 Eosinophils/100 WBC (Bld) 0.0 % Low 0.9-7.[address] [facility] Erythrocyte distribution wid th Auto (RBC) [Ratio]on 09-27-2023 Erythrocyte distribution width (RBC) [Ratio] 12.9 % 11.0-15.[address] [facility] Estimated glomerular filtrat ion rate (GFR) non- Americanon 09-27-2023 GFR/1.73 sq M.predicted among non-blacks MDRD (S/P/Bld) [Vol rate/Area] 54 mL/min/{1.73_m2} Low >=[address] [facility] Hematocrit Auto (Bld) [Volum e fraction]on 09-27-2023 Hematocrit (Bld) [Volume fraction] 35.1 % Low 36.0-48.[address] [facility] Hemoglobin [Mass/volume] in Bloodon 09-27-2023 Hemoglobin (Bld) [Mass/Vol] 11.8 g/dL Low 12.0-16.[address] [facility] Laboratory - Chemistry and C hemistry - challengeon 09-27-2023 Calcium [Mass/Vol] 9.7 mg/dL 8.5-10.1 [facility] Chloride [Moles/Vol] 95 mmol/L Low 98-107 [facility] CO2 [Moles/Vol] 27.5 mmol/L 21.0-32.0 [facility] Creatinine [Mass/Vol] 1.02 mg/dL 0.55-1.02 [facility] GFR/1.73 sq M.predicted MDRD (S/P/Bld) [Vol rate/Area] mL/min/{1.73_m2} >=[address] [facility] Glucose [Mass/Vol] 152 mg/dL High 74-106 [facility] Potassium [Moles/Vol] 4.4 mmol/L 3.5-5.1 [facility] Sodium [Moles/Vol] 131 mmol/L Low 136-145 [facility] Urea nitrogen [Mass/Vol] 6.0 mg/dL Low 7.0-18.[address] [facility] Urea nitrogen/Creatinine [Mass ratio] 5.9 mg/mg [facility] Laboratory - Hematology and Cell countson 09-27-2023 Immature granulocytes/100 WBC (Bld) 0.4 % 0.0-0.[address] [facility] Leukocytes [#/volume] correc krysta for nucleated erythrocytes in Blood by Automated counon 09-27-2023 WBC corrected for nucl RBC Auto (Bld) [#/Vol] 12.5 10 3/uL High 4.0-11.[address] [facility] Lymphocytes Auto (Bld) [#/Vo l]on 09-27-2023 Lymphocytes (Bld) [#/Vol] 3.1 10 3/uL 1.2-3.[address] [facility] Lymphocytes/100 WBC Auto (Bl d)on 09-27-2023 Lymphocytes/100 WBC (Bld) 25.1 % 20.5-60.[address] [facility] MCH Auto (RBC) [Entitic mass ]on 09-27-2023 MCH (RBC) [Entitic mass] 29.6 pg 26.7-34.[address] [facility] MCHC Auto (RBC) [Mass/Vol]on 09-27-2023 MCHC (RBC) [Mass/Vol] 33.6 g/dL 29.9-35.2 [facility] MCV Auto (RBC) [Entitic vol] on 09-27-2023 MCV (RBC) [Entitic vol] 88.0 fL 81.0-99.[address] [facility] Monocytes Auto (Bld) [#/Vol] on 09-27-2023 Monocytes (Bld) [#/Vol] 0.9 10 3/uL High 0.3-0.[address] [facility] Monocytes/100 WBC Auto (Bld) on 09-27-2023 Monocytes/100 WBC (Bld) 7.0 % 1.7-12.[address] [facility] Neutrophils Auto (Bld) [#/Vo l]on 09-27-2023 Neutrophils (Bld) [#/Vol] 8.4 10 3/uL High 1.4-6.[address] [facility] Neutrophils/100 WBC Auto (Bl d)on 09-27-2023 Neutrophils/100 WBC (Bld) 66.9 % 43.0-75.[address] [facility] No Panel Informationon 09-26 Eosinophils # (Auto) 0.0 10 3/uL 0.0-0.7 [facility] Immature Granulocyte # (Auto) 0.05 10 3/uL High 0.00-0.[address] [facility] Platelet mean volume Auto (B ld) [Entitic vol]on 09-27-2023 Platelet mean volume (Bld) [Entitic vol] 10.6 fL 9.5-13.[address] [facility] Platelets Auto (Bld) [#/Vol] on 09-27-2023 Platelets (Bld) [#/Vol] 302 10 3/uL 150-[address] [facility] RBC Auto (Bld) [#/Vol]on RBC (Bld) [#/Vol] 3.99 10 6/uL Low 4.20-5.40 [facility] Serum or plasma anion gap de terminationon 09-27-2023 Anion gap [Moles/Vol] 12.9 mmol/L Fi [facility] Basophils Auto (Bld) [#/Vol] on 08-08-2023 Basophils (Bld) [#/Vol] 0.1 10 3/uL 0.0-0.[address] [facility] Basophils/100 WBC Auto (Bld) on 08-08-2023 Basophils/100 WBC (Bld) 0.4 % 0.2-2.[address] [facility] Eosinophils/100 WBC Auto (Bl d)on 08-08-2023 Eosinophils/100 WBC (Bld) 0.3 % Low 0.9-7.[address] [facility] Erythrocyte distribution wid th Auto (RBC) [Ratio]on 08-08-2023 Erythrocyte distribution width (RBC) [Ratio] 13.1 % 11.0-15.[address] [facility] Estimated glomerular filtrat ion rate (GFR) non- Americanon 08-08-2023 GFR/1.73 sq M.predicted among non-blacks MDRD (S/P/Bld) [Vol rate/Area] 45 mL/min/{1.73_m2} Low >=[address] [facility] Globulin Calc (S) [Mass/Vol] on 08-08-2023 Globulin (S) [Mass/Vol] 4.4 g/dL [facility] Hematocrit Auto (Bld) [Volum e fraction]on 08-08-2023 Hematocrit (Bld) [Volume fraction] 37.5 % 36.0-48.[address] [facility] Hemoglobin [Mass/volume] in Bloodon 08-08-2023 Hemoglobin (Bld) [Mass/Vol] 12.6 g/dL 12.0-16.[address] [facility] INR in Platelet poor plasma by Coagulation assayon 08-08-2023 INR Coag (PPP) [Relative time] 1.03 {INR} [facility] Comment on above: DESIRED INR:2.0-3.0 CONDITIONS NOT LISTED BELOW2.5-3.5 FOR PROSTHETIC HEART VALVE REPLACEMENT2.5-3.5 RECURRENT THROMBOSIS Laboratory - Chemistry and C hemistry - challengeon 08-08-2023 Albumin [Mass/Vol] 4.3 g/dL 3.4-5.0 [facility] ALP [Catalytic activity/Vol] 99 U/L 46-[address] [facility] ALT [Catalytic activity/Vol] 21 U/L 14-[address] [facility] AST [Catalytic activity/Vol] 25 U/L 15-[address] [facility] Bilirubin [Mass/Vol] 0.6 mg/dL 0.2-1.0 [facility] Calcium [Mass/Vol] 9.8 mg/dL 8.5-10.1 [facility] Chloride [Moles/Vol] 89 mmol/L Low 98-107 [facility] CO2 [Moles/Vol] 21.5 mmol/L 21.0-32.0 [facility] Creatinine [Mass/Vol] 1.19 mg/dL High 0.55-1.02 [facility] GFR/1.73 sq M.predicted MDRD (S/P/Bld) [Vol rate/Area] 55 mL/min/{1.73_m2} Low >=[address] [facility] Glucose [Mass/Vol] 110 mg/dL High 74-106 [facility] Potassium [Moles/Vol] 4.1 mmol/L 3.5-5.1 [facility] Protein [Mass/Vol] 8.7 g/dL High 6.4-8.2 [facility] Sodium [Moles/Vol] 124 mmol/L Low 136-145 [facility] Comment on above: RESULTS CALLED TO MARTÍNEZ HAMPTON RN @BY Rosibel Joshi [id number] Urea nitrogen [Mass/Vol] 11.0 mg/dL 7.0-18.[address] [facility] Urea nitrogen/Creatinine [Mass ratio] 9.2 mg/mg [facility] Laboratory - Hematology and Cell countson 08-08-2023 Immature granulocytes/100 WBC (Bld) 0.4 % 0.0-0.[address] [facility] Leukocytes [#/volume] correc krysta for nucleated erythrocytes in Blood by Automated counon 08-08-2023 WBC corrected for nucl RBC Auto (Bld) [#/Vol] 15.9 10 3/uL High 4.0-11.[address] [facility] Lymphocytes Auto (Bld) [#/Vo l]on 08-08-2023 Lymphocytes (Bld) [#/Vol] 4.6 10 3/uL High 1.2-3.[address] [facility] Lymphocytes/100 WBC Auto (Bl d)on 08-08-2023 Lymphocytes/100 WBC (Bld) 28.9 % 20.5-60.[address] [facility] MCH Auto (RBC) [Entitic mass ]on 08-08-2023 MCH (RBC) [Entitic mass] 29.4 pg 26.7-34.[address] [facility] MCHC Auto (RBC) [Mass/Vol]on 08-08-2023 MCHC (RBC) [Mass/Vol] 33.6 g/dL 29.9-35.2 [facility] MCV Auto (RBC) [Entitic vol] on 08-08-2023 MCV (RBC) [Entitic vol] 87.6 fL 81.0-99.[address] [facility] Monocytes Auto (Bld) [#/Vol] on 08-08-2023 Monocytes (Bld) [#/Vol] 1.0 10 3/uL High 0.3-0.[address] [facility] Monocytes/100 WBC Auto (Bld) on 08-08-2023 Monocytes/100 WBC (Bld) 6.0 % 1.7-12.[address] [facility] Neutrophils Auto (Bld) [#/Vo l]on 08-08-2023 Neutrophils (Bld) [#/Vol] 10.2 10 3/uL High 1.4-6.[address] [facility] Neutrophils/100 WBC Auto (Bl d)on 08-08-2023 Neutrophils/100 WBC (Bld) 64.0 % 43.0-75.[address] [facility] No Panel Informationon 08-07 Eosinophils # (Auto) 0.0 10 3/uL 0.0-0.7 [facility] Immature Granulocyte # (Auto) 0.06 10 3/uL High 0.00-0.[address] [facility] Troponin I High Sensitivity 6.4 pg/mL 4.0-51.[address] [facility] Comment on above: CUT-OFF POINTS HAVE BEEN ESTABLISHED BASED ON THE FOURTHUNIVERSAL DEFINITION OF MYOCARDIAL INFARCTION. THE UPPERREFERENCE LIMIT [...] (Bld) [Entitic vol] 10.6 fL 9.5-13.[address] [facility] Platelets Auto (Bld) [#/Vol] on 08-08-2023 Platelets (Bld) [#/Vol] 261 10 3/uL 150-[address] [facility] Prothrombin time (PT)on 07-25 PT Coag (PPP) [Time] 10.9 s 9.0-11.6 [facility] RBC Auto (Bld) [#/Vol]on RBC (Bld) [#/Vol] 4.28 10 6/uL 4.20-5.40 [facility] Serum or plasma albumin/glob ulin mass ratioon 08-08-2023 Albumin/Globulin [Mass ratio] 1.0 {ratio} [facility] Serum or plasma anion gap de terminationon 08-08-2023 Anion gap [Moles/Vol] 17.6 mmol/L Fi [facility] Basophils Auto (Bld) [#/Vol] on 05-30-2023 Basophils (Bld) [#/Vol] 0.1 10 3/uL 0.0-0.[address] [facility] Basophils/100 WBC Auto (Bld) on 05-30-2023 Basophils/100 WBC (Bld) 0.8 % 0.2-2.[address] [facility] Eosinophils/100 WBC Auto (Bl d)on 05-30-2023 Eosinophils/100 WBC (Bld) 0.0 % 0.9-7.[address] [facility] Erythrocyte distribution wid th Auto (RBC) [Ratio]on 05-30-2023 Erythrocyte distribution width (RBC) [Ratio] 12.6 % 11.0-15.[address] [facility] Glucose mean value [Mass/vol ume] in Blood Estimated from glycated hemoglobinon 05-30-2023 Average glucose Estimated from glycated hemoglobin (Bld) [Mass/Vol] 283 mg/dL [facility] Hematocrit Auto (Bld) [Volum e fraction]on 05-30-2023 Hematocrit (Bld) [Volume fraction] 36.6 % 36.0-48.[address] [facility] Hemoglobin [Mass/volume] in Bloodon 05-30-2023 Hemoglobin (Bld) [Mass/Vol] 12.0 g/dL 12.0-16.[address] [facility] Laboratory - Hematology and Cell countson 05-30-2023 HbA1c (Bld) [Mass fraction] 11.5 % 4.5-6.[address] [facility] Comment on above: ADA RECOMMENDED LIMI T 4.0 - 6.0ADA THERAPEUTIC TARGET < 7.0ACTION SUGGESTED> 7.0 Immature granulocytes/100 WBC (Bld) 0.5 % 0.0-0.[address] [facility] Leukocytes [#/volume] correc krysta for nucleated erythrocytes in Blood by Automated counon 05-30-2023 WBC corrected for nucl RBC Auto (Bld) [#/Vol] 14.3 10 3/uL 4.0-11.[address] [facility] Lymphocytes Auto (Bld) [#/Vo l]on 05-30-2023 Lymphocytes (Bld) [#/Vol] 3.6 10 3/uL 1.2-3.[address] [facility] Lymphocytes/100 WBC Auto (Bl d)on 05-30-2023 Lymphocytes/100 WBC (Bld) 25.1 % 20.5-60.[address] [facility] MCH Auto (RBC) [Entitic mass ]on 05-30-2023 MCH (RBC) [Entitic mass] 29.7 pg 26.7-34.[address] [facility] MCHC Auto (RBC) [Mass/Vol]on 05-30-2023 MCHC (RBC) [Mass/Vol] 32.8 g/dL 29.9-35.2 [facility] MCV Auto (RBC) [Entitic vol] on 05-30-2023 MCV (RBC) [Entitic vol] 90.6 fL 81.0-99.[address] [facility] Monocytes Auto (Bld) [#/Vol] on 05-30-2023 Monocytes (Bld) [#/Vol] 0.9 10 3/uL 0.3-0.[address] [facility] Monocytes/100 WBC Auto (Bld) on 05-30-2023 Monocytes/100 WBC (Bld) 6.0 % 1.7-12.[address] [facility] Neutrophils Auto (Bld) [#/Vo l]on 05-30-2023 Neutrophils (Bld) [#/Vol] 9.7 10 3/uL 1.4-6.[address] [facility] Neutrophils/100 WBC Auto (Bl d)on 05-30-2023 Neutrophils/100 WBC (Bld) 67.6 % 43.0-75.[address] [facility] No Panel Informationon 05-29 Eosinophils # (Auto) 0.0 10 3/uL 0.0-0.7 [facility] Immature Granulocyte # (Auto) 0.07 10 3/uL 0.00-0.[address] [facility] Platelet mean volume Auto (B ld) [Entitic vol]on 05-30-2023 Platelet mean volume (Bld) [Entitic vol] 10.9 fL 9.5-13.[address] [facility] Platelets Auto (Bld) [#/Vol] on 05-30-2023 Platelets (Bld) [#/Vol] 242 10 3/uL 150-[address] [facility] RBC Auto (Bld) [#/Vol]on RBC (Bld) [#/Vol] 4.04 10 6/uL 4.20-5.40 [facility] Vital Signs Date Time Vital Sign Value Performing Clinician Facility 01-09-2024 09:07-0400 Body mass index (BMI) [Ratio] 43.4 kg/m2 MD Vanessa Baldwin Work Phone: [facility] 01-09-2024 09:07-0400 Body temperature 98.7 [degF] MD Vanessa Baldwin Work Phone: [facility] 01-09-2024 08:09-0400 Body height 162.56 cm MD Vanessa Baldwin Work Phone: [facility] 01-09-2024 08:09-0400 Body weight 114.81 kg MD Vanessa Baldwin Work Phone: [facility] 01-09-2024 08:09-0400 Diastolic blood pressure 62 mm[Hg] MD Vanessa Baldwin Work Phone: [facility] 01-09-2024 08:09-0400 Heart rate 71 /min MD Vanessa Baldwin Work Phone: [facility] 01-09-2024 08:09-0400 Respiratory rate 16 /min MD Vanessa Baldwin Work Phone: [facility] 01-09-2024 08:09-0400 SaO2% (BldA) [Mass fraction] 97 % MD Vanessa Baldwin Work Phone: [facility] 01-09-2024 08:09-0400 Systolic blood pressure 122 mm[Hg] MD Vanessa Baldwin Work Phone: [facility] [facility] 11:10-0400 Body height 162.56 cm [facility] 10-26-2023 11:10-0400 Body mass index (BMI) [Ratio] 40.3 kg/m2 [facility] 10-26-2023 11:10-0400 Body weight 106.59 kg [facility] 10-26-2023 11:10-0400 Diastolic blood pressure 68 mm[Hg] [facility] 10-26-2023 11:10-0400 Heart rate 75 /min [facility] 10-26-2023 11:10-0400 Systolic blood pressure 102 mm[Hg] [facility] 10-09-2023 11:21-0400 Body height 162.56 cm [facility] 10-09-2023 11:21-0400 Body mass index (BMI) [Ratio] 40.6 kg/m2 [facility] 10-09-2023 11:21-0400 Body weight 107.5 kg [facility] 10-09-2023 11:21-0400 Diastolic blood pressure 68 mm[Hg] [facility] 10-09-2023 11:21-0400 Heart rate 69 /min [facility] 10-09-2023 11:21-0400 Systolic blood pressure 105 mm[Hg] [facility] 08-10-2023 13:38-0400 Body height 162.56 cm [facility] 08-10-2023 13:38-0400 Body mass index (BMI) [Ratio] 39.2 kg/m2 [facility] 08-10-2023 13:38-0400 Body weight 103.64 kg [facility] 08-10-2023 13:38-0400 Diastolic blood pressure 70 mm[Hg] [facility] 08-10-2023 13:38-0400 Heart rate 71 /min [facility] 08-10-2023 13:38-0400 Systolic blood pressure 106 mm[Hg] [facility] 07-27-2023 09:31-0400 Body height 162.56 cm [facility] 07-27-2023 09:31-0400 Body mass index (BMI) [Ratio] 40.1 kg/m2 [facility] 07-27-2023 09:31-0400 Body weight 106.14 kg [facility] 07-27-2023 09:31-0400 Diastolic blood pressure 73 mm[Hg] [facility] 07-27-2023 09:31-0400 Heart rate 66 /min [facility] 07-27-2023 09:31-0400 Systolic blood pressure 137 mm[Hg] [facility] 07-10-2023 11:10-0400 Body height 162.56 cm [facility] 07-10-2023 11:10-0400 Body mass index (BMI) [Ratio] 40.6 kg/m2 [facility] 07-10-2023 11:10-0400 Body weight 107.27 kg [facility] 07-10-2023 11:10-0400 Diastolic blood pressure 76 mm[Hg] [facility] 07-10-2023 11:10-0400 Heart rate 77 /min [facility] 07-10-2023 11:10-0400 Systolic blood pressure 115 mm[Hg] [facility] 05-30-2023 13:03-0500 Body height 162.56 cm [facility] 05-30-2023 13:03-0500 Body mass index (BMI) [Ratio] 40.8 kg/m2 [facility] 05-30-2023 13:03-0500 Body weight 108.12 kg [facility] 05-30-2023 13:03-0500 Diastolic blood pressure 80 mm[Hg] [facility] 05-30-2023 13:03-0500 Heart rate 90 /min [facility] 05-30-2023 13:03-0500 SaO2% (BldA) [Mass fraction] 97 % [facility] 05-30-2023 13:03-0500 Systolic blood pressure 126 mm[Hg] [facility] 04-10-2023 11:15-0500 Body height 162.56 cm Vanessa Baldwin Other [employer] [facility] [employer] Other 04-10-2023 11:15-0500 Body mass index (BMI) [Ratio] 40.16 kg/m2 Vanessa Baldwin Other [employer] Other 04-10-2023 11:15-0500 Body weight 106.14 kg Vanessa Baldwin Other [employer] Other 04-10-2023 11:15-0500 Diastolic blood pressure 84 mm[Hg] Vanessa Baldwin Other [employer] Other 04-10-2023 11:15-0500 SaO2% (BldA) [Mass fraction] 95 % Vanessa Baldwin Other [employer] Other 04-10-2023 11:15-0500 Systolic blood pressure 126 mm[Hg] Vanessa Baldwin Other [employer] Other 01-24-2023 11:15-0400 Body height 162.56 cm Vanessa Baldwin Other [employer] Other 01-24-2023 11:15-0400 Body mass index (BMI) [Ratio] 39.37 kg/m2 Vanessa Baldwin Other [employer] Other 01-24-2023 11:15-0400 Body weight 104.06 kg Vanessa Baldwin Other [employer] Other 01-24-2023 11:15-0400 Diastolic blood pressure 74 mm[Hg] Vanessa Baldwin Other [employer] Other 01-24-2023 11:15-0400 Systolic blood pressure 112 mm[Hg] Vanessa Baldwin Other [employer] Other 01-17-2023 10:30-0400 Body height 162.56 cm Vanessa Baldwin Other [employer] Other 01-17-2023 10:30-0400 Body mass index (BMI) [Ratio] 39.82 kg/m2 Vanessa Baldwin Other [employer] Other 01-17-2023 10:30-0400 Body weight 105.24 kg Vanessa Baldwin Other [employer] Other 01-17-2023 10:30-0400 Diastolic blood pressure 64 mm[Hg] Vanessa Baldwin Other [employer] Other 01-17-2023 10:30-0400 Systolic blood pressure 100 mm[Hg] Vanessa Baldwin Other [employer] Other Encounters Encounter Date Encounter Type Care Provider Facility Start: 01-09-2024 End: 01-09-2024 ambulatory MD Vanessa Baldwin Work Phone: [facility] Work Phone: Start: 01-09-2024 End: 01-09-2024 Patient encounter procedure MD Vanessa Baldwin Work Phone: [facility] Work Phone: Start: 12-26-2023 Registered Recurring MD Vanessa Baldwin Work Phone: [facility] Start: 12-26-2023 ambulatory Richard Fisher acility:[facility] Start: 11-13-2023 End: 11-13-2023 ambulatory Maribell Malik MD Facility:[facility] Start: 10-26-2023 End: 10-26-2023 ambulatory [facility] Work Phone: Start: 10-26-2023 End: 10-26-2023 Patient encounter procedure [facility] Work Phone: Start: 10-09-2023 End: 10-09-2023 ambulatory [facility] Work Phone: Start: 10-09-2023 End: 10-09-2023 Patient encounter procedure [facility] Work Phone: Start: 10-02-2023 End: 10-02-2023 ambulatory Maribell Malik MD Facility:[facility] Start: 09-27-2023 Non-patient / Non-visit [facility] Work Phone: Start: 08-28-2023 End: 08-28-2023 ambulatory Maribell Malik MD Facility:[facility] Start: 08-10-2023 End: 08-10-2023 Patient encounter procedure [facility] Work Phone: Start: 08-08-2023 Non-patient / Non-visit [facility] Work Phone: Start: 07-27-2023 End: 07-27-2023 Patient encounter procedure [facility] Work Phone: Start: 07-24-2023 End: 07-24-2023 ambulatory Maribell Malik MD Facility:[facility] Start: 07-10-2023 End: 07-10-2023 ambulatory [facility] Work Phone: Start: 07-10-2023 End: 07-10-2023 Patient encounter procedure [facility] Work Phone: Start: 05-30-2023 End: 05-30-2023 Patient encounter procedure [facility] Work Phone: Start: 05-02-2023 End: 05-02-2023 ambulatory Vanessa Baldwin Other [employer] Other Start: 05-02-2023 Telephone encounter Vanessa Baldwin [employer] Start: 04-24-2023 End: 04-24-2023 ambulatory Vanessa Baldwin Other [employer] Other Start: 04-24-2023 Telephone encounter Vanessa Baldwin [place] Start: 04-10-2023 End: 04-10-2023 ambulatory Vanessa Baldwin Other [employer] Other Start: 04-10-2023 Office outpatient visit 15 minutes Vanessa Baldwin [place] Start: 04-03-2023 End: 04-03-2023 ambulatory Vanessa Baldwin Other [employer] Other Start: 04-03-2023 Telephone encounter Vanessa Baldwin [place] Start: 03-06-2023 End: 03-06-2023 ambulatory Vanessa Baldwin Other [employer] Other Start: 03-06-2023 Telephone encounter Vanessa Nicolasa [place] Start: 02-02-2023 End: 02-02-2023 ambulatory Vanessa Baldwin Other [employer] Other Start: 02-02-2023 Telephone encounter Vanessa Baldwin [place] Start: 01-24-2023 End: 01-24-2023 ambulatory Vanessa Baldwin Other [employer] Other Start: 01-24-2023 Office outpatient visit 15 minutes Vanessa Baldwin [place] Start: 01-17-2023 End: 01-17-2023 ambulatory Vanessa Baldwin Other [employer] Other Start: 01-17-2023 Office outpatient ne w 45 minutes Vanessa Baldwin [place] Plan of Treatment Date Care Activity Detail Author Patient Education Low back pain in adults [facility] Work Phone: US Heart Transthoracic [facility] US.doppler Carotid a rteries - bilateral [facility] Immunizations Immunization Date Immunization Notes Care Provider Fa cility 04-10-2023 influenza, high dose seasonal, preservative-free Vanessa Baldwin Other [employer] Other 04-10-2023 influenza virus vaccine, unspecified formulation [facility] Payers Date Payer Category Payer Self-pay 2023 Private Health Insurance 1955 Unknown [id number] 1955 Unknown [id number] 1955 Unknown [id number] 1955 Unknown [id number] Medicare [facility] [id number] Private Health Insurance [id number] Unknown [id number] Social History Date Type Detail Facility Unknown if ever smoked [employer] Other Sex Assigned At Sex Assigned At Bir th [employer] Other Start: 05-29-2023 Tobacco smoking status NHIS Ex-smoker (finding) [facility] Start: 1955 Sex Assigned At Female F [facility] Procedure Code Equipment Code Equipment Origin al Text Equipment Identifier Dates Blood Sugar Diagnostic (Accu-Chek Guide Test Strips) strip Start: 09-25-2023 Lancets (Accu-Ch ek Softclix Lancets) misc Start: 09-25-2023 Blood Sugar Diagnostic (Accu-Chek Guide Test Strips) strip Start: 09-25-2023 Lancets (Accu-Ch ek Softclix Lancets) misc Start: 09-25-2023 Blood Sugar Diagnostic (Accu-Chek Guide Test Strips) strip Start: 12-19-2023 Lancets (Accu-Ch ek Softclix Lancets) misc Start: 09-25-2023 Blood Sugar Diagnostic (Accu-Chek Guide Test Strips) strip Start: 09-25-2023 End: 12-19-2023 Clinical Notes 01-17-2023 to 04-10-2023 Note Date & Type Note Facility [...] symptoms. Any developing patterns. Stay well hydrated. [employer] Other 11-09-2023 Evaluation note* Encounter Date Diagnosis Assessment Notes Treatment Notes Treatment Clinical Notes Jan, Type 2 diabetes mellitus with hyperglycemia, without long-term current use of insulin (ICD-10 - E11.65) [employer] Other 10-31-2023 Evaluation note* Encounter Date Diagnosis Assessment Notes Treatment Notes Treatment Clinical Notes Dec, Lumbar pain (ICD-10 - M54.50) Hx of adverse reactions to steroids. add muscle relaxer to tylenol. Pt declines referral to PT at this time Dec, Type 2 diabetes mellitus with hyperglycemia, without long-term current use of insulin (ICD-10 - E11.65) Reviewed labs, gave pt a copy - A1C7.0. Cholesterol well controlled. Continue present meds. [employer] Other [id number] Evaluation note* Encounter Date Diagnosis Assessment Notes Treatment Notes Treatment Clinical Notes Dec, Essential (primary) hypertension (ICD-10 - I10) Refilled meds for chronic problems Dec, Type 2 diabetes mellitus with hyperglycemia, without long-term current use of insulin (ICD-10 - E11.65) Check labs today diabetic eye exam annually Dec, Coronary artery disease involving [place] coronary artery of [place] heart without angina pectoris (ICD-10 - I25.10) Pt agrees to referral to get established with a local armorer technician. Dec, Anxiety (ICD-10 - F41.9) pt states her chronic problem is controlled w xanax tid and lexapro Dec, GERD without esophagitis (ICD-10 - K21.9) refilled med for chronic problem Dec, Screening mammogram for breast cancer (ICD-10 - Z12.31) Dec, Personal history of nicotine dependence (ICD-10 - Z87.891) [employer] Other Evaluation noteNo [employer]Nort [employer] Other Evaluation note* Diagnosis Onset Date Resolution Status Anxiety acute [id number] acute [facility] Work Phone: Evaluation note* Diagnosis Onset Date Resolution Status Anxiety acute Depression, major, single episode, severe acute Diabetic peripheral neuropathy acute Hammertoe of left foot acute Lumbar back pain with radicu lopathy affecting lower extremity acute Anxiety acute Depression, major, single episode, severe acute Expressive aphasia acute Hyponatremia acute Leukocytosis acute Lumbar back pain with radicu lopathy affecting lower extremity acute [facility] Work Phone: Evaluation note* Diagnosis Onset Date Resolution Status Anxiety acute Depression, major, single episode, severe acute Expressive aphasia acute Hyponatremia acute Leukocytosis acute Lumbar back pain with radicu lopathy affecting lower extremity acute Anxiety acute Depression, major, single episode, severe acute Expressive aphasia acute Lumbar back pain with radicu lopathy affecting lower extremity acute Diabetic peripheral neuropathy acute Lumbar back pain with radicu lopathy affecting lower extremity acute [facility] Work Phone: Evaluation note* Diagnosis Onset Date Resolution Status [id number] acute Diabetic peripheral neuropathy acute Lumbar back pain with radicu lopathy affecting lower extremity acute [facility] Work Phone: History general Narrative - Reported* Type Description Date Medical History Hypertention Medical History Diabetes Medical History Neuropathy Medical History Heart Attack Surgical History Hysterectomy Surgical History Back surgery Surgical History Right CTR Surgical History Bilateral shoulder surgery Surgical History Heart Stents X2 Surgical History Left TKR [employer] Other History general Narrative - Reported* Type Description Date Medical History Hypertention Medical History Diabetes Medical History Neuropathy Medical History Heart Attack Medical History GERD Surgical History Hysterectomy Surgical History Back surgery Surgical History Right CTR Surgical History Bilateral shoulder surgery Surgical History Heart Stents X2 Surgical History Left TKR [employer] Other Reason for Referral Reason *Waiting for appt Get established, has stents, moved from [place]. Had [place] in 2015 Diagnosis 1 Coronary artery dise ase involving [place] coronary artery of [place] heart without angina pectoris (I25.10) Referral Organization [facility] Darrin montero Referring Provider First Name Vanessa Referring Provider Last Name Nicolasa Referring Provider Specialty [facility] Referred Organization [facility] Cardiology Referred Provider Christal Pacheco Referred Address [address] [place] [address],[address],[id number] Referred Provider Specialty Cardiovascul ar Disease Referral Priority Routine General Notes Radha Baker 02:31:53 PM >received today, sent P2P. pt may need to fill out a records release form to have old records sent to us Chief Complaint and Reason for Visit Chief Complaint weightloss 3 MONTH CHECK UP Reason for Visit Anxiety [id number] Chief Complaint foot exams for shoes [facility] follow up 3 month follow up Reason for Visit Anxiety Depression, major, single episode, severe Diabetic peripheral neuropathy Hammertoe of left foot Lumbar back pain with radiculopathy affecting lower extremity Anxiety Depression, major, single episode, severe Expressive aphasia Hyponatremia Leukocytosis Lumbar back pain with radiculopathy affecting lower extremity Chief Complaint [facility] follow up 3 month follow up discuss meds Reason for Visit Anxiety Depression, major, single episode, severe Expressive aphasia Hyponatremia Leukocytosis Lumbar back pain with radiculopathy affecting lower extremity Anxiety Depression, major, single episode, severe Expressive aphasia Lumbar back pain with radiculopathy affecting lower extremity Diabetic peripheral neuropathy Lumbar back pain with radiculopathy affecting lower extremity Chief Complaint discuss meds [facility] 3 month f/u Reason for Visit [id number] Diabetic peripheral neuropathy Lumbar back pain with [...] Baldwin MD Primary Care Provider Active Start: December 26, 2023 Richard Baker MD Attending Provider Active Start: December 26, 2023 Team Status: Inactive Member Role Status Dates Vanessa Baldwin MD Primary Care Provide r, Attending Provider Active Start: January 09, 2024 End: January 09, 2024 Team Status: Active Member Role Status Dates Vanessa Baldwin MD Primary Care Provider Active Team Status: Active Member Role Status Abdias [...] Baldwin MD Primary Care Provider Active Start: December 26, 2023 Richard Baker MD Attending Provider Active Start: December 26, 2023 Team Status: Inactive Member Role Status Abdias Baldwin MD Primary Care Provide r, Attending Provider Active Start: January 09, 2024 End: January 09, 2024 Goals (unrecognized section and content) Goals may be documented in a n alternate section INFORMATION SOURCE (unrecogn ized section and content) DATE CREATED AUTHOR 2023 [facility] DATE CREATED AUTHOR 'S ERNESTO ATION 12/27/2023 [facility] FOR RECORDS PERTAINING TO PATIENTS [...] BE BASED ON THE PRIMARY CLINICAL RECORDS. [employer] [facility]. provides no warranty or guarantee of the accuracy or completeness of information in this document.
[2024-01-21 13:18] VITALS: BP 122/76; PULSE 74; TEMP 37.1; O2SAT 95; BMI 37.4
--- NOTE | 2024-01-21 13:22 | XR_ITS ---
[address] [address] Patient Name: HOLLIE WEBER MRN: [id number] date: 1955 Sex: F Assigned Patient Location: ER Current Patient Location: ER Accession/Order Number: [id number] Exam Date: 01/21/2024 14:25 Report Date: 01/21/2024 15:31 At the request of: LARRY SMALLS Procedure: XR chest 2V CHEST X-RAY. INDICATION: Congestion. Cough. COMPARISON: There are no previous studies available for comparison. TECHNIQUE: Frontal and lateral chest radiographs. FINDINGS: TUBES AND LINES: None. LUNGS: Lungs are clear. PLEURA: No effusions or pneumothorax. HEART AND MEDIASTINUM: Within normal limits. OSSEOUS STRUCTURES: No acute abnormality. XR/XR chest 2V IMPRESSION: No acute findings. Electronically authenticated by: LIU MUNOZ Date: 01/21/2024 15:31
[2024-01-21 15:18] LABS: Influenza Virus A Antigen Negative; Influenza Virus B Antigen Negative; Internal Control Within Normal Limits; SARS-CoV-2 Ag POSITIVE (NEGATIVE)
[2024-01-21 15:54] VITALS: O2SAT 99
[2024-01-21 15:55] VITALS: BP 126/74; PULSE 74; O2SAT 99
--- NOTE | 2024-01-21 18:36 | ED.URI1 ---
HPI - URI/Sore Throat General Chief Complaint: Upper Respiratory Infection Stated Complaint: NASAL, CHEST CONGESTION Time Seen by Provider: 01/21/24 15:53 Source: patient Limitations: no limitations History of Present Illness HPI Narrative: Patient is coming with 1 day history of runny nose associated with cough no shortness of breath and she has been feeling tired Related Data Home Medications ?Medication ?Instructions ?Recorded ?Confirmed alprazolam 0.25 mg tablet (Xanax) 0.25 mg PO TID 07/24/23 11/13/23 aripiprazole 2 mg tablet (Abilify) 2 mg PO DAILY 07/24/23 11/13/23 aspirin 325 mg capsule 325 mg PO DAILY 07/24/23 11/13/23 atorvastatin 20 mg tablet 20 mg PO DAILY 07/24/23 11/13/23 carvedilol 3.125 mg tablet 3.125 mg PO BID 07/24/23 11/13/23 escitalopram oxalate 20 mg tablet 20 mg PO BID 07/24/23 11/13/23 (Lexapro) etodolac 400 mg tablet (Lodine) 400 mg PO Q12H PRN pain 07/24/23 11/13/23 gabapentin 800 mg tablet 800 mg PO TID 07/24/23 11/13/23 lisinopril 10 mg tablet 10 mg PO DAILY 07/24/23 11/13/23 metformin 500 mg tablet 500 mg PO TID 07/24/23 11/13/23 pantoprazole 40 mg granules 40 mg PO DAILY 07/24/23 11/13/23 delayed-release for susp in packet (Protonix) potassium 20 mg chewable tablet 20 mg PO .QD 07/24/23 11/13/23 spironolactone 25 mg tablet 25 mg PO DAILY 07/24/23 11/13/23 tizanidine 4 mg capsule (Zanaflex) 4 mg PO TID PRN muscle spasticity 07/24/23 11/13/23 Previous Rx's ?Medication ?Instructions ?Recorded acetaminophen 650 mg 650 mg PO Q8H PRN fever or pain 01/21/24 tablet,extended release (Tylenol 8 #20 tabs Hour) guaifenesin 600 mg tablet, 600 mg PO Q12H PRN congestion #14 01/21/24 extended release 12 hr (Mucinex) tabs Allergies Allergy/AdvReac Type Severity Reaction Status Date / Time codeine Allergy Mild Unknown Verified 11/13/23 07:20 morphine Allergy Mild Unknown Verified 11/13/23 07:20 nalbuphine (From Nubain) AdvReac Mild Unknown Verified 11/13/23 07:20 Review of Systems ROS Status of ROS 10 or more systems reviewed and unremarkable except as noted in history and below PFSH PFS Medical History Low back pain ?M54.50 - Low back pain, unspecified (ICD-10) Osteoarthritis ?M19.90 - Unspecified osteoarthritis, unspecified site (ICD-10) Heartburn ?R12 - Heartburn (ICD-10) Acid reflux ?K21.9 - Gastro-esophageal reflux disease without esophagitis (ICD-10) Diabetes ?E11.9 - Type 2 diabetes mellitus without complications (ICD-10) Past heart attack ?I25.2 - Old myocardial infarction (ICD-10) Hypertension ?I10 - Essential (primary) hypertension (ICD-10) High cholesterol ?E78.00 - Pure hypercholesterolemia, unspecified (ICD-10) Surgical History History of total knee replacement ?Z96.659 - Presence of unspecified artificial knee joint (ICD-10) H/O shoulder surgery ?Z98.890 - Other specified postprocedural states (ICD-10) History of lumbar surgery ?Z98.890 - Other specified postprocedural states (ICD-10) History of hysterectomy ?Z90.710 - Acquired absence of both cervix and uterus (ICD-10) Exam Narrative Exam Narrative: Nurses notes and vital signs reviewed and patient is not hypoxic. General: Well-appearing and in no apparent distress. Skin: Warm, dry, no pallor noted. No rash. Head: Normocephalic, atraumatic. Neck: Supple, non-tender. Eye: Pupils are equal, round and EOMI. No scleral icterus. Ears, Nose, Mouth, and Throat: TM are clear, no nasal mucosal hypertrophy. Oral mucosa is moist, no posterior oropharynx erythema, uvula is mid-line Cardiovascular: Regular Rate and Rhythm without murmur, gallop or rub. Respiratory: No accessory muscle use or respiratory distress. Lungs are clear to auscultation, no wheezing, rales or rhonchi Chest Wall: no tenderness Back: No midline thoracic or lumbar vertebral tenderness. No CVA tenderness Musculoskeletal: normal ROM, no calf or popliteal tenderness, no lower extremity edema/swelling GI: Abdomen is soft, non-distended. Normal bowel sounds. No masses appreciated. No tenderness to palpation. No rebound, guarding, or rigidity noted. Neurological: A&O x4. No cranial nerve dysfunction observed. No truncal ataxia. Moves all extremities. Sensation intact. Psychiatric: Cooperative and interactive. Normal mood and affect. Constitutional Vital Signs, click to edit/add: Last Vital Signs Temp 98.8 F 01/21/24 13:18 Pulse 74 01/21/24 15:55 Resp 18 01/21/24 15:55 BP 126/74 01/21/24 15:55 Pulse Ox 99 01/21/24 15:55 O2 Del Method Room Air 01/21/24 15:54 Course Vital Signs Vital signs: Vital Signs Temperature 98.8 F 01/21/24 13:18 Pulse Rate 74 01/21/24 13:18 Respiratory Rate 18 01/21/24 13:18 Blood Pressure 122/76 01/21/24 13:18 Pulse Oximetry 95 01/21/24 13:18 Temperature 98.8 F 01/21/24 13:18 Pulse Rate 74 01/21/24 15:55 Respiratory Rate 18 01/21/24 15:55 Blood Pressure 126/74 01/21/24 15:55 Pulse Oximetry 99 01/21/24 15:55 Oxygen Delivery Method Room Air 01/21/24 15:54 MDM - URI/Sore Throat MDM Narrative Medical decision making narrative: Patient presented to us with a mild symptoms of upper respiratory tract infection Chest x-ray showed no acute pathology COVID test is positive The patient was instructed about hydration and fever control with Tylenol as well as Mucinex for supportive care The patient is to follow up with primary care physician in next 2-3 days or to return to the emergency department should any of the signs or symptoms worsen or new symptoms develop. The patient agrees with the following Diagnosis and Treatment plan and the patient will be discharged home. Lab Data Labs: Lab Results 01/21/24 Range/Units 13:20 Influenza Type A Ag Negative Influenza Type B Ag Negative SARS-CoV-2 Ag (CV2AG) Positive A (NEGATIVE) Discharge Plan Discharge Chief Complaint: Upper Respiratory Infection Clinical Impression: COVID-19 Patient Disposition: Home, Self-Care Time of Disposition Decision: 15:58 Condition: Good Prescriptions / Home Meds: New acetaminophen [Tylenol 8 Hour] 650 mg tablet extended release 650 mg PO Q8H PRN (Reason: fever or pain) Qty: 20 0RF guaifenesin [Mucinex] 600 mg tablet extended release 12hr 600 mg PO Q12H PRN (Reason: congestion) Qty: 14 0RF No Action metformin 500 mg tablet 500 mg PO TID potassium 20 mg tablet,chewable 20 mg PO .QD escitalopram oxalate [Lexapro] 20 mg tablet 20 mg PO BID aspirin 325 mg capsule 325 mg PO DAILY aripiprazole [Abilify] 2 mg tablet 2 mg PO DAILY atorvastatin 20 mg tablet 20 mg PO DAILY pantoprazole [Protonix] [address] for susp in packet 40 mg PO DAILY carvedilol 3.125 mg tablet 3.125 mg PO BID Rx Instructions: must administer with a meal/food spironolactone 25 mg tablet 25 mg PO DAILY lisinopril 10 mg tablet 10 mg PO DAILY alprazolam [Xanax] 0.25 mg tablet 0.25 mg PO TID gabapentin 800 mg tablet 800 mg PO TID etodolac [Lodine] 400 mg tablet 400 mg PO Q12H PRN (Reason: pain) tizanidine [Zanaflex] 4 mg capsule 4 mg PO TID PRN (Reason: muscle spasticity) Print Language: [place] Instructions: COVID-19 (Coronavirus Disease 2019) (ED) Referrals: Vanessa Baldwin MD [Primary Care Provider] - 1 week Discharge Date/Time: 01/21/24 16:05
== END 2024-01-21 16:05 | disposition home or self-care (01) ==
PROVIDERS: Emergency Provider Emergency Medicine; Family Provider Internal Medicine; PCP Family Medicine
DX: U07.1 COVID-19 (principal)
CPT/HCPCS: 71046; 87804; 87811; 99284

== ENCOUNTER 2024-02-03 09:16 | Emergency (ER) | payer OTHER, SELFPAY ==
[2024-02-03 09:20] VITALS: BP 155/56; PULSE 66; TEMP 36.5; O2SAT 93; BMI 38.3
--- OUTSIDE RECORDS SUMMARY | 2024-02-03 09:21 | XMS_ITS | CCD ---
Author Organization [facility] Care Team Providers Care Legislative Aide Name Role Phone Vanessa Baldwin Unavailable Helena GUERRA, Maribell Art Attending Unavailable Helena GUERRA, Andviet Art Attending Unavailable Helena GUERRA, Maribell Art Attending Unavailable Helena GUERRA, Maribell Art Attending Unavailable Richard Baker Attending Unavailab Richard Head Admitting Unavailab Vanessa Burleson Primary Care Unavailable MD Vanessa Baldwin Primary Care Provider [phone] MD Richard Baker Attending Provider [phone] Allergies Allergy Classification Reported Allergen(s) Allergy Type Date of Onset Reaction(s) Facility (13 sources) Codeine Drug Allergy 4 [facility] (13 sources) Morphine Drug Allergy 4 [facility] (9 sources) Nalbuphine Drug Allergy [facility] Other (5 sources) Nalbuphine; Translations: [nalbuphine] Drug Allergy 4 [facility] (1 source) Codeine Drug Allergy 4 [facility] Repository (1 source) Morphine Drug Allergy [address] [place] [address] Repository Medications Current Medications Medication Drug Class(es) [...] once a day take 2 tablets by [facility] every twenty-four hours metFORMIN HCl [...] 01, 2024 8:54am take 1 tablet by [facility] every twenty-four hours Klor-Con M20 20 MEQ [...] Coronary arteriosclerosis; Translations: [Atherosclerotic heart disease of [place] coronary artery without angina pectoris] Chronic Diabetes [...] Basophils (Bld) [#/Vol] 0.1 10 3/uL 0.0-0.1 [facility] Basophils/100 WBC Auto (Bld) on 09-27-2023 Basophils/100 WBC (Bld) 0.6 % 0.2-2.0 [facility] Eosinophils/100 WBC Auto (Bl d)on 09-27-2023 Eosinophils/100 WBC (Bld) 0.0 % Low 0.9-7.0 [facility] Erythrocyte distribution wid th Auto (RBC) [Ratio]on 09-27-2023 Erythrocyte distribution width (RBC) [Ratio] 12.9 % 11.0-15.0 [facility] Estimated glomerular filtrat ion rate (GFR) non- Americanon 09-27-2023 GFR/1.73 sq M.predicted among non-blacks MDRD (S/P/Bld) [Vol rate/Area] 54 mL/min/{1.73_m2} Low >=60 [facility] Hematocrit Auto (Bld) [Volum e fraction]on 09-27-2023 Hematocrit (Bld) [Volume fraction] 35.1 % Low 36.0-48.0 [facility] Hemoglobin [Mass/volume] in Bloodon 09-27-2023 Hemoglobin (Bld) [Mass/Vol] 11.8 g/dL Low 12.0-16.0 [facility] Laboratory - Chemistry and C hemistry - challengeon 09-27-2023 Calcium [Mass/Vol] 9.7 mg/dL 8.5-10.1 [facility] Chloride [Moles/Vol] 95 mmol/L Low 98-107 [facility] CO2 [Moles/Vol] 27.5 mmol/L 21.0-32.0 [facility] Creatinine [Mass/Vol] 1.02 mg/dL 0.55-1.02 [facility] GFR/1.73 sq M.predicted MDRD (S/P/Bld) [Vol rate/Area] mL/min/{1.73_m2} >=60 [facility] Glucose [Mass/Vol] 152 mg/dL High 74-106 [facility] Potassium [Moles/Vol] 4.4 mmol/L 3.5-5.1 [facility] Sodium [Moles/Vol] 131 mmol/L Low 136-145 [facility] Urea nitrogen [Mass/Vol] 6.0 mg/dL Low 7.0-18.0 [facility] Urea nitrogen/Creatinine [Mass ratio] 5.9 mg/mg [facility] Laboratory - Hematology and Cell countson 09-27-2023 Immature granulocytes/100 WBC (Bld) 0.4 % 0.0-0.5 [facility] Leukocytes [#/volume] correc krysta for nucleated erythrocytes in Blood by Automated counon 09-27-2023 WBC corrected for nucl RBC Auto (Bld) [#/Vol] 12.5 10 3/uL High 4.0-11.0 [facility] Lymphocytes Auto (Bld) [#/Vo l]on 09-27-2023 Lymphocytes (Bld) [#/Vol] 3.1 10 3/uL 1.2-3.8 [facility] Lymphocytes/100 WBC Auto (Bl d)on 09-27-2023 Lymphocytes/100 WBC (Bld) 25.1 % 20.5-60.0 [facility] MCH Auto (RBC) [Entitic mass ]on 09-27-2023 MCH (RBC) [Entitic mass] 29.6 pg 26.7-34.0 [facility] MCHC Auto (RBC) [Mass/Vol]on 09-27-2023 MCHC (RBC) [Mass/Vol] 33.6 g/dL 29.9-35.2 [facility] MCV Auto (RBC) [Entitic vol] on 09-27-2023 MCV (RBC) [Entitic vol] 88.0 fL 81.0-99.0 [facility] Monocytes Auto (Bld) [#/Vol] on 09-27-2023 Monocytes (Bld) [#/Vol] 0.9 10 3/uL High 0.3-0.8 [facility] Monocytes/100 WBC Auto (Bld) on 09-27-2023 Monocytes/100 WBC (Bld) 7.0 % 1.7-12.0 [facility] Neutrophils Auto (Bld) [#/Vo l]on 09-27-2023 Neutrophils (Bld) [#/Vol] 8.4 10 3/uL High 1.4-6.5 [facility] Neutrophils/100 WBC Auto (Bl d)on 09-27-2023 Neutrophils/100 WBC (Bld) 66.9 % 43.0-75.0 [facility] No Panel Informationon 09-26 Eosinophils # (Auto) 0.0 10 3/uL 0.0-0.7 [facility] Immature Granulocyte # (Auto) 0.05 10 3/uL High 0.00-0.03 [facility] Platelet mean volume Auto (B ld) [Entitic vol]on 09-27-2023 Platelet mean volume (Bld) [Entitic vol] 10.6 fL 9.5-13.5 [facility] Platelets Auto (Bld) [#/Vol] on 09-27-2023 Platelets (Bld) [#/Vol] 302 10 3/uL 150-450 [facility] RBC Auto (Bld) [#/Vol]on RBC (Bld) [#/Vol] 3.99 10 6/uL Low 4.20-5.40 [facility] Serum or plasma anion gap de terminationon 09-27-2023 Anion gap [Moles/Vol] 12.9 mmol/L [facility] Basophils Auto (Bld) [#/Vol] on 08-08-2023 Basophils (Bld) [#/Vol] 0.1 10 3/uL 0.0-0.1 [facility] Basophils/100 WBC Auto (Bld) on 08-08-2023 Basophils/100 WBC (Bld) 0.4 % 0.2-2.0 [facility] Eosinophils/100 WBC Auto (Bl d)on 08-08-2023 Eosinophils/100 WBC (Bld) 0.3 % Low 0.9-7.0 [facility] Erythrocyte distribution wid th Auto (RBC) [Ratio]on 08-08-2023 Erythrocyte distribution width (RBC) [Ratio] 13.1 % 11.0-15.0 [facility] Estimated glomerular filtrat ion rate (GFR) non- Americanon 08-08-2023 GFR/1.73 sq M.predicted among non-blacks MDRD (S/P/Bld) [Vol rate/Area] 45 mL/min/{1.73_m2} Low >=60 [facility] Globulin Calc (S) [Mass/Vol] on 08-08-2023 Globulin (S) [Mass/Vol] 4.4 g/dL [facility] Hematocrit Auto (Bld) [Volum e fraction]on 08-08-2023 Hematocrit (Bld) [Volume fraction] 37.5 % 36.0-48.0 [facility] Hemoglobin [Mass/volume] in Bloodon 08-08-2023 Hemoglobin (Bld) [Mass/Vol] 12.6 g/dL 12.0-16.0 [facility] INR in Platelet poor plasma by Coagulation assayon 08-08-2023 INR Coag (PPP) [Relative time] 1.03 {INR} [facility] Comment on above: DESIRED INR:2.0-3.0 CONDITIONS NOT LISTED BELOW2.5-3.5 FOR PROSTHETIC HEART VALVE REPLACEMENT2.5-3.5 RECURRENT THROMBOSIS Laboratory - Chemistry and C hemistry - challengeon 08-08-2023 Albumin [Mass/Vol] 4.3 g/dL 3.4-5.0 [facility] ALP [Catalytic activity/Vol] 99 U/L 46-116 [facility] ALT [Catalytic activity/Vol] 21 U/L 14-59 [facility] AST [Catalytic activity/Vol] 25 U/L 15-37 [facility] Bilirubin [Mass/Vol] 0.6 mg/dL 0.2-1.0 [facility] Calcium [Mass/Vol] 9.8 mg/dL 8.5-10.1 [facility] Chloride [Moles/Vol] 89 mmol/L Low 98-107 [facility] CO2 [Moles/Vol] 21.5 mmol/L 21.0-32.0 [facility] Creatinine [Mass/Vol] 1.19 mg/dL High 0.55-1.02 [facility] GFR/1.73 sq M.predicted MDRD (S/P/Bld) [Vol rate/Area] 55 mL/min/{1.73_m2} Low >=60 [facility] Glucose [Mass/Vol] 110 mg/dL High 74-106 [facility] Potassium [Moles/Vol] 4.1 mmol/L 3.5-5.1 [facility] Protein [Mass/Vol] 8.7 g/dL High 6.4-8.2 [facility] Sodium [Moles/Vol] 124 mmol/L Low 136-145 [facility] Comment on above: RESULTS CALLED TO MARTÍNEZ HAMPTON RN @BY Rosibel Joshi [phone] Urea nitrogen [Mass/Vol] 11.0 mg/dL 7.0-18.0 [facility] Urea nitrogen/Creatinine [Mass ratio] 9.2 mg/mg [facility] Laboratory - Hematology and Cell countson 08-08-2023 Immature granulocytes/100 WBC (Bld) 0.4 % 0.0-0.5 [facility] Leukocytes [#/volume] correc krysta for nucleated erythrocytes in Blood by Automated counon 08-08-2023 WBC corrected for nucl RBC Auto (Bld) [#/Vol] 15.9 10 3/uL High 4.0-11.0 [facility] Lymphocytes Auto (Bld) [#/Vo l]on 08-08-2023 Lymphocytes (Bld) [#/Vol] 4.6 10 3/uL High 1.2-3.8 [facility] Lymphocytes/100 WBC Auto (Bl d)on 08-08-2023 Lymphocytes/100 WBC (Bld) 28.9 % 20.5-60.0 [facility] MCH Auto (RBC) [Entitic mass ]on 08-08-2023 MCH (RBC) [Entitic mass] 29.4 pg 26.7-34.0 [facility] MCHC Auto (RBC) [Mass/Vol]on 08-08-2023 MCHC (RBC) [Mass/Vol] 33.6 g/dL 29.9-35.2 [facility] MCV Auto (RBC) [Entitic vol] on 08-08-2023 MCV (RBC) [Entitic vol] 87.6 fL 81.0-99.0 [facility] Monocytes Auto (Bld) [#/Vol] on 08-08-2023 Monocytes (Bld) [#/Vol] 1.0 10 3/uL High 0.3-0.8 [facility] Monocytes/100 WBC Auto (Bld) on 08-08-2023 Monocytes/100 WBC (Bld) 6.0 % 1.7-12.0 [facility] Neutrophils Auto (Bld) [#/Vo l]on 08-08-2023 Neutrophils (Bld) [#/Vol] 10.2 10 3/uL High 1.4-6.5 [facility] Neutrophils/100 WBC Auto (Bl d)on 08-08-2023 Neutrophils/100 WBC (Bld) 64.0 % 43.0-75.0 [facility] No Panel Informationon 08-07 Eosinophils # (Auto) 0.0 10 3/uL 0.0-0.7 [facility] Immature Granulocyte # (Auto) 0.06 10 3/uL High 0.00-0.03 [facility] Troponin I High Sensitivity 6.4 pg/mL 4.0-51.3 [facility] Comment on above: CUT-OFF POINTS HAVE [...] volume (Bld) [Entitic vol] 10.6 fL 9.5-13.5 [facility] Platelets Auto (Bld) [#/Vol] on 08-08-2023 Platelets (Bld) [#/Vol] 261 10 3/uL 150-450 [facility] Prothrombin time (PT)on 07-25 PT Coag (PPP) [Time] 10.9 s 9.0-11.6 [facility] RBC Auto (Bld) [#/Vol]on RBC (Bld) [#/Vol] 4.28 10 6/uL 4.20-5.40 [facility] Serum or plasma albumin/glob ulin mass ratioon 08-08-2023 Albumin/Globulin [Mass ratio] 1.0 {ratio} [facility] Serum or plasma anion gap de terminationon 08-08-2023 Anion gap [Moles/Vol] 17.6 mmol/L [facility] Basophils Auto (Bld) [#/Vol] on 05-30-2023 Basophils (Bld) [#/Vol] 0.1 10 3/uL 0.0-0.1 [facility] Basophils/100 WBC Auto (Bld) on 05-30-2023 Basophils/100 WBC (Bld) 0.8 % 0.2-2.0 [facility] Eosinophils/100 WBC Auto (Bl d)on 05-30-2023 Eosinophils/100 WBC (Bld) 0.0 % 0.9-7.0 [facility] Erythrocyte distribution wid th Auto (RBC) [Ratio]on 05-30-2023 Erythrocyte distribution width (RBC) [Ratio] 12.6 % 11.0-15.0 [facility] Glucose mean value [Mass/vol ume] in Blood Estimated from glycated hemoglobinon 05-30-2023 Average glucose Estimated from glycated hemoglobin (Bld) [Mass/Vol] 283 mg/dL [facility] Hematocrit Auto (Bld) [Volum e fraction]on 05-30-2023 Hematocrit (Bld) [Volume fraction] 36.6 % 36.0-48.0 [facility] Hemoglobin [Mass/volume] in Bloodon 05-30-2023 Hemoglobin (Bld) [Mass/Vol] 12.0 g/dL 12.0-16.0 [facility] Laboratory - Hematology and Cell countson 05-30-2023 HbA1c (Bld) [Mass fraction] 11.5 % 4.5-6.2 [facility] Comment on above: ADA RECOMMENDED LIMI T 4.0 - 6.0ADA THERAPEUTIC TARGET < 7.0ACTION SUGGESTED> 7.0 Immature granulocytes/100 WBC (Bld) 0.5 % 0.0-0.5 [facility] Leukocytes [#/volume] correc krysta for nucleated erythrocytes in Blood by Automated counon 05-30-2023 WBC corrected for nucl RBC Auto (Bld) [#/Vol] 14.3 10 3/uL 4.0-11.0 [facility] Lymphocytes Auto (Bld) [#/Vo l]on 05-30-2023 Lymphocytes (Bld) [#/Vol] 3.6 10 3/uL 1.2-3.8 [facility] Lymphocytes/100 WBC Auto (Bl d)on 05-30-2023 Lymphocytes/100 WBC (Bld) 25.1 % 20.5-60.0 [facility] MCH Auto (RBC) [Entitic mass ]on 05-30-2023 MCH (RBC) [Entitic mass] 29.7 pg 26.7-34.0 [facility] MCHC Auto (RBC) [Mass/Vol]on 05-30-2023 MCHC (RBC) [Mass/Vol] 32.8 g/dL 29.9-35.2 [facility] MCV Auto (RBC) [Entitic vol] on 05-30-2023 MCV (RBC) [Entitic vol] 90.6 fL 81.0-99.0 [facility] Monocytes Auto (Bld) [#/Vol] on 05-30-2023 Monocytes (Bld) [#/Vol] 0.9 10 3/uL 0.3-0.8 [facility] Monocytes/100 WBC Auto (Bld) on 05-30-2023 Monocytes/100 WBC (Bld) 6.0 % 1.7-12.0 [facility] Neutrophils Auto (Bld) [#/Vo l]on 05-30-2023 Neutrophils (Bld) [#/Vol] 9.7 10 3/uL 1.4-6.5 [facility] Neutrophils/100 WBC Auto (Bl d)on 05-30-2023 Neutrophils/100 WBC (Bld) 67.6 % 43.0-75.0 [facility] No Panel Informationon 05-29 Eosinophils # (Auto) 0.0 10 3/uL 0.0-0.7 [facility] Immature Granulocyte # (Auto) 0.07 10 3/uL 0.00-0.03 [facility] Platelet mean volume Auto (B ld) [Entitic vol]on 05-30-2023 Platelet mean volume (Bld) [Entitic vol] 10.9 fL 9.5-13.5 [facility] Platelets Auto (Bld) [#/Vol] on 05-30-2023 Platelets (Bld) [#/Vol] 242 10 3/uL 150-450 [facility] RBC Auto (Bld) [#/Vol]on RBC (Bld) [#/Vol] 4.04 10 6/uL 4.20-5.40 [facility] Vital Signs Date Time Vital Sign Value Performing Clinician Facility 01-09-2024 09:07-0400 Body mass index (BMI) [Ratio] 43.4 kg/m2 MD Vanessa Baldwin Work Phone: [facility] 01-09-2024 09:07-0400 Body temperature 98.7 [degF] MD Vanessa Baldwin Work Phone: [facility] 01-09-2024 08:09-0400 Body height 162.56 cm MD Vanessa Baldwin Work Phone: [facility] 01-09-2024 08:09-0400 Body weight 114.81 kg MD Vanessa Baldwin Work Phone: [facility] 01-09-2024 08:09-0400 Diastolic blood pressure 62 mm[Hg] MD Vanessa Baldwin Work Phone: [facility] 01-09-2024 08:09-0400 Heart rate 71 /min MD Vanessa Baldwin Work Phone: [facility] 01-09-2024 08:09-0400 Respiratory rate 16 /min MD Vanessa Baldwin Work Phone: [facility] 01-09-2024 08:09-0400 SaO2% (BldA) [Mass fraction] 97 % MD Vanessa Baldwin Work Phone: [facility] 01-09-2024 08:09-0400 Systolic blood pressure 122 mm[Hg] MD Vanessa Baldwin Work Phone: [facility] 10-26-2023 11:10-0400 Body height 162.56 cm [facility] 10-26-2023 11:10-0400 Body mass index (BMI) [Ratio] 40.3 kg/m2 [facility] 10-26-2023 11:10-0400 Body weight 106.59 kg [facility] 10-26-2023 11:10-0400 Diastolic blood pressure 68 mm[Hg] [facility] 10-26-2023 11:10-0400 Heart rate 75 /min [facility] 10-26-2023 11:10-0400 Systolic blood pressure 102 mm[Hg] [facility] 10-09-2023 11:21-0400 Body height 162.56 cm [facility] 10-09-2023 11:21-0400 Body mass index (BMI) [Ratio] 40.6 kg/m2 [facility] 10-09-2023 11:21-0400 Body weight 107.5 kg [facility] 10-09-2023 11:21-0400 Diastolic blood pressure 68 mm[Hg] [facility] 10-09-2023 11:21-0400 Heart rate 69 /min [facility] 10-09-2023 11:21-0400 Systolic blood pressure 105 mm[Hg] [facility] 08-10-2023 13:38-0400 Body height 162.56 cm [facility] 08-10-2023 13:38-0400 Body mass index (BMI) [Ratio] 39.2 kg/m2 [facility] 08-10-2023 13:38-0400 Body weight 103.64 kg [facility] 08-10-2023 13:38-0400 Diastolic blood pressure 70 mm[Hg] [facility] 08-10-2023 13:38-0400 Heart rate 71 /min [facility] 08-10-2023 13:38-0400 Systolic blood pressure 106 mm[Hg] [facility] 07-27-2023 09:31-0400 Body height 162.56 cm [facility] 07-27-2023 09:31-0400 Body mass index (BMI) [Ratio] 40.1 kg/m2 [facility] 07-27-2023 09:31-0400 Body weight 106.14 kg [facility] 07-27-2023 09:31-0400 Diastolic blood pressure 73 mm[Hg] [facility] 07-27-2023 09:31-0400 Heart rate 66 /min [facility] 07-27-2023 09:31-0400 Systolic blood pressure 137 mm[Hg] [facility] 07-10-2023 11:10-0400 Body height 162.56 cm [facility] 07-10-2023 11:10-0400 Body mass index (BMI) [Ratio] 40.6 kg/m2 [facility] 07-10-2023 11:10-0400 Body weight 107.27 kg [facility] 07-10-2023 11:10-0400 Diastolic blood pressure 76 mm[Hg] [facility] 07-10-2023 11:10-0400 Heart rate 77 /min [facility] 07-10-2023 11:10-0400 Systolic blood pressure 115 mm[Hg] [facility] 05-30-2023 13:03-0500 Body height 162.56 cm [facility] 05-30-2023 13:03-0500 Body mass index (BMI) [Ratio] 40.8 kg/m2 [facility] 05-30-2023 13:03-0500 Body weight 108.12 kg [facility] 05-30-2023 13:03-0500 Diastolic blood pressure 80 mm[Hg] [facility] 05-30-2023 13:03-0500 Heart rate 90 /min [facility] 05-30-2023 13:03-0500 SaO2% (BldA) [Mass fraction] 97 % [facility] 05-30-2023 13:03-0500 Systolic blood pressure 126 mm[Hg] [facility] 04-10-2023 11:15-0500 Body height 162.56 cm Vanessa Baldwin Other [employer] [facility] [employer] Other 04-10-2023 11:15-0500 Body mass index (BMI) [Ratio] 40.16 kg/m2 Vanessa Baldwin Other [email or web address] Other 04-10-2023 11:15-0500 Body weight 106.14 kg Vanessa Baldwin Other [email or web address] Other 04-10-2023 11:15-0500 Diastolic blood pressure 84 mm[Hg] Vanessa Baldwin Other [email or web address] Other 04-10-2023 11:15-0500 SaO2% (BldA) [Mass fraction] 95 % Vanessa Baldwin Other [email or web address] Other 04-10-2023 11:15-0500 Systolic blood pressure 126 mm[Hg] Vanessa Baldwin Other [email or web address] Other 01-24-2023 11:15-0400 Body height 162.56 cm Vanessa Baldwin Other [email or web address] Other 01-24-2023 11:15-0400 Body mass index (BMI) [Ratio] 39.37 kg/m2 Vanessa Baldwin Other [email or web address] Other 01-24-2023 11:15-0400 Body weight 104.06 kg Vanessa Baldwin Other [email or web address] Other 01-24-2023 11:15-0400 Diastolic blood pressure 74 mm[Hg] Vanessa Baldwin Other [email or web address] Other 01-24-2023 11:15-0400 Systolic blood pressure 112 mm[Hg] Vanessa Baldwin Other [email or web address] Other 01-17-2023 10:30-0400 Body height 162.56 cm Vanessa Baldwin Other [email or web address] Other 01-17-2023 10:30-0400 Body mass index (BMI) [Ratio] 39.82 kg/m2 Vanessa Baldwin Other [email or web address] Other 01-17-2023 10:30-0400 Body weight 105.24 kg Vanessa Baldwin Other [email or web address] Other 01-17-2023 10:30-0400 Diastolic blood pressure 64 mm[Hg] Vanessa Baldwin Other [email or web address] Other 01-17-2023 10:30-0400 Systolic blood pressure 100 mm[Hg] Vanessa Baldwin Other [email or web address] Other Encounters Encounter Date Encounter Type Care Provider Facility Start: 01-09-2024 End: 01-09-2024 ambulatory MD Vanessa Baldwin Work Phone: [facility] Work Phone: Start: 01-09-2024 End: 01-09-2024 Patient encounter procedure MD Vanessa Baldwin Work Phone: [facility] Work Phone: Start: 12-26-2023 Registered Recurring MD Vanessa Baldwin Work Phone: [facility] Start: 12-26-2023 ambulatory Richard Fisher acility:[facility] Start: 11-13-2023 End: 11-13-2023 ambulatory Maribell Malik MD Facility:[facility] Start: 10-26-2023 End: 10-26-2023 ambulatory [facility] Work Phone: Start: 10-26-2023 End: 10-26-2023 Patient encounter procedure [facility] Work Phone: Start: 10-09-2023 End: 10-09-2023 ambulatory [facility] Work Phone: Start: 10-09-2023 End: 10-09-2023 Patient encounter procedure [facility] Work Phone: Start: 10-02-2023 End: 10-02-2023 ambulatory Maribell Malik MD Facility:[facility] Start: 09-27-2023 Non-patient / Non-visit [facility] Work Phone: Start: 08-28-2023 End: 08-28-2023 ambulatory Maribell Malik MD Facility:[facility] Start: 08-10-2023 End: 08-10-2023 Patient encounter procedure [facility] Work Phone: Start: 08-08-2023 Non-patient / Non-visit [facility] Work Phone: Start: 07-27-2023 End: 07-27-2023 Patient encounter procedure [facility] Work Phone: Start: 07-24-2023 End: 07-24-2023 ambulatory Maribell Malik MD Facility:[facility] Start: 07-10-2023 End: 07-10-2023 ambulatory [facility] Work Phone: Start: 07-10-2023 End: 07-10-2023 Patient encounter procedure [facility] Work Phone: Start: 05-30-2023 End: 05-30-2023 Patient encounter procedure [facility] Work Phone: Start: 05-02-2023 End: 05-02-2023 ambulatory Vanessa Baldiwn Other [email or web address] Other Start: 05-02-2023 Telephone encounter Vanessa Baldwin [facility] Start: 04-24-2023 End: 04-24-2023 ambulatory Vanessa Baldwin Other [email or web address] Other Start: 04-24-2023 Telephone encounter Vanessa Baldwin [facility] Start: 04-10-2023 End: 04-10-2023 ambulatory Vanessa Baldwin Other [email or web address] Other Start: 04-10-2023 Office outpatient visit 15 minutes Vanessa Baldwin [facility] Start: 04-03-2023 End: 04-03-2023 ambulatory Vanessa Baldwin Other [email or web address] Other Start: 04-03-2023 Telephone encounter Vanessa Baldwin [facility] Start: 03-06-2023 End: 03-06-2023 ambulatory Vanessa Baldwin Other [email or web address] Other Start: 03-06-2023 Telephone encounter Vanessa Nicolasa [facility] Start: 02-02-2023 End: 02-02-2023 ambulatory Vanessa Baldwin Other [email or web address] Other Start: 02-02-2023 Telephone encounter Vanessa Baldwin [facility] Start: 01-24-2023 End: 01-24-2023 ambulatory Vanessa Baldwin Other [email or web address] Other Start: 01-24-2023 Office outpatient visit 15 minutes Vanessa Baldwin [facility] Start: 01-17-2023 End: 01-17-2023 ambulatory Vanessa Baldwin Other [email or web address] Other Start: 01-17-2023 Office outpatient ne w 45 minutes Vanessa Baldwin [facility] Plan of Treatment Date Care Activity Detail Author Patient Education Low back pain in adults [facility] [facility] Work Phone: US Heart Transthoracic [facility] US.doppler Carotid a rteries - bilateral [facility] Immunizations Immunization Date Immunization Notes Care Provider Fa cility 04-10-2023 influenza, high dose seasonal, preservative-free Vanessa Baldwin Other [email or web address] Other 04-10-2023 influenza virus vaccine, unspecified formulation [facility] Payers Date Payer Category Payer Self-pay 2023 Private Health Insurance 1955 Unknown [id number] 1955 Unknown [id number] 1955 Unknown [id number] 1955 Unknown [id number] [facility] [id number] Private Health Insurance [id number] Unknown [id number] Social History Date Type Detail Facility Unknown if ever smoked [email or web address] Other Sex Assigned At Sex Assigned At Bir th [email or web address] Other Start: 05-29-2023 Tobacco smoking status NHIS Ex-smoker (finding) [facility] Start: 1955 Sex Assigned At Female F [facility] Medical Equipment Procedure Code Equipment Code Equipment [...] symptoms. Any developing patterns. Stay well hydrated. [email or web address] Other 11-09-2023 Evaluation note* Encounter Date Diagnosis Assessment Notes Treatment Notes Treatment Clinical Notes Jan, Type 2 diabetes mellitus with hyperglycemia, without long-term current use of insulin (ICD-10 - E11.65) [email or web address] Other 10-31-2023 Evaluation note* Encounter Date Diagnosis [...] A1C7.0. Cholesterol well controlled. Continue present meds. [email or web address] Other [id number] Evaluation note* Encounter Date Diagnosis Assessment Notes Treatment Notes Treatment Clinical Notes Dec, Essential (primary) hypertension (ICD-10 - I10) Refilled meds for chronic problems Dec, Type 2 diabetes mellitus with hyperglycemia, without long-term current use of insulin (ICD-10 - E11.65) Check labs today diabetic eye exam annually Dec, Coronary artery disease involving [place] coronary artery of [place] heart without angina pectoris (ICD-10 - I25.10) Pt agrees to referral to get established with a local hot cell technician. Dec, Anxiety (ICD-10 - F41.9) pt states her chronic problem is controlled w xanax tid and lexapro Dec, GERD without esophagitis (ICD-10 - K21.9) refilled med for chronic problem Dec, Screening mammogram for breast cancer (ICD-10 - Z12.31) Dec, Personal history of nicotine dependence (ICD-10 - Z87.891) [email or web address] Other Evaluation noteNo [employer] Other Evaluation note* Diagnosis Onset Date Resolution Status Anxiety acute [id number] acute [facility] Work Phone: Evaluation note* Diagnosis Onset Date Resolution Status Anxiety acute Depression, major, single episode, severe acute Diabetic peripheral neuropathy acute Hammertoe of left foot acute Lumbar back pain with radicu lopathy affecting lower extremity acute Anxiety acute Depression, major, single episode, severe acute Expressive aphasia acute Hyponatremia acute Leukocytosis acute Lumbar back pain with radicu lopathy affecting lower extremity acute [facility] Work Phone: Evaluation note* Diagnosis Onset Date [...] with radicu lopathy affecting lower extremity acute [facility] Work Phone: Evaluation note* Diagnosis Onset Date Resolution Status [id number] acute Diabetic peripheral neuropathy acute Lumbar back pain with radicu lopathy affecting lower extremity acute [facility] Work Phone: History general Narrative - Reported* Type Description Date Medical History Hypertention Medical History Diabetes Medical History Neuropathy Medical History Heart Attack Surgical History Hysterectomy Surgical History Back surgery Surgical History Right CTR Surgical History Bilateral shoulder surgery Surgical History Heart Stents X2 Surgical History Left TKR [email or web address] Other History general Narrative - Reported* Type Description Date Medical History Hypertention Medical History Diabetes Medical History Neuropathy Medical History Heart Attack Medical History GERD Surgical History Hysterectomy Surgical History Back surgery Surgical History Right CTR Surgical History Bilateral shoulder surgery Surgical History Heart Stents X2 Surgical History Left TKR [email or web address] Other Reason for Referral Reason *Waiting for appt Get established, has stents, moved from [place]. Had [place] in 2015 Diagnosis 1 Coronary artery dise ase involving [place] coronary artery of [place] heart without angina pectoris (I25.10) Referral Organization [facility] Darrin montero Referring Provider First Name Vanessa Referring Provider Last Name Nicolasa Referring Provider Specialty [facility] Referred Organization [facility] Cardiology Referred Provider Christal Pacheco Referred Address [address] [place] [address],[address],[id number] Referred Provider Specialty Cardiovascul ar Disease Referral Priority Routine General Notes Radha Baker 02:31:53 PM >received today, sent P2P. pt may need to fill out a records release form to have old records sent to us Chief Complaint and Reason for Visit Chief Complaint weightloss 3 MONTH CHECK UP Reason for Visit Anxiety [id number] Chief Complaint foot exams for shoes [facility] follow up 3 month follow up Reason for Visit Anxiety Depression, major, single episode, severe Diabetic peripheral neuropathy Hammertoe of left foot Lumbar back pain with radiculopathy affecting lower extremity Anxiety Depression, major, single episode, severe Expressive aphasia Hyponatremia Leukocytosis Lumbar back pain with radiculopathy affecting lower extremity Chief Complaint [facility] follow up 3 month follow [...] BH 3 month f/u Reason for Visit [id number] Diabetic peripheral neuropathy Lumbar back pain with [...] section and content) DATE CREATED AUTHOR 2023 [facility] DATE CREATED AUTHOR 'S ERNESTO ATION 12/27/2023 [facility] FOR RECORDS PERTAINING TO PATIENTS [...] BE BASED ON THE PRIMARY CLINICAL RECORDS. [employer] [facility]. provides no warranty or guarantee of the accuracy or completeness of information in this document.
--- NOTE | 2024-02-03 09:35 | XR_ITS ---
The [address] [address] Patient Name: HOLLIE WEBER MRN: [id number] date: 1955 Sex: F Assigned Patient Location: ER Current Patient Location: ER Accession/Order Number: [id number] Exam Date: 02/03/2024 09:40 Report Date: 02/03/2024 10:16 At the request of: LENORA MCCAIN Procedure: XR chest 1V EXAM: XR chest 1V INDICATION: Short of breath, cough, COVID 2 weeks ago. COMPARISON: Chest radiograph 01/21/2024 TECHNIQUE: Single frontal view of the chest FINDINGS: Normal cardiomediastinal contours. No acute infiltrative process. No pleural effusion or pneumothorax. No acute osseous abnormality. XR/XR chest 1V IMPRESSION: No acute cardiopulmonary process. Electronically authenticated by: ZIYAD LEES Date: 02/03/2024 10:16
--- NOTE | 2024-02-03 09:36 | ED_ITS ---
HPI - URI/Sore Throat General Chief Complaint: Upper Respiratory Infection Stated Complaint: SOB, COUGH Time Seen by Provider: 02/03/24 09:31 Source: patient History of Present Illness HPI Narrative: 68-year-old female presents for cough and congestion. She states she has been sick for almost 2 weeks and was diagnosed with COVID almost 2 weeks ago. She finished her Paxlovid and took some Mucinex [id number] on the recommendation of her doctor. It did not seem to help much. Her cough is nonproductive and she has not had a fever. She feels like she has been wheezing at home. She has never used an inhaler. Related Data Home Medications ?Medication ?Instructions ?Recorded ?Confirmed alprazolam 0.25 mg tablet (Xanax) 0.25 mg PO TID 07/24/23 11/13/23 aripiprazole 2 mg tablet (Abilify) 2 mg PO DAILY 07/24/23 11/13/23 aspirin 325 mg capsule 325 mg PO DAILY 07/24/23 11/13/23 atorvastatin 20 mg tablet 20 mg PO DAILY 07/24/23 11/13/23 carvedilol 3.125 mg tablet 3.125 mg PO BID 07/24/23 11/13/23 escitalopram oxalate 20 mg tablet 20 mg PO BID 07/24/23 11/13/23 (Lexapro) etodolac 400 mg tablet (Lodine) 400 mg PO Q12H PRN pain 07/24/23 11/13/23 gabapentin 800 mg tablet 800 mg PO TID 07/24/23 11/13/23 lisinopril 10 mg tablet 10 mg PO DAILY 07/24/23 11/13/23 metformin 500 mg tablet 500 mg PO TID 07/24/23 11/13/23 pantoprazole 40 mg granules 40 mg PO DAILY 07/24/23 11/13/23 delayed-release for susp in packet (Protonix) potassium 20 mg chewable tablet 20 mg PO .QD 07/24/23 11/13/23 spironolactone 25 mg tablet 25 mg PO DAILY 07/24/23 11/13/23 tizanidine 4 mg capsule (Zanaflex) 4 mg PO TID PRN muscle spasticity 07/24/23 11/13/23 Previous Rx's ?Medication ?Instructions ?Recorded acetaminophen 650 mg 650 mg PO Q8H PRN fever or pain 01/21/24 tablet,extended release (Tylenol 8 #20 tabs Hour) guaifenesin 600 mg tablet, 600 mg PO Q12H PRN congestion #14 01/21/24 extended release 12 hr (Mucinex) tabs albuterol sulfate 90 mcg/actuation 2 inh inhalation Q4H PRN shortness 02/03/24 aerosol inhaler of breath or wheezing #8.5 grams Allergies Allergy/AdvReac Type Severity Reaction Status Date / Time codeine Allergy Mild Unknown Verified 11/13/23 07:20 morphine Allergy Mild Unknown Verified 11/13/23 07:20 nalbuphine (From Nubain) AdvReac Mild Unknown Verified 11/13/23 07:20 Review of Systems ROS Narrative A ten point review of systems is negative except as noted above. PFSH PFS Medical History Low back pain ?M54.50 - Low back pain, unspecified (ICD-10) Osteoarthritis ?M19.90 - Unspecified osteoarthritis, unspecified site (ICD-10) Heartburn ?R12 - Heartburn (ICD-10) Acid reflux ?K21.9 - Gastro-esophageal reflux disease without esophagitis (ICD-10) Diabetes ?E11.9 - Type 2 diabetes mellitus without complications (ICD-10) Past heart attack ?I25.2 - Old myocardial infarction (ICD-10) Hypertension ?I10 - Essential (primary) hypertension (ICD-10) High cholesterol ?E78.00 - Pure hypercholesterolemia, unspecified (ICD-10) Surgical History History of total knee replacement ?Z96.659 - Presence of unspecified artificial knee joint (ICD-10) H/O shoulder surgery ?Z98.890 - Other specified postprocedural states (ICD-10) History of lumbar surgery ?Z98.890 - Other specified postprocedural states (ICD-10) History of hysterectomy ?Z90.710 - Acquired absence of both cervix and uterus (ICD-10) Social History Little interest or pleasure in doing things: not at all Feeling down, depressed, or hopeless: not at all Exam Narrative Exam Narrative: Nurses note and vital signs reviewed and patient is not hypoxic. General: The patient appears well and in no apparent distress. Patient is resting comfortably on cart. Skin: Warm, dry, no pallor noted. There is no rash noted. Head: Normocephalic, atraumatic Eye: Normal conjunctiva, no drainage Ears, Nose, Mouth, and Throat: oral mucosa is moist. Nares patent. Cardiovascular: Regular Rate and Rhythm, not tachycardic Respiratory: Good air movement present with some rhonchi on the left side. Back: non-tender GI: Soft and nontender Musculoskeletal: The patient has no evidence of calf tenderness, no pitting edema, symmetrical pulses noted bilaterally Neurological: A&O, normal speech Psychiatric: Cooperative Constitutional Vital Signs, click to edit/add: Last Vital Signs Temp 97.7 F 02/03/24 09:20 Pulse 70 02/03/24 09:49 Resp 20 02/03/24 09:20 BP 155/56 H 02/03/24 09:20 Pulse Ox 94 L 02/03/24 09:49 O2 Del Method Room Air 02/03/24 09:49 Course Vital Signs Vital signs: Vital Signs Temperature 97.7 F 02/03/24 09:20 Pulse Rate 66 02/03/24 09:20 Respiratory Rate 20 02/03/24 09:20 Blood Pressure 155/56 H 02/03/24 09:20 Pulse Oximetry 93 L 02/03/24 09:20 Oxygen Delivery Method Room Air 02/03/24 09:20 Temperature 97.7 F 02/03/24 09:20 Pulse Rate 70 02/03/24 09:49 Respiratory Rate 20 02/03/24 09:20 Blood Pressure 155/56 H 02/03/24 09:20 Pulse Oximetry 94 L 02/03/24 09:49 Oxygen Delivery Method Room Air 02/03/24 09:49 MDM - URI/Sore Throat MDM Narrative Medical decision making narrative: Chest x-ray shows no acute findings. She was given aerosol treatment and feels improved and is discharged home on albuterol. No indication for an antibiotic. Treatment diagnosis and follow-up were discussed with the patient. Differential Diagnosis Differential diagnosis: Likely upper respiratory infection, viral infection and other (Pneumonia, reactive airway disease) Imaging Data Chest x-ray: Radiologist's impression: ITS Impressions Chest X-Ray 02/03/24 09:35 IMPRESSION: No acute cardiopulmonary process. Electronically authenticated by: ZIYAD LEES Date: 02/03/2024 10:16 Discharge Plan Discharge Chief Complaint: Upper Respiratory Infection Clinical Impression: Reactive airway disease Patient Disposition: Home, Self-Care Time of Disposition Decision: 10:45 Condition: Good Mode of Transportation: Private Vehicle Prescriptions / Home Meds: New albuterol sulfate 90 mcg/actuation HFA aerosol inhaler 2 inh inhalation Q4H PRN (Reason: shortness of breath or wheezing) Qty: 8.5 0RF No Action acetaminophen [Tylenol 8 Hour] 650 mg tablet extended release 650 mg PO Q8H PRN (Reason: fever or pain) Qty: 20 0RF guaifenesin [Mucinex] 600 mg tablet extended release 12hr 600 mg PO Q12H PRN (Reason: congestion) Qty: 14 0RF metformin 500 mg tablet 500 mg PO TID potassium 20 mg tablet,chewable 20 mg PO .QD escitalopram oxalate [Lexapro] 20 mg tablet 20 mg PO BID aspirin 325 mg capsule 325 mg PO DAILY aripiprazole [Abilify] 2 mg tablet 2 mg PO DAILY atorvastatin 20 mg tablet 20 mg PO DAILY pantoprazole [Protonix] [address] for susp in packet 40 mg PO DAILY carvedilol 3.125 mg tablet 3.125 mg PO BID Rx Instructions: must administer with a meal/food spironolactone 25 mg tablet 25 mg PO DAILY lisinopril 10 mg tablet 10 mg PO DAILY alprazolam [Xanax] 0.25 mg tablet 0.25 mg PO TID gabapentin 800 mg tablet 800 mg PO TID etodolac [Lodine] 400 mg tablet 400 mg PO Q12H PRN (Reason: pain) tizanidine [Zanaflex] 4 mg capsule 4 mg PO TID PRN (Reason: muscle spasticity) Print Language: Mongolian Instructions: How to Use a Metered-Dose Inhaler (ED), Wheezing (ED) Referrals: Vanessa Baldwin MD [Primary Care Provider] - 1 week
[2024-02-03] MEDS: ALBUTEROL SULFATE 2.5 MG/3 ML VIAL NEB IH (09:48)
[2024-02-03 09:49] VITALS: PULSE 70; O2SAT 94
== END 2024-02-03 10:57 | disposition home or self-care (01) ==
PROVIDERS: Emergency Provider Emergency Medicine; Family Provider Internal Medicine; PCP Family Medicine
DX: J45.909 Unspecified asthma, uncomplicated (principal); Z86.16 Personal history of COVID-19
CPT/HCPCS: 71045; 94640; 99283

== ENCOUNTER 2024-02-19 06:37 | Day surgery (SDC) | payer OTHER, SELFPAY ==
--- OUTSIDE RECORDS SUMMARY | 2024-02-19 06:39 | XMS_ITS | CCD ---
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 Name Role Phone Vanessa Baldwin Unavailable Helena GUERRA, Maribell Art Attending Unavailable Helena GUERRA, Maribell Art Attending Unavailable Helena GUERRA, Maribell Art Attending Unavailable Helena GUERRA, Maribell Art Attending Unavailable MD Vanessa Baldwin Primary Care Provider MD Richard Baker Attending Provider Richard Baker Attending Unavailab Richard Head Admitting Unavailab Vanessa Burleson Primary Care Unavailable Allergies Allergy Classification Reported Allergen(s) Allergy Type Date of Onset Reaction(s) Facility (13 sources) Codeine Drug Allergy 4 [facility] (13 sources) Morphine Drug Allergy 4 [facility] (9 sources) Nalbuphine Drug Allergy [facility] Other (5 sources) Nalbuphine; Translations: [nalbuphine] Drug Allergy 4 [facility] (1 source) Codeine Drug Allergy 4 [facility] Repository (1 source) Morphine Drug Allergy [address] [place] [address] Repository Medications Current Medications Medication Drug Class(es) [...] a day take 2 tablets by mo [facility] every twenty-four hours metFORMIN HCl 500 [...] 01, 2024 8:54am take 1 tablet by [facility] every twenty-four hours Klor-Con M20 [...] Active 0.25 MG SUBCUT every week 4.784 January 03, 2024 8:22am Start: 10-26-2023 End: 01-03-2024 Semaglutide (Ozempic) 0.25 m g or 0.5 mg (2 mg/3 mL) pen injector Discontinued 0.25 MG SUBCUT every week 4.784 October 26, 2023 11:29am January 03, 2024 8:24am [...] Active 2.5 MG SUBCUT every week 6 84 September 20, 2023 10:39am Start: 07-10-2023 End: [...] Coronary arteriosclerosis; Translations: [Atherosclerotic heart disease of [place] coronary artery without angina pectoris] Chronic Diabetes [...] Basophils (Bld) [#/Vol] 0.1 10 3/uL 0.0-0.1 [facility] Basophils/100 WBC Auto (Bld) on 09-27-2023 Basophils/100 WBC (Bld) 0.6 % 0.2-2.0 [facility] Eosinophils/100 WBC Auto (Bl d)on 09-27-2023 Eosinophils/100 WBC (Bld) 0.0 % Low 0.9-7.0 [facility] Erythrocyte distribution wid th Auto (RBC) [Ratio]on 09-27-2023 Erythrocyte distribution width (RBC) [Ratio] 12.9 % 11.0-15.0 [facility] Estimated glomerular filtrat ion rate (GFR) non- Americanon 09-27-2023 GFR/1.73 sq M.predicted among non-blacks MDRD (S/P/Bld) [Vol rate/Area] 54 mL/min/{1.73_m2} Low >=60 [facility] Hematocrit Auto (Bld) [Volum e fraction]on 09-27-2023 Hematocrit (Bld) [Volume fraction] 35.1 % Low 36.0-48.0 [facility] Hemoglobin [Mass/volume] in Bloodon 09-27-2023 Hemoglobin (Bld) [Mass/Vol] 11.8 g/dL Low 12.0-16.0 [facility] Laboratory - Chemistry and C hemistry - challengeon 09-27-2023 Calcium [Mass/Vol] 9.7 mg/dL 8.5-10.1 [facility] Chloride [Moles/Vol] 95 mmol/L Low 98-107 [facility] CO2 [Moles/Vol] 27.5 mmol/L 21.0-32.0 [facility] Creatinine [Mass/Vol] 1.02 mg/dL 0.55-1.02 [facility] GFR/1.73 sq M.predicted MDRD (S/P/Bld) [Vol rate/Area] mL/min/{1.73_m2} >=60 [facility] Glucose [Mass/Vol] 152 mg/dL High 74-106 [facility] Potassium [Moles/Vol] 4.4 mmol/L 3.5-5.1 [facility] Sodium [Moles/Vol] 131 mmol/L Low 136-145 [facility] Urea nitrogen [Mass/Vol] 6.0 mg/dL Low 7.0-18.0 [facility] Urea nitrogen/Creatinine [Mass ratio] 5.9 mg/mg [facility] Laboratory - Hematology and Cell countson 09-27-2023 Immature granulocytes/100 WBC (Bld) 0.4 % 0.0-0.5 [facility] Leukocytes [#/volume] correc krysta for nucleated erythrocytes in Blood by Automated counon 09-27-2023 WBC corrected for nucl RBC Auto (Bld) [#/Vol] 12.5 10 3/uL High 4.0-11.0 [facility] Lymphocytes Auto (Bld) [#/Vo l]on 09-27-2023 Lymphocytes (Bld) [#/Vol] 3.1 10 3/uL 1.2-3.8 [facility] Lymphocytes/100 WBC Auto (Bl d)on 09-27-2023 Lymphocytes/100 WBC (Bld) 25.1 % 20.5-60.0 [facility] MCH Auto (RBC) [Entitic mass ]on 09-27-2023 MCH (RBC) [Entitic mass] 29.6 pg 26.7-34.0 [facility] MCHC Auto (RBC) [Mass/Vol]on 09-27-2023 MCHC (RBC) [Mass/Vol] 33.6 g/dL 29.9-35.2 [facility] MCV Auto (RBC) [Entitic vol] on 09-27-2023 MCV (RBC) [Entitic vol] 88.0 fL 81.0-99.0 [facility] Monocytes Auto (Bld) [#/Vol] on 09-27-2023 Monocytes (Bld) [#/Vol] 0.9 10 3/uL High 0.3-0.8 [facility] Monocytes/100 WBC Auto (Bld) on 09-27-2023 Monocytes/100 WBC (Bld) 7.0 % 1.7-12.0 [facility] Neutrophils Auto (Bld) [#/Vo l]on 09-27-2023 Neutrophils (Bld) [#/Vol] 8.4 10 3/uL High 1.4-6.5 [facility] Neutrophils/100 WBC Auto (Bl d)on 09-27-2023 Neutrophils/100 WBC (Bld) 66.9 % 43.0-75.0 [facility] No Panel Informationon 09-26 Eosinophils # (Auto) 0.0 10 3/uL 0.0-0.7 [facility] Immature Granulocyte # (Auto) 0.05 10 3/uL High 0.00-0.03 [facility] Platelet mean volume Auto (B ld) [Entitic vol]on 09-27-2023 Platelet mean volume (Bld) [Entitic vol] 10.6 fL 9.5-13.5 [facility] Platelets Auto (Bld) [#/Vol] on 09-27-2023 Platelets (Bld) [#/Vol] 302 10 3/uL 150-450 [facility] RBC Auto (Bld) [#/Vol]on RBC (Bld) [#/Vol] 3.99 10 6/uL Low 4.20-5.40 [facility] Serum or plasma anion gap de terminationon 09-27-2023 Anion gap [Moles/Vol] 12.9 mmol/L [facility] Basophils Auto (Bld) [#/Vol] on 08-08-2023 Basophils (Bld) [#/Vol] 0.1 10 3/uL 0.0-0.1 [facility] Basophils/100 WBC Auto (Bld) on 08-08-2023 Basophils/100 WBC (Bld) 0.4 % 0.2-2.0 [facility] Eosinophils/100 WBC Auto (Bl d)on 08-08-2023 Eosinophils/100 WBC (Bld) 0.3 % Low 0.9-7.0 [facility] Erythrocyte distribution wid th Auto (RBC) [Ratio]on 08-08-2023 Erythrocyte distribution width (RBC) [Ratio] 13.1 % 11.0-15.0 [facility] Estimated glomerular filtrat ion rate (GFR) non- Americanon 08-08-2023 GFR/1.73 sq M.predicted among non-blacks MDRD (S/P/Bld) [Vol rate/Area] 45 mL/min/{1.73_m2} Low >=60 [facility] Globulin Calc (S) [Mass/Vol] on 08-08-2023 Globulin (S) [Mass/Vol] 4.4 g/dL [facility] Hematocrit Auto (Bld) [Volum e fraction]on 08-08-2023 Hematocrit (Bld) [Volume fraction] 37.5 % 36.0-48.0 [facility] Hemoglobin [Mass/volume] in Bloodon 08-08-2023 Hemoglobin (Bld) [Mass/Vol] 12.6 g/dL 12.0-16.0 [facility] INR in Platelet poor plasma by Coagulation assayon 08-08-2023 INR Coag (PPP) [Relative time] 1.03 {INR} [facility] Comment on above: DESIRED INR:2.0-3.0 CONDITIONS NOT LISTED BELOW2.5-3.5 FOR PROSTHETIC HEART VALVE REPLACEMENT2.5-3.5 RECURRENT THROMBOSIS Laboratory - Chemistry and C hemistry - challengeon 08-08-2023 Albumin [Mass/Vol] 4.3 g/dL 3.4-5.0 [facility] ALP [Catalytic activity/Vol] 99 U/L 46-116 [facility] ALT [Catalytic activity/Vol] 21 U/L 14-59 [facility] AST [Catalytic activity/Vol] 25 U/L 15-37 [facility] Bilirubin [Mass/Vol] 0.6 mg/dL 0.2-1.0 [facility] Calcium [Mass/Vol] 9.8 mg/dL 8.5-10.1 [facility] Chloride [Moles/Vol] 89 mmol/L Low 98-107 [facility] CO2 [Moles/Vol] 21.5 mmol/L 21.0-32.0 [facility] Creatinine [Mass/Vol] 1.19 mg/dL High 0.55-1.02 [facility] GFR/1.73 sq M.predicted MDRD (S/P/Bld) [Vol rate/Area] 55 mL/min/{1.73_m2} Low >=60 [facility] Glucose [Mass/Vol] 110 mg/dL High 74-106 [facility] Potassium [Moles/Vol] 4.1 mmol/L 3.5-5.1 [facility] Protein [Mass/Vol] 8.7 g/dL High 6.4-8.2 [facility] Sodium [Moles/Vol] 124 mmol/L Low 136-145 [facility] Comment on above: RESULTS CALLED TO MARTÍNEZ HAMPTON RN @BY Rosibel Joshi [id number] Urea nitrogen [Mass/Vol] 11.0 mg/dL 7.0-18.0 [facility] Urea nitrogen/Creatinine [Mass ratio] 9.2 mg/mg [facility] Laboratory - Hematology and Cell countson 08-08-2023 Immature granulocytes/100 WBC (Bld) 0.4 % 0.0-0.5 [facility] Leukocytes [#/volume] correc krysta for nucleated erythrocytes in Blood by Automated counon 08-08-2023 WBC corrected for nucl RBC Auto (Bld) [#/Vol] 15.9 10 3/uL High 4.0-11.0 [facility] Lymphocytes Auto (Bld) [#/Vo l]on 08-08-2023 Lymphocytes (Bld) [#/Vol] 4.6 10 3/uL High 1.2-3.8 [facility] Lymphocytes/100 WBC Auto (Bl d)on 08-08-2023 Lymphocytes/100 WBC (Bld) 28.9 % 20.5-60.0 [facility] MCH Auto (RBC) [Entitic mass ]on 08-08-2023 MCH (RBC) [Entitic mass] 29.4 pg 26.7-34.0 [facility] MCHC Auto (RBC) [Mass/Vol]on 08-08-2023 MCHC (RBC) [Mass/Vol] 33.6 g/dL 29.9-35.2 [facility] MCV Auto (RBC) [Entitic vol] on 08-08-2023 MCV (RBC) [Entitic vol] 87.6 fL 81.0-99.0 [facility] Monocytes Auto (Bld) [#/Vol] on 08-08-2023 Monocytes (Bld) [#/Vol] 1.0 10 3/uL High 0.3-0.8 [facility] Monocytes/100 WBC Auto (Bld) on 08-08-2023 Monocytes/100 WBC (Bld) 6.0 % 1.7-12.0 [facility] Neutrophils Auto (Bld) [#/Vo l]on 08-08-2023 Neutrophils (Bld) [#/Vol] 10.2 10 3/uL High 1.4-6.5 [facility] Neutrophils/100 WBC Auto (Bl d)on 08-08-2023 Neutrophils/100 WBC (Bld) 64.0 % 43.0-75.0 [facility] No Panel Informationon 08-07 Eosinophils # (Auto) 0.0 10 3/uL 0.0-0.7 [facility] Immature Granulocyte # (Auto) 0.06 10 3/uL High 0.00-0.03 [facility] Troponin I High Sensitivity 6.4 pg/mL 4.0-51.3 [facility] Comment on above: CUT-OFF POINTS HAVE [...] volume (Bld) [Entitic vol] 10.6 fL 9.5-13.5 [facility] Platelets Auto (Bld) [#/Vol] on 08-08-2023 Platelets (Bld) [#/Vol] 261 10 3/uL 150-450 [facility] Prothrombin time (PT)on 07-25 PT Coag (PPP) [Time] 10.9 s 9.0-11.6 [facility] RBC Auto (Bld) [#/Vol]on RBC (Bld) [#/Vol] 4.28 10 6/uL 4.20-5.40 [facility] Serum or plasma albumin/glob ulin mass ratioon 08-08-2023 Albumin/Globulin [Mass ratio] 1.0 {ratio} [facility] Serum or plasma anion gap de terminationon 08-08-2023 Anion gap [Moles/Vol] 17.6 mmol/L [facility] Basophils Auto (Bld) [#/Vol] on 05-30-2023 Basophils (Bld) [#/Vol] 0.1 10 3/uL 0.0-0.1 [facility] Basophils/100 WBC Auto (Bld) on 05-30-2023 Basophils/100 WBC (Bld) 0.8 % 0.2-2.0 [facility] Eosinophils/100 WBC Auto (Bl d)on 05-30-2023 Eosinophils/100 WBC (Bld) 0.0 % 0.9-7.0 [facility] Erythrocyte distribution wid th Auto (RBC) [Ratio]on 05-30-2023 Erythrocyte distribution width (RBC) [Ratio] 12.6 % 11.0-15.0 [facility] Glucose mean value [Mass/vol ume] in Blood Estimated from glycated hemoglobinon 05-30-2023 Average glucose Estimated from glycated hemoglobin (Bld) [Mass/Vol] 283 mg/dL [facility] Hematocrit Auto (Bld) [Volum e fraction]on 05-30-2023 Hematocrit (Bld) [Volume fraction] 36.6 % 36.0-48.0 [facility] Hemoglobin [Mass/volume] in Bloodon 05-30-2023 Hemoglobin (Bld) [Mass/Vol] 12.0 g/dL 12.0-16.0 [facility] Laboratory - Hematology and Cell countson 05-30-2023 HbA1c (Bld) [Mass fraction] 11.5 % 4.5-6.2 [facility] Comment on above: ADA RECOMMENDED LIMI T 4.0 - 6.0ADA THERAPEUTIC TARGET < 7.0ACTION SUGGESTED> 7.0 Immature granulocytes/100 WBC (Bld) 0.5 % 0.0-0.5 [facility] Leukocytes [#/volume] correc krysta for nucleated erythrocytes in Blood by Automated counon 05-30-2023 WBC corrected for nucl RBC Auto (Bld) [#/Vol] 14.3 10 3/uL 4.0-11.0 [facility] Lymphocytes Auto (Bld) [#/Vo l]on 05-30-2023 Lymphocytes (Bld) [#/Vol] 3.6 10 3/uL 1.2-3.8 [facility] Lymphocytes/100 WBC Auto (Bl d)on 05-30-2023 Lymphocytes/100 WBC (Bld) 25.1 % 20.5-60.0 [facility] MCH Auto (RBC) [Entitic mass ]on 05-30-2023 MCH (RBC) [Entitic mass] 29.7 pg 26.7-34.0 [facility] MCHC Auto (RBC) [Mass/Vol]on 05-30-2023 MCHC (RBC) [Mass/Vol] 32.8 g/dL 29.9-35.2 [facility] MCV Auto (RBC) [Entitic vol] on 05-30-2023 MCV (RBC) [Entitic vol] 90.6 fL 81.0-99.0 [facility] Monocytes Auto (Bld) [#/Vol] on 05-30-2023 Monocytes (Bld) [#/Vol] 0.9 10 3/uL 0.3-0.8 [facility] Monocytes/100 WBC Auto (Bld) on 05-30-2023 Monocytes/100 WBC (Bld) 6.0 % 1.7-12.0 [facility] Neutrophils Auto (Bld) [#/Vo l]on 05-30-2023 Neutrophils (Bld) [#/Vol] 9.7 10 3/uL 1.4-6.5 [facility] Neutrophils/100 WBC Auto (Bl d)on 05-30-2023 Neutrophils/100 WBC (Bld) 67.6 % 43.0-75.0 [facility] No Panel Informationon 05-29 Eosinophils # (Auto) 0.0 10 3/uL 0.0-0.7 [facility] Immature Granulocyte # (Auto) 0.07 10 3/uL 0.00-0.03 [facility] Platelet mean volume Auto (B ld) [Entitic vol]on 05-30-2023 Platelet mean volume (Bld) [Entitic vol] 10.9 fL 9.5-13.5 [facility] Platelets Auto (Bld) [#/Vol] on 05-30-2023 Platelets (Bld) [#/Vol] 242 10 3/uL 150-450 [facility] RBC Auto (Bld) [#/Vol]on RBC (Bld) [#/Vol] 4.04 10 6/uL 4.20-5.40 [facility] Vital Signs Date Time Vital Sign Value Performing Clinician Facility 01-09-2024 09:07-0400 Body mass index (BMI) [Ratio] 43.4 kg/m2 MD Vanessa Baldwin Work Phone: [facility] 01-09-2024 09:07-0400 Body temperature 98.7 [degF] MD Vanessa Baldwin Work Phone: [facility] 01-09-2024 08:09-0400 Body height 162.56 cm MD Vanessa Baldwin Work Phone: [facility] 01-09-2024 08:09-0400 Body weight 114.81 kg MD Vanessa Baldwin Work Phone: [facility] 01-09-2024 08:09-0400 Diastolic blood pressure 62 mm[Hg] MD Vanessa Baldwin Work Phone: [facility] 01-09-2024 08:09-0400 Heart rate 71 /min MD Vanessa Baldwin Work Phone: [facility] 01-09-2024 08:09-0400 Respiratory rate 16 /min MD Vanessa Baldwin Work Phone: [facility] 01-09-2024 08:09-0400 SaO2% (BldA) [Mass fraction] 97 % MD Vanessa Baldwin Work Phone: [facility] 01-09-2024 08:09-0400 Systolic blood pressure 122 mm[Hg] MD Vanessa Baldwin Work Phone: [facility] 10-26-2023 11:10-0400 Body height 162.56 cm [facility] 10-26-2023 11:10-0400 Body mass index (BMI) [Ratio] 40.3 kg/m2 [facility] 10-26-2023 11:10-0400 Body weight 106.59 kg [facility] 10-26-2023 11:10-0400 Diastolic blood pressure 68 mm[Hg] [facility] 10-26-2023 11:10-0400 Heart rate 75 /min [facility] 10-26-2023 11:10-0400 Systolic blood pressure 102 mm[Hg] [facility] 10-09-2023 11:21-0400 Body height 162.56 cm [facility] 10-09-2023 11:21-0400 Body mass index (BMI) [Ratio] 40.6 kg/m2 [facility] 10-09-2023 11:21-0400 Body weight 107.5 kg [facility] 10-09-2023 11:21-0400 Diastolic blood pressure 68 mm[Hg] [facility] 10-09-2023 11:21-0400 Heart rate 69 /min [facility] 10-09-2023 11:21-0400 Systolic blood pressure 105 mm[Hg] [facility] 08-10-2023 13:38-0400 Body height 162.56 cm [facility] 08-10-2023 13:38-0400 Body mass index (BMI) [Ratio] 39.2 kg/m2 [facility] 08-10-2023 13:38-0400 Body weight 103.64 kg [facility] 08-10-2023 13:38-0400 Diastolic blood pressure 70 mm[Hg] [facility] 08-10-2023 13:38-0400 Heart rate 71 /min [facility] 08-10-2023 13:38-0400 Systolic blood pressure 106 mm[Hg] [facility] 07-27-2023 09:31-0400 Body height 162.56 cm [facility] 07-27-2023 09:31-0400 Body mass index (BMI) [Ratio] 40.1 kg/m2 [facility] 07-27-2023 09:31-0400 Body weight 106.14 kg [facility] 07-27-2023 09:31-0400 Diastolic blood pressure 73 mm[Hg] [facility] 07-27-2023 09:31-0400 Heart rate 66 /min [facility] 07-27-2023 09:31-0400 Systolic blood pressure 137 mm[Hg] [facility] 07-10-2023 11:10-0400 Body height 162.56 cm [facility] 07-10-2023 11:10-0400 Body mass index (BMI) [Ratio] 40.6 kg/m2 [facility] 07-10-2023 11:10-0400 Body weight 107.27 kg [facility] 07-10-2023 11:10-0400 Diastolic blood pressure 76 mm[Hg] [facility] 07-10-2023 11:10-0400 Heart rate 77 /min [facility] 07-10-2023 11:10-0400 Systolic blood pressure 115 mm[Hg] [facility] 05-30-2023 13:03-0500 Body height 162.56 cm [facility] 05-30-2023 13:03-0500 Body mass index (BMI) [Ratio] 40.8 kg/m2 [facility] 05-30-2023 13:03-0500 Body weight 108.12 kg [facility] 05-30-2023 13:03-0500 Diastolic blood pressure 80 mm[Hg] [facility] 05-30-2023 13:03-0500 Heart rate 90 /min [facility] 05-30-2023 13:03-0500 SaO2% (BldA) [Mass fraction] 97 % [facility] 05-30-2023 13:03-0500 Systolic blood pressure 126 mm[Hg] [facility] 04-10-2023 11:15-0500 Body height 162.56 cm Vanessa Baldwin Other [facility] [employer] Other 04-10-2023 11:15-0500 Body mass index (BMI) [Ratio] 40.16 kg/m2 Vanessa Baldwin Other [email or web address] Other 04-10-2023 11:15-0500 Body weight 106.14 kg Vanessa Baldwin Other [email or web address] Other 04-10-2023 11:15-0500 Diastolic blood pressure 84 mm[Hg] Vanessa Baldwin Other [email or web address] Other 04-10-2023 11:15-0500 SaO2% (BldA) [Mass fraction] 95 % Vanessa Baldwin Other [email or web address] Other 04-10-2023 11:15-0500 Systolic blood pressure 126 mm[Hg] Vanessa Baldwin Other [email or web address] Other 01-24-2023 11:15-0400 Body height 162.56 cm Vanessa Baldwin Other [email or web address] Other 01-24-2023 11:15-0400 Body mass index (BMI) [Ratio] 39.37 kg/m2 Vanessa Baldwin Other [email or web address] Other 01-24-2023 11:15-0400 Body weight 104.06 kg Vanessa Baldwin Other [email or web address] Other 01-24-2023 11:15-0400 Diastolic blood pressure 74 mm[Hg] Vanessa Baldwin Other [email or web address] Other 01-24-2023 11:15-0400 Systolic blood pressure 112 mm[Hg] Vanessa Baldwin Other [email or web address] Other 01-17-2023 10:30-0400 Body height 162.56 cm Vnaessa Baldwin Other [email or web address] Other 01-17-2023 10:30-0400 Body mass index (BMI) [Ratio] 39.82 kg/m2 Vanessa Baldwin Other [email or web address] Other 01-17-2023 10:30-0400 Body weight 105.24 kg Vanessa Baldwin Other [email or web address] Other 01-17-2023 10:30-0400 Diastolic blood pressure 64 mm[Hg] Vanessa Baldwin Other [email or web address] Other 01-17-2023 10:30-0400 Systolic blood pressure 100 mm[Hg] Vanessa Baldwin Other [email or web address] Other Encounters Encounter Date Encounter Type Care Provider Facility Start: 02-13-2024 ambulatory Richard Fisher acility:[facility] Start: 01-09-2024 End: 01-09-2024 ambulatory MD Vanessa Baldwin Work Phone: [facility] Work Phone: Start: 01-09-2024 End: 01-09-2024 Patient encounter procedure MD Vanessa Baldwin Work Phone: [facility] Physician [facility] Work Phone: Start: 12-26-2023 Registered Recurring MD Vanessa Baldwin Work Phone: [facility] Start: 11-13-2023 End: 11-13-2023 ambulatory Maribell Malik MD Facility:[facility] Start: 10-26-2023 End: 10-26-2023 ambulatory [facility] Work Phone: Start: 10-26-2023 End: 10-26-2023 Patient encounter procedure [facility] Work Phone: Start: 10-09-2023 End: 10-09-2023 ambulatory [facility] Work Phone: Start: 10-09-2023 End: 10-09-2023 Patient encounter procedure [facility] Work Phone: Start: 10-02-2023 End: 10-02-2023 ambulatory Maribell Malik MD Facility:[facility] Start: 09-27-2023 Non-patient / Non-visit [facility] Work Phone: Start: 08-28-2023 End: 08-28-2023 ambulatory Maribell Malik MD Facility:[facility] Start: 08-10-2023 End: 08-10-2023 Patient encounter procedure [facility] Work Phone: Start: 08-08-2023 Non-patient / Non-visit [facility] Work Phone: Start: 07-27-2023 End: 07-27-2023 Patient encounter procedure [facility] Work Phone: Start: 07-24-2023 End: 07-24-2023 ambulatory Maribell Malik MD Facility:[facility] Start: 07-10-2023 End: 07-10-2023 ambulatory [facility] Work Phone: Start: 07-10-2023 End: 07-10-2023 Patient encounter procedure [facility] Physician [facility] Work Phone: Start: 05-30-2023 End: 05-30-2023 Patient encounter procedure [facility] Physician [facility] Work Phone: Start: 05-02-2023 End: 05-02-2023 ambulatory Vanessa Baldwin Other [email or web address] Other Start: 05-02-2023 Telephone encounter Vanessa Baldwin [facility] Start: 04-24-2023 End: 04-24-2023 ambulatory Vanessa Baldwin Other [email or web address] Other Start: 04-24-2023 Telephone encounter Vanessa Baldwin [facility] Start: 04-10-2023 End: 04-10-2023 ambulatory Vanessa Baldwin Other [email or web address] Other Start: 04-10-2023 Office outpatient visit 15 minutes Vanessa Baldwin [facility] Start: 04-03-2023 End: 04-03-2023 ambulatory Vanessa Baldwin Other [email or web address] Other Start: 04-03-2023 Telephone encounter Vanessa Baldwin [facility] Start: 03-06-2023 End: 03-06-2023 ambulatory Vanessa Baldwin Other [email or web address] Other Start: 03-06-2023 Telephone encounter Vanessa Baldwin [facility] Start: 02-02-2023 End: 02-02-2023 ambulatory Vanessa Baldwin Other [email or web address] Other Start: 02-02-2023 Telephone encounter Vanessa Baldwin [facility] Start: 01-24-2023 End: 01-24-2023 ambulatory Vanessa Baldwin Other [email or web address] Other Start: 01-24-2023 Office outpatient visit 15 minutes Vanessa Baldwin [facility] Start: 01-17-2023 End: 01-17-2023 ambulatory Vanessa Baldwin Other [email or web address] Other Start: 01-17-2023 Office outpatient ne w 45 minutes Vanessa Baldwin [facility] Plan of Treatment Date Care Activity Detail Author Patient Education Low back pain in adults [facility] Work Phone: US Heart Transthoracic [facility] US.doppler Carotid a rteries - bilateral [facility] Immunizations Immunization Date Immunization Notes Care Provider Fa cility 04-10-2023 influenza, high dose seasonal, preservative-free Vanessa Baldwin Other [email or web address] Other 04-10-2023 influenza virus vaccine, unspecified formulation [facility] Payers Date Payer Category Payer Self-pay 2023 Private Health Insurance 1955 Unknown [id number] 1955 Unknown [id number] 1955 Unknown [id number] 1955 Unknown [id number] Medicare [facility] [id number] Private Health Insurance [id number] Unknown [id number] Social History Date Type Detail Facility Unknown if ever smoked [employer] Other Sex Assigned At Sex Assigned At Bir th [employer] Other Start: 05-29-2023 Tobacco smoking status NHIS Ex-smoker (finding) [facility] Start: 1955 Sex Assigned At Female F [facility] Medical Equipment Procedure Code Equipment Code [...] symptoms. Any developing patterns. Stay well hydrated. [employer] Other 11-09-2023 Evaluation note* Encounter Date Diagnosis Assessment Notes Treatment Notes Treatment Clinical Notes Jan, Type 2 diabetes mellitus with hyperglycemia, without long-term current use of insulin (ICD-10 - E11.65) [employer] Other 10-31-2023 Evaluation note* Encounter Date Diagnosis [...] A1C7.0. Cholesterol well controlled. Continue present meds. 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 Dec, Anxiety (ICD-10 - F41.9) pt states her chronic problem is controlled w xanax tid and lexapro Dec, GERD without esophagitis (ICD-10 - K21.9) refilled med for chronic problem Dec, Screening mammogram for breast cancer (ICD-10 - Z12.31) Dec, Personal history of nicotine dependence (ICD-10 - Z87.891) [employer] Other Evaluation noteNo [employer] Other Evaluation note* Diagnosis Onset Date Resolution Status Anxiety acute [id number] acute [facility] Work Phone: Evaluation note* Diagnosis Onset Date Resolution Status Anxiety acute Depression, major, single episode, severe acute Diabetic peripheral neuropathy acute Hammertoe of left foot acute Lumbar back pain with radicu lopathy affecting lower extremity acute Anxiety acute Depression, major, single episode, severe acute Expressive aphasia acute Hyponatremia acute Leukocytosis acute Lumbar back pain with radicu lopathy affecting lower extremity acute [facility] Work Phone: Evaluation note* Diagnosis Onset [...] with radicu lopathy affecting lower extremity acute [facility] Work Phone: Evaluation note* Diagnosis Onset Date Resolution Status [id number] acute Diabetic peripheral neuropathy acute Lumbar back pain with radicu lopathy affecting lower extremity acute [facility] Work Phone: History general Narrative - Reported* Type Description Date Medical History Hypertention Medical History Diabetes Medical History Neuropathy Medical History Heart Attack Surgical History Hysterectomy Surgical History Back surgery Surgical History Right CTR Surgical History Bilateral shoulder surgery Surgical History Heart Stents X2 Surgical History Left TKR [employer] Other History general Narrative - Reported* Type Description Date Medical History Hypertention Medical History Diabetes Medical History Neuropathy Medical History Heart Attack Medical History GERD Surgical History Hysterectomy Surgical History Back surgery Surgical History Right CTR Surgical History Bilateral shoulder surgery Surgical History Heart Stents X2 Surgical History Left TKR [employer] Other Reason for Referral Reason *Waiting for appt Get established, has stents, moved from [place]. Had ID in 2014 Diagnosis 1 Coronary artery dise ase involving [place] coronary artery of [place] heart without angina pectoris (I25.10) Referral Organization [facility] Darrin montero Referring Provider First Name Vanessa Referring Provider Last Name Nicolasa Referring Provider Specialty [facility] Referred Organization [facility] Cardiology Referred Provider Christal Pacheco Referred Address [address] [place] [address],[address],[phone] Referred Provider Specialty Cardiovascul ar Disease Referral Priority Routine General Notes Radha Baker 02:31:53 PM >received today, sent P2P. pt may need to fill out a records release form to have old records sent to us Chief Complaint and Reason for Visit Chief Complaint weightloss 3 MONTH CHECK UP Reason for Visit Anxiety [id number] Chief Complaint foot exams for shoes [facility] follow up 3 month follow up Reason for Visit Anxiety Depression, major, single episode, severe Diabetic peripheral neuropathy Hammertoe of left foot Lumbar back pain with radiculopathy affecting lower extremity Anxiety Depression, major, single episode, severe Expressive aphasia Hyponatremia Leukocytosis Lumbar back pain with radiculopathy affecting lower extremity Chief Complaint [facility] follow up 3 month follow [...] BH 3 month f/u Reason for Visit [id number] Diabetic peripheral neuropathy Lumbar back pain with [...] 2023 Team Status: Active Member Role Status bAdias Baldwin MD Primary Care Provide r, Attending [...] [facility] [place] DATE CREATED AUTHOR 'S ERNESTO GARCIA 02/15/2024 [facility] FOR RECORDS PERTAINING TO PATIENTS WHO [...] BE BASED ON THE PRIMARY CLINICAL RECORDS. [facility] [employer] provides no warranty or guarantee of the accuracy or completeness of information in this document.
[2024-02-19 07:36] VITALS: BP 141/78; PULSE 82; TEMP 36.3; O2SAT 94
[2024-02-19 07:45] LABS: Glucometer 240 mg/dL (74-106)
[2024-02-19 08:16] VITALS: BP 147/72; PULSE 77; O2SAT 91
[2024-02-19 08:17] VITALS: BP 146/70; PULSE 77; O2SAT 97
[2024-02-19] MEDS: BUPIVACAINE HCL 0.25% PF 25 MG/10 ML VIAL 4 ML INJ (08:20)
[2024-02-19] MEDS: IOHEXOL 240 MG/ML - 10 ML VIAL 12 MG INJ (08:20)
--- NOTE | 2024-02-19 08:20 | W.PM.PROCNOT ---
Date of procedure: 02/19/24 Pre-op diagnosis: Pain due to bilateral sacroiliitis Post-op diagnosis: same as pre-op Procedure: Procedure: Bilateral sacroiliac joint injection Medications: Bupivacaine 0.25% 3cc, kenalog 40mg x2 After informed consent was obtained, the patient was brought to the medical procedure unit and placed in the prone position, when a timeout was completed verifying correct patient, procedure, site, positioning, implant, and/or special equipment.? The skin overlying the area was prepped and draped in standard sterile fashion using alcohol.? A 25-gauge needle was inserted towards the left sacroiliac joint under direct fluoroscopic imaging.? Needle tip was advanced until the joint was encountered.? We instilled a total of 2 mL of solution.? The same procedure was then completed on the right side.? Postoperatively needles were removed.? The patient tolerated the procedure well without complication.? The patient reported reduction in pain symptoms postoperatively. Anesthesia: Local Surgeon: Maribell Malik Pathology: none sent Condition: stable Disposition: no change
[2024-02-19] MEDS: LIDOCAINE HCL 2% 400 MG/20 ML MDV INJ (08:21)
[2024-02-19] MEDS: TRIAMCINOLONE ACETONIDE 40 MG/ML VIAL 80 MG INJ (08:21)
== END 2024-02-19 08:24 | disposition home or self-care (01) ==
LOC: SURGOUT 06:38
PROVIDERS: Family Provider Internal Medicine; PCP Family Medicine; Visit Provider Anesthesiology
DX: M46.1 Sacroiliitis, not elsewhere classified (principal)
CPT/HCPCS: 27096; 36415; 82948; J0665; J3301; Q9966

== ENCOUNTER 2024-02-28 08:44 | Outpatient (OUT) | payer OTHER, SELFPAY ==
--- OUTSIDE RECORDS SUMMARY | 2024-02-28 09:07 | XMS_ITS | CCD ---
Author Organization [facility] ion Partnership [facility] Care Team Providers Care Brine Maker Name Role Phone Vanessa Baldwin Unavailable MD Vanessa Baldwin Primary Care Provider [phone] MD Richard Baker Attending Provider [phone] Richard Baker Attending Unavailab Richard Head Admitting Unavailab le Vanessa Baldwin Primary Care Unavailable Gieditis , Andrius Art Attending Unavailable Giedraitis , Andrius Vytautezekiel Attending Unavailable Giedraitis , Andrius Vytautezekiel Attending Unavailable Giedraitis , Andrius Vytautas Attending Unavailable Giedraitis MD, Andrius Vytautezekiel Attending Unavailable Allergies Allergy Classification Reported Allergen(s) Allergy Type Date of Onset Reaction(s) Facility (13 sources) Codeine Drug Allergy 4 [facility] (13 sources) Morphine Drug Allergy 4 [facility] (9 sources) Nalbuphine Drug Allergy [facility] Other (5 sources) Nalbuphine; Translations: [nalbuphine] Drug Allergy 4 [facility] (1 source) Codeine Drug Allergy 4 [facility] Repository (1 source) Morphine Drug Allergy [address] [place] [address] Repository Medications Current Medications Medication Drug Class(es) [...] a day take 2 tablets by mo [facility] every twenty-four hours metFORMIN HCl 500 [...] 01, 2024 8:54am take 1 [facility] twenty-four hours Klor-Con M20 [...] injector Discontinued 0.25 MG SUBCUT every week October 25, 2023 12:00am October 26, 2023 [...] Discontinued 2.5 MG SUBCUT every week 6 84 September 20, 2023 10:39am October 25, 2023 [...] Coronary arteriosclerosis; Translations: [Atherosclerotic heart disease of [place] coronary artery without angina pectoris] Chronic Diabetes [...] Basophils (Bld) [#/Vol] 0.1 10 3/uL 0.0-0.1 [facility] Basophils/100 WBC Auto (Bld) on 09-27-2023 Basophils/100 WBC (Bld) 0.6 % 0.2-2.0 [facility] Eosinophils/100 WBC Auto (Bl d)on 09-27-2023 Eosinophils/100 WBC (Bld) 0.0 % Low 0.9-7.0 [facility] Erythrocyte distribution wid th Auto (RBC) [Ratio]on 09-27-2023 Erythrocyte distribution width (RBC) [Ratio] 12.9 % 11.0-15.0 [facility] Estimated glomerular filtrat ion rate (GFR) non- Americanon 09-27-2023 GFR/1.73 sq M.predicted among non-blacks MDRD (S/P/Bld) [Vol rate/Area] 54 mL/min/{1.73_m2} Low >=60 [facility] Hematocrit Auto (Bld) [Volum e fraction]on 09-27-2023 Hematocrit (Bld) [Volume fraction] 35.1 % Low 36.0-48.0 [facility] Hemoglobin [Mass/volume] in Bloodon 09-27-2023 Hemoglobin (Bld) [Mass/Vol] 11.8 g/dL Low 12.0-16.0 [facility] Laboratory - Chemistry and C hemistry - challengeon 09-27-2023 Calcium [Mass/Vol] 9.7 mg/dL 8.5-10.1 [facility] Chloride [Moles/Vol] 95 mmol/L Low 98-107 [facility] CO2 [Moles/Vol] 27.5 mmol/L 21.0-32.0 [facility] Creatinine [Mass/Vol] 1.02 mg/dL 0.55-1.02 [facility] GFR/1.73 sq M.predicted MDRD (S/P/Bld) [Vol rate/Area] mL/min/{1.73_m2} >=60 [facility] Glucose [Mass/Vol] 152 mg/dL High 74-106 [facility] Potassium [Moles/Vol] 4.4 mmol/L 3.5-5.1 [facility] Sodium [Moles/Vol] 131 mmol/L Low 136-145 [facility] Urea nitrogen [Mass/Vol] 6.0 mg/dL Low 7.0-18.0 [facility] Urea nitrogen/Creatinine [Mass ratio] 5.9 mg/mg [facility] Laboratory - Hematology and Cell countson 09-27-2023 Immature granulocytes/100 WBC (Bld) 0.4 % 0.0-0.5 [facility] Leukocytes [#/volume] correc krysta for nucleated erythrocytes in Blood by Automated counon 09-27-2023 WBC corrected for nucl RBC Auto (Bld) [#/Vol] 12.5 10 3/uL High 4.0-11.0 [facility] Lymphocytes Auto (Bld) [#/Vo l]on 09-27-2023 Lymphocytes (Bld) [#/Vol] 3.1 10 3/uL 1.2-3.8 [facility] Lymphocytes/100 WBC Auto (Bl d)on 09-27-2023 Lymphocytes/100 WBC (Bld) 25.1 % 20.5-60.0 [facility] MCH Auto (RBC) [Entitic mass ]on 09-27-2023 MCH (RBC) [Entitic mass] 29.6 pg 26.7-34.0 [facility] MCHC Auto (RBC) [Mass/Vol]on 09-27-2023 MCHC (RBC) [Mass/Vol] 33.6 g/dL 29.9-35.2 [facility] MCV Auto (RBC) [Entitic vol] on 09-27-2023 MCV (RBC) [Entitic vol] 88.0 fL 81.0-99.0 [facility] Monocytes Auto (Bld) [#/Vol] on 09-27-2023 Monocytes (Bld) [#/Vol] 0.9 10 3/uL High 0.3-0.8 [facility] Monocytes/100 WBC Auto (Bld) on 09-27-2023 Monocytes/100 WBC (Bld) 7.0 % 1.7-12.0 [facility] Neutrophils Auto (Bld) [#/Vo l]on 09-27-2023 Neutrophils (Bld) [#/Vol] 8.4 10 3/uL High 1.4-6.5 [facility] Neutrophils/100 WBC Auto (Bl d)on 09-27-2023 Neutrophils/100 WBC (Bld) 66.9 % 43.0-75.0 [facility] No Panel Informationon 09-26 Eosinophils # (Auto) 0.0 10 3/uL 0.0-0.7 [facility] Immature Granulocyte # (Auto) 0.05 10 3/uL High 0.00-0.03 [facility] Platelet mean volume Auto (B ld) [Entitic vol]on 09-27-2023 Platelet mean volume (Bld) [Entitic vol] 10.6 fL 9.5-13.5 [facility] Platelets Auto (Bld) [#/Vol] on 09-27-2023 Platelets (Bld) [#/Vol] 302 10 3/uL 150-450 [facility] RBC Auto (Bld) [#/Vol]on RBC (Bld) [#/Vol] 3.99 10 6/uL Low 4.20-5.40 [facility] Serum or plasma anion gap de terminationon 09-27-2023 Anion gap [Moles/Vol] 12.9 mmol/L [facility] Basophils Auto (Bld) [#/Vol] on 08-08-2023 Basophils (Bld) [#/Vol] 0.1 10 3/uL 0.0-0.1 [facility] Basophils/100 WBC Auto (Bld) on 08-08-2023 Basophils/100 WBC (Bld) 0.4 % 0.2-2.0 [facility] Eosinophils/100 WBC Auto (Bl d)on 08-08-2023 Eosinophils/100 WBC (Bld) 0.3 % Low 0.9-7.0 [facility] Erythrocyte distribution wid th Auto (RBC) [Ratio]on 08-08-2023 Erythrocyte distribution width (RBC) [Ratio] 13.1 % 11.0-15.0 [facility] Estimated glomerular filtrat ion rate (GFR) non- Americanon 08-08-2023 GFR/1.73 sq M.predicted among non-blacks MDRD (S/P/Bld) [Vol rate/Area] 45 mL/min/{1.73_m2} Low >=60 [facility] Globulin Calc (S) [Mass/Vol] on 08-08-2023 Globulin (S) [Mass/Vol] 4.4 g/dL [facility] Hematocrit Auto (Bld) [Volum e fraction]on 08-08-2023 Hematocrit (Bld) [Volume fraction] 37.5 % 36.0-48.0 [facility] Hemoglobin [Mass/volume] in Bloodon 08-08-2023 Hemoglobin (Bld) [Mass/Vol] 12.6 g/dL 12.0-16.0 [facility] INR in Platelet poor plasma by Coagulation assayon 08-08-2023 INR Coag (PPP) [Relative time] 1.03 {INR} [facility] Comment on above: DESIRED INR:2.0-3.0 CONDITIONS NOT LISTED BELOW2.5-3.5 FOR PROSTHETIC HEART VALVE REPLACEMENT2.5-3.5 RECURRENT THROMBOSIS Laboratory - Chemistry and C hemistry - challengeon 08-08-2023 Albumin [Mass/Vol] 4.3 g/dL 3.4-5.0 [facility] ALP [Catalytic activity/Vol] 99 U/L 46-116 [facility] ALT [Catalytic activity/Vol] 21 U/L 14-59 [facility] AST [Catalytic activity/Vol] 25 U/L 15-37 [facility] Bilirubin [Mass/Vol] 0.6 mg/dL 0.2-1.0 [facility] Calcium [Mass/Vol] 9.8 mg/dL 8.5-10.1 [facility] Chloride [Moles/Vol] 89 mmol/L Low 98-107 [facility] CO2 [Moles/Vol] 21.5 mmol/L 21.0-32.0 [facility] Creatinine [Mass/Vol] 1.19 mg/dL High 0.55-1.02 [facility] GFR/1.73 sq M.predicted MDRD (S/P/Bld) [Vol rate/Area] 55 mL/min/{1.73_m2} Low >=60 [facility] Glucose [Mass/Vol] 110 mg/dL High 74-106 [facility] Potassium [Moles/Vol] 4.1 mmol/L 3.5-5.1 [facility] Protein [Mass/Vol] 8.7 g/dL High 6.4-8.2 [facility] Sodium [Moles/Vol] 124 mmol/L Low 136-145 [facility] Comment on above: RESULTS CALLED TO MARTÍNEZ HAMPTON RN @BY Rosibel Joshi [id number] Urea nitrogen [Mass/Vol] 11.0 mg/dL 7.0-18.0 [facility] Urea nitrogen/Creatinine [Mass ratio] 9.2 mg/mg [facility] Laboratory - Hematology and Cell countson 08-08-2023 Immature granulocytes/100 WBC (Bld) 0.4 % 0.0-0.5 [facility] Leukocytes [#/volume] correc krysta for nucleated erythrocytes in Blood by Automated counon 08-08-2023 WBC corrected for nucl RBC Auto (Bld) [#/Vol] 15.9 10 3/uL High 4.0-11.0 [facility] Lymphocytes Auto (Bld) [#/Vo l]on 08-08-2023 Lymphocytes (Bld) [#/Vol] 4.6 10 3/uL High 1.2-3.8 [facility] Lymphocytes/100 WBC Auto (Bl d)on 08-08-2023 Lymphocytes/100 WBC (Bld) 28.9 % 20.5-60.0 [facility] MCH Auto (RBC) [Entitic mass ]on 08-08-2023 MCH (RBC) [Entitic mass] 29.4 pg 26.7-34.0 [facility] MCHC Auto (RBC) [Mass/Vol]on 08-08-2023 MCHC (RBC) [Mass/Vol] 33.6 g/dL 29.9-35.2 [facility] MCV Auto (RBC) [Entitic vol] on 08-08-2023 MCV (RBC) [Entitic vol] 87.6 fL 81.0-99.0 [facility] Monocytes Auto (Bld) [#/Vol] on 08-08-2023 Monocytes (Bld) [#/Vol] 1.0 10 3/uL High 0.3-0.8 [facility] Monocytes/100 WBC Auto (Bld) on 08-08-2023 Monocytes/100 WBC (Bld) 6.0 % 1.7-12.0 [facility] Neutrophils Auto (Bld) [#/Vo l]on 08-08-2023 Neutrophils (Bld) [#/Vol] 10.2 10 3/uL High 1.4-6.5 [facility] Neutrophils/100 WBC Auto (Bl d)on 08-08-2023 Neutrophils/100 WBC (Bld) 64.0 % 43.0-75.0 [facility] No Panel Informationon 08-07 Eosinophils # (Auto) 0.0 10 3/uL 0.0-0.7 [facility] Immature Granulocyte # (Auto) 0.06 10 3/uL High 0.00-0.03 [facility] Troponin I High Sensitivity 6.4 pg/mL 4.0-51.3 [facility] Comment on above: CUT-OFF POINTS HAVE BEEN [...] volume (Bld) [Entitic vol] 10.6 fL 9.5-13.5 [facility] Platelets Auto (Bld) [#/Vol] on 08-08-2023 Platelets (Bld) [#/Vol] 261 10 3/uL 150-450 [facility] Prothrombin time (PT)on 07-25 PT Coag (PPP) [Time] 10.9 s 9.0-11.6 [facility] RBC Auto (Bld) [#/Vol]on RBC (Bld) [#/Vol] 4.28 10 6/uL 4.20-5.40 [facility] Serum or plasma albumin/glob ulin mass ratioon 08-08-2023 Albumin/Globulin [Mass ratio] 1.0 {ratio} [facility] Serum or plasma anion gap de terminationon 08-08-2023 Anion gap [Moles/Vol] 17.6 mmol/L [facility] Basophils Auto (Bld) [#/Vol] on 05-30-2023 Basophils (Bld) [#/Vol] 0.1 10 3/uL 0.0-0.1 [facility] Basophils/100 WBC Auto (Bld) on 05-30-2023 Basophils/100 WBC (Bld) 0.8 % 0.2-2.0 [facility] Eosinophils/100 WBC Auto (Bl d)on 05-30-2023 Eosinophils/100 WBC (Bld) 0.0 % 0.9-7.0 [facility] Erythrocyte distribution wid th Auto (RBC) [Ratio]on 05-30-2023 Erythrocyte distribution width (RBC) [Ratio] 12.6 % 11.0-15.0 [facility] Glucose mean value [Mass/vol ume] in Blood Estimated from glycated hemoglobinon 05-30-2023 Average glucose Estimated from glycated hemoglobin (Bld) [Mass/Vol] 283 mg/dL [facility] Hematocrit Auto (Bld) [Volum e fraction]on 05-30-2023 Hematocrit (Bld) [Volume fraction] 36.6 % 36.0-48.0 [facility] Hemoglobin [Mass/volume] in Bloodon 05-30-2023 Hemoglobin (Bld) [Mass/Vol] 12.0 g/dL 12.0-16.0 [facility] Laboratory - Hematology and Cell countson 05-30-2023 HbA1c (Bld) [Mass fraction] 11.5 % 4.5-6.2 [facility] Comment on above: ADA RECOMMENDED LIMI T 4.0 - 6.0ADA THERAPEUTIC TARGET < 7.0ACTION SUGGESTED> 7.0 Immature granulocytes/100 WBC (Bld) 0.5 % 0.0-0.5 [facility] Leukocytes [#/volume] correc krysta for nucleated erythrocytes in Blood by Automated counon 05-30-2023 WBC corrected for nucl RBC Auto (Bld) [#/Vol] 14.3 10 3/uL 4.0-11.0 [facility] Lymphocytes Auto (Bld) [#/Vo l]on 05-30-2023 Lymphocytes (Bld) [#/Vol] 3.6 10 3/uL 1.2-3.8 [facility] Lymphocytes/100 WBC Auto (Bl d)on 05-30-2023 Lymphocytes/100 WBC (Bld) 25.1 % 20.5-60.0 [facility] MCH Auto (RBC) [Entitic mass ]on 05-30-2023 MCH (RBC) [Entitic mass] 29.7 pg 26.7-34.0 [facility] MCHC Auto (RBC) [Mass/Vol]on 05-30-2023 MCHC (RBC) [Mass/Vol] 32.8 g/dL 29.9-35.2 [facility] MCV Auto (RBC) [Entitic vol] on 05-30-2023 MCV (RBC) [Entitic vol] 90.6 fL 81.0-99.0 [facility] Monocytes Auto (Bld) [#/Vol] on 05-30-2023 Monocytes (Bld) [#/Vol] 0.9 10 3/uL 0.3-0.8 [facility] Monocytes/100 WBC Auto (Bld) on 05-30-2023 Monocytes/100 WBC (Bld) 6.0 % 1.7-12.0 [facility] Neutrophils Auto (Bld) [#/Vo l]on 05-30-2023 Neutrophils (Bld) [#/Vol] 9.7 10 3/uL 1.4-6.5 [facility] Neutrophils/100 WBC Auto (Bl d)on 05-30-2023 Neutrophils/100 WBC (Bld) 67.6 % 43.0-75.0 [facility] No Panel Informationon 05-29 Eosinophils # (Auto) 0.0 10 3/uL 0.0-0.7 [facility] Immature Granulocyte # (Auto) 0.07 10 3/uL 0.00-0.03 [facility] Platelet mean volume Auto (B ld) [Entitic vol]on 05-30-2023 Platelet mean volume (Bld) [Entitic vol] 10.9 fL 9.5-13.5 [facility] Platelets Auto (Bld) [#/Vol] on 05-30-2023 Platelets (Bld) [#/Vol] 242 10 3/uL 150-450 [facility] RBC Auto (Bld) [#/Vol]on RBC (Bld) [#/Vol] 4.04 10 6/uL 4.20-5.40 [facility] Vital Signs Date Time Vital Sign Value Performing Clinician Facility 01-09-2024 09:07-0400 Body mass index (BMI) [Ratio] 43.4 kg/m2 MD Vanessa Baldwin Work Phone: [facility] 01-09-2024 09:07-0400 Body temperature 98.7 [degF] MD Vanessa Baldwin Work Phone: [facility] 01-09-2024 08:09-0400 Body height 162.56 cm MD Vanessa Baldwin Work Phone: [facility] 01-09-2024 08:09-0400 Body weight 114.81 kg MD Vanessa Baldwin Work Phone: [facility] 01-09-2024 08:09-0400 Diastolic blood pressure 62 mm[Hg] MD Vanessa Baldwin Work Phone: [facility] 01-09-2024 08:09-0400 Heart rate 71 /min MD Vanessa Baldwin Work Phone: [facility] 01-09-2024 08:09-0400 Respiratory rate 16 /min MD Vanessa Baldwin Work Phone: [facility] 01-09-2024 08:09-0400 SaO2% (BldA) [Mass fraction] 97 % MD Vanessa Baldwin Work Phone: [facility] 01-09-2024 08:09-0400 Systolic blood pressure 122 mm[Hg] MD Vanessa Baldwin Work Phone: [facility] 10-26-2023 11:10-0400 Body height 162.56 cm [facility] 10-26-2023 11:10-0400 Body mass index (BMI) [Ratio] 40.3 kg/m2 [facility] 10-26-2023 11:10-0400 Body weight 106.59 kg [facility] 10-26-2023 11:10-0400 Diastolic blood pressure 68 mm[Hg] [facility] 10-26-2023 11:10-0400 Heart rate 75 /min [facility] 10-26-2023 11:10-0400 Systolic blood pressure 102 mm[Hg] [facility] 10-09-2023 11:21-0400 Body height 162.56 cm [facility] 10-09-2023 11:21-0400 Body mass index (BMI) [Ratio] 40.6 kg/m2 [facility] 10-09-2023 11:21-0400 Body weight 107.5 kg [facility] 10-09-2023 11:21-0400 Diastolic blood pressure 68 mm[Hg] [facility] 10-09-2023 11:21-0400 Heart rate 69 /min [facility] 10-09-2023 11:21-0400 Systolic blood pressure 105 mm[Hg] [facility] 08-10-2023 13:38-0400 Body height 162.56 cm [facility] 08-10-2023 13:38-0400 Body mass index (BMI) [Ratio] 39.2 kg/m2 [facility] 08-10-2023 13:38-0400 Body weight 103.64 kg [facility] 08-10-2023 13:38-0400 Diastolic blood pressure 70 mm[Hg] [facility] 08-10-2023 13:38-0400 Heart rate 71 /min [facility] 08-10-2023 13:38-0400 Systolic blood pressure 106 mm[Hg] [facility] 07-27-2023 09:31-0400 Body height 162.56 cm [facility] 07-27-2023 09:31-0400 Body mass index (BMI) [Ratio] 40.1 kg/m2 [facility] 07-27-2023 09:31-0400 Body weight 106.14 kg [facility] 07-27-2023 09:31-0400 Diastolic blood pressure 73 mm[Hg] [facility] 07-27-2023 09:31-0400 Heart rate 66 /min [facility] 07-27-2023 09:31-0400 Systolic blood pressure 137 mm[Hg] [facility] 07-10-2023 11:10-0400 Body height 162.56 cm [facility] 07-10-2023 11:10-0400 Body mass index (BMI) [Ratio] 40.6 kg/m2 [facility] 07-10-2023 11:10-0400 Body weight 107.27 kg [facility] 07-10-2023 11:10-0400 Diastolic blood pressure 76 mm[Hg] [facility] 07-10-2023 11:10-0400 Heart rate 77 /min [facility] 07-10-2023 11:10-0400 Systolic blood pressure 115 mm[Hg] [facility] 05-30-2023 13:03-0500 Body height 162.56 cm [facility] 05-30-2023 13:03-0500 Body mass index (BMI) [Ratio] 40.8 kg/m2 [facility] 05-30-2023 13:03-0500 Body weight 108.12 kg [facility] 05-30-2023 13:03-0500 Diastolic blood pressure 80 mm[Hg] [facility] 05-30-2023 13:03-0500 Heart rate 90 /min [facility] 05-30-2023 13:03-0500 SaO2% (BldA) [Mass fraction] 97 % [facility] 05-30-2023 13:03-0500 Systolic blood pressure 126 mm[Hg] [facility] 04-10-2023 11:15-0500 Body height 162.56 cm Vanessa Baldwin Other [facility] Other 04-10-2023 11:15-0500 Body mass index (BMI) [Ratio] 40.16 kg/m2 Vanessa Baldwin Other [facility] Other 04-10-2023 11:15-0500 Body weight 106.14 kg Vanessa Baldwin Other [facility] Other 04-10-2023 11:15-0500 Diastolic blood pressure 84 mm[Hg] Vanessa Baldwin Other [facility] Other 04-10-2023 11:15-0500 SaO2% (BldA) [Mass fraction] 95 % Vanessa Baldwin Other [facility] Other 04-10-2023 11:15-0500 Systolic blood pressure 126 mm[Hg] Vanessa Baldwin Other [facility] Other 01-24-2023 11:15-0400 Body height 162.56 cm Vanessa Baldwin Other [facility] Other 01-24-2023 11:15-0400 Body mass index (BMI) [Ratio] 39.37 kg/m2 Vanessa Baldwin Other [facility] Other 01-24-2023 11:15-0400 Body weight 104.06 kg Vanessa Baldwin Other [facility] Other 01-24-2023 11:15-0400 Diastolic blood pressure 74 mm[Hg] Vanessa Baldwin Other [facility] Other 01-24-2023 11:15-0400 Systolic blood pressure 112 mm[Hg] Vanessa Baldwin Other [facility] Other 01-17-2023 10:30-0400 Body height 162.56 cm Vanessa Baldwin Other [facility] Other 01-17-2023 10:30-0400 Body mass index (BMI) [Ratio] 39.82 kg/m2 Vanessa Baldwin Other [facility] Other 01-17-2023 10:30-0400 Body weight 105.24 kg Vanessa Baldwin Other [facility] Other 01-17-2023 10:30-0400 Diastolic blood pressure 64 mm[Hg] Vanessa Baldwin Other [facility] Other 01-17-2023 10:30-0400 Systolic blood pressure 100 mm[Hg] Vanessa Baldwin Other [facility] Other Encounters Encounter Date Encounter Type Care Provider Facility Start: 02-19-2024 End: 02-19-2024 ambulatory Maribell Malik MD Facility:[facility] Start: 02-13-2024 ambulatory Richard Fisher acility:[facility] Start: 01-09-2024 End: 01-09-2024 ambulatory MD Vanessa Baldwin Work Phone: [facility] Work Phone: Start: 01-09-2024 End: 01-09-2024 Patient encounter procedure MD Vanessa Baldwin Work Phone: [facility] Phys[facility] Work Phone: Start: 12-26-2023 Registered Recurring MD Vanessa Baldwin Work Phone: [facility] Start: 11-13-2023 End: 11-13-2023 ambulatory Maribell Malik MD Facility:[facility] Start: 10-26-2023 End: 10-26-2023 ambulatory [facility] Work Phone: Start: 10-26-2023 End: 10-26-2023 Patient encounter procedure [facility] Work Phone: Start: 10-09-2023 End: 10-09-2023 ambulatory [facility] Work Phone: Start: 10-09-2023 End: 10-09-2023 Patient encounter procedure [facility] Work Phone: Start: 10-02-2023 End: 10-02-2023 ambulatory Maribell Malik MD Facility:[facility] Start: 09-27-2023 Non-patient / Non-visit [facility] Work Phone: Start: 08-28-2023 End: 08-28-2023 ambulatory Maribell Malik MD Facility:[facility] Start: 08-10-2023 End: 08-10-2023 Patient encounter procedure [facility] Work Phone: Start: 08-08-2023 Non-patient / Non-visit [facility] Work Phone: Start: 07-27-2023 End: 07-27-2023 Patient encounter procedure [facility] Work Phone: Start: 07-24-2023 End: 07-24-2023 ambulatory Maribell Malik MD Facility: [facility] Start: 07-10-2023 End: 07-10-2023 ambulatory [facility] Work Phone: Start: 07-10-2023 End: 07-10-2023 Patient encounter procedure [facility] Work Phone: Start: 05-30-2023 End: 05-30-2023 Patient encounter procedure [facility] Work Phone: Start: 05-02-2023 End: 05-02-2023 ambulatory Vanessa Baldwin Other [facility] Other Start: 05-02-2023 Telephone encounter Vanessa Baldwin [employer] Start: 04-24-2023 End: 04-24-2023 ambulatory Vanessa Baldwin Other [facility] Other Start: 04-24-2023 Telephone encounter Vanessa Baldwin [facility] Start: 04-10-2023 End: 04-10-2023 ambulatory Vanessa Baldwin Other [facility] Other Start: 04-10-2023 Office outpatient visit 15 minutes Vanessa Baldwin [facility] Start: 04-03-2023 End: 04-03-2023 ambulatory Vanessa Baldwin Other [facility] Other Start: 04-03-2023 Telephone encounter Vanessa Baldwin [facility] Start: 03-06-2023 End: 03-06-2023 ambulatory Vanessa Baldwin Other [facility] Other Start: 03-06-2023 Telephone encounter Vanessa Baldwin [facility] Start: 02-02-2023 End: 02-02-2023 ambulatory Vanessa Baldwin Other [facility] Other Start: 02-02-2023 Telephone encounter Vanessa Baldwin [facility] Start: 01-24-2023 End: 01-24-2023 ambulatory Vanessa Baldwin Other [facility] Other Start: 01-24-2023 Office outpatient visit 15 minutes Vanessa Nicolasa [facility] Start: 01-17-2023 End: 01-17-2023 ambulatory Vanessa Baldwin Other [facility] Other Start: 01-17-2023 Office outpatient ne w 45 minutes Vanessa Baldwin [facility] Plan of Treatment Date Care Activity Detail Author Patient Education Low back pain in adults [facility] Work Phone: US Heart Transthoracic [facility] US.doppler Carotid a rteries - bilateral [facility] Immunizations Immunization Date Immunization Notes Care Provider Fa cility 04-10-2023 influenza, high dose seasonal, preservative-free Vanessa Nicolasa Other [facility] Other 04-10-2023 influenza virus vaccine, unspecified formulation [facility] Payers Date Payer Category Payer Self-pay 2023 Private Health Insurance 1955 Unknown [id number] Unknown [id number] 1955 Unknown [id number] 1955 Unknown [id number] Unknown [id number] Medicare [employer] MCR PFFS [id number] Private Health Insurance [id number] Unknown [id number] Social History Date Type Detail Facility Unknown if ever smoked [facility] Other Sex Assigned At Sex Assigned At Bir th [facility] Other Start: 05-29-2023 Tobacco smoking status NHIS Ex-smoker (finding) [facility] Start: 1955 Sex Assigned At Female F [facility] Medical Equipment Procedure Code Equipment Code [...] symptoms. Any developing patterns. Stay well hydrated. [facility] Other 11-09-2023 Evaluation note* Encounter Date Diagnosis Assessment Notes Treatment Notes Treatment Clinical Notes Jan, Type 2 diabetes mellitus with hyperglycemia, without long-term current use of insulin (ICD-10 - E11.65) [facility] Other 10-31-2023 Evaluation note* Encounter Date Diagnosis [...] A1C7.0. Cholesterol well controlled. Continue present meds. 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 Dec, Anxiety (ICD-10 - F41.9) pt states her chronic problem is controlled w xanax tid and lexapro Dec, GERD without esophagitis (ICD-10 - K21.9) refilled med for chronic problem Dec, Screening mammogram for breast cancer (ICD-10 - Z12.31) Dec, Personal history of nicotine dependence (ICD-10 - Z87.891) [facility] Other Evaluation noteNo InformationNort [employer] Other Evaluation note* Diagnosis Onset Date Resolution Status Anxiety acute [id number] [facility] Work Phone: Evaluation note* Diagnosis Onset Date Resolution Status Anxiety acute Depression, major, single episode, severe acute Diabetic peripheral neuropathy acute Hammertoe of left foot acute Lumbar back pain with radicu lopathy affecting lower extremity acute Anxiety acute Depression, major, single episode, severe acute Expressive aphasia acute Hyponatremia acute Leukocytosis acute Lumbar back pain with radicu lopathy affecting lower extremity acute [facility] Work Phone: Evaluation note* Diagnosis Onset [...] with radicu lopathy affecting lower extremity acute [facility] Work Phone: Evaluation note* Diagnosis Onset Date Resolution Status [id number] acute Diabetic peripheral neuropathy acute Lumbar back pain with radicu lopathy affecting lower extremity acute [facility] Work Phone: History general Narrative - Reported* Type Description Date Medical History Hypertention Medical History Diabetes Medical History Neuropathy Medical History Heart Attack Surgical History Hysterectomy Surgical History Back surgery Surgical History Right CTR Surgical History Bilateral shoulder surgery Surgical History Heart Stents X2 Surgical History Left TKR [facility] Other History general Narrative - Reported* Type Description Date Medical History Hypertention Medical History Diabetes Medical History Neuropathy Medical History Heart Attack Medical History GERD Surgical History Hysterectomy Surgical History Back surgery Surgical History Right CTR Surgical History Bilateral shoulder surgery Surgical History Heart Stents X2 Surgical History Left TKR [facility] Other Reason for Referral Reason *Waiting for appt Get established, has stents, moved from [place]. 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 pt may need to fill out a records release form to have old records sent to us Chief Complaint and Reason for Visit Chief Complaint weightloss 3 MONTH CHECK UP Reason for Visit Anxiety [id number] Chief Complaint foot exams for shoes [facility] follow up 3 month follow up Reason for Visit Anxiety Depression, major, single episode, severe Diabetic peripheral neuropathy Hammertoe of left foot Lumbar back pain with radiculopathy affecting lower extremity Anxiety Depression, major, single episode, severe Expressive aphasia Hyponatremia Leukocytosis Lumbar back pain with radiculopathy affecting lower extremity Chief Complaint [facility] follow up 3 month follow up discuss meds Reason for Visit Anxiety Depression, major, single episode, severe Expressive aphasia Hyponatremia Leukocytosis Lumbar back pain with radiculopathy affecting lower extremity Anxiety Depression, major, single episode, severe Expressive aphasia Lumbar back pain with radiculopathy affecting lower extremity Diabetic peripheral neuropathy Lumbar back pain with radiculopathy affecting lower extremity Chief Complaint discuss meds 3 month f/u Reason for Visit [id number] Diabetic peripheral neuropathy Lumbar back pain with [...] 2024 Team Status: Active Member Role Status Abdias Baldwin MD Primary Care Provider Active Start: August 08, 2023 José Miguel Hernandezkeith Attending Provider Active Start: August 08, 2023 [...] ized section and content) DATE CREATED AUTHOR 02/15/2024 [facility] DATE CREATED AUTHOR AUTHOR'S ERNESTO ATSAY 02/25/2024 [facility] FOR RECORDS PERTAINING TO PATIENTS WHO [...] BE BASED ON THE PRIMARY CLINICAL RECORDS. [facility] [employer] [facility]. provides no warranty or guarantee of the accuracy or completeness of information in this document.
--- NOTE | 2024-02-28 09:13 | P.CN_ITS ---
Consult Note: HPI Data of Consult Patient: known to practice within the last 3 years Consult date: 07/24/23 Requesting Physician: Lucy Mccallum NP Primary Care Provider: Vanessa Baldwin MD Family Provider: Shai Abdalla, Consult Narrative Reason for consult: low back pain Narrative: 67yof who presents for evaluation. longstanding low back pain, had lumbar fusion 16 years ago in [place]. has completed PT and engages in series of provider directed home exercises >6 weeks, without benefit. utilizes gabapentin, xanax, lodine, zanaflex. denies adverse med side effects. Lumbar MRI completed results below. Patient reports pain 6/10 increasing to 6/10 with standing and activity, pain most significant in low back. Recently underwent bilateral L1-2 L2-3 facet joint RFA with 80% improvement ongoing in axial low back pain. recent bilateral sij injection >50% improvement. cc:: CC: Lucy Mccallum NP Review of Systems ROS Status of ROS 10 or more systems reviewed and unremark able except as noted in history and below Musculoskeletal Reports: back pain PFSH PFSH Medical History Low back pain ?M54.50 - Low back pain, unspecified (ICD-10) Osteoarthritis ?M19.90 - Unspecified osteoarthritis, unspecified site (ICD-10) Heartburn ?R12 - Heartburn (ICD-10) Acid reflux ?K21.9 - Gastro-esophageal reflux disease without esophagitis (ICD-10) Diabetes ?E11.9 - Type 2 diabetes mellitus without complications (ICD-10) Past heart attack ?I25.2 - Old myocardial infarction (ICD-10) Hypertension ?I10 - Essential (primary) hypertension (ICD-10) High cholesterol ?E78.00 - Pure hypercholesterolemia, unspecified (ICD-10) Surgical History History of total knee replacement ?Z96.659 - Presence of unspecified artificial knee joint (ICD-10) H/O shoulder surgery ?Z98.890 - Other specified postprocedural states (ICD-10) History of lumbar surgery ?Z98.890 - Other specified postprocedural states (ICD-10) History of hysterectomy ?Z90.710 - Acquired absence of both cervix and uterus (ICD-10) Social History Little interest or pleasure in doing things: not at all Feeling down, depressed, or hopeless: not at all Meds Home Medications and Allergies Home Medications ?Medication ?Instructions ?Recorded ?Confirmed ?Type alprazolam 0.25 mg tablet (Xanax) 0.25 mg PO TID 07/24/23 02/19/24 History aripiprazole 2 mg tablet (Abilify) 2 mg PO DAILY 07/24/23 02/19/24 History aspirin 325 mg capsule 325 mg PO DAILY 07/24/23 02/19/24 History atorvastatin 20 mg tablet 20 mg PO DAILY 07/24/23 02/19/24 History carvedilol 3.125 mg tablet 3.125 mg PO BID 07/24/23 02/19/24 History escitalopram oxalate 20 mg tablet 20 mg PO BID 07/24/23 02/19/24 History (Lexapro) etodolac 400 mg tablet (Lodine) 400 mg PO Q12H PRN pain 07/24/23 02/19/24 History gabapentin 800 mg tablet 800 mg PO TID 07/24/23 02/19/24 History lisinopril 10 mg tablet 10 mg PO DAILY 07/24/23 02/19/24 History metformin 500 mg tablet 500 mg PO TID 07/24/23 02/19/24 History pantoprazole 40 mg granules 40 mg PO DAILY 07/24/23 02/19/24 History delayed-release for susp in packet (Protonix) potassium 20 mg chewable tablet 20 mg PO .QD 07/24/23 02/19/24 History spironolactone 25 mg tablet 25 mg PO DAILY 07/24/23 02/19/24 History tizanidine 4 mg capsule (Zanaflex) 4 mg PO TID PRN muscle spasticity 07/24/23 02/19/24 History acetaminophen 650 mg 650 mg PO Q8H PRN fever or pain 01/21/24 02/19/24 Rx tablet,extended release (Tylenol 8 #20 tabs Hour) guaifenesin 600 mg tablet, 600 mg PO Q12H PRN congestion #14 01/21/24 02/19/24 Rx extended release 12 hr (Mucinex) tabs albuterol sulfate 90 mcg/actuation 2 inh inhalation Q4H PRN shortness 02/03/24 02/19/24 Rx aerosol inhaler of breath or wheezing #8.5 grams Allergies Allergy/AdvReac Type Severity Reaction Status Date / Time codeine Allergy Mild Unknown Verified 02/19/24 07:43 morphine Allergy Mild Unknown Verified 02/19/24 07:43 nalbuphine (From Nubain) AdvReac Mild Unknown Verified 02/19/24 07:43 Exam Constitutional Documenting provider has reviewed patient's vital signs: yes Common normals: no apparent distress, oriented x3, healthy appearing, alert and well nourished General appearance: cooperative HENMT Common normals: normocephalic, hearing grossly normal bilaterally and moist oral mucous membranes Head and scalp: normocephalic Eye Common normals: PERRL Pupil: PERRL Neck & C-Spine Common normals: full ROM General: normal visual inspection Chest Common normals: inspection of chest normal Respiratory Common normals: normal respiratory effort, no retractions and no use of accessory muscles Back & Pelvis Thoracic spine/upper back: pain with ROM Lumbar spine/lower back: ROM limited, straight leg raise positive right and straight leg raise positive left; no pain with ROM Sacroiliac joints: SI joints normal Other: bilateral SIJ negative dandy(patricks), gaenslens, thigh thrust, compression test altered sensation bilateral l5/S1 strength 4/5 in BLE Extremity Common normals: normal to inspection and full ROM Neuro Common normals: oriented x3, CN's II-XII intact bilaterally, moves all extremities, no focal motor deficits, no sensory deficits noted and deep tendon reflexes 2+ bilaterally Sensorium/orientation: alert Gait (neuro): antalgic Motor exam: no movement abnormalities noted and strength abnormal Psych Common normals: mental status grossly normal, thought process normal, cooperative, affect normal, speech normal and activity/motor behavior normal Speech: normal speech Thought process: normal thought process Results Additional Findings Additional findings: If on a controlled substance or opioids, I have checked an [place]AR[place] report on this patient and there are no aberrancies noted in the prescribing history.??If on a controlled substance or opioid a drug screen was completed and reviewed within the last year, and if there has not been a drug screen completed we ordered one today to monitor higher risk, state monitored pain medication use. As part of providing excellent, safe, comprehensive care, the following was com pleted at our patient's visit: 1. A medication reconciliation and review to ensure accurate knowledge of current/active medications, including asking our patients to inform us about any [id number] medications or herbal remedies/nutritional supplements/alternative remedies. 2. A review to specifically ensure our patients have had annual screening for screening for depression, screening for tobacco use, and screening for unhealthy alcohol use. For concerning screenings had a discussion with the patient, provided patient education, and recommended follow-up with primary care provider when appropriate. If patient noted with a risk of falling, they received education on strength, gait, and balance training to prevent future risk of falling. Assessment and Plan Assessment and Plan (1) Sacroiliitis: (2) Lumbar stenosis with neurogenic claudication: (3) Lumbar postlaminectomy syndrome: (4) S/P lumbar fusion: (5) Lumbar spondylosis: (6) Myalgia: Plan bilateral L5-S1 TFESI under fluoroscopy with 10mg po valium 30-60mins prior, jazmin vs benefits reviewed stop tizanidine start baclofen 5-10mg TID PRN pain continue HEP as tolerated f/u 2 weeks after JOSE MIGUEL
== END 2024-02-28 08:45 | disposition home or self-care (01) ==
PROVIDERS: Family Provider Internal Medicine; PCP Family Medicine; Visit Provider Nurse Practitioner
DX: M46.1 Sacroiliitis, not elsewhere classified (principal); M48.062 Spinal stenosis, lumbar region with neurogenic claudication; M96.1 Postlaminectomy syndrome, not elsewhere classified; M43.26 Fusion of spine, lumbar region; M47.816 Spondylosis without myelopathy or radiculopathy, lumbar region; M79.18 Myalgia, other site
CPT/HCPCS: G0463

== ENCOUNTER 2024-04-22 07:34 | Day surgery (SDC) | payer MEDICARE, SELFPAY ==
--- OUTSIDE RECORDS SUMMARY | 2024-04-22 07:37 | XMS_ITS | CCD ---
Author Organization [facility] ion Partnership [facility] Care Team Providers Care Structural [employer] Erection Supervisor Name Role Phone Vanessa Baldwin Unavailable MD Vanessa Baldwin Primary Care Provider MD Richard Baker Attending Provider [phone] Richard Baker Attending Unavailab Richard Head Admitting Unavailab Vanessa Burleson Primary Care Unavailable Gieditis , Andrius Art Attending Unavailable Giedraitis , Andrius Vytautezekiel Attending Unavailable Giedraitis , Andrius Vytautezekiel Attending Unavailable Giedraitis , Andrius Vytautas Attending Unavailable Giedraitis MD, Andrius Vytautezekiel Attending Unavailable Allergies Allergy Classification Reported Allergen(s) Allergy Type Date of Onset Reaction(s) Facility (13 sources) Codeine Drug Allergy 4 [facility] (13 sources) Morphine Drug Allergy 4 [facility] (9 sources) Nalbuphine Drug Allergy [facility] Other (5 sources) Nalbuphine; Translations: [nalbuphine] Drug Allergy 4 [facility] (1 source) Codeine Drug Allergy 4 [facility] Repository (1 source) Morphine Drug Allergy [address] [place] [address] Repository Medications Current Medications Medication Drug Class(es) [...] a day take 2 tablets by mo [facility] every twenty-four hours metFORMIN HCl 500 [...] 01, 2024 8:54am [facility]-four hours Klor-Con M20 20 [...] Coronary arteriosclerosis; Translations: [Atherosclerotic heart disease of [place] coronary artery without angina pectoris] Chronic Diabetes [...] Basophils (Bld) [#/Vol] 0.1 10 3/uL 0.0-0.1 [facility] Basophils/100 WBC Auto (Bld) on 09-27-2023 Basophils/100 WBC (Bld) 0.6 % 0.2-2.0 [facility] Eosinophils/100 WBC Auto (Bl d)on 09-27-2023 Eosinophils/100 WBC (Bld) 0.0 % Low 0.9-7.0 [facility] Erythrocyte distribution wid th Auto (RBC) [Ratio]on 09-27-2023 Erythrocyte distribution width (RBC) [Ratio] 12.9 % 11.0-15.0 [facility] Estimated glomerular filtrat ion rate (GFR) non- Americanon 09-27-2023 GFR/1.73 sq M.predicted among non-blacks MDRD (S/P/Bld) [Vol rate/Area] 54 mL/min/{1.73_m2} Low >=60 [facility] Hematocrit Auto (Bld) [Volum e fraction]on 09-27-2023 Hematocrit (Bld) [Volume fraction] 35.1 % Low 36.0-48.0 [facility] Hemoglobin [Mass/volume] in Bloodon 09-27-2023 Hemoglobin (Bld) [Mass/Vol] 11.8 g/dL Low 12.0-16.0 [facility] Laboratory - Chemistry and C hemistry - challengeon 09-27-2023 Calcium [Mass/Vol] 9.7 mg/dL 8.5-10.1 [facility] Chloride [Moles/Vol] 95 mmol/L Low 98-107 [facility] CO2 [Moles/Vol] 27.5 mmol/L 21.0-32.0 [facility] Creatinine [Mass/Vol] 1.02 mg/dL 0.55-1.02 [facility] GFR/1.73 sq M.predicted MDRD (S/P/Bld) [Vol rate/Area] mL/min/{1.73_m2} >=60 [facility] Glucose [Mass/Vol] 152 mg/dL High 74-106 [facility] Potassium [Moles/Vol] 4.4 mmol/L 3.5-5.1 [facility] Sodium [Moles/Vol] 131 mmol/L Low 136-145 [facility] Urea nitrogen [Mass/Vol] 6.0 mg/dL Low 7.0-18.0 [facility] Urea nitrogen/Creatinine [Mass ratio] 5.9 mg/mg [facility] Laboratory - Hematology and Cell countson 09-27-2023 Immature granulocytes/100 WBC (Bld) 0.4 % 0.0-0.5 [facility] Leukocytes [#/volume] correc krysta for nucleated erythrocytes in Blood by Automated counon 09-27-2023 WBC corrected for nucl RBC Auto (Bld) [#/Vol] 12.5 10 3/uL High 4.0-11.0 [facility] Lymphocytes Auto (Bld) [#/Vo l]on 09-27-2023 Lymphocytes (Bld) [#/Vol] 3.1 10 3/uL 1.2-3.8 [facility] Lymphocytes/100 WBC Auto (Bl d)on 09-27-2023 Lymphocytes/100 WBC (Bld) 25.1 % 20.5-60.0 [facility] MCH Auto (RBC) [Entitic mass ]on 09-27-2023 MCH (RBC) [Entitic mass] 29.6 pg 26.7-34.0 [facility] MCHC Auto (RBC) [Mass/Vol]on 09-27-2023 MCHC (RBC) [Mass/Vol] 33.6 g/dL 29.9-35.2 [facility] MCV Auto (RBC) [Entitic vol] on 09-27-2023 MCV (RBC) [Entitic vol] 88.0 fL 81.0-99.0 [facility] Monocytes Auto (Bld) [#/Vol] on 09-27-2023 Monocytes (Bld) [#/Vol] 0.9 10 3/uL High 0.3-0.8 [facility] Monocytes/100 WBC Auto (Bld) on 09-27-2023 Monocytes/100 WBC (Bld) 7.0 % 1.7-12.0 [facility] Neutrophils Auto (Bld) [#/Vo l]on 09-27-2023 Neutrophils (Bld) [#/Vol] 8.4 10 3/uL High 1.4-6.5 [facility] Neutrophils/100 WBC Auto (Bl d)on 09-27-2023 Neutrophils/100 WBC (Bld) 66.9 % 43.0-75.0 [facility] No Panel Informationon 09-26 Eosinophils # (Auto) 0.0 10 3/uL 0.0-0.7 [facility] Immature Granulocyte # (Auto) 0.05 10 3/uL High 0.00-0.03 [facility] Platelet mean volume Auto (B ld) [Entitic vol]on 09-27-2023 Platelet mean volume (Bld) [Entitic vol] 10.6 fL 9.5-13.5 [facility] Platelets Auto (Bld) [#/Vol] on 09-27-2023 Platelets (Bld) [#/Vol] 302 10 3/uL 150-450 [facility] RBC Auto (Bld) [#/Vol]on RBC (Bld) [#/Vol] 3.99 10 6/uL Low 4.20-5.40 [facility] Serum or plasma anion gap de terminationon 09-27-2023 Anion gap [Moles/Vol] 12.9 mmol/L [facility] Basophils Auto (Bld) [#/Vol] on 08-08-2023 Basophils (Bld) [#/Vol] 0.1 10 3/uL 0.0-0.1 [facility] Basophils/100 WBC Auto (Bld) on 08-08-2023 Basophils/100 WBC (Bld) 0.4 % 0.2-2.0 [facility] Eosinophils/100 WBC Auto (Bl d)on 08-08-2023 Eosinophils/100 WBC (Bld) 0.3 % Low 0.9-7.0 [facility] Erythrocyte distribution wid th Auto (RBC) [Ratio]on 08-08-2023 Erythrocyte distribution width (RBC) [Ratio] 13.1 % 11.0-15.0 [facility] Estimated glomerular filtrat ion rate (GFR) non- Americanon 08-08-2023 GFR/1.73 sq M.predicted among non-blacks MDRD (S/P/Bld) [Vol rate/Area] 45 mL/min/{1.73_m2} Low >=60 [facility] Globulin Calc (S) [Mass/Vol] on 08-08-2023 Globulin (S) [Mass/Vol] 4.4 g/dL [facility] Hematocrit Auto (Bld) [Volum e fraction]on 08-08-2023 Hematocrit (Bld) [Volume fraction] 37.5 % 36.0-48.0 [facility] Hemoglobin [Mass/volume] in Bloodon 08-08-2023 Hemoglobin (Bld) [Mass/Vol] 12.6 g/dL 12.0-16.0 [facility] INR in Platelet poor plasma by Coagulation assayon 08-08-2023 INR Coag (PPP) [Relative time] 1.03 {INR} [facility] Comment on above: DESIRED INR:2.0-3.0 CONDITIONS NOT LISTED BELOW2.5-3.5 FOR PROSTHETIC HEART VALVE REPLACEMENT2.5-3.5 RECURRENT THROMBOSIS Laboratory - Chemistry and C hemistry - challengeon 08-08-2023 Albumin [Mass/Vol] 4.3 g/dL 3.4-5.0 [facility] ALP [Catalytic activity/Vol] 99 U/L 46-116 [facility] ALT [Catalytic activity/Vol] 21 U/L 14-59 [facility] AST [Catalytic activity/Vol] 25 U/L 15-37 [facility] Bilirubin [Mass/Vol] 0.6 mg/dL 0.2-1.0 [facility] Calcium [Mass/Vol] 9.8 mg/dL 8.5-10.1 [facility] Chloride [Moles/Vol] 89 mmol/L Low 98-107 [facility] CO2 [Moles/Vol] 21.5 mmol/L 21.0-32.0 [facility] Creatinine [Mass/Vol] 1.19 mg/dL High 0.55-1.02 [facility] GFR/1.73 sq M.predicted MDRD (S/P/Bld) [Vol rate/Area] 55 mL/min/{1.73_m2} Low >=60 [facility] Glucose [Mass/Vol] 110 mg/dL High 74-106 [facility] Potassium [Moles/Vol] 4.1 mmol/L 3.5-5.1 [facility] Protein [Mass/Vol] 8.7 g/dL High 6.4-8.2 [facility] Sodium [Moles/Vol] 124 mmol/L Low 136-145 [facility] Comment on above: RESULTS CALLED TO MARTÍNEZ HAMPTON RN @BY Rosibel Joshi [id number] Urea nitrogen [Mass/Vol] 11.0 mg/dL 7.0-18.0 [facility] Urea nitrogen/Creatinine [Mass ratio] 9.2 mg/mg [facility] Laboratory - Hematology and Cell countson 08-08-2023 Immature granulocytes/100 WBC (Bld) 0.4 % 0.0-0.5 [facility] Leukocytes [#/volume] correc krysta for nucleated erythrocytes in Blood by Automated counon 08-08-2023 WBC corrected for nucl RBC Auto (Bld) [#/Vol] 15.9 10 3/uL High 4.0-11.0 [facility] Lymphocytes Auto (Bld) [#/Vo l]on 08-08-2023 Lymphocytes (Bld) [#/Vol] 4.6 10 3/uL High 1.2-3.8 [facility] Lymphocytes/100 WBC Auto (Bl d)on 08-08-2023 Lymphocytes/100 WBC (Bld) 28.9 % 20.5-60.0 [facility] MCH Auto (RBC) [Entitic mass ]on 08-08-2023 MCH (RBC) [Entitic mass] 29.4 pg 26.7-34.0 [facility] MCHC Auto (RBC) [Mass/Vol]on 08-08-2023 MCHC (RBC) [Mass/Vol] 33.6 g/dL 29.9-35.2 [facility] MCV Auto (RBC) [Entitic vol] on 08-08-2023 MCV (RBC) [Entitic vol] 87.6 fL 81.0-99.0 [facility] Monocytes Auto (Bld) [#/Vol] on 08-08-2023 Monocytes (Bld) [#/Vol] 1.0 10 3/uL High 0.3-0.8 [facility] Monocytes/100 WBC Auto (Bld) on 08-08-2023 Monocytes/100 WBC (Bld) 6.0 % 1.7-12.0 [facility] Neutrophils Auto (Bld) [#/Vo l]on 08-08-2023 Neutrophils (Bld) [#/Vol] 10.2 10 3/uL High 1.4-6.5 [facility] Neutrophils/100 WBC Auto (Bl d)on 08-08-2023 Neutrophils/100 WBC (Bld) 64.0 % 43.0-75.0 [facility] No Panel Informationon 08-07 Eosinophils # (Auto) 0.0 10 3/uL 0.0-0.7 [facility] Immature Granulocyte # (Auto) 0.06 10 3/uL High 0.00-0.03 [facility] Troponin I High Sensitivity 6.4 pg/mL 4.0-51.3 [facility] Comment on above: CUT-OFF POINTS HAVE [...] volume (Bld) [Entitic vol] 10.6 fL 9.5-13.5 [facility] Platelets Auto (Bld) [#/Vol] on 08-08-2023 Platelets (Bld) [#/Vol] 261 10 3/uL 150-450 [facility] Prothrombin time (PT)on 07-25 PT Coag (PPP) [Time] 10.9 s 9.0-11.6 [facility] RBC Auto (Bld) [#/Vol]on RBC (Bld) [#/Vol] 4.28 10 6/uL 4.20-5.40 [facility] Serum or plasma albumin/glob ulin mass ratioon 08-08-2023 Albumin/Globulin [Mass ratio] 1.0 {ratio} [facility] Serum or plasma anion gap de terminationon 08-08-2023 Anion gap [Moles/Vol] 17.6 mmol/L [facility] Basophils Auto (Bld) [#/Vol] on 05-30-2023 Basophils (Bld) [#/Vol] 0.1 10 3/uL 0.0-0.1 [facility] Basophils/100 WBC Auto (Bld) on 05-30-2023 Basophils/100 WBC (Bld) 0.8 % 0.2-2.0 [facility] Eosinophils/100 WBC Auto (Bl d)on 05-30-2023 Eosinophils/100 WBC (Bld) 0.0 % 0.9-7.0 [facility] Erythrocyte distribution wid th Auto (RBC) [Ratio]on 05-30-2023 Erythrocyte distribution width (RBC) [Ratio] 12.6 % 11.0-15.0 [facility] Glucose mean value [Mass/vol ume] in Blood Estimated from glycated hemoglobinon 05-30-2023 Average glucose Estimated from glycated hemoglobin (Bld) [Mass/Vol] 283 mg/dL [facility] Hematocrit Auto (Bld) [Volum e fraction]on 05-30-2023 Hematocrit (Bld) [Volume fraction] 36.6 % 36.0-48.0 [facility] Hemoglobin [Mass/volume] in Bloodon 05-30-2023 Hemoglobin (Bld) [Mass/Vol] 12.0 g/dL 12.0-16.0 [facility] Laboratory - Hematology and Cell countson 05-30-2023 HbA1c (Bld) [Mass fraction] 11.5 % 4.5-6.2 [facility] Comment on above: ADA RECOMMENDED LIMI T 4.0 - 6.0ADA THERAPEUTIC TARGET < 7.0ACTION SUGGESTED> 7.0 Immature granulocytes/100 WBC (Bld) 0.5 % 0.0-0.5 [facility] Leukocytes [#/volume] correc krysta for nucleated erythrocytes in Blood by Automated counon 05-30-2023 WBC corrected for nucl RBC Auto (Bld) [#/Vol] 14.3 10 3/uL 4.0-11.0 [facility] Lymphocytes Auto (Bld) [#/Vo l]on 05-30-2023 Lymphocytes (Bld) [#/Vol] 3.6 10 3/uL 1.2-3.8 [facility] Lymphocytes/100 WBC Auto (Bl d)on 05-30-2023 Lymphocytes/100 WBC (Bld) 25.1 % 20.5-60.0 [facility] MCH Auto (RBC) [Entitic mass ]on 05-30-2023 MCH (RBC) [Entitic mass] 29.7 pg 26.7-34.0 [facility] MCHC Auto (RBC) [Mass/Vol]on 05-30-2023 MCHC (RBC) [Mass/Vol] 32.8 g/dL 29.9-35.2 [facility] MCV Auto (RBC) [Entitic vol] on 05-30-2023 MCV (RBC) [Entitic vol] 90.6 fL 81.0-99.0 [facility] Monocytes Auto (Bld) [#/Vol] on 05-30-2023 Monocytes (Bld) [#/Vol] 0.9 10 3/uL 0.3-0.8 [facility] Monocytes/100 WBC Auto (Bld) on 05-30-2023 Monocytes/100 WBC (Bld) 6.0 % 1.7-12.0 [facility] Neutrophils Auto (Bld) [#/Vo l]on 05-30-2023 Neutrophils (Bld) [#/Vol] 9.7 10 3/uL 1.4-6.5 [facility] Neutrophils/100 WBC Auto (Bl d)on 05-30-2023 Neutrophils/100 WBC (Bld) 67.6 % 43.0-75.0 [facility] No Panel Informationon 05-29 Eosinophils # (Auto) 0.0 10 3/uL 0.0-0.7 [facility] Immature Granulocyte # (Auto) 0.07 10 3/uL 0.00-0.03 [facility] Platelet mean volume Auto (B ld) [Entitic vol]on 05-30-2023 Platelet mean volume (Bld) [Entitic vol] 10.9 fL 9.5-13.5 [facility] Platelets Auto (Bld) [#/Vol] on 05-30-2023 Platelets (Bld) [#/Vol] 242 10 3/uL 150-450 [facility] RBC Auto (Bld) [#/Vol]on RBC (Bld) [#/Vol] 4.04 10 6/uL 4.20-5.40 [facility] Vital Signs Date Time Vital Sign Value Performing Clinician Facility 01-09-2024 09:07-0400 Body mass index (BMI) [Ratio] 43.4 kg/m2 MD Vanessa Baldwin Work Phone: [facility] 01-09-2024 09:07-0400 Body temperature 98.7 [degF] MD Vanessa Baldwin Work Phone: [facility] 01-09-2024 08:09-0400 Body height 162.56 cm MD Vanessa Baldwin Work Phone: [facility] 01-09-2024 08:09-0400 Body weight 114.81 kg MD Vanessa Baldwin Work Phone: [facility] 01-09-2024 08:09-0400 Diastolic blood pressure 62 mm[Hg] MD Vanessa Baldwin Work Phone: [facility] 01-09-2024 08:09-0400 Heart rate 71 /min MD Vanessa Baldwin Work Phone: [facility] 01-09-2024 08:09-0400 Respiratory rate 16 /min MD Vanessa Baldwin Work Phone: [facility] 01-09-2024 08:09-0400 SaO2% (BldA) [Mass fraction] 97 % MD Vanessa Baldwin Work Phone: [facility] 01-09-2024 08:09-0400 Systolic blood pressure 122 mm[Hg] MD Vanessa Baldwin Work Phone: [facility] 10-26-2023 11:10-0400 Body height 162.56 cm [facility] 10-26-2023 11:10-0400 Body mass index (BMI) [Ratio] 40.3 kg/m2 [facility] 10-26-2023 11:10-0400 Body weight 106.59 kg [facility] 10-26-2023 11:10-0400 Diastolic blood pressure 68 mm[Hg] [facility] 10-26-2023 11:10-0400 Heart rate 75 /min [facility] 10-26-2023 11:10-0400 Systolic blood pressure 102 mm[Hg] [facility] 10-09-2023 11:21-0400 Body height 162.56 cm [facility] 10-09-2023 11:21-0400 Body mass index (BMI) [Ratio] 40.6 kg/m2 [facility] 10-09-2023 11:21-0400 Body weight 107.5 kg [facility] 10-09-2023 11:21-0400 Diastolic blood pressure 68 mm[Hg] [facility] 10-09-2023 11:21-0400 Heart rate 69 /min [facility] 10-09-2023 11:21-0400 Systolic blood pressure 105 mm[Hg] [facility] 08-10-2023 13:38-0400 Body height 162.56 cm [facility] 08-10-2023 13:38-0400 Body mass index (BMI) [Ratio] 39.2 kg/m2 [facility] 08-10-2023 13:38-0400 Body weight 103.64 kg [facility] 08-10-2023 13:38-0400 Diastolic blood pressure 70 mm[Hg] [facility] 08-10-2023 13:38-0400 Heart rate 71 /min [facility] 08-10-2023 13:38-0400 Systolic blood pressure 106 mm[Hg] [facility] 07-27-2023 09:31-0400 Body height 162.56 cm [facility] 07-27-2023 09:31-0400 Body mass index (BMI) [Ratio] 40.1 kg/m2 [facility] 07-27-2023 09:31-0400 Body weight 106.14 kg [facility] 07-27-2023 09:31-0400 Diastolic blood pressure 73 mm[Hg] [facility] 07-27-2023 09:31-0400 Heart rate 66 /min [facility] 07-27-2023 09:31-0400 Systolic blood pressure 137 mm[Hg] [facility] 07-10-2023 11:10-0400 Body height 162.56 cm [facility] 07-10-2023 11:10-0400 Body mass index (BMI) [Ratio] 40.6 kg/m2 [facility] 07-10-2023 11:10-0400 Body weight 107.27 kg [facility] 07-10-2023 11:10-0400 Diastolic blood pressure 76 mm[Hg] [facility] 07-10-2023 11:10-0400 Heart rate 77 /min [facility] 07-10-2023 11:10-0400 Systolic blood pressure 115 mm[Hg] [facility] 05-30-2023 13:03-0500 Body height 162.56 cm [facility] 05-30-2023 13:03-0500 Body mass index (BMI) [Ratio] 40.8 kg/m2 [facility] 05-30-2023 13:03-0500 Body weight 108.12 kg [facility] 05-30-2023 13:03-0500 Diastolic blood pressure 80 mm[Hg] [facility] 05-30-2023 13:03-0500 Heart rate 90 /min [facility] 05-30-2023 13:03-0500 SaO2% (BldA) [Mass fraction] 97 % [facility] 05-30-2023 13:03-0500 Systolic blood pressure 126 mm[Hg] [facility] 04-10-2023 11:15-0500 Body height 162.56 cm Vanessa Baldwin Other [facility] [employer] Other 04-10-2023 11:15-0500 Body mass index (BMI) [Ratio] 40.16 kg/m2 Vanessa Baldwin Other [employer] Other 04-10-2023 11:15-0500 Body weight 106.14 kg Vanessa Baldwin Other [employer] Other 04-10-2023 11:15-0500 Diastolic blood pressure 84 mm[Hg] Vanessa Baldwin Other [employer] Other 04-10-2023 11:15-0500 SaO2% (BldA) [Mass fraction] 95 % Vanessa Baldwin Other [employer] Other 04-10-2023 11:15-0500 Systolic blood pressure 126 mm[Hg] Vanessa Baldwin Other [employer] Other 01-24-2023 11:15-0400 Body height 162.56 cm Vanessa Baldwin Other [employer] Other 01-24-2023 11:15-0400 Body mass index (BMI) [Ratio] 39.37 kg/m2 Vanessa Baldwin Other [employer] Other 01-24-2023 11:15-0400 Body weight 104.06 kg Vanessa Baldwin Other [employer] Other 01-24-2023 11:15-0400 Diastolic blood pressure 74 mm[Hg] Vanessa Baldwin Other [employer] Other 01-24-2023 11:15-0400 Systolic blood pressure 112 mm[Hg] Vanessa Baldwin Other [employer] Other 01-17-2023 10:30-0400 Body height 162.56 cm Vanessa Baldwin Other [employer] Other 01-17-2023 10:30-0400 Body mass index (BMI) [Ratio] 39.82 kg/m2 Vanessa Baldwin Other [employer] Other 01-17-2023 10:30-0400 Body weight 105.24 kg Vanessa Baldwin Other [employer] Other 01-17-2023 10:30-0400 Diastolic blood pressure 64 mm[Hg] Vanessa Baldwin Other [employer] Other 01-17-2023 10:30-0400 Systolic blood pressure 100 mm[Hg] Vanessa Baldwin Other [employer] Other Encounters Encounter Date Encounter Type Care Provider Facility Start: 02-19-2024 End: 02-19-2024 ambulatory Maribell Malik MD Facility:[facility] Start: 02-13-2024 ambulatory Richard Fisher acility:[facility] Start: 01-09-2024 End: 01-09-2024 ambulatory MD Vanessa Baldwin Work Phone: [facility] Work Phone: Start: 01-09-2024 End: 01-09-2024 Patient encounter procedure MD Vanessa Baldwin Work Phone: [facility] Physician [facility] Work Phone: Start: 12-26-2023 Registered Recurring MD Vanessa Baldwin Work Phone: [facility] Start: 11-13-2023 End: 11-13-2023 ambulatory Maribell Malik MD Facility:[facility] Start: 10-26-2023 End: 10-26-2023 ambulatory [facility] Work Phone: Start: 10-26-2023 End: 10-26-2023 Patient encounter procedure Counts Include [facility] Physician [facility] Work Phone: Start: 10-09-2023 End: 10-09-2023 ambulatory [facility] Work Phone: Start: 10-09-2023 End: 10-09-2023 Patient encounter procedure Counts Include [facility] Physician [facility] Work Phone: Start: 10-02-2023 End: 10-02-2023 ambulatory Maribell Malik MD Facility:[facility] Start: 09-27-2023 Non-patient / Non-visit [facility] Physician [facility] Work Phone: Start: 08-28-2023 End: 08-28-2023 ambulatory Maribell Malik MD Facility:[facility] Start: 08-10-2023 End: 08-10-2023 Patient encounter procedure Counts Include [facility] Physician [facility] Work Phone: Start: 08-08-2023 Non-patient / Non-visit Counts Include [facility] Physician [facility] Work Phone: Start: 07-27-2023 End: 07-27-2023 Patient encounter procedure Counts Include [facility] Physician [facility] Work Phone: Start: 07-24-2023 End: 07-24-2023 ambulatory Maribell Malik MD Facility: [facility] Start: 07-10-2023 End: 07-10-2023 ambulatory [facility] Work Phone: Start: 07-10-2023 End: 07-10-2023 Patient encounter procedure [facility] Work Phone: Start: 05-30-2023 End: 05-30-2023 Patient encounter procedure Counts Include [facility] Physician [facility] Work Phone: Start: 05-02-2023 End: 05-02-2023 ambulatory Vanessa Baldwin Other [employer] Other Start: 05-02-2023 Telephone encounter Vanessa Baldwin [employer] Start: 04-24-2023 End: 04-24-2023 ambulatory Vanessa Baldwin Other [employer] Other Start: 04-24-2023 Telephone encounter Vanessa Baldwin [facility] Start: 04-10-2023 End: 04-10-2023 ambulatory Vanessa Baldwin Other [employer] Other Start: 04-10-2023 Office outpatient visit 15 minutes Vanessa Baldwin [facility] Start: 04-03-2023 End: 04-03-2023 ambulatory Vanessa Baldwin Other [employer] Other Start: 04-03-2023 Telephone encounter Vanessa Baldwin [facility] Start: 03-06-2023 End: 03-06-2023 ambulatory Vanessa Baldwin Other [employer] Other Start: 03-06-2023 Telephone encounter Vanessa Baldwin [facility] Start: 02-02-2023 End: 02-02-2023 ambulatory Vanessa Baldwin Other [employer] Other Start: 02-02-2023 Telephone encounter Vanessa Baldwin [facility] Start: 01-24-2023 End: 01-24-2023 ambulatory Vanessa Baldwin Other [employer] Other Start: 01-24-2023 Office outpatient visit 15 minutes Vanessa Nicolasa [facility] Start: 01-17-2023 End: 01-17-2023 ambulatory Vanessa Baldwin Other [employer] Other Start: 01-17-2023 Office outpatient ne w 45 minutes Vanessa Baldwin [facility] Plan of Treatment Date Care Activity Detail Author Patient Education Low back pain in adults [facility] Work Phone: US Heart Transthoracic [facility] US.doppler Carotid a rteries - bilateral [facility] Immunizations Immunization Date Immunization Notes Care Provider Fa quyenty 04-10-2023 influenza, high dose seasonal, preservative-free Vanessa Nicolasa Other [employer] Other 04-10-2023 influenza virus vaccine, unspecified formulation [facility] Payers Date Payer Category Payer Medicare 2023 Self-pay 2023 Private Health Insurance 1955 Unknown [id number] Unknown [id number] 1955 Unknown [id number] 1955 Unknown [id number] 1955 Unknown [id number] Medicare [employer] MCR PFFS [id number] Private Health Insurance [id number] Unknown [id number] Social History Date Type Detail Facility Unknown if ever smoked [facility] [employer] Other Sex Assigned At Sex Assigned At Bir [facility] [employer] Other Start: 05-29-2023 Tobacco smoking status NHIS Ex-smoker (finding) [facility] Start: 1955 Sex Assigned At Female F [facility] Medical Equipment Procedure Code Equipment Code [...] symptoms. Any developing patterns. Stay well hydrated. [employer] Other 11-09-2023 Evaluation note* Encounter Date Diagnosis Assessment Notes Treatment Notes Treatment Clinical Notes Jan, Type 2 diabetes mellitus with hyperglycemia, without long-term current use of insulin (ICD-10 - E11.65) [employer] Other 10-31-2023 Evaluation note* Encounter Date Diagnosis [...] A1C7.0. Cholesterol well controlled. Continue present meds. [facility] Other 10-24-2023 Evaluation note* Encounter Date Diagnosis Assessment Notes Treatment Notes Treatment Clinical Notes Dec, Essential (primary) hypertension (ICD-10 - I10) Refilled meds for chronic problems Dec, Type 2 diabetes mellitus with hyperglycemia, without long-term current use of insulin (ICD-10 - E11.65) Check labs today diabetic eye exam annually Dec, Coronary artery disease involving [place] coronary artery of [place] heart without angina pectoris (ICD-10 - I25.10) Pt agrees to referral to get established with a local directional driller. Dec, Anxiety (ICD-10 - F41.9) pt states her chronic problem is controlled w xanax tid and lexapro Dec, GERD without esophagitis (ICD-10 - K21.9) refilled med for chronic problem Dec, Screening mammogram for breast cancer (ICD-10 - Z12.31) Dec, Personal history of nicotine dependence (ICD-10 - Z87.891) [employer] Other Evaluation noteNo [employer] Other Evaluation note* Diagnosis Onset Date Resolution Status Anxiety acute [id number] [facility] Work Phone: Evaluation note* Diagnosis Onset Date Resolution Status Anxiety acute Depression, major, single episode, severe acute Diabetic peripheral neuropathy acute Hammertoe of left foot acute Lumbar back pain with radicu lopathy affecting lower extremity acute Anxiety acute Depression, major, single episode, severe acute Expressive aphasia acute Hyponatremia acute Leukocytosis acute Lumbar back pain with radicu lopathy affecting lower extremity acute [facility] Work Phone: Evaluation note* Diagnosis Onset [...] with radicu lopathy affecting lower extremity acute [facility] Work Phone: evaluation note* Diagnosis Onset Date Resolution Status [id number] acute Diabetic peripheral neuropathy acute Lumbar back pain with radicu lopathy affecting lower extremity acute [facility] Work Phone: History general Narrative - Reported* Type Description Date Medical History Hypertention Medical History Diabetes Medical History Neuropathy Medical History Heart Attack Surgical History Hysterectomy Surgical History Back surgery Surgical History Right CTR Surgical History Bilateral shoulder surgery Surgical History Heart Stents X2 Surgical History Left TKR [employer] Other History general Narrative - Reported* Type Description Date Medical History Hypertention Medical History Diabetes Medical History Neuropathy Medical History Heart Attack Medical History GERD Surgical History Hysterectomy Surgical History Back surgery Surgical History Right CTR Surgical History Bilateral shoulder surgery Surgical History Heart Stents X2 Surgical History Left TKR [employer] Other Reason for Referral Reason *Waiting for appt Get established, has stents, moved from [place]. Had PR in 2015 Diagnosis 1 Coronary artery dise ase involving [place] coronary artery of [place] heart without angina pectoris (I25.10) Referral Organization [facility] Darrin montero Referring Provider First Name Vanessa Referring Provider Last Name Nicolasa Referring Provider Specialty Family [facility] Referred Organization [facility] Cardiology Referred Provider Christal Pacheco Referred Address [address] [place] [address],[address],[phone] Referred Provider Specialty Cardiovascul ar Disease Referral Priority Routine General Notes Radha Baker 02:31:53 PM >received today, sent P2P. pt may need to fill out a records release form to have old records sent to Chief Complaint and Reason for Visit Chief Complaint weightloss 3 MONTH CHECK UP Reason for Visit Anxiety [id number] Chief Complaint foot exams for shoes [facility] follow up 3 month follow up Reason for Visit Anxiety Depression, major, single episode, severe Diabetic peripheral neuropathy Hammertoe of left foot Lumbar back pain with radiculopathy affecting lower extremity Anxiety Depression, major, single episode, severe Expressive aphasia Hyponatremia Leukocytosis Lumbar back pain with radiculopathy affecting lower extremity Chief Complaint [facility] follow up 3 month follow up [...] meds 3 month f/u Reason for Visit [id number] Diabetic peripheral neuropathy Lumbar back pain with [...] ized section and content) DATE CREATED AUTHOR 04/10/2024 [facility] DATE CREATED AUTHOR AUTHOR'S ORGANIZ ATION 04/14/2024 [facility] FOR RECORDS PERTAINING TO PATIENTS WHO [...] BE BASED ON THE PRIMARY CLINICAL RECORDS. [facility]. provides no warranty or guarantee of the accuracy or completeness of information in this document.
[2024-04-22 07:44] VITALS: BP 151/85; PULSE 82; TEMP 36.2; O2SAT 95
[2024-04-22 07:57] LABS: Glucometer 308 mg/dL (74-106)
[2024-04-22 08:35] VITALS: BP 149/82; PULSE 64; O2SAT 93
[2024-04-22 08:36] VITALS: BP 146/79; PULSE 74; O2SAT 93
--- NOTE | 2024-04-22 08:40 | W.PM.PROCNOT ---
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 Informed consent was obtained and placed on the chart.? Patient was brought to the medical procedure unit and placed in the prone position where a timeout was completed verifying the correct patient, procedure site, position, and planned special equipment using sterile aseptic technique.? Under direct fluoroscopic visualization a 25-gauge Quincke tipped spinal needle was advanced at level left L5-S1 to the designated neural foramen where contrast dye was injected to show adequate spread.? There was no evidence of vascular or adverse uptake.? Epidural spread was appreciated.? The above-mentioned injectate was then placed in a 1.5 mL aliquot preceded by negative aspiration.? The needle was removed. The same procedure, at the same level, was completed on the opposite side. ? Patient was taken to the postprocedural recovery area and monitored for an appropriate length of time before found suitable for discharge in the accompaniment of a responsible adult. Anesthesia: Local Surgeon: Maribell Malik Pathology: none sent Condition: stable Disposition: no change
[2024-04-22] MEDS: IOHEXOL 240 MG/ML - 10 ML VIAL 12 MG INJ (08:41)
[2024-04-22] MEDS: BUPIVACAINE HCL 0.25% PF 25 MG/10 ML VIAL INJ (08:41)
[2024-04-22] MEDS: 0.9 % SODIUM CHLORIDE 10 ML SYRINGE - SALINE FLUSH INJ (08:41)
[2024-04-22] MEDS: LIDOCAINE HCL 2% 400 MG/20 ML MDV INJ (08:42)
[2024-04-22] MEDS: METHYLPREDNISOLONE ACETATE 80 MG/ML VIAL 40 MG INJ (08:42)
== END 2024-04-22 08:45 | disposition home or self-care (01) ==
LOC: SURGOUT 07:35
PROVIDERS: Family Provider Internal Medicine; PCP Family Medicine; Visit Provider Anesthesiology
DX: M48.062 Spinal stenosis, lumbar region with neurogenic claudication (principal); E11.9 Type 2 diabetes mellitus without complications; Z79.84 Long term (current) use of oral hypoglycemic drugs
CPT/HCPCS: 36415; 64483; 82948; J0665; J1010; Q9966

== ENCOUNTER 2024-05-02 10:06 | Outpatient (OUT) | payer MEDICARE, SELFPAY ==
--- OUTSIDE RECORDS SUMMARY | 2024-05-02 10:22 | XMS_ITS | CCD ---
Author Organization [facility] ion Partnership [facility] Care Team Providers Care Hydro Operator Name Role Phone Vanessa Baldwin Unavailable MD Vanessa Baldwin Primary Care Provider MD Richard Baker Attending Provider [phone] Giedraitis , Andrius Vytautas Attending Unavailable Giedraitis MD, Andrius Vytautas Attending Unavailable Giedraitis , Andrius Vytautas Attending Unavailable Giedraitis , Andrius Vytautas Attending Unavailable Giedraitis , Andrius Vytautas Attending Unavailable Giedraitis , Andrius Vytautas Attending Unavailable Richard Baker Attending Unavailab Richard Head Admitting Unavailab Vanessa Burleson Primary Care Unavailable Allergies Allergy Classification Reported Allergen(s) Allergy Type Date of Onset Reaction(s) Facility (13 sources) Codeine Drug Allergy [address] [facility] (13 sources) Morphine Drug Allergy [address] [facility] (9 sources) Nalbuphine Drug Allergy [employer] Other (5 sources) Nalbuphine; Translations: [nalbuphine] Drug Allergy 4 [facility] (1 source) Codeine Drug Allergy 5 [facility] (1 source) Morphine Drug Allergy 5 [facility] Medications Current Medications Medication Drug Class(es) [...] day take 2 tablets by mo [facility] every twenty-four hours metFORMIN HCl 500 MG [...] 01, 2024 8:54am take 1 tablet by mela every twenty-four [...] 2.5 MG SUBCUT every week 6 84 July 10, 2023 12:00am September 20, 2023 [...] Coronary arteriosclerosis; Translations: [Atherosclerotic heart disease of [place] coronary artery without angina pectoris] Chronic Diabetes [...] Basophils (Bld) [#/Vol] 0.1 10 3/uL 0.0-0.1 [facility] Basophils/100 WBC Auto (Bld) on 09-27-2023 Basophils/100 WBC (Bld) 0.6 % 0.2-2.0 [facility] Eosinophils/100 WBC Auto (Bl d)on 09-27-2023 Eosinophils/100 WBC (Bld) 0.0 % Low 0.9-7.0 [facility] Erythrocyte distribution wid th Auto (RBC) [Ratio]on 09-27-2023 Erythrocyte distribution width (RBC) [Ratio] 12.9 % 11.0-15.0 [facility] Estimated glomerular filtrat ion rate (GFR) non- Americanon 09-27-2023 GFR/1.73 sq M.predicted among non-blacks MDRD (S/P/Bld) [Vol rate/Area] 54 mL/min/{1.73_m2} Low >=60 [facility] Hematocrit Auto (Bld) [Volum e fraction]on 09-27-2023 Hematocrit (Bld) [Volume fraction] 35.1 % Low 36.0-48.0 [facility] Hemoglobin [Mass/volume] in Bloodon 09-27-2023 Hemoglobin (Bld) [Mass/Vol] 11.8 g/dL Low 12.0-16.0 [facility] Laboratory - Chemistry and C hemistry - challengeon 09-27-2023 Calcium [Mass/Vol] 9.7 mg/dL 8.5-10.1 [facility] Chloride [Moles/Vol] 95 mmol/L Low 98-107 [facility] CO2 [Moles/Vol] 27.5 mmol/L 21.0-32.0 [facility] Creatinine [Mass/Vol] 1.02 mg/dL 0.55-1.02 [facility] GFR/1.73 sq M.predicted MDRD (S/P/Bld) [Vol rate/Area] mL/min/{1.73_m2} >=60 [facility] Glucose [Mass/Vol] 152 mg/dL High 74-106 [facility] Potassium [Moles/Vol] 4.4 mmol/L 3.5-5.1 [facility] Sodium [Moles/Vol] 131 mmol/L Low 136-145 [facility] Urea nitrogen [Mass/Vol] 6.0 mg/dL Low 7.0-18.0 [facility] Urea nitrogen/Creatinine [Mass ratio] 5.9 mg/mg [facility] Laboratory - Hematology and Cell countson 09-27-2023 Immature granulocytes/100 WBC (Bld) 0.4 % 0.0-0.5 [facility] Leukocytes [#/volume] correc krysta for nucleated erythrocytes in Blood by Automated counon 09-27-2023 WBC corrected for nucl RBC Auto (Bld) [#/Vol] 12.5 10 3/uL High 4.0-11.0 [facility] Lymphocytes Auto (Bld) [#/Vo l]on 09-27-2023 Lymphocytes (Bld) [#/Vol] 3.1 10 3/uL 1.2-3.8 [facility] Lymphocytes/100 WBC Auto (Bl d)on 09-27-2023 Lymphocytes/100 WBC (Bld) 25.1 % 20.5-60.0 [facility] MCH Auto (RBC) [Entitic mass ]on 09-27-2023 MCH (RBC) [Entitic mass] 29.6 pg 26.7-34.0 [facility] MCHC Auto (RBC) [Mass/Vol]on 09-27-2023 MCHC (RBC) [Mass/Vol] 33.6 g/dL 29.9-35.2 [facility] MCV Auto (RBC) [Entitic vol] on 09-27-2023 MCV (RBC) [Entitic vol] 88.0 fL 81.0-99.0 [facility] Monocytes Auto (Bld) [#/Vol] on 09-27-2023 Monocytes (Bld) [#/Vol] 0.9 10 3/uL High 0.3-0.8 [facility] Monocytes/100 WBC Auto (Bld) on 09-27-2023 Monocytes/100 WBC (Bld) 7.0 % 1.7-12.0 [facility] Neutrophils Auto (Bld) [#/Vo l]on 09-27-2023 Neutrophils (Bld) [#/Vol] 8.4 10 3/uL High 1.4-6.5 [facility] Neutrophils/100 WBC Auto (Bl d)on 09-27-2023 Neutrophils/100 WBC (Bld) 66.9 % 43.0-75.0 [facility] No Panel Informationon 09-26 Eosinophils # (Auto) 0.0 10 3/uL 0.0-0.7 [facility] Immature Granulocyte # (Auto) 0.05 10 3/uL High 0.00-0.03 [facility] Platelet mean volume Auto (B ld) [Entitic vol]on 09-27-2023 Platelet mean volume (Bld) [Entitic vol] 10.6 fL 9.5-13.5 [facility] Platelets Auto (Bld) [#/Vol] on 09-27-2023 Platelets (Bld) [#/Vol] 302 10 3/uL 150-450 [facility] RBC Auto (Bld) [#/Vol]on RBC (Bld) [#/Vol] 3.99 10 6/uL Low 4.20-5.40 [facility] Serum or plasma anion gap de terminationon 09-27-2023 Anion gap [Moles/Vol] 12.9 mmol/L [facility] Basophils Auto (Bld) [#/Vol] on 08-08-2023 Basophils (Bld) [#/Vol] 0.1 10 3/uL 0.0-0.1 [facility] Basophils/100 WBC Auto (Bld) on 08-08-2023 Basophils/100 WBC (Bld) 0.4 % 0.2-2.0 [facility] Eosinophils/100 WBC Auto (Bl d)on 08-08-2023 Eosinophils/100 WBC (Bld) 0.3 % Low 0.9-7.0 [facility] Erythrocyte distribution wid th Auto (RBC) [Ratio]on 08-08-2023 Erythrocyte distribution width (RBC) [Ratio] 13.1 % 11.0-15.0 [facility] Estimated glomerular filtrat ion rate (GFR) non- Americanon 08-08-2023 GFR/1.73 sq M.predicted among non-blacks MDRD (S/P/Bld) [Vol rate/Area] 45 mL/min/{1.73_m2} Low >=60 [facility] Globulin Calc (S) [Mass/Vol] on 08-08-2023 Globulin (S) [Mass/Vol] 4.4 g/dL [facility] Hematocrit Auto (Bld) [Volum e fraction]on 08-08-2023 Hematocrit (Bld) [Volume fraction] 37.5 % 36.0-48.0 [facility] Hemoglobin [Mass/volume] in Bloodon 08-08-2023 Hemoglobin (Bld) [Mass/Vol] 12.6 g/dL 12.0-16.0 [facility] INR in Platelet poor plasma by Coagulation assayon 08-08-2023 INR Coag (PPP) [Relative time] 1.03 {INR} [facility] Comment on above: DESIRED INR:2.0-3.0 CONDITIONS NOT LISTED BELOW2.5-3.5 FOR PROSTHETIC HEART VALVE REPLACEMENT2.5-3.5 RECURRENT THROMBOSIS Laboratory - Chemistry and C hemistry - challengeon 08-08-2023 Albumin [Mass/Vol] 4.3 g/dL 3.4-5.0 [facility] ALP [Catalytic activity/Vol] 99 U/L 46-116 [facility] ALT [Catalytic activity/Vol] 21 U/L 14-59 [facility] AST [Catalytic activity/Vol] 25 U/L 15-37 [facility] Bilirubin [Mass/Vol] 0.6 mg/dL 0.2-1.0 [facility] Calcium [Mass/Vol] 9.8 mg/dL 8.5-10.1 [facility] Chloride [Moles/Vol] 89 mmol/L Low 98-107 [facility] CO2 [Moles/Vol] 21.5 mmol/L 21.0-32.0 [facility] Creatinine [Mass/Vol] 1.19 mg/dL High 0.55-1.02 [facility] GFR/1.73 sq M.predicted MDRD (S/P/Bld) [Vol rate/Area] 55 mL/min/{1.73_m2} Low >=60 [facility] Glucose [Mass/Vol] 110 mg/dL High 74-106 [facility] Potassium [Moles/Vol] 4.1 mmol/L 3.5-5.1 [facility] Protein [Mass/Vol] 8.7 g/dL High 6.4-8.2 [facility] Sodium [Moles/Vol] 124 mmol/L Low 136-145 [facility] Comment on above: RESULTS CALLED TO MARTÍNEZ HAMPTON RN @BY Rosibel Joshi [phone] Urea nitrogen [Mass/Vol] 11.0 mg/dL 7.0-18.0 [facility] Urea nitrogen/Creatinine [Mass ratio] 9.2 mg/mg [facility] Laboratory - Hematology and Cell countson 08-08-2023 Immature granulocytes/100 WBC (Bld) 0.4 % 0.0-0.5 [facility] Leukocytes [#/volume] correc krysta for nucleated erythrocytes in Blood by Automated counon 08-08-2023 WBC corrected for nucl RBC Auto (Bld) [#/Vol] 15.9 10 3/uL High 4.0-11.0 [facility] Lymphocytes Auto (Bld) [#/Vo l]on 08-08-2023 Lymphocytes (Bld) [#/Vol] 4.6 10 3/uL High 1.2-3.8 [facility] Lymphocytes/100 WBC Auto (Bl d)on 08-08-2023 Lymphocytes/100 WBC (Bld) 28.9 % 20.5-60.0 [facility] MCH Auto (RBC) [Entitic mass ]on 08-08-2023 MCH (RBC) [Entitic mass] 29.4 pg 26.7-34.0 [facility] MCHC Auto (RBC) [Mass/Vol]on 08-08-2023 MCHC (RBC) [Mass/Vol] 33.6 g/dL 29.9-35.2 [facility] MCV Auto (RBC) [Entitic vol] on 08-08-2023 MCV (RBC) [Entitic vol] 87.6 fL 81.0-99.0 [facility] Monocytes Auto (Bld) [#/Vol] on 08-08-2023 Monocytes (Bld) [#/Vol] 1.0 10 3/uL High 0.3-0.8 [facility] Monocytes/100 WBC Auto (Bld) on 08-08-2023 Monocytes/100 WBC (Bld) 6.0 % 1.7-12.0 [facility] Neutrophils Auto (Bld) [#/Vo l]on 08-08-2023 Neutrophils (Bld) [#/Vol] 10.2 10 3/uL High 1.4-6.5 [facility] Neutrophils/100 WBC Auto (Bl d)on 08-08-2023 Neutrophils/100 WBC (Bld) 64.0 % 43.0-75.0 [facility] No Panel Informationon 08-07 Eosinophils # (Auto) 0.0 10 3/uL 0.0-0.7 [facility] Immature Granulocyte # (Auto) 0.06 10 3/uL High 0.00-0.03 [facility] Troponin I High Sensitivity 6.4 pg/mL 4.0-51.3 [facility] Comment on above: CUT-OFF POINTS HAVE [...] volume (Bld) [Entitic vol] 10.6 fL 9.5-13.5 [facility] Platelets Auto (Bld) [#/Vol] on 08-08-2023 Platelets (Bld) [#/Vol] 261 10 3/uL 150-450 [facility] Prothrombin time (PT)on 07-25 PT Coag (PPP) [Time] 10.9 s 9.0-11.6 [facility] RBC Auto (Bld) [#/Vol]on RBC (Bld) [#/Vol] 4.28 10 6/uL 4.20-5.40 [facility] Serum or plasma albumin/glob ulin mass ratioon 08-08-2023 Albumin/Globulin [Mass ratio] 1.0 {ratio} [facility] Serum or plasma anion gap de terminationon 08-08-2023 Anion gap [Moles/Vol] 17.6 [facility] Basophils Auto (Bld) [#/Vol] on 05-30-2023 Basophils (Bld) [#/Vol] 0.1 10 3/uL 0.0-0.1 [facility] Basophils/100 WBC Auto (Bld) on 05-30-2023 Basophils/100 WBC (Bld) 0.8 % 0.2-2.0 [facility] Eosinophils/100 WBC Auto (Bl d)on 05-30-2023 Eosinophils/100 WBC (Bld) 0.0 % 0.9-7.0 [facility] Erythrocyte distribution wid th Auto (RBC) [Ratio]on 05-30-2023 Erythrocyte distribution width (RBC) [Ratio] 12.6 % 11.0-15.0 [facility] Glucose mean value [Mass/vol ume] in Blood Estimated from glycated hemoglobinon 05-30-2023 Average glucose Estimated from glycated hemoglobin (Bld) [Mass/Vol] 283 mg/dL [facility] Hematocrit Auto (Bld) [Volum e fraction]on 05-30-2023 Hematocrit (Bld) [Volume fraction] 36.6 % 36.0-48.0 [facility] Hemoglobin [Mass/volume] in Bloodon 05-30-2023 Hemoglobin (Bld) [Mass/Vol] 12.0 g/dL 12.0-16.0 [facility] Laboratory - Hematology and Cell countson 05-30-2023 HbA1c (Bld) [Mass fraction] 11.5 % 4.5-6.2 [facility] Comment on above: ADA RECOMMENDED LIMI T 4.0 - 6.0ADA THERAPEUTIC TARGET < 7.0ACTION SUGGESTED> 7.0 Immature granulocytes/100 WBC (Bld) 0.5 % 0.0-0.5 [facility] Leukocytes [#/volume] correc krysta for nucleated erythrocytes in Blood by Automated counon 05-30-2023 WBC corrected for nucl RBC Auto (Bld) [#/Vol] 14.3 10 3/uL 4.0-11.0 [facility] Lymphocytes Auto (Bld) [#/Vo l]on 05-30-2023 Lymphocytes (Bld) [#/Vol] 3.6 10 3/uL 1.2-3.8 [facility] Lymphocytes/100 WBC Auto (Bl d)on 05-30-2023 Lymphocytes/100 WBC (Bld) 25.1 % 20.5-60.0 [facility] MCH Auto (RBC) [Entitic mass ]on 05-30-2023 MCH (RBC) [Entitic mass] 29.7 pg 26.7-34.0 [facility] MCHC Auto (RBC) [Mass/Vol]on 05-30-2023 MCHC (RBC) [Mass/Vol] 32.8 g/dL 29.9-35.2 [facility] MCV Auto (RBC) [Entitic vol] on 05-30-2023 MCV (RBC) [Entitic vol] 90.6 fL 81.0-99.0 [facility] Monocytes Auto (Bld) [#/Vol] on 05-30-2023 Monocytes (Bld) [#/Vol] 0.9 10 3/uL 0.3-0.8 [facility] Monocytes/100 WBC Auto (Bld) on 05-30-2023 Monocytes/100 WBC (Bld) 6.0 % 1.7-12.0 [facility] Neutrophils Auto (Bld) [#/Vo l]on 05-30-2023 Neutrophils (Bld) [#/Vol] 9.7 10 3/uL 1.4-6.5 [facility] Neutrophils/100 WBC Auto (Bl d)on 05-30-2023 Neutrophils/100 WBC (Bld) 67.6 % 43.0-75.0 [facility] No Panel Informationon 05-29 Eosinophils # (Auto) 0.0 10 3/uL 0.0-0.7 [facility] Immature Granulocyte # (Auto) 0.07 10 3/uL 0.00-0.03 [facility] Platelet mean volume Auto (B ld) [Entitic vol]on 05-30-2023 Platelet mean volume (Bld) [Entitic vol] 10.9 fL 9.5-13.5 [facility] Platelets Auto (Bld) [#/Vol] on 05-30-2023 Platelets (Bld) [#/Vol] 242 10 3/uL 150-450 [facility] RBC Auto (Bld) [#/Vol]on RBC (Bld) [#/Vol] 4.04 10 6/uL 4.20-5.40 [facility] Vital Signs Date Time Vital Sign Value Performing Clinician Facility 01-09-2024 09:07-0400 Body mass index (BMI) [Ratio] 43.4 kg/m2 MD Vanessa Baldwin Work Phone: [facility] 01-09-2024 09:07-0400 Body temperature 98.7 [degF] MD Vanessa Baldwin Work Phone: [facility] 01-09-2024 08:09-0400 Body height 162.56 cm MD Vanessa Baldwin Work Phone: [facility] 01-09-2024 08:09-0400 Body weight 114.81 kg MD Vanessa Baldwin Work Phone: [facility] 01-09-2024 08:09-0400 Diastolic blood pressure 62 mm[Hg] MD Vanessa Baldwin Work Phone: [facility] 01-09-2024 08:09-0400 Heart rate 71 /min MD Vanessa Baldwin Work Phone: [facility] 01-09-2024 08:09-0400 Respiratory rate 16 /min MD Vanessa Baldwin Work Phone: [facility] 01-09-2024 08:09-0400 SaO2% (BldA) [Mass fraction] 97 % MD Vanessa Baldwin Work Phone: [facility] 01-09-2024 08:09-0400 Systolic blood pressure 122 mm[Hg] MD Vanessa Baldwin Work Phone: [facility] 10-26-2023 11:10-0400 Body height 162.56 cm [facility] 10-26-2023 11:10-0400 Body mass index (BMI) [Ratio] 40.3 kg/m2 [facility] 10-26-2023 11:10-0400 Body weight 106.59 kg [facility] 10-26-2023 11:10-0400 Diastolic blood pressure 68 mm[Hg] [facility] 10-26-2023 11:10-0400 Heart rate 75 /min [facility] 10-26-2023 11:10-0400 Systolic blood pressure 102 mm[Hg] [facility] 10-09-2023 11:21-0400 Body height 162.56 cm [facility] 10-09-2023 11:21-0400 Body mass index (BMI) [Ratio] 40.6 kg/m2 [facility] 10-09-2023 11:21-0400 Body weight 107.5 kg [facility] 10-09-2023 11:21-0400 Diastolic blood pressure 68 mm[Hg] [facility] 10-09-2023 11:21-0400 Heart rate 69 /min [facility] 10-09-2023 11:21-0400 Systolic blood pressure 105 mm[Hg] [facility] 08-10-2023 13:38-0400 Body height 162.56 cm [facility] 08-10-2023 13:38-0400 Body mass index (BMI) [Ratio] 39.2 kg/m2 [facility] 08-10-2023 13:38-0400 Body weight 103.64 kg [facility] 08-10-2023 13:38-0400 Diastolic blood pressure 70 mm[Hg] [facility] 08-10-2023 13:38-0400 Heart rate 71 /min [facility] 08-10-2023 13:38-0400 Systolic blood pressure 106 mm[Hg] [facility] 07-27-2023 09:31-0400 Body height 162.56 cm [facility] 07-27-2023 09:31-0400 Body mass index (BMI) [Ratio] 40.1 kg/m2 [facility] 07-27-2023 09:31-0400 Body weight 106.14 kg [facility] 07-27-2023 09:31-0400 Diastolic blood pressure 73 mm[Hg] [facility] 07-27-2023 09:31-0400 Heart rate 66 /min [facility] 07-27-2023 09:31-0400 Systolic blood pressure 137 mm[Hg] [facility] 07-10-2023 11:10-0400 Body height 162.56 cm [facility] 07-10-2023 11:10-0400 Body mass index (BMI) [Ratio] 40.6 kg/m2 [facility] 07-10-2023 11:10-0400 Body weight 107.27 kg [facility] 07-10-2023 11:10-0400 Diastolic blood pressure 76 mm[Hg] [facility] 07-10-2023 11:10-0400 Heart rate 77 /min [facility] 07-10-2023 11:10-0400 Systolic blood pressure 115 mm[Hg] [facility] 05-30-2023 13:03-0500 Body height 162.56 cm [facility] 05-30-2023 13:03-0500 Body mass index (BMI) [Ratio] 40.8 kg/m2 [facility] 05-30-2023 13:03-0500 Body weight 108.12 kg [facility] 05-30-2023 13:03-0500 Diastolic blood pressure 80 mm[Hg] [facility] 05-30-2023 13:03-0500 Heart rate 90 /min [facility] 05-30-2023 13:03-0500 SaO2% (BldA) [Mass fraction] 97 % [facility] 05-30-2023 13:03-0500 Systolic blood pressure 126 mm[Hg] [facility] 04-10-2023 11:15-0500 Body height 162.56 cm Vanessa Baldwin Other [facility] Other 04-10-2023 11:15-0500 Body mass index (BMI) [Ratio] 40.16 kg/m2 Vanessa Baldwin Other [employer] Other 04-10-2023 11:15-0500 Body weight 106.14 kg Vanessa Baldwin Other [employer] Other 04-10-2023 11:15-0500 Diastolic blood pressure 84 mm[Hg] Vanessa Baldwin Other [employer] Other 04-10-2023 11:15-0500 SaO2% (BldA) [Mass fraction] 95 % Vanessa Baldwin Other [employer] Other 04-10-2023 11:15-0500 Systolic blood pressure 126 mm[Hg] Vanessa Baldwin Other [employer] Other 01-24-2023 11:15-0400 Body height 162.56 cm Vanessa Baldwin Other [employer] Other 01-24-2023 11:15-0400 Body mass index (BMI) [Ratio] 39.37 kg/m2 Vanessa Baldwin Other [employer] Other 01-24-2023 11:15-0400 Body weight 104.06 kg Vanessa Baldwin Other [employer] Other 01-24-2023 11:15-0400 Diastolic blood pressure 74 mm[Hg] Vanessa Baldwin Other [employer] Other 01-24-2023 11:15-0400 Systolic blood pressure 112 mm[Hg] Vanessa Baldwin Other [employer] Other 01-17-2023 10:30-0400 Body height 162.56 cm Vanessa Baldwin Other [employer] Other 01-17-2023 10:30-0400 Body mass index (BMI) [Ratio] 39.82 kg/m2 Vanessa Baldwin Other [employer] Other 01-17-2023 10:30-0400 Body weight 105.24 kg Vanessa Baldwin Other [employer] Other 01-17-2023 10:30-0400 Diastolic blood pressure 64 mm[Hg] Vanessa Baldwin Other [employer] Other 01-17-2023 10:30-0400 Systolic blood pressure 100 mm[Hg] Vanessa Baldwin Other [employer] Other Encounters Encounter Date Encounter Type Care Provider Facility Start: 04-30-2024 ambulatory Richard Fisher acility:[facility] Start: 04-22-2024 End: 04-22-2024 ambulatory Maribell Malik MD Facility: [facility] Start: 02-19-2024 End: 02-19-2024 ambulatory Maribell Malik MD Facility: [place] Start: 01-09-2024 End: 01-09-2024 ambulatory MD Vanessa Baldwin Work Phone: [facility] Work Phone: Start: 01-09-2024 End: 01-09-2024 Patient encounter procedure MD Vanessa Baldwin Work Phone: [facility] Work Phone: Start: 12-26-2023 Registered Recurring MD Vanessa Baldwin Work Phone: [facility] Start: 11-13-2023 End: 11-13-2023 ambulatory Maribell Malik MD Facility: [facility] Start: 10-26-2023 End: 10-26-2023 ambulatory [facility] Work Phone: Start: 10-26-2023 End: 10-26-2023 Patient encounter procedure [facility] Work Phone: Start: 10-09-2023 End: 10-09-2023 ambulatory [facility] Work Phone: Start: 10-09-2023 End: 10-09-2023 Patient encounter procedure [facility] Work Phone: Start: 10-02-2023 End: 10-02-2023 ambulatory Maribell Malik MD Facility: [place] Start: 09-27-2023 Non-patient / Non-visit [facility] Work Phone: Start: 08-28-2023 End: 08-28-2023 ambulatory Maribell Malik MD Facility:[facility] Start: 08-10-2023 End: 08-10-2023 Patient encounter procedure [facility] Work Phone: Start: 08-08-2023 Non-patient / Non-visit [facility] Work Phone: Start: 07-27-2023 End: 07-27-2023 Patient encounter procedure [facility] Work Phone: Start: 07-24-2023 End: 07-24-2023 ambulatory Maribell Malik MD Facility: [facility] Start: 07-10-2023 End: 07-10-2023 ambulatory [facility] Work Phone: Start: 07-10-2023 End: 07-10-2023 Patient encounter procedure [facility] Work Phone: Start: 05-30-2023 End: 05-30-2023 Patient encounter procedure [facility] Work Phone: Start: 05-02-2023 End: 05-02-2023 ambulatory Vanessa Baldwin Other [employer] Other Start: 05-02-2023 Telephone encounter Vanessa Baldwin [employer] Start: 04-24-2023 End: 04-24-2023 ambulatory Vanessa Baldwin Other [employer] Other Start: 04-24-2023 Telephone encounter Vanessa Baldwin [facility] Start: 04-10-2023 End: 04-10-2023 ambulatory Vanessa Baldwin Other [employer] Other Start: 04-10-2023 Office outpatient visit 15 minutes Vanessa Baldwin [facility] Start: 04-03-2023 End: 04-03-2023 ambulatory Vanessa Baldwin Other [employer] Other Start: 04-03-2023 Telephone encounter Vanessa Baldwin [facility] Start: 03-06-2023 End: 03-06-2023 ambulatory Vanessa Baldwin Other [employer] Other Start: 03-06-2023 Telephone encounter Vanessa Baldwin [facility] Start: 02-02-2023 End: 02-02-2023 ambulatory Vanessa Baldwin Other [employer] Other Start: 02-02-2023 Telephone encounter Vanessa Baldwin [facility] Start: 01-24-2023 End: 01-24-2023 ambulatory Vanessa Baldwin Other [employer] Other Start: 01-24-2023 Office outpatient visit 15 minutes Vanessa Nicolasa [facility] Start: 01-17-2023 End: 01-17-2023 ambulatory Vanessa Baldwin Other [employer] Other Start: 01-17-2023 Office outpatient ne w 45 minutes Vanessa Nicolasa [facility] Plan of Treatment Date Care Activity Detail Author Patient Education Low back pain in adults [facility] Work Phone: US Heart Transthoracic [facility] US.doppler Carotid a rteries - bilateral [facility] Immunizations Immunization Date Immunization Notes Care Provider Fa quyenty 04-10-2023 influenza, high dose seasonal, preservative-free Vanessa Baldwin Other Message Bus Other 04-10-2023 influenza virus vaccine, unspecified formulation [facility] Payers Date Payer Category Payer Medicare 2023 Self-pay 2023 Private Health Insurance 1955 Unknown [id number] .1955 Unknown [id number] 2..[id number] .1955 Unknown [id number] 2..[id number] .196 1955 Unknown [id number] 2..[id number] .196 1955 Unknown [id number] [id number] .196 1955 Unknown [id number] .196 Medicare [facility] [id number] Private Health Insurance [id number] Unknown [id number] .531 Social History Date Type Detail Facility Unknown if ever smoked Message Bus Other Sex Assigned At Sex Assigned At Bir th Message Bus Other Start: 05-29-2023 Tobacco smoking status NHIS Ex-smoker (finding) [facility] Start: 1955 Sex Assigned At Female F [facility] Medical Equipment Procedure Code Equipment Code [...] symptoms. Any developing patterns. Stay well hydrated. Message Bus Other 11-09-2023 Evaluation note* Encounter Date Diagnosis Assessment Notes Treatment Notes Treatment Clinical Notes Jan, Type 2 diabetes mellitus with hyperglycemia, without long-term current use of insulin (ICD-10 - E11.65) Message Bus Other 10-31-2023 Evaluation note* Encounter Date Diagnosis [...] A1C7.0. Cholesterol well controlled. Continue present meds. Message Bus Other 10-24-2023 Evaluation note* Encounter Date Diagnosis Assessment Notes Treatment Notes Treatment Clinical Notes Dec, Essential (primary) hypertension (ICD-10 - I10) Refilled meds for chronic problems Dec, Type 2 diabetes mellitus with hyperglycemia, without long-term current use of insulin (ICD-10 - E11.65) Check labs today diabetic eye exam annually Dec, Coronary artery disease involving [place] coronary artery of [place] heart without angina pectoris (ICD-10 - I25.10) Pt agrees to referral to get established with a local occupational health professional. Dec, Anxiety (ICD-10 - F41.9) pt states her chronic problem is controlled w xanax tid and lexapro Dec, GERD without esophagitis (ICD-10 - K21.9) refilled med for chronic problem Dec, Screening mammogram for breast cancer (ICD-10 - Z12.31) Dec, Personal history of nicotine dependence (ICD-10 - Z87.891) [facility] Other Evaluation note* Diagnosis Onset Date Resolution Status Anxiety acute [id number] acute [facility] Work Phone: Evaluation note* Diagnosis Onset Date Resolution Status Anxiety acute Depression, major, single episode, severe acute Diabetic peripheral neuropathy acute Hammertoe of left foot acute Lumbar back pain with radicu lopathy affecting lower extremity acute Anxiety acute Depression, major, single episode, severe acute Expressive aphasia acute Hyponatremia acute Leukocytosis acute Lumbar back pain with radicu lopathy affecting lower extremity acute [facility] Work Phone: Evaluation note* Diagnosis Onset [...] with radicu lopathy affecting lower extremity acute [facility] Work Phone: Evaluation note* Diagnosis Onset Date Resolution Status [id number] acute Diabetic peripheral neuropathy acute Lumbar back pain with radicu lopathy affecting lower extremity acute [facility] Work Phone: Hiswmzh general Narrative - Reported* Type Description Date Medical History Hypertention Medical History Diabetes Medical History Neuropathy Medical History Heart Attack Surgical History Hysterectomy Surgical History Back surgery Surgical History Right CTR Surgical History Bilateral shoulder surgery Surgical History Heart Stents X2 Surgical History Left TKR Message Bus Other Hisjrdj general Narrative - Reported* Type Description Date Medical History Hypertention Medical History Diabetes Medical History Neuropathy Medical History Heart Attack Medical History GERD Surgical History Hysterectomy Surgical History Back surgery Surgical History Right CTR Surgical History Bilateral shoulder surgery Surgical History Heart Stents X2 Surgical History Left TKR Message Bus Other Reason for Referral Reason *Waiting for appt Get established, has stents, moved from [place]. Had [place] in 2015 Diagnosis 1 Coronary artery dise ase involving [place] coronary artery of [place] heart without angina pectoris (I25.10) Referral Organization [facility] Darrin winston Referring Provider First Name Vanessa Referring Provider Last Name Nicolasa Referring Provider Specialty Family [facility] Referred Organization [facility] Cardiology Referred Provider Christal Pacheco Referred Address [address] [place] [address],[place] [address],[place], [id number] Referred Provider Specialty Cardiovascul ar Disease Referral Priority Routine General Notes Radha Baker 02:31:53 PM >received today, sent P2P. pt may need to fill out a records release form to have old records sent to Chief Complaint and Reason for Visit Chief Complaint weightloss 3 MONTH CHECK UP Reason for Visit Anxiety [id number] Chief Complaint foot exams for shoes [facility] follow up 3 month follow up Reason for Visit Anxiety Depression, major, single episode, severe Diabetic peripheral neuropathy Hammertoe of left foot Lumbar back pain with radiculopathy affecting lower extremity Anxiety Depression, major, single episode, severe Expressive aphasia Hyponatremia Leukocytosis Lumbar back pain with radiculopathy affecting lower extremity Chief Complaint [facility] follow up 3 month follow [...] meds 3 month f/u Reason for Visit [id number] Diabetic peripheral neuropathy Lumbar back pain with [...] ized section and content) DATE CREATED AUTHOR 04/28/2024 [facility] DATE CREATED AUTHOR 'S RENETTAIZ ATION 05/02/2024 [facility] FOR RECORDS PERTAINING TO PATIENTS [...] BE BASED ON THE PRIMARY CLINICAL RECORDS. [facility] [employer] [facility]. provides no warranty or guarantee of the accuracy or completeness of information in this document.
--- NOTE | 2024-05-02 10:34 | P.CN_ITS ---
Consult Note: HPI Data of Consult Patient: known to practice within the last 3 years Requesting Physician: Lucy Mccallum NP Primary Care Provider: Vanessa Baldwin MD Family Provider: Shai Abdalla, DO Consult Narrative Reason for consult: low back pain Narrative: 68yof who presents for evaluation. longstanding low back pain, had lumbar fusion 16 years ago in [place]. has completed PT and engages in series of provider directed home exercises >6 weeks, without benefit. utilizes pregabalin, xanax, motrin, lodine, zanaflex. denies adverse med side effects. Patient reports pain 6/10 increasing to 6/10 with standing and activity, pain most significant in low back. recently underwent bilateral L5/S1 TFESI with 50% improvement for 3 days, pain has since returned to baseline. cc:: CC: Lucy Mccallum NP Review of Systems ROS Status of ROS 10 or more systems reviewed and unremark able except as noted in history and below Musculoskeletal Reports: back pain and extremity pain PFSH PFSH Medical History Low back pain ?M54.50 - Low back pain, unspecified (ICD-10) Osteoarthritis ?M19.90 - Unspecified osteoarthritis, unspecified site (ICD-10) Heartburn ?R12 - Heartburn (ICD-10) Acid reflux ?K21.9 - Gastro-esophageal reflux disease without esophagitis (ICD-10) Diabetes ?E11.9 - Type 2 diabetes mellitus without complications (ICD-10) Past heart attack ?I25.2 - Old myocardial infarction (ICD-10) Hypertension ?I10 - Essential (primary) hypertension (ICD-10) High cholesterol ?E78.00 - Pure hypercholesterolemia, unspecified (ICD-10) Surgical History History of total knee replacement ?Z96.659 - Presence of unspecified artificial knee joint (ICD-10) H/O shoulder surgery ?Z98.890 - Other specified postprocedural states (ICD-10) History of lumbar surgery ?Z98.890 - Other specified postprocedural states (ICD-10) History of hysterectomy ?Z90.710 - Acquired absence of both cervix and uterus (ICD-10) Social History Little interest or pleasure in doing things: not at all Feeling down, depressed, or hopeless: not at all Meds Home Medications and Allergies Home Medications ?Medication ?Instructions ?Recorded ?Confirmed ?Type alprazolam 0.25 mg tablet (Xanax) 0.25 mg PO TID 07/24/23 04/22/24 History aripiprazole 2 mg tablet (Abilify) 2 mg PO DAILY 07/24/23 04/22/24 History aspirin 325 mg capsule 325 mg PO DAILY 07/24/23 04/22/24 History atorvastatin 20 mg tablet 20 mg PO DAILY 07/24/23 04/22/24 History carvedilol 3.125 mg tablet 3.125 mg PO BID 07/24/23 04/22/24 History escitalopram oxalate 20 mg tablet 20 mg PO BID 07/24/23 04/22/24 History (Lexapro) etodolac 400 mg tablet (Lodine) 400 mg PO Q12H PRN pain 07/24/23 04/22/24 History lisinopril 10 mg tablet 10 mg PO DAILY 07/24/23 04/22/24 History metformin 500 mg tablet 500 mg PO TID 07/24/23 04/22/24 History pantoprazole 40 mg granules 40 mg PO DAILY 07/24/23 04/22/24 History delayed-release for susp in packet (Protonix) potassium 20 mg chewable tablet 20 mg PO .QD 07/24/23 04/22/24 History spironolactone 25 mg tablet 25 mg PO DAILY 07/24/23 04/22/24 History acetaminophen 650 mg 650 mg PO Q8H PRN fever or pain 01/21/24 04/22/24 Rx tablet,extended release (Tylenol 8 #20 tabs Hour) albuterol sulfate 90 mcg/actuation 2 inh inhalation Q4H PRN shortness 02/03/24 04/22/24 Rx aerosol inhaler of breath or wheezing #8.5 grams baclofen 10 mg tablet 10 mg PO Q8H 04/16/24 04/16/24 History Allergies Allergy/AdvReac Type Severity Reaction Status Date / Time codeine Allergy Mild Unknown Verified 04/22/24 07:56 morphine Allergy Mild Unknown Verified 04/22/24 07:56 nalbuphine (From Nubain) AdvReac Mild Unknown Verified 04/22/24 07:56 Exam Constitutional Documenting provider has reviewed patient's vital signs: yes Common normals: no apparent distress, oriented x3, healthy appearing, alert and well nourished General appearance: cooperative HENMT Common normals: normocephalic, hearing grossly normal bilaterally and moist oral mucous membranes Head and scalp: normocephalic Eye Common normals: PERRL Pupil: PERRL Neck & C-Spine Common normals: full ROM General: normal visual inspection Chest Common normals: inspection of chest normal Respiratory Common normals: normal respiratory effort, no retractions and no use of accessory muscles Back & Pelvis Thoracic spine/upper back: pain with ROM Lumbar spine/lower back: ROM limited, straight leg raise positive right and straight leg raise positive left; no pain with ROM Sacroiliac joints: SI joints normal Other: bilateral SIJ negative dandy(patricks), gaenslens, thigh thrust, compression test altered sensation bilateral l5/S1 strength 4/5 in BLE Extremity Common normals: normal to inspection and full ROM Neuro Common normals: oriented x3, CN's II-XII intact bilaterally, moves all extremities, no focal motor deficits, no sensory deficits noted and deep tendon reflexes 2+ bilaterally Sensorium/orientation: alert Gait (neuro): antalgic Motor exam: no movement abnormalities noted and strength abnormal Psych Common normals: mental status grossly normal, thought process normal, cooperative, affect normal, speech normal and activity/motor behavior normal Speech: normal speech Thought process: normal thought process Results Additional Findings Additional findings: If on a controlled substance or opioids, I have checked an [place]AR[place] report on this patient and there are no aberrancies noted in the prescribing history.??If on a controlled substance or opioid a drug screen was completed and reviewed within the last year, and if there has not been a drug screen completed we ordered one today to monitor higher risk, state monitored pain medication use. As part of providing excellent, safe, comprehensive care, the following was completed at our patient's visit: 1. A medication reconciliation and review to ensure accurate knowledge of current/active medications, including asking our patients to inform us about any vsrd-tzt-ajovdry medications or herbal remedies/nutritional supplements/alternative remedies. 2. A review to specifically ensure our patients have had annual screening for screening for depression, screening for tobacco use, and screening for unhealthy alcohol use. For concerning screenings had a discussion with the patient, provided patient education, and recommended follow-up with primary care provider when appropriate. If patient noted with a risk of falling, they received education on strength, gait, and balance training to prevent future risk of falling. Assessment and Plan Assessment and Plan (1) Failed back syndrome: (2) Sacroiliitis: (3) Lumbar stenosis with neurogenic claudication: (4) Lumbar postlaminectomy syndrome: (5) S/P lumbar fusion: (6) Lumbar spondylosis: (7) Myalgia: Plan spinal cord stimulation trial for failed back syndrome discussed, pt would like to think about further. as discussed she would need to have a psychiatric consultation prior to stim trial/implant as well as PAT. no recent NS consultat ion as pt is not interested in additional back surgery. continues to have moderate to severe back and BLE pain despite conservative medications, heat/ice, >6 weeks of provider guided HEP, back surgery, lumbar RFAs, SIJ injections and lumbar TFESIs. JAEL 56% with moderate to severe pain with ADLs, standing, walking, travel, sleep. continue current medications, finds benefit without side effects. pt to call and let us know if she would like to proceed with the 2 lead [employer] spinal cord stimulator trial under fluoroscopy with MAC sedation.
== END 2024-05-02 10:07 | disposition home or self-care (01) ==
LOC: PM 10:07
PROVIDERS: Family Provider Internal Medicine; PCP Family Medicine; Visit Provider Nurse Practitioner
DX: M96.1 Postlaminectomy syndrome, not elsewhere classified (principal); M46.1 Sacroiliitis, not elsewhere classified; M48.062 Spinal stenosis, lumbar region with neurogenic claudication; M43.26 Fusion of spine, lumbar region; M47.816 Spondylosis without myelopathy or radiculopathy, lumbar region; M79.18 Myalgia, other site
CPT/HCPCS: G0463

== ENCOUNTER 2024-10-21 08:28 | Outpatient (OUT) | payer MEDICARE, SELFPAY ==
--- OUTSIDE RECORDS SUMMARY | 2023-08-07 07:40 | XMS_ITS ---
Author Organization The [facility] in [place] Address [address] [place] [address] Care Team Providers Care Store Host Name Role Phone Vanessa Baldwin Primary Care Provider Arnel Jolly [phone] Allergies Allergen (clinical drug ingredient) Drug/Non Drug Allergy documented on EMR Reaction Allergy Type Onset Date Status Nubain Unknown Drug Allergy Active codeine Codeine Unknown Drug Allergy Active morphine Morphine Unknown Drug Allergy Active Medications Medication SIG (Take, Route, Frequency, Duration) Notes Start Date End Date Status Tirzepatide 2.5 MG/0.5ML as directed Subcutaneous Active ARIPiprazole 2 MG 1 tablet Orally Once a day Active Spironolactone 25 MG 1 tablet Orally Active ALPRAZolam 0.5 MG 1 tablet Orally Twic e a day Active tiZANidine HCl 4 MG 1 tablet at bedtime as needed Orally Once a day Active Gabapentin 800 MG 1 tablet Orally Once a day Active Escitalopram Oxalate 20 MG 1 tablet Oral ly Once a day Active Atorvastatin Calcium 20 MG 1 tablet Oral ly Once a day Active Aspirin 81 MG 1 tablet Orally Once a day Active Carvedilol 3.125 MG 1 tablet with food O rally Twice a day Active metFORMIN HCl 500 MG 1 tablet with a janes l Orally Once a day Active Lisinopril 10 MG 1 tablet Orally Once a day Active Potassium Chloride 20 MEQ/100ML as directed Intravenous Acti ve Pantoprazole Sodium 40 MG 1 tablet Orall y Once a day Active Social History Tobacco Use: Social History Observation Description Date Details (start date - stop date) Former Smoker NA - NA Tobacco Control (Standard) Question Answer Notes Tobacco use: Former smoker How long has it been since you last smoked? 5-10 years Problems Problem Type SNOMED Code ICD Code Onset Dates Problem Status W/U Status Risk Notes Problem Heart attack (63347193) Heart attack (I21.3) Active confirmed Problem Type II diabetes mellitus without complication (673673654) Diabetes (E11.9) Active confirmed Encounters Encounter Location Date Provider Diagnosis [facility] (PODIATRY) [address] [place] [address] [place] [address] 08/07/2023 [facility] Plan Of Treatment No Information Progress Notes * Lizet VALVERDEOB:11/23/1958 (64 yo F)Acc No.[id number]:08/07/2023 Patient: Shireen MC :11/23/1958 A ge:64 Y S ex:Female Address:[address] [place] [address], [id number] Subjective: * Chief Complaints: * * Medical History: * Surgical History: t otal knee arthroplasty hysterectomy heart artery stent shoulder surgery back surgery * Hospitalization/Major Diagno stic Procedure: * Family History: F ather: , stroke, diagnosed with Hypertension, Heart Disease, Diabetes. M other: , mental illness, diagnosed with Diabetes, Hypertension. S on(s): diagnosed with Hypertension. * Social History: T obacco Use: T obacco Control (Standard) T obacco use: F ormer smoker H ow long has it been since you last smoked??5-10 years * Medications: T akingALPRAZolam 0.5 MG Tablet 1 tablet Orally Twice a day ARIPiprazole 2 MG Tablet 1 tablet Orally Once a day Aspirin 81 MG Tablet Chewable 1 tablet Orally Once a day Atorvastatin Calcium 20 MG Tablet 1 tablet Orally Once a day Carvedilol 3.125 MG Tablet 1 tablet with food Orally Twice a day Escitalopram Oxalate 20 MG Tablet 1 tablet Orally Once a day Gabapentin 800 MG Tablet 1 tablet Orally Once a day Lisinopril 10 MG Tablet 1 tablet Orally Once a day metFORMIN HCl 500 MG Tablet 1 tablet with a meal Orally Once a day Pantoprazole Sodium 40 MG Tablet Delayed Release 1 tablet Orally Once a day Potassium Chloride 20 MEQ/100ML Solution as directed Intravenous Spironolactone 25 MG Tablet 1 tablet Orally Tirzepatide 2.5 MG/0.5ML Solution Pen-injector as directed Subcutaneous tiZANidine HCl 4 MG Tablet 1 tablet at bedtime as needed Orally Once a day Taking ALPRAZolam 0.5 MG Tablet 1 tablet Orally Twice a day Taking ARIPiprazole 2 MG Tablet 1 tablet Orally Once a day Taking Aspirin 81 MG Tablet Chewable 1 tablet Orally Once a day Taking Atorvastatin Calcium 20 MG Tablet 1 tablet Orally Once a day Taking Carvedilol 3.125 MG Tablet 1 tablet with food Orally Twice a day Taking Escitalopram Oxalate 20 MG Tablet 1 tablet Orally Once a day Taking Gabapentin 800 MG Tablet 1 tablet Orally Once a day Taking Lisinopril 10 MG Tablet 1 tablet Orally Once a day Taking metFORMIN HCl 500 MG Tablet 1 tablet with a meal Orally Once a day Taking Pantoprazole Sodium 40 MG Tablet Delayed Release 1 tablet Orally Once a day Taking Potassium Chloride 20 MEQ/100ML Solution as directed Intravenous Taking Spironolactone 25 MG Tablet 1 tablet Orally Taking Tirzepatide 2.5 MG/0.5ML Solution Pen-injector as directed Subcutaneous Taking tiZANidine HCl 4 MG Tablet 1 tablet at bedtime as needed Orally Once a day * Allergies: C odeine: AllergyMorphine: AllergyNubain: Allergy Objective: * Vitals: * Physical Examination: Assessment: Plan: * Treatment: * Procedure Codes: * true * Date: Generated for Alannah el/Yanna/Angie on: 0 10/21/2024 08:31 AM EDT
--- OUTSIDE RECORDS SUMMARY | 2023-08-16 10:15 | XMS_ITS ---
Author Organization [facility] in [place] Address [address] [place] [address] Care Team Providers Care Project Management Consultant Name Role Phone Vanessa Stewart Primary Care Provider Arnel Jolly Unavailable [phone] Allergies Allergen (clinical drug ingredient) Drug/Non Drug Allergy documented on EMR Reaction Allergy Type Onset Date Status Nubain Unknown Drug Allergy Active codeine Codeine Unknown Drug Allergy Active morphine Morphine Unknown Drug Allergy Active Results Component Value Reference Range Notes XR Foot RT (3 views) * Reviewed date:09/05/2023 12:41:20 PM Interpretation: Performing Lab: Notes/Report: XR Foot LT (3 views) * Reviewed date:09/07/2023 10:16:09 AM Interpretation: Performing Lab: Notes/Report: Reason For Referral Reason diabetic shoes and c ustom inserts Diagnosis 1 Other hammer toe(s) (acquired), left foot (M20.42) Diagnosis 2 Diabetes (E11.9) Diagnosis 3 Type 2 diabetes evans itus with diabetic polyneuropathy (E11.42) Diagnosis 4 Foot pain, left (M79 .672) Diagnosis 5 Pain in right foot ( M79.671) Referral Organization [facility] (PODIAT[facility]) Referring Provider First Name Arnel Referring Provider Last Name Tamra Referring Provider Speciality Podiatry Referred Provider Hafsa Jaimes Referred Provider Specialty Podiatry Referral Priority Routine REASON FOR VISIT REF stewart hammer toe Medications Medication SIG (Take, Route, Frequency, Duration) Notes Start Date End Date Status Carvedilol 3.125 MG 1 tablet with food O rally Twice a day Active Atorvastatin Calcium 20 MG 1 tablet Oral ly Once a day Active ARIPiprazole 2 MG 1 tablet Orally Once a day Active Aspirin 81 MG 1 tablet Orally Once a day Active Pantoprazole Sodium 40 MG 1 tablet Orall y Once a day Active tiZANidine HCl 4 MG 1 tablet at bedtime as needed Orally Once a day Active Tirzepatide 2.5 MG/0.5ML as directed Subcutaneous Active Potassium Chloride 20 MEQ/100ML as directed Intravenous Acti ve Spironolactone 25 MG 1 tablet Orally Active metFORMIN HCl 500 MG 1 tablet with a janes l Orally Once a day Active Gabapentin 800 MG 1 tablet Orally Once a day Active Lisinopril 10 MG 1 tablet Orally Once a day Active Escitalopram Oxalate 20 MG 1 tablet Oral ly Once a day Active Social History Tobacco Use: Social History Observation Description Date Details (start date - stop date) Former Smoker NA - NA Tobacco Control (Standard) Question Answer Notes Tobacco use: Former smoker How long has it been since you last smoked? 5-10 years Problems Problem Type SNOMED Code ICD Code Onset Dates Problem Status W/U Status Risk Notes Problem 54677147 Type 2 diabetes mellitus with diabetic polyneuropathy (E11.42) Active confirmed Problem 613713221 Other hammer toe (s) (acquired), right foot (M20.41) Active confirmed Problem 070503525 Other hammer toe (s) (acquired), left foot (M20.42) Active confirmed Vital Signs Weight 234 lbs 08/16/2023 Height 64 in 08/16/2023 Temperature 97.3 degrees Fahrenheit 08/16/19 24 BMI 40.16 kg/m2 08/16/2023 Oximetry 97 % 08/16/2023 Encounters Encounter Location Date Provider Diagnosis [facility] (PODIATRY) [address] [place] [address] [place] [address] 08/16/2023 Arnel Barboza Pain in right foot M79.671 ; Other hammer toe(s) (acquired), left foot M20.42 ; Foot pain, left M79.672 ; Other hammer toe(s) (acquired), right foot M20.41 and Type 2 diabetes mellitus with diabetic polyneuropathy E11.42 Assessments Encounter Date Diagnosis (ICD Code) Assessment Notes Treatment Notes Treatment Clinical Notes Section Notes 08/16/2023 Pain in right foot (ICD-10 - M79.671) Referral from [facility] 08/16/2023 Other hammer toe(s) (acquired), left foot (ICD-10 - M20.42) Patient examined and evaluated. All findings discussed with patient all questions answered to patient's satisfaction.Mercedes ent presents today for referral from Dr. Stewart for painful hammertoe of the bilateral second digit, left greater than right. Patient states that toes been contracted for a number years, however over the past year has noticed increased pain with ambulation and grew concerned when she began noticing the dorsal aspect of the bilateral second digit rubbing in her shoe gear as she has family members who have undergone amputations due to complications from diabetic foot infections. She is diabetic, states that she closely monitors her glucose however she is unable to recall her last A1c.Physical exam and xray findings discussed with her today.No signs of open ulcerations or acute infection.Discuss ed conservative management regarding the bilateral second digit hammertoe consisting of wide toe box and extra-depth shoes, silicone toe sleeve as well as crest pads were dispensed today. She had previously tried to obtain a diabetic shoes through the [employer] however was having difficulty with this and therefore a referral to Dr. Shin and Dr. Parnell was dispensed today for diabetic shoes.I discussed that if conservative measures fail and the toe contractures become increasingly painful and/or she begins developing ulcerations then may consider surgical intervention.She expressed understanding of all we discussed and is pleased with the care.To follow-up on as-needed basis, she may call with any questions or concerns. 08/16/2023 Foot pain, left (ICD-10 - M79.672) 08/16/2023 Other hammer toe(s) (acquired), right foot (ICD-10 - M20.41) 08/16/2023 Type 2 diabetes mellitus with diabetic polyneuropathy (ICD-10 - E11.42) Plan Of Treatment Treatment Notes Assessment Notes Pain in right foot Referral from [facility] Other hammer toe(s) (acquired), left jessica t Patient examined and evaluated. All findings discussed with patient all questions answered to patient's satisfaction.Patient presents today for referral from Dr. Stewart for painful hammertoe of the bilateral second digit, left greater than right. Patient states that toes been contracted for a number years, however over the past year has noticed increased pain with ambulation and grew concerned when she began noticing the dorsal aspect of the bilateral second digit rubbing in her shoe gear as she has family members who have undergone amputations due to complications from diabetic foot infections. She is diabetic, states that she closely monitors her glucose however she is unable to recall her last A1c.Physical exam and xray findings discussed with her today.No signs of open ulcerations or acute infection.Discussed conservative management regarding the bilateral second digit hammertoe consisting of wide toe box and extra-depth shoes, silicone toe sleeve as well as crest pads were dispensed today. She had previously tried to obtain a diabetic shoes through [facility] however was having difficulty with this and therefore a referral to Dr. Shin and Dr. Parnell was dispensed today for diabetic shoes.I discussed that if conservative measures fail and the toe contractures become increasingly painful and/or she begins developing ulcerations then may consider surgical intervention.She expressed understanding of all we discussed and is pleased with the care.To follow-up on as-needed basis, she may call with any questions or concerns. Referrals Referral Date Details 08/17/2023 08/17/2023, diabetic shoes and custom inserts, Hafsa Jaimes Progress Notes * Rory WEBERLelaOB:1955 (67 yo F)Acc No.[id number]:08/16/2023 New Patient Patient: Shireen MC Provider: Angeline Barboza DPM, MS :1955 A ge:67 Y S ex:Female Date:08/16/2023 Address:[address] [place], [place] [id number] Pcp:Vanessa Stewart Check In:02:08 PM ESTCheck O ut:02:43 PM EST Subjective: * Chief Complaints: * Luis stewart hammer toe * HPI: G eneral: Patient is being seen in office today for bilateral hammertoes. Patient is having pain with 2nd toes bilaterally. No open sores on feet. Patient has neuropathy and type 2 diabetes. She does states that her left foot bothers her more than the right. She did apply for diabetic shoes, but her insurance would not cover them throught the [employer] in [place]. She raters her pain 7/10 with activity. And 4/10 pain when not active. * ROS: G eneral/Constitutional: Chills d enies. F ever d enies. W eight gain?denies. W eight loss d enies. S kin: Skin Ulcers d enies. S kin lesion(s) d enies. ? C ardiovascular: Difficulty breathing on exertion d enies. L eg cramps?denies. E monse d enies. C hest pain d enies. R espiratory: Difficulty breathing d enies. D yspnea d enies.?Cough d enies. G astrointestinal: Diarrhea d enies. N ausea d enies. V omiting?denies. M usculoskeletal: Bone/Joint Symptoms d enies. C chcf Pain d enies.?Leg cramps d enies. N eurologic: Numbness d enies. T ingling d enies . G ait abnormality d enies. ? H ematology: Anemia D enies. E asy bruising d enies. ? A ll Other Systems: Review of Systems (ROS) S ee HPI for details,All others negative except those mentioned in HPI. * Active Problem List I21.3 Heart attack Modified On:08/07/2023/U Status:confirmed E11.9 Diabetes Modified On:08/07/2023/U Status:confirmed M79.672 Foot pain, left Modified On:08/16/2023/U Status:confirmed M20.42 Other hammer toe(s) (acquired), left foot Modified On:08/16/2023/U Status:confirmed M20.41 Other hammer toe(s) (acquired), right foot Modified On:08/16/2023/U Status:confirmed E11.42 Type 2 diabetes evans itus with diabetic polyneuropathy Modified On:08/16/2023/U Status:confirmed * Medical History: * Surgical History: t otal knee arthroplasty hysterectomy heart artery stent shoulder surgery back surgery * Hospitalization/Major Diagno stic Procedure: N o Hospitalization History. * Family History: F ather: , stroke, diagnosed with Diabetes, Hypertension, Heart Disease. M other: , mental illness, diagnosed with Diabetes, Hypertension. S on(s): diagnosed with Hypertension. * Social History: T obacco Use: T obacco Control (Standard) T obacco use: F ormer smoker H ow long has it been since you last smoked??5-10 years * Medications: T akingARIPiprazole 2 MG Tablet 1 tablet Orally Once [...] as needed Orally Once a day Taking ARIPiprazole 2 MG Tablet [...] bedtime as needed Orally Once a day DiscontinuedALPRAZolam 0.5 MG Tablet 1 tablet Orally Twice a day Medication List reviewed and reconciled with the patientDiscontinued ALPRAZolam 0.5 MG Tablet 1 tablet Orally Twice a day Medication List reviewed and reconciled with the patient * Allergies: C odeine: AllergyMorphine: AllergyNubain: Allergyno[Allergies Verified] Objective: * Vitals: W t:234lbs, Ht: 64 in, Temp:97.3F, BMI:40.16Index, Pain scale:71-10, Oxygen sat %:97%, Ht-cm: 162.56 cm, Wt-k.14 kg. * Examination: P odiatry Exam: MUSCULOSKELETAL: M uscle strength 5/5 for 4 pedal groups. Ankle subtalar range of motion supple without pain or crepitus. Overall rectus foot alignment. Semireducible hammertoe contracture of the bilateral second digit, left greater than right palpatory tenderness directly to the dorsal PIPJ. No other palpatory tenderness elicited upon exam. Compartment soft compressible, no pain with calf or thigh compression.. NEUROLOGICAL: L ight touch and gross sensation intact. Protective sensation slightly diminished. Negative Tinel's.. VASCULAR: D P and PT pulses strongly palpable. CFT intact. Skin temperature is warm and symmetric without focal increase. No erythema edema or ecchymosis..? DERMATOLOGY N o open lesions or signs of acute infection..? Diagnostic Testing X -ray: 3 views of the bilateral feet obtained reviewed in office today, demonstrates overall rectus foot type with no acute fracture dislocations. Joint spaces are relatively maintained throughout with mild dorsal osteophytes of bilateral midfoot. Sagittal plane contracture of the bilateral second digit is noted.. Assessment: * Assessment: 1. O ther hammer toe(s) (acquired), left foot - M20.42 (Primary) 2 . P ain in right foot - M79.671 3 . F oot pain, left - M79.672 4 . O ther hammer toe(s) (acquired), right foot - M20.41 5 . T ype 2 diabetes mellitus with diabetic polyneuropathy - E11.42 Plan: * Treatment: 2. P ain in right foot I maging: XR Foot RT (3 views) * Notes: Referral from [facility] Referral To:[facility] Reason:diabetic shoes and custom inserts 3. F oot pain, left I maging: XR Foot LT (3 views) * Referral To:[facility] Reason:diabetic shoes and custom inserts 4. T ype 2 diabetes mellitus with diabetic polyneuropathy Referral To:[facility] Reason:diabetic shoes and custom inserts 5. O thers Referral To:[facility] Reason:diabetic shoes and custom inserts * Procedure Codes: * Preventive Medicine: Screenings/Counseling: F ALL RISK SCREENING Fall Risk Assessment: N o falls in the past year B WI ACTION PLAN Above Normal BMI Follow-up D ietary management education, guidance, and counseling * * Sign off status: Completed Visit Status: C HK (Check Out) true * Provider: Angeline Barboza DPM, MS Date: 0 08/16/2023 Generated for Alannah el/Yanna/Harisitting on: 0 10/21/2024 08:31 AM EDT History and Physical Notes * HPI (History of Present Illness) Category Sub-Category Detail Notes Category Not es General Patient is [place] auguste seen in office today for bilateral hammertoes. Patient is having pain with 2nd toes bilaterally. No open sores on feet. Patient has neuropathy and type 2 diabetes. She does states that her left foot bothers her more than the right. She did apply for diabetic shoes, but her insurance would not cover them throught the [employer] in [place]. She raters her pain 7/10 with activity. And 4/10 pain when not active. Examination Category Sub-Category Detail Notes Category Not es Podiatry Exam MUSCULOSKELETAL: Muscle strength 5/5 for 4 pedal groups. Ankle subtalar range of motion supple without pain or crepitus. Overall rectus foot alignment. Semireducible hammertoe contracture of the bilateral second digit, left greater than right palpatory tenderness directly to the dorsal PIPJ. No other palpatory tenderness elicited upon exam. Compartment soft compressible, no pain with calf or thigh compression. NEUROLOGICAL: Light touch and leigh s sensation intact. Protective sensation slightly diminished. Negative Tinel's. VASCULAR: DP and PT pulses str ongly palpable. CFT intact. Skin temperature is warm and symmetric without focal increase. No erythema edema or ecchymosis. DERMATOLOGY No open lesions or s igns of acute infection. Diagnostic Testing X-ray: 3 views of th e bilateral feet obtained reviewed in office today, demonstrates overall rectus foot type with no acute fracture dislocations. Joint spaces are relatively maintained throughout with mild dorsal osteophytes of bilateral midfoot. Sagittal plane contracture of the bilateral second digit is noted. Consultation Request Notes Referral Date Referring Provider Referred Provider Not es 08/17/2023 Arnel Barboza, Hafsa dow shoes and custom inserts
--- OUTSIDE RECORDS SUMMARY | 2024-10-21 08:32 | XMS_ITS | Patient Health Record ---
Author Organization [facility] in [place] Address [address] [place] [address] Care Team Providers Care Director It Project Name Role Phone Vanessa Baldwin Primary Care Provider Unavailabl e Allergies Allergen (clinical drug ingredient) Drug/Non Drug Allergy documented on EMR Reaction Allergy Type Onset Date Status Nubain Unknown Drug Allergy Active codeine Codeine Unknown Drug Allergy Active morphine Morphine Unknown Drug Allergy Active Reason For Referral No Information Medications Medication SIG (Take, Route, Frequency, Duration) Notes Start Date End Date Status metFORMIN HCl 500 MG 1 tablet with a janes l Orally Once a day Active Pantoprazole Sodium 40 MG 1 tablet Orall y Once a day Active Gabapentin 800 MG 1 tablet Orally Once a day Active Lisinopril 10 MG 1 tablet Orally Once a day Active Carvedilol 3.125 MG 1 tablet with food O rally Twice a day Active Escitalopram Oxalate 20 MG 1 tablet Oral ly Once a day Active tiZANidine HCl 4 MG 1 tablet at bedtime as needed Orally Once a day Active Atorvastatin Calcium 20 MG 1 tablet Oral ly Once a day Active ARIPiprazole 2 MG 1 tablet Orally Once a day Active Tirzepatide 2.5 MG/0.5ML as directed Subcutaneous Active Aspirin 81 MG 1 tablet Orally Once a day Active Potassium Chloride 20 MEQ/100ML as directed Intravenous Acti ve Spironolactone 25 MG 1 tablet Orally Active Social History Tobacco Use: Social History Observation Description Date Details (start date - stop date) Former Smoker NA - NA Tobacco Control (Standard) Question Answer Notes Tobacco use: Former smoker How long has it been since you last smoked? 5-10 years Problems Problem Type SNOMED Code ICD Code Onset Dates Problem Status W/U Status Risk Notes Problem [id number] Type 2 diabetes mellitus with diabetic polyneuropathy (E11.42) Active confirmed Problem 746082431 Other hammer toe(s) (acquired), right foot (M20.41) Active confirmed Problem [id number] Other hammer toe(s) (acquired), left foot (M20.42) Active confirmed Problem Pain in limb (77519063) Foot pain, left (M79.672) Active confirmed Problem Heart attack (41832595) Heart attack (I21.3) Active confirmed Problem Diabetes (E11.9) Active confirmed Plan Of Treatment No Information Insurance Providers Payer Name Payer Address Payer Phone Subscriber Number Group Number Insured Name Patient Relationship to Insured Coverage Start Date Coverage End Date [employer] ADV PLAN [address] [address] [place] [address] [id number] Shireen Valverde Self - patient is the insured Medical (General) History Medical History History ICD Code Heart attack I21.3 Diabetes E11.9 Essential (primary) hypertension I10 Surgical History Surgery Date(Month/Year) hysterectomy heart artery stent shoulder surgery back surgery total knee arthroplasty
[2024-10-21 08:46] LABS: Hematocrit 38.0 % (36.0-48.0); Hemoglobin 12.7 g/dL (12.0-16.0); Immature Granulocytes Abs Auto 0.03 10^3/uL (0.00-0.03); Immature Granulocytes Pct Auto 0.3 % (0.0-0.5); Lymphocytes Absolute Auto 2.7 10^3/uL (1.2-3.8); Mean Corpuscular HGB Conc 33.4 g/dL (29.9-35.2); Mean Corpuscular Hemoglobin 29.3 pg (26.7-34.0); Mean Corpuscular Volume 87.8 fL (81.0-99.0); Platelet Count 243 10^3/uL (150-450); Red Blood Count 4.33 10^6/uL (4.20-5.40); White Blood Count 11.6 10^3/uL (4.0-11.0)
--- OUTSIDE RECORDS SUMMARY | 2024-10-21 08:52 | XMS_ITS | CCD ---
Author Organization [facility] Care Team Providers Care Candy Separator Enrobing Name Role Phone Vanessa Baldwin Unavailable MD Vanessa Baldwin Primary Care Provider MD Richard Baker Attending Provider Helena GUERRA, Andrius Vytautezekiel Attending Unavailable Giivon GUERRA, Andrius Vytautezekiel Attending Unavailable Giedraitis , Andrius Vytautezekiel Attending Unavailable Giedraitis , Andrius Vytautezekiel Attending Unavailable Helena GUERRA, Andrius Vytautezekiel Attending Unavailable Helena GUERRA, Andrius Vytautezekiel Attending Unavailable Vanessa Baldwin MD Primary Care Provider Richard Baker MD Attending Provider Richard Baker Attending Unavailab Richard Head Admitting Unavailab Vanessa Burleson Primary Care Unavailable Vanessa Baldwin MD Primary Care Provider Richard Baker MD Attending Provider Vanessa Baldwin MD Attending Provider Allergies Allergy Classification Reported Allergen(s) Allergy Type Date of Onset Reaction(s) Facility (16 sources) Codeine Drug Allergy 4 [facility] (16 sources) Morphine Drug Allergy 4 [facility] (9 sources) [facility] Other (8 sources) Nalbuphine; Translations: [nalbuphine] Drug Allergy 4 [facility] (1 source) Codeine Drug Allergy 5 [facility] Repository (1 source) Morphine Drug Allergy 5 [facility] Repository Medications Current Medications Medication Drug [...] 0.5mg Subcutaneous weekly for 90 days Active albuterol 0.83 mg/ml inhalation solution (3 sources) beta2-Adrenergic Agonist Start: 05-31-2024 take 2.5 mg by inhalation four times daily as needed Albuterol Sulfate 2.5 mg /3 mL (0.083 %) solution for nebulization Active 2.5 MG INHALATION Four times daily as needed for bronchospasm May 31, 2024 1:00am Complies with drug therapy ALPRAZolam 0.5 mg oral tablet (20 sources) Benzodiazepine Start: 07-02-2024 take 1 tablet by mouth four times daily Alprazolam 0.5 mg tablet Active 0.5 MG PO Four times daily July 02, 2024 12:00am Complies with drug therapy Start: 07-28-2023 End: 07-02-2024 take 1 tablet by mouth three times daily as needed for anxiety Alprazolam 0.25 mg tablet Discontinued 0.25 MG PO Three times daily as needed for anxiety January 03, 2024 8:21am July 02, 2024 9:18am Start: 05-29-2023 End: 07-28-2023 take 1 tablet by mouth three times daily Alprazolam 0.5 mg tablet Discontinued 0.5 MG PO Three times daily May 30, 2023 2:25pm June 30, 2023 1:07pm Start: 03-06-2023 take 1 tablet by mela every eight hours ALPRAZolam 0.5 MG 1 tablet three times a day 11 Dec, 2023 Active Start: 02-02-2023 take 1 tablet by mela th every eight hours ALPRAZolam 0.5 MG 1 tablet three times a day for 30 days Jan, Active take 1 tablet by mela th every eight hours ALPRAZolam 0.5 MG 1 tablet three times a day Active aspirin 81 mg delayed release oral tablet (20 sources) Platelet Aggregation Inhibitor, Nonsteroidal Anti-inflammatory Drug Start: 02-21-2024 End: 10-08-2024 take 1 tablet by mouth once daily Aspirin 81 mg tablet,delayed release (DR/EC) Active 0 .ROUTE .COMPLEX October 08, 2024 9:01am TAKE 1 TABLET BY MOUTH EVERY DAY Complies with drug therapy Start: 05-29-2023 End: 02-21-2024 take 1 tablet by mouth once daily Aspirin (Adult Aspirin Regimen) 81 mg tablet,delayed release (DR/EC) Discontinued 81 MG PO Daily January 03, 2024 8:21am February 21, 2024 2:22pm take 1 tablet by mela th every twenty-four hours Aspirin 81 81 MG 1 tablet once a day Active atorvastatin 20 mg oral tablet (20 sources) HMG-CoA Reductase Inhibitor Start: 02-21-2024 End: 07-24-2024 take 1 tablet by mouth once daily Atorvastatin 20 mg tablet Active 0 .ROUTE .COMPLEX July 24, 2024 8:30am TAKE 1 TABLET BY MOUTH EVERY DAY Complies with drug therapy Start: 05-29-2023 End: 02-21-2024 take 1 tablet by mouth once daily Atorvastatin 20 mg tablet Discontinued 20 MG PO Daily October 09, 2023 2:29pm January 03, 2024 8:24am Atorvastatin Salvador cium 20 MG 1 tablet every morning for 90 days Active carvedilol 3.125 mg oral tablet (20 sources) alpha-Adrenergic Willie, beta-Adrenergic Willie Start: 02-21-2024 End: 07-23-2024 take 1 tablet by mouth twice daily Carvedilol 3.125 mg tablet Active 0 .ROUTE .COMPLEX July 23, 2024 1:44pm TAKE 1 TABLET BY MOUTH TWICE A DAY Complies with drug therapy Start: 05-29-2023 End: 02-21-2024 take 1 tablet by mouth twice daily Carvedilol 3.125 mg tablet Discontinued 3.125 MG PO Twice daily October 09, 2023 2:29pm January 03, 2024 8:24am take 1 tablet by mela th every twelve hours Carvedilol 3.125 MG 1 tablet twice a day Active escitalopram 20 mg oral tablet (20 sources) Serotonin Reuptake Inhibitor Start: 08-10-2023 End: 01-03-2024 take 1 tablet by mouth once daily Escitalopram Oxalate 20 mg tablet Active 20 MG PO Daily January 03, 2024 8:22am Complies with drug therapy Start: 05-29-2023 End: 08-10-2023 take 1 tablet by mouth twice daily Escitalopram Oxalate 20 mg tablet Discontinued 20 MG PO Twice daily July 17, 2023 4:33pm August 10, 2023 2:10pm take 1 tablet by mela th every twelve hours Escitalopram Oxalate 20 MG 1 tablet twice a day for 90 days Active isopropyl alcohol 0.7 ml/ml medicated pad (6 sources) Start: 09-25-2023 Alcohol Swabs pads, medicated Active 1 PAD TOPICAL Twice daily September 25, 2023 12:00am Complies with drug therapy lisinopril 10 mg oral tablet (20 sources) Angiotensin Converting Enzyme Inhibitor Start: 02-21-2024 End: 07-24-2024 take 1 tablet by mouth once daily Lisinopril 10 mg tablet Active 0 .ROUTE .COMPLEX July 24, 2024 8:30am TAKE 1 TABLET BY MOUTH EVERY DAY Complies with drug therapy Start: 05-29-2023 End: 02-21-2024 take 1 tablet by mouth once daily Lisinopril 10 mg tablet Discontinued 10 MG PO Daily October 09, 2023 2:29pm January 03, 2024 8:24am take 1 tablet by mela th every twenty-four hours Lisinopril 10 MG 1 tablet once a day Active metFORMIN hydrochloride 500 mg oral tablet (20 sources) Biguanide Start: 02-21-2024 End: 07-29-2024 take 2 tablets by mouth once daily Metformin 500 mg tablet Active 0 .ROUTE .COMPLEX July 29, 2024 3:19pm TAKE 2 TABLETS BY MOUTH EVERY DAY Complies with drug therapy Start: 10-09-2023 End: 01-03-2024 take 2 tablets by mouth once daily Metformin Active 1000 MG PO Daily January 03, 2024 8:22am 2 tablets once a day Start: 05-29-2023 End: 02-21-2024 take 2 tablets by mouth once daily Metformin 500 mg tablet Discontinued 1000 MG PO Daily October 09, 2023 2:29pm January 03, 2024 8:24am 2 tablets once a day take 2 tablets by mo [facility] every twenty-four hours metFORMIN HCl 500 MG 2 tablets once a day Active ozempic (0.25 or 0.5 mg/dose) 2 mg/3ml solution pen-injector (5 sources) inject 0.5 mg by subcutaneous injection every week Ozempic (0.25 or 0.5 MG/DOSE) 2 MG/3ML 0.5mg Subcutaneous weekly Active pantoprazole 40 mg delayed release oral tablet (20 sources) Proton Pump Inhibitor Start: 02-21-20 End: 08-28-19 take 1 tablet by mouth once daily in the morning Pantoprazole 40 mg tablet,delayed release (DR/EC) Active 0 .ROUTE .COMPLEX August 27, 2024 1:33pm TAKE 1 TABLET BY MOUTH EVERY DAY IN THE MORNING Complies with drug therapy Start: 05-29-2023 End: 02-21-2024 take 1 tablet by mouth once daily in the morning Pantoprazole 40 mg tablet,delayed release (DR/EC) Discontinued 40 MG PO Every morning October 09, 2023 2:30pm January 03, 2024 8:24am Pantoprazole Sod ium 40 MG 1 tablet every morning for 90 days Active microencapsulated potassium chloride 20 meq extended release oral tablet (20 sources) Start: 01-01-2024 End: 07-29-2024 take 1 tablet by mouth once daily Potassium Chloride (Klor-Con M20) 20 mEq tablet,ER particles/crystals Active 0 .ROUTE .COMPLEX July 29, 2024 3:19pm TAKE 1 TABLET BY MOUTH EVERY DAY Complies with drug therapy Start: 05-29-2023 End: 01-01-2024 Potassium Chloride (Klor-Con M20) 20 mEq tablet,ER particles/crystals Discontinued 20 MEQ PO Daily October 09, 2023 2:30pm December 21, 2023 12:20pm [facility] Klor-Con M20 20 MEQ 1 tablet with food Orally Once a day for 90 days Active pregabalin 300 mg oral capsule (20 sources) Start: 07-02-2024 take 1 capsule by mouth twice daily Pregabalin 300 mg capsule Active 300 MG PO Twice daily July 02, 2024 12:00am Complies with drug therapy Start: 11-23-2023 End: 04-23-2024 take 1 capsule by mouth twice daily Pregabalin 225 mg capsule Discontinued 225 MG PO Twice daily 60 April 18, 2024 4:14pm April 23, 2024 2:40pm Start: 10-26-2023 End: 11-23-2023 take 1 capsule by mouth twice daily Pregabalin (Lyrica) 200 mg capsule Discontinued 200 MG PO Twice daily 60 October 26, 2023 12:00am November 23, 2023 8:39am spironolactone 25 mg oral tablet (20 sources) Aldosterone Antagonist Start: 02-21-2024 End: 07-30-2024 take 1 tablet by mouth once daily Spironolactone 25 mg tablet Active 0 .ROUTE .COMPLEX July 30, 2024 2:22pm TAKE 1 TABLET BY MOUTH EVERY DAY Complies with drug therapy Start: 05-29-2023 End: 02-21-2024 take 1 tablet by mouth once daily Spironolactone 25 mg tablet Discontinued 25 MG PO Daily October 09, 2023 2:30pm January 03, 2024 8:24am take 1 tablet by mela th every twenty-four hours Spironolactone 25 MG 1 tablet once a day Active tiZANidine 4 mg oral tablet (15 sources) Central alpha-2 Adrenergic Agonist Start: 05-29-2023 take 1 tablet by mouth three times daily Tizanidine 4 mg tablet Active 4 MG PO Three times daily May 29, 2023 1:00am Complies with drug therapy take 1 tablet by mouth every eig ht hours tiZANidine HCl 4 MG 1 tablet as needed Orally Three times a day for 10 days Active Completed/Discontinued Medications Medication Drug Class(es) Dates Sig (Normalized) Sig (Original) amoxicillin 875 mg / clavulanate 125 mg oral tablet (4 sources) Penicillin-class Antibacterial Start: 01-09-2024 End: 04-11-2024 take 1 tablet by mouth twice daily Amoxicillin-Pot Clavulanate 875-125 mg tablet Discontinued 1 TAB PO Twice daily January 09, 2024 12:00am April 11, 2024 9:34am ARIPiprazole 2 mg oral tablet (20 sources) Atypical Antipsychotic Start: 05-29-2023 End: 01-03-2024 take 1 tablet by mouth once daily Aripiprazole 2 mg tablet Discontinued 2 MG PO Daily July 17, 2023 4:32pm January 03, 2024 8:23am take 1 tablet by mela th every twenty-four hours ARIPiprazole 2 MG 1 tablet once a day Active cefdinir 300 mg oral capsule (3 sources) Cephalosporin Antibacterial Start: 05-31-2024 End: 07-02-2024 take 1 capsule by mouth twice daily Cefdinir 300 mg capsule Discontinued 300 MG PO Twice daily May 31, 2024 1:00am July 02, 2024 8:46am gabapentin 800 mg oral tablet (20 sources) Anti-epileptic Agent Start: 07-17-2023 End: 10-26-2023 take 1 tablet by mouth three times daily Gabapentin 800 mg tablet Discontinued 800 MG PO Three times daily October 09, 2023 2:29pm October 26, 2023 11:40am Start: 05-29-2023 End: 07-17-2023 take 1 tablet by mouth four times daily Gabapentin 800 mg tablet Discontinued 800 MG PO Four times daily May 29, 2023 1:00am July 17, 2023 4:34pm Gabapentin 800 M G 1tablet four times a day for 90 days Active methylPREDNISolone 4 mg oral tablet (6 sources) Corticosteroid Start: 05-31-2024 End: 07-02-2024 take 1 tablet by mouth once Methylprednisolone (Medrol (Kaiden)) 4 mg tablets,dose pack Discontinued 0 PO per package directions May 31, 2024 1:00am July 02, 2024 8:46am PO PER PKG DIR for 6 days Start: 04-10-2023 methylPREDNISo lone 4 MG as directed Orally for 6 days Mar, Active Potassium Chloride (Klor-Con M20) 20 mEq tablet,ER particles/crystals (3 sources) Start: 01-01-2024 End: 01-03-2024 take 1 tablet by mouth once daily Potassium Chloride (Klor-Con M20) 20 mEq tablet,ER particles/crystals Discontinued 0 .ROUTE .COMPLEX January 01, 2024 8:54am January 03, 2024 8:23am TAKE 1 TABLET BY MOUTH EVERY DAY Semaglutide (20 sources) Start: 01-10-2024 End: 04-11-2024 Semaglutide (Ozempic) 0.25 mg or 0.5 mg (2 mg/3 mL) pen injector Discontinued 0.25 MG SUBCUT every week 3 January 10, 2024 8:33am April 11, 2024 10:01am Start: 01-03-2024 End: 01-10-2024 Semaglutide (Ozempic) 0.25 m g or 0.5 mg (2 mg/3 mL) pen injector Discontinued 0.25 MG SUBCUT every week 4.784 January 03, 2024 8:22am January 10, 2024 8:33am Start: 01-03-2024 Semaglutide (O zempic) 0.25 mg [...] May 30, 2023 2:13pm 0.5mg Subcutaneous weekly Tirzepatide (19 sources) Start: 09-20-2023 End: 10-25-2023 Tirzepatide (Mounjaro) 2.5 m g/0.5 mL pen [...] Documented Da te Episodic/Chronic Acquired foot deformities (7 sources) Hammer toe; Translations: [Other hammer toe(s) (acquired), left foot] 07-28-2023 Chronic Anxiety disorders (20 sources) Anxiety; Translations: [Anxiety disorder, unspecified] Chronic Chronic obstructive pulmonary disease and bronchiectasis (3 sources) Bronchitis; Translations: [Bronchitis, not specified as acute or chronic] 05-31-2024 Episodic Coronary atherosclerosis and other heart disease (10 sources) Coronary arteriosclerosis; Translations: [Atherosclerotic heart disease of inupiat coronary artery without angina pectoris] Chronic Diabetes mellitus with complications (20 sources) Type 2 diabetes mellitus; Translations: [Type 2 diabetes mellitus with hyperglycemia] Chronic Diseases of white blood cells (8 sources) Leukocytosis; Translations: [Elevated white blood cell count, unspecified] 08-10-2023 Chronic Esophageal disorders (10 sources) Gastroesophageal reflux disease without esophagitis; Translations: [Gastro-esophageal reflux disease without esophagitis] Chronic Essential hypertension (20 sources) Essential hypertension; Translations: [Essential (primary) hypertension] Chronic Fluid and electrolyte disorders (8 sources) Hyponatremia; Translations: [Hypo-osmolality and hyponatremia] 08-10-2023 Episodic Mood disorders (10 sources) Severe major depression, single episode; Translations: [Major depressive disorder, single episode, severe without psychotic features] 07-28-2023 Chronic Other nervous system disorders (6 sources) Expressive dysphasia; Translations: [Aphasia] 08-10-2023 Chronic Other nervous system disorders (3 sources) Aphasia; Translations: [Aphasia] 08-10-2023 Chronic Other screening for suspected conditions (not mental disorders or infectious disease) (1 source) Encounter for screening mammogram for malignant neoplasm of breast Episodic Other upper respiratory infections (3 sources) Acute maxillary sinusitis; Translations: [Acute maxillary sinusitis, unspecified] 01-09-2024 Episodic Screening and history of mental health and substance abuse codes (1 source) Personal history of nicotine dependence Episodic Spondylosis; intervertebral disc disorders; other back problems (20 sources) Muscle spasm of back; Translations: [Spasm of muscle of lower back] Episodic Past or Other Problems Problem Classification Problem Date Documented Da te Episodic/Chronic Unclassified (1 source) Lumbar pain M54.50 Results Test Name Value Interpretation Reference Range Facility Influenza A virus antibody t iter by complement fixationon 05-31-2024 FLUAV Ab CF (S) [Titer] Influenza A virus antibody titer by complement fixation [facility] Influenza virus B Ab [Titer] in Serum by Complement fixationon 05-31-2024 FLUBV Ab CF (S) [Titer] Influenza virus B Ab [Titer] in Serum by Complement fixation [facility] Basophils Auto (Bld) [#/Vol] on 09-27-2023 Basophils (Bld) [#/Vol] 0.1 10 3/uL 0.0-0.1 [facility] Basophils/100 WBC Auto (Bld) on 09-27-2023 Basophils/100 WBC (Bld) 0.6 % 0.2-2.0 [facility] Eosinophils/100 WBC Auto (Bl d)on 09-27-2023 Eosinophils/100 WBC (Bld) 0.0 % Low 0.9-7.0 [facility] Erythrocyte distribution wid th Auto (RBC) [Ratio]on 09-27-2023 Erythrocyte distribution width (RBC) [Ratio] 12.9 % 11.0-15.0 [facility] Estimated glomerular filtrat ion rate (GFR) non- Americanon 09-27-2023 GFR/1.73 sq M.predicted among non-blacks MDRD (S/P/Bld) [Vol rate/Area] 54 mL/min/{1.73_m2} Low >=60 [facility] Hematocrit Auto (Bld) [Volum e fraction]on 09-27-2023 Hematocrit (Bld) [Volume fraction] 35.1 % Low 36.0-48.0 [facility] Hemoglobin [Mass/volume] in Bloodon 09-27-2023 Hemoglobin (Bld) [Mass/Vol] 11.8 g/dL Low 12.0-16.0 [facility] Laboratory - Chemistry and C hemistry - challengeon 09-27-2023 Calcium [Mass/Vol] 9.7 mg/dL 8.5-10.1 [facility] Chloride [Moles/Vol] 95 mmol/L Low 98-107 [facility] CO2 [Moles/Vol] 27.5 mmol/L 21.0-32.[address] [facility] Creatinine [Mass/Vol] 1.02 mg/dL 0.55-1.[address] [facility] GFR/1.73 sq M.predicted MDRD (S/P/Bld) [Vol rate/Area] mL/min/{1.73_m2} >=60 [facility] Glucose [Mass/Vol] 152 mg/dL High 74-106 [facility] Potassium [Moles/Vol] 4.4 mmol/L 3.5-5.[address] [facility] Sodium [Moles/Vol] 131 mmol/L Low 136-145 [facility] Urea nitrogen [Mass/Vol] 6.0 mg/dL Low 7.0-18.0 [facility] Urea nitrogen/Creatinine [Mass ratio] 5.9 mg/mg [facility] Laboratory - Hematology and Cell countson 09-27-2023 Immature granulocytes/100 WBC (Bld) 0.4 % 0.0-0.5 [facility] Leukocytes [#/volume] correc krysta for nucleated erythrocytes in Blood by Automated counon 09-27-2023 WBC corrected for nucl RBC Auto (Bld) [#/Vol] 12.5 10 3/uL High 4.0-11.0 [facility] Lymphocytes Auto (Bld) [#/Vo l]on 09-27-2023 Lymphocytes (Bld) [#/Vol] 3.1 10 3/uL 1.2-3.8 [facility] Lymphocytes/100 WBC Auto (Bl d)on 09-27-2023 Lymphocytes/100 WBC (Bld) 25.1 % 20.5-60.0 [facility] MCH Auto (RBC) [Entitic mass ]on 09-27-2023 MCH (RBC) [Entitic mass] 29.6 pg 26.7-34.0 [facility] MCHC Auto (RBC) [Mass/Vol]on 09-27-2023 MCHC (RBC) [Mass/Vol] 33.6 g/dL 29.9-35.[address] [facility] MCV Auto (RBC) [Entitic vol] on 09-27-2023 MCV (RBC) [Entitic vol] 88.0 fL 81.0-99.0 [facility] Monocytes Auto (Bld) [#/Vol] on 09-27-2023 Monocytes (Bld) [#/Vol] 0.9 10 3/uL High 0.3-0.8 [facility] Monocytes/100 WBC Auto (Bld) on 09-27-2023 Monocytes/100 WBC (Bld) 7.0 % 1.7-12.0 [facility] Neutrophils Auto (Bld) [#/Vo l]on 09-27-2023 Neutrophils (Bld) [#/Vol] 8.4 10 3/uL High 1.4-6.5 [facility] Neutrophils/100 WBC Auto (Bl d)on 09-27-2023 Neutrophils/100 WBC (Bld) 66.9 % 43.0-75.0 [facility] No Panel Informationon 09-26 Eosinophils # (Auto) 0.0 10 3/uL 0.0-0.[address] [facility] Immature Granulocyte # (Auto) 0.05 10 3/uL High 0.00-0.03 [facility] Platelet mean volume Auto (B ld) [Entitic vol]on 09-27-2023 Platelet mean volume (Bld) [Entitic vol] 10.6 fL 9.5-13.5 [facility] Platelets Auto (Bld) [#/Vol] on 09-27-2023 Platelets (Bld) [#/Vol] 302 10 3/uL 150-450 [facility] RBC Auto (Bld) [#/Vol]on RBC (Bld) [#/Vol] 3.99 10 6/uL Low 4.20-5.40 [facility] Serum or plasma anion gap de terminationon 09-27-2023 Anion gap [Moles/Vol] 12.9 mmol/L [facility] Basophils Auto (Bld) [#/Vol] on 08-08-2023 Basophils (Bld) [#/Vol] 0.1 10 3/uL 0.0-0.1 [facility] Basophils/100 WBC Auto (Bld) on 08-08-2023 Basophils/100 WBC (Bld) 0.4 % 0.2-2.0 [facility] Eosinophils/100 WBC Auto (Bl d)on 08-08-2023 Eosinophils/100 WBC (Bld) 0.3 % Low 0.9-7.0 [facility] Erythrocyte distribution wid th Auto (RBC) [Ratio]on 08-08-2023 Erythrocyte distribution width (RBC) [Ratio] 13.1 % 11.0-15.0 [facility] Estimated glomerular filtrat ion rate (GFR) non- Americanon 08-08-2023 GFR/1.73 sq M.predicted among non-blacks MDRD (S/P/Bld) [Vol rate/Area] 45 mL/min/{1.73_m2} Low >=60 [facility] Globulin Calc (S) [Mass/Vol] on 08-08-2023 Globulin (S) [Mass/Vol] 4.4 g/dL [facility] Hematocrit Auto (Bld) [Volum e fraction]on 08-08-2023 Hematocrit (Bld) [Volume fraction] 37.5 % 36.0-48.0 [facility] Hemoglobin [Mass/volume] in Bloodon 08-08-2023 Hemoglobin (Bld) [Mass/Vol] 12.6 g/dL 12.0-16.0 [facility] INR in Platelet poor plasma by Coagulation assayon 08-08-2023 INR Coag (PPP) [Relative time] 1.03 {INR} [facility] Comment on above: DESIRED INR:2.0-3.0 CONDITIONS NOT LISTED BELOW2.5-3.5 FOR PROSTHETIC HEART VALVE REPLACEMENT2.5-3.5 RECURRENT THROMBOSIS Laboratory - Chemistry and C hemistry - challengeon 08-08-2023 Albumin [Mass/Vol] 4.3 g/dL 3.4-5.0 [facility] ALP [Catalytic activity/Vol] 99 U/L 46-116 [facility] ALT [Catalytic activity/Vol] 21 U/L 14-59 [facility] AST [Catalytic activity/Vol] 25 U/L 15-37 [facility] Bilirubin [Mass/Vol] 0.6 mg/dL 0.2-1.0 [facility] Calcium [Mass/Vol] 9.8 mg/dL 8.5-10.1 [facility] Chloride [Moles/Vol] 89 mmol/L Low 98-107 [facility] CO2 [Moles/Vol] 21.5 mmol/L 21.0-32.[address] [facility] Creatinine [Mass/Vol] 1.19 mg/dL High 0.55-1.[address] [facility] GFR/1.73 sq M.predicted MDRD (S/P/Bld) [Vol rate/Area] 55 mL/min/{1.73_m2} Low >=60 [facility] Glucose [Mass/Vol] 110 mg/dL High 74-106 [facility] Potassium [Moles/Vol] 4.1 mmol/L 3.5-5.[address] [facility] Protein [Mass/Vol] 8.7 g/dL High 6.4-8.2 [facility] Sodium [Moles/Vol] 124 mmol/L Low 136-145 [facility] Comment on above: RESULTS CALLED TO MARTÍNEZ HAMPTON RN @BY Rosibel Joshi [id number] Urea nitrogen [Mass/Vol] 11.0 mg/dL 7.0-18.0 [facility] Urea nitrogen/Creatinine [Mass ratio] 9.2 mg/mg [facility] Laboratory - Hematology and Cell countson 08-08-2023 Immature granulocytes/100 WBC (Bld) 0.4 % 0.0-0.5 [facility] Leukocytes [#/volume] correc krysta for nucleated erythrocytes in Blood by Automated counon 08-08-2023 WBC corrected for nucl RBC Auto (Bld) [#/Vol] 15.9 10 3/uL High 4.0-11.0 [facility] Lymphocytes Auto (Bld) [#/Vo l]on 08-08-2023 Lymphocytes (Bld) [#/Vol] 4.6 10 3/uL High 1.2-3.8 [facility] Lymphocytes/100 WBC Auto (Bl d)on 08-08-2023 Lymphocytes/100 WBC (Bld) 28.9 % 20.5-60.0 [facility] MCH Auto (RBC) [Entitic mass ]on 08-08-2023 MCH (RBC) [Entitic mass] 29.4 pg 26.7-34.0 [facility] MCHC Auto (RBC) [Mass/Vol]on 08-08-2023 MCHC (RBC) [Mass/Vol] 33.6 g/dL 29.9-35.[address] [facility] MCV Auto (RBC) [Entitic vol] on 08-08-2023 MCV (RBC) [Entitic vol] 87.6 fL 81.0-99.0 [facility] Monocytes Auto (Bld) [#/Vol] on 08-08-2023 Monocytes (Bld) [#/Vol] 1.0 10 3/uL High 0.3-0.8 [facility] Monocytes/100 WBC Auto (Bld) on 08-08-2023 Monocytes/100 WBC (Bld) 6.0 % 1.7-12.0 [facility] Neutrophils Auto (Bld) [#/Vo l]on 08-08-2023 Neutrophils (Bld) [#/Vol] 10.2 10 3/uL High 1.4-6.5 [facility] Neutrophils/100 WBC Auto (Bl d)on 08-08-2023 Neutrophils/100 WBC (Bld) 64.0 % 43.0-75.0 [facility] No Panel Informationon 08-07 Eosinophils # (Auto) 0.0 10 3/uL 0.0-0.[address] [facility] Immature Granulocyte # (Auto) 0.06 10 3/uL High 0.00-0.03 [facility] Troponin I High Sensitivity 6.4 pg/mL 4.0-51.3 [facility] Comment on above: CUT-OFF POINTS [...] volume (Bld) [Entitic vol] 10.6 fL 9.5-13.5 [facility] Platelets Auto (Bld) [#/Vol] on 08-08-2023 Platelets (Bld) [#/Vol] 261 10 3/uL 150-450 [facility] Prothrombin time (PT)on 07-25 PT Coag (PPP) [Time] 10.9 s 9.0-11.6 [facility] RBC Auto (Bld) [#/Vol]on RBC (Bld) [#/Vol] 4.28 10 6/uL 4.20-5.40 [facility] Serum or plasma albumin/glob ulin mass ratioon 08-08-2023 Albumin/Globulin [Mass ratio] 1.0 {ratio} [facility] Serum or plasma anion gap de terminationon 08-08-2023 Anion gap [Moles/Vol] 17.6 mmol/L [facility] [facility] Auto (Bld) [#/Vol] on 05-30-2023 Basophils (Bld) [#/Vol] 0.1 10 3/uL 0.0-0.1 [facility] Basophils/100 WBC Auto (Bld) on 05-30-2023 Basophils/100 WBC (Bld) 0.8 % 0.2-2.0 [facility] Eosinophils/100 WBC Auto (Bl d)on 05-30-2023 Eosinophils/100 WBC (Bld) 0.0 % 0.9-7.0 [facility] Erythrocyte distribution wid th Auto (RBC) [Ratio]on 05-30-2023 Erythrocyte distribution width (RBC) [Ratio] 12.6 % 11.0-15.0 [facility] Glucose mean value [Mass/vol ume] in Blood Estimated from glycated hemoglobinon 05-30-2023 Average glucose Estimated from glycated hemoglobin (Bld) [Mass/Vol] 283 mg/dL [facility] Hematocrit Auto (Bld) [Volum e fraction]on 05-30-2023 Hematocrit (Bld) [Volume fraction] 36.6 % 36.0-48.0 [facility] Hemoglobin [Mass/volume] in Bloodon 05-30-2023 Hemoglobin (Bld) [Mass/Vol] 12.0 g/dL 12.0-16.0 [facility] Laboratory - Hematology and Cell countson 05-30-2023 HbA1c (Bld) [Mass fraction] 11.5 % 4.5-6.2 [facility] Comment on above: ADA RECOMMENDED LIMI T 4.0 - 6.0ADA THERAPEUTIC TARGET < 7.0ACTION SUGGESTED> 7.0 Immature granulocytes/100 WBC (Bld) 0.5 % 0.0-0.5 [facility] Leukocytes [#/volume] correc krysta for nucleated erythrocytes in Blood by Automated counon 05-30-2023 WBC corrected for nucl RBC Auto (Bld) [#/Vol] 14.3 10 3/uL 4.0-11.0 [facility] Lymphocytes Auto (Bld) [#/Vo l]on 05-30-2023 Lymphocytes (Bld) [#/Vol] 3.6 10 3/uL 1.2-3.8 [facility] Lymphocytes/100 WBC Auto (Bl d)on 05-30-2023 Lymphocytes/100 WBC (Bld) 25.1 % 20.5-60.0 [facility] MCH Auto (RBC) [Entitic mass ]on 05-30-2023 MCH (RBC) [Entitic mass] 29.7 pg 26.7-34.0 [facility] MCHC Auto (RBC) [Mass/Vol]on 05-30-2023 MCHC (RBC) [Mass/Vol] 32.8 g/dL 29.9-35.[address] [facility] MCV Auto (RBC) [Entitic vol] on 05-30-2023 MCV (RBC) [Entitic vol] 90.6 fL 81.0-99.0 [facility] Monocytes Auto (Bld) [#/Vol] on 05-30-2023 Monocytes (Bld) [#/Vol] 0.9 10 3/uL 0.3-0.8 [facility] Monocytes/100 WBC Auto (Bld) on 05-30-2023 Monocytes/100 WBC (Bld) 6.0 % 1.7-12.0 [facility] Neutrophils Auto (Bld) [#/Vo l]on 05-30-2023 Neutrophils (Bld) [#/Vol] 9.7 10 3/uL 1.4-6.5 [facility] Neutrophils/100 WBC Auto (Bl d)on 05-30-2023 Neutrophils/100 WBC (Bld) 67.6 % 43.0-75.0 [facility] No Panel Informationon 05-29 Eosinophils # (Auto) 0.0 10 3/uL 0.0-0.[address] [facility] Immature Granulocyte # (Auto) 0.07 10 3/uL 0.00-0.03 [facility] Platelet mean volume Auto (B ld) [Entitic vol]on 05-30-2023 Platelet mean volume (Bld) [Entitic vol] 10.9 fL 9.5-13.5 [facility] Platelets Auto (Bld) [#/Vol] on 05-30-2023 Platelets (Bld) [#/Vol] 242 10 3/uL 150-450 [facility] RBC Auto (Bld) [#/Vol]on RBC (Bld) [#/Vol] 4.04 10 6/uL 4.20-5.40 [facility] Vital Signs Date Time Vital Sign Value Performing Clinician Facility 10-08-2024 08:28-0400 Body height 162.56 cm Vanessa Baldwin MD Work Phone: [facility] 10-08-2024 08:28-0400 Body mass index (BMI) [Ratio] 42 kg/m2 Vanessa Baldwin MD Work Phone: [facility] 10-08-2024 08:28-0400 Body weight 111.13 kg Vanessa Baldwin MD Work Phone: [facility] 10-08-2024 08:28-0400 Diastolic blood pressure 66 mm[Hg] Vanessa Baldwin MD Work Phone: [facility] 10-08-2024 08:28-0400 Heart rate 68 /min Vanessa Baldwin MD Work Phone: [facility] 10-08-2024 08:28-0400 Respiratory rate 14 /min Vanessa Baldwin MD Work Phone: [facility] 10-08-2024 08:28-0400 SaO2% (BldA) [Mass fraction] 96 % Vanessa Baldwin MD Work Phone: [facility] 10-08-2024 08:28-0400 Systolic blood pressure 102 mm[Hg] Vanessa Baldwin MD Work Phone: [facility] 07-02-2024 08:42-0400 Body height 162.56 cm Vanessa Baldwin MD Work Phone: [facility] 07-02-2024 08:42-0400 Body mass index (BMI) [Ratio] 40.4 kg/m2 Vanessa Baldwin MD Work Phone: [facility] 07-02-2024 08:42-0400 Body weight 106.82 kg Vanessa Baldwin MD Work Phone: [facility] 07-02-2024 08:42-0400 Diastolic blood pressure 72 mm[Hg] Vanessa Baldwin MD Work Phone: [facility] 07-02-2024 08:42-0400 Heart rate 79 /min Vanessa Baldwin MD Work Phone: [facility] 07-02-2024 08:42-0400 Respiratory rate 12 /min Vanessa Baldwin MD Work Phone: [facility] 07-02-2024 08:42-0400 SaO2% (BldA) [Mass fraction] 96 % Vanessa Baldwin MD Work Phone: [facility] 07-02-2024 08:42-0400 Systolic blood pressure 112 mm[Hg] Vanessa Baldwin MD Work Phone: [facility] 05-31-2024 09:14-0500 Body height 162.56 cm Vanessa Baldwin MD Work Phone: [facility] 05-31-2024 09:14-0500 Body mass index (BMI) [Ratio] 41.1 kg/m2 Vanessa Baldwin MD Work Phone: [facility] 05-31-2024 09:14-0500 Body temperature 98.3 [degF] Vanessa Baldwin MD Work Phone: [facility] 05-31-2024 09:14-0500 Body weight 108.86 kg Vanessa Baldwin MD Work Phone: [facility] 05-31-2024 09:14-0500 Diastolic blood pressure 73 mm[Hg] Vanessa Baldwin MD Work Phone: [facility] 05-31-2024 09:14-0500 Heart rate 85 /min Vanessa Baldwin MD Work Phone: [facility] 05-31-2024 09:14-0500 SaO2% (BldA) [Mass fraction] 93 % Vanessa Baldwin MD Work Phone: [facility] 05-31-2024 09:14-0500 Systolic blood pressure 119 mm[Hg] Vanessa Baldwin MD Work Phone: [facility] 04-11-2024 08:36-0500 Body height 162.56 cm Vanessa Baldwin MD Work Phone: [facility] 04-11-2024 08:36-0500 Body mass index (BMI) [Ratio] 42.9 kg/m2 Vanessa Baldwin MD Work Phone: [facility] 04-11-2024 08:36-0500 Body weight 113.45 kg Vanessa Baldwin MD Work Phone: [facility] 04-11-2024 08:36-0500 Diastolic blood pressure 68 mm[Hg] Vanessa Baldwin MD Work Phone: [facility] 04-11-2024 08:36-0500 Heart rate 69 /min Vanessa Baldwin MD Work Phone: [facility] 04-11-2024 08:36-0500 SaO2% (BldA) [Mass fraction] 97 % Vanessa Baldwin MD Work Phone: [facility] 04-11-2024 08:36-0500 Systolic blood pressure 99 mm[Hg] Vanessa Baldwin MD Work Phone: [facility] 01-09-2024 09:07-0400 Body mass index (BMI) [Ratio] 43.4 kg/m2 MD Vanessa Baldwin Work Phone: [facility] 01-09-2024 09:07-0400 Body temperature 98.7 [degF] MD Vanessa Baldwin Work Phone: [facility] 01-09-2024 08:09-0400 Body height 162.56 cm MD Vanessa Baldwin Work Phone: [facility] 01-09-2024 08:09-0400 Body weight 114.81 kg MD Vanessa Baldwin Work Phone: [facility] 01-09-2024 08:09-0400 Diastolic blood pressure 62 mm[Hg] MD Vanessa Baldwin Work Phone: [facility] 01-09-2024 08:09-0400 Heart rate 71 /min MD Vanessa Baldwin Work Phone: [facility] 01-09-2024 08:09-0400 Respiratory rate 16 /min MD Vanessa Baldwin Work Phone: [facility] 01-09-2024 08:09-0400 SaO2% (BldA) [Mass fraction] 97 % MD Vanessa Baldwin Work Phone: [facility] 01-09-2024 08:09-0400 Systolic blood pressure 122 mm[Hg] MD Vanessa Baldwin Work Phone: [facility] 10-26-2023 11:10-0400 Body height 162.56 cm [facility] 10-26-2023 11:10-0400 Body mass index (BMI) [Ratio] 40.3 kg/m2 [facility] 10-26-2023 11:10-0400 Body weight 106.59 kg [facility] 10-26-2023 11:10-0400 Diastolic blood pressure 68 mm[Hg] [facility] 10-26-2023 11:10-0400 Heart rate 75 /min [facility] 10-26-2023 11:10-0400 Systolic blood pressure 102 mm[Hg] [facility] 10-09-2023 11:21-0400 Body height 162.56 cm [facility] 10-09-2023 11:21-0400 Body mass index (BMI) [Ratio] 40.6 kg/m2 [facility] 10-09-2023 11:21-0400 Body weight 107.5 kg [facility] 10-09-2023 11:21-0400 Diastolic blood pressure 68 mm[Hg] [facility] 10-09-2023 11:21-0400 Heart rate 69 /min [facility] 10-09-2023 11:21-0400 Systolic blood pressure 105 mm[Hg] [facility] 08-10-2023 13:38-0400 Body height 162.56 cm [facility] 08-10-2023 13:38-0400 Body mass index (BMI) [Ratio] 39.2 kg/m2 [facility] 08-10-2023 13:38-0400 Body weight 103.64 kg [facility] 08-10-2023 13:38-0400 Diastolic blood pressure 70 mm[Hg] [facility] 08-10-2023 13:38-0400 Heart rate 71 /min [facility] 08-10-2023 13:38-0400 Systolic blood pressure 106 mm[Hg] [facility] 07-27-2023 09:31-0400 Body height 162.56 cm [facility] 07-27-2023 09:31-0400 Body mass index (BMI) [Ratio] 40.1 kg/m2 [facility] 07-27-2023 09:31-0400 Body weight 106.14 kg [facility] 07-27-2023 09:31-0400 Diastolic blood pressure 73 mm[Hg] [facility] 07-27-2023 09:31-0400 Heart rate 66 /min [facility] 07-27-2023 09:31-0400 Systolic blood pressure 137 mm[Hg] [facility] 07-10-2023 11:10-0400 Body height 162.56 cm [facility] 07-10-2023 11:10-0400 Body mass index (BMI) [Ratio] 40.6 kg/m2 [facility] 07-10-2023 11:10-0400 Body weight 107.27 kg [facility] 07-10-2023 11:10-0400 Diastolic blood pressure 76 mm[Hg] [facility] 07-10-2023 11:10-0400 Heart rate 77 /min [facility] 07-10-2023 11:10-0400 Systolic blood pressure 115 mm[Hg] [facility] 05-30-2023 13:03-0500 Body height 162.56 cm [facility] 05-30-2023 13:03-0500 Body mass index (BMI) [Ratio] 40.8 kg/m2 [facility] 05-30-2023 13:03-0500 Body weight 108.12 kg [facility] 05-30-2023 13:03-0500 Diastolic blood pressure 80 mm[Hg] [facility] 05-30-2023 13:03-0500 Heart rate 90 /min [facility] 05-30-2023 13:03-0500 SaO2% (BldA) [Mass fraction] 97 % [facility] 05-30-2023 13:03-0500 Systolic blood pressure 126 mm[Hg] [facility] 04-10-2023 11:15-0500 Body height 162.56 cm Vanessa Baldwin Other [employer] [facility] [employer] Other 04-10-2023 11:15-0500 Body mass index (BMI) [Ratio] 40.16 kg/m2 Vanessa Baldwin Other [facility] Other 04-10-2023 11:15-0500 Body weight 106.14 kg Vanessa Baldwin Other [facility] Other 04-10-2023 11:15-0500 Diastolic blood pressure 84 mm[Hg] Vanessa Baldwin Other [facility] Other 04-10-2023 11:15-0500 SaO2% (BldA) [Mass fraction] 95 % Vanessa Baldwin Other [employer] Other 04-10-2023 11:15-0500 Systolic blood pressure 126 mm[Hg] Vanessa Baldwin Other [facility] Other 01-24-2023 11:15-0400 Body height 162.56 cm Vanessa Baldwin Other [facility] Other 01-24-2023 11:15-0400 Body mass index (BMI) [Ratio] 39.37 kg/m2 Vanessa Baldwin Other [employer] Other 01-24-2023 11:15-0400 Body weight 104.06 kg Vanessa Baldwin Other [employer] Other 01-24-2023 11:15-0400 Diastolic blood pressure 74 mm[Hg] Vanessa Baldwin Other [employer] Other 01-24-2023 11:15-0400 Systolic blood pressure 112 mm[Hg] Vanessa Baldwin Other [employer] Other 01-17-2023 10:30-0400 Body height 162.56 cm Vanessa Baldwin Other [employer] Other 01-17-2023 10:30-0400 Body mass index (BMI) [Ratio] 39.82 kg/m2 Vanessa Baldwin Other [facility] Other 01-17-2023 10:30-0400 Body weight 105.24 kg Vanessa Baldwin Other [employer] Other 01-17-2023 10:30-0400 Diastolic blood pressure 64 mm[Hg] Vanessa Baldwin Other [employer] Other 01-17-2023 10:30-0400 Systolic blood pressure 100 mm[Hg] Vanessa Baldwin Other [facility] [employer] Other Encounters Encounter Date Encounter Type Care Provider Facility Start: 10-08-2024 End: 10-08-2024 ambulatory Vanessa Baldwin MD Work Phone: [facility] Work Phone: Start: 10-08-2024 End: 10-08-2024 Patient encounter procedure Vanessa Baldwin MD -[facility] Work Phone: Start: 09-10-2024 Registered Rec[facility]ring [facility] Start: 09-10-2024 ambulatory Richard Fisher acility:[facility] Start: 07-02-2024 End: 07-02-2024 ambulatory Vanessa Baldwin MD Work Phone: [facility] Work Phone: Start: 07-02-2024 End: 07-02-2024 Patient encounter procedure Vanessa Baldwin MD Work Phone: [facility] Work Phone: Start: 05-31-2024 End: 05-31-2024 ambulatory Vanessa Baldwin MD Work Phone: [facility] Work Phone: Start: 05-31-2024 End: 05-31-2024 Patient encounter procedure Vanessa Baldwin MD Work Phone: [facility] Work Phone: Start: 04-30-2024 Registered Recurring Vanessa magana MD Work Phone: [facility] Start: 04-22-2024 End: 04-22-2024 ambulatory Maribell Malik MD Facility:[facility] Start: 04-11-2024 End: 04-11-2024 Patient encounter procedure Vanessa Baldwin MD Work Phone: [facility] Work Phone: Start: 02-19-2024 End: 02-19-2024 ambulatory Maribell Malik MD Facility:[facility] [place] Start: 01-09-2024 End: 01-09-2024 ambulatory MD Vanessa Baldwin Work Phone: [facility] Work Phone: Start: 01-09-2024 End: 01-09-2024 Patient encounter procedure MD Vanessa Baldwin Work Phone: [facility] Work Phone: Start: 12-26-2023 Registered Recurring MD Vanessa Baldwin Work Phone: [facility] Start: 11-13-2023 End: 11-13-2023 ambulatory Maribell Malik MD Facility:[facility] [place] Start: 10-26-2023 End: 10-26-2023 ambulatory [facility] Work Phone: Start: 10-26-2023 End: 10-26-2023 Patient encounter procedure [facility] Work Phone: Start: 10-09-2023 End: 10-09-2023 ambulatory [facility] Work Phone: Start: 10-09-2023 End: 10-09-2023 Patient encounter procedure [facility] Work Phone: Start: 10-02-2023 End: 10-02-2023 ambulatory Maribell Malik MD Facility:[facility] [place] Start: 09-27-2023 Non-patient / Non-visit [facility] Work Phone: Start: 08-28-2023 End: 08-28-2023 ambulatory Maribell Malik MD Facility:[facility] [place] Start: 08-10-2023 End: 08-10-2023 Patient encounter procedure [facility] Work Phone: Start: 08-08-2023 Non-patient / Non-visit [facility] [employer] Work Phone: Start: 07-27-2023 End: 07-27-2023 Patient encounter procedure [facility] Work Phone: Start: 07-24-2023 End: 07-24-2023 ambulatory Maribell Malik MD Facility: [place] Start: 07-10-2023 End: 07-10-2023 ambulatory [facility] Work Phone: Start: 07-10-2023 End: 07-10-2023 Patient encounter procedure [facility] Work Phone: Start: 05-30-2023 End: 05-30-2023 Patient encounter procedure [facility] Work Phone: Start: 05-02-2023 End: 05-02-2023 ambulatory Vanessa Baldwin Other [employer] Other Start: 05-02-2023 Telephone encounter Vanessa Baldwin [facility] Start: 04-24-2023 End: 04-24-2023 ambulatory Vanessa Baldwin Other [facility] Other Start: 04-24-2023 Telephone encounter Vanessa Baldwin [facility] Start: 04-10-2023 End: 04-10-2023 ambulatory Vnaessa Baldwin Other [employer] Other Start: 04-10-2023 Office outpatient visit 15 minutes Vanessa Baldwin [facility] Start: 04-03-2023 End: 04-03-2023 ambulatory Vanessa Baldwin Other [facility] Other Start: 04-03-2023 Telephone encounter Vanessa Baldwin [facility] Start: 03-06-2023 End: 03-06-2023 ambulatory Vanessa Baldwin Other [facility] Other Start: 03-06-2023 Telephone encounter Vanessa Baldwin [facility] Start: 02-02-2023 End: 02-02-2023 ambulatory Vanessa Baldwin Other [employer] Other Start: 02-02-2023 Telephone encounter Vanessa Baldwin [facility] Start: 01-24-2023 End: 01-24-2023 ambulatory Vanessa Nicolasa Other [employer] Other Start: 01-24-2023 Office outpatient visit 15 minutes Vanessa Nicolasa [facility] Start: 01-17-2023 End: 01-17-2023 ambulatory Vanessa Baldwin Other [employer] Other Start: 01-17-2023 Office outpatient ne w 45 minutes Vanessa Baldwin [facility] Plan of Treatment Date Care Activity Detail Author Comprehensive metabo lic 2000 panel - Serum or Plasma [facility] Patient Education Low back pain in adults [facility] Work Phone: US Heart Transthoracic [facility] US.doppler Carotid a rteries - bilateral [facility] Immunizations Immunization Date Immunization Notes Care Provider Keyana bass 04-10-2023 influenza, high dose seasonal, preservative-free Vanessa Nicolasa Other [employer] Other 04-10-2023 influenza virus vaccine, unspecified formulation [facility] Payers Date Payer Category Payer Medicare 2023 Self-pay 2023 Private Health Insurance 1955 Unknown [id number] 1955 Unknown [id number] 1955 Unknown [id number] 1955 Unknown [id number] 1955 Unknown [id number] 1955 Unknown [id number] Medicare [employer] MCR PFFS [id number] Private Health Insurance [id number] Unknown [id number] Social History Date Type Detail Facility Unknown if ever smoked [employer] Other Sex Assigned At Sex Assigned At Bir th [employer] Other Start: 05-29-2023 End: 05-29-2024 Tobacco smoking status OKIS Ex-smoker (finding) [facility] Start: 1955 Sex Assigned At Female F [facility] Start: 05-31-2024 End: 07-02-2024 Sex Female (finding) [facility] Medical Equipment Procedure Code Equipment Code Equipment Origin al Text Equipment Identifier Dates Blood Sugar Diagnostic (Accu-Chek Guide Test Strips) strip Start: 09-25-2023 Lanc[facility] Start: 09-25-2023 Blood Sugar Diagnostic (Accu-Chek Guide Test Strips) strip Start: 09-25-2023 Lancets (Accu-Ch ek Softclix Lancets) misc Start: 09-25-2023 Blood Sugar Diagnostic (Accu-Chek Guide Test Strips) strip Start: 12-19-2023 Lancets (Accu-Ch ek Softclix Lancets) misc Start: 09-25-2023 Blood Sugar Diagnostic (Accu-Chek Guide Test Strips) strip Start: 09-25-2023 End: 12-19-2023 Blood Sugar Diagnostic (Accu-Chek Guide Test Strips) strip Start: 12-19-2023 Lancets (Accu-Ch ek Softclix Lancets) misc Start: 09-25-2023 Blood Sugar Diagnostic (Accu-Chek Guide Test Strips) strip Start: 09-25-2023 End: 12-19-2023 Blood Sugar Diagnostic (Accu-Chek Guide Test Strips) strip Start: 12-19-2023 Lancets (Accu-Ch ek Softclix Lancets) misc Start: 09-25-2023 Blood Sugar Diagnostic (Accu-Chek Guide Test Strips) strip Start: 09-25-2023 End: 12-19-2023 Blood Sugar Diagnostic (Accu-Chek Guide Test Strips) strip Start: 07-24-2024 Lancets (Accu-Ch ek Softclix Lancets) misc Start: 10-08-2024 Blood Sugar Diagnostic (Accu-Chek Guide Test Strips) strip Start: 09-25-2023 End: 12-19-2023 Blood Sugar Diagnostic (Accu-Chek Guide Test Strips) strip Start: 12-19-2023 End: 07-24-2024 Lancets (Accu-Ch ek Softclix Lancets) misc Start: 09-25-2023 End: 10-08-2024 Clinical Notes 01-17-2023 to 04-11-2024 Note Date & Type Note Facility 04-11-2024 Evaluation note Diagnosis Onset Date Resolution Controlled diabetes mellitus with hyperglycemia, without long-term current acute April 11, 2024 8:29am Diabetic peripheral neuropathy acute April 11 8:29am Essential (primary) hypertension acute April 11 8:29am Lumbar back pain with radiculopathy affecting lower extremity acute April 11 8:29am [facility] Work Phone: 1(299) 204-559001-16-2025 Evaluation note* Diagnosis Onset Date Resolution Status Admit Date Controlled diabetes mellitus with hyperglycemia, without long-term current acute April 11, 2024 8:29am Diabetic peripheral neuropathy acute April 11, 2024 8:29am Essential (primary) hypertension acute April 11 8:29am Lumbar back pain with radiculopathy affecting lower extremity acute April 11 8:29am Bronchitis acute May 31 9:01am [facility] Work Phone: 1(272) 748-485501-15-2024 Evaluation note* Encounter Date Diagnosis Assessment Notes Treatment Notes Treatment Clinical Notes Mar, Lumbar paraspinal muscle spasm (ICD-10 [...] symptoms. Any developing patterns. Stay well hydrated. [facility] Other 11-09-2023 Evaluation note* Encounter Date Diagnosis Assessment Notes Treatment Notes Treatment Clinical Notes Jan, Type 2 diabetes mellitus with hyperglycemia, without long-term current use of insulin (ICD-10 - E11.65) [facility] Other 10-31-2023 Evaluation note* Encounter Date Diagnosis [...] A1C7.0. Cholesterol well controlled. Continue present meds. 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 Dec, Anxiety (ICD-10 - F41.9) pt states her chronic problem is controlled w xanax tid and lexapro Dec, GERD without esophagitis (ICD-10 - K21.9) refilled med for chronic problem Dec, Screening mammogram for breast cancer (ICD-10 - Z12.31) Dec, Personal history of nicotine dependence (ICD-10 - Z87.891) [facility] [employer] Other Evaluation [facility]No [facility] [employer] Other Evaluation note* Diagnosis Onset Date Resolution Status Anxiety acute [id number] acute [facility] Work Phone: Evaluation note* Diagnosis Onset Date Resolution Status Anxiety acute Depression, major, single episode, severe acute Diabetic peripheral neuropathy acute Hammertoe of left foot acute Lumbar back pain with radicu lopathy affecting lower extremity acute Anxiety acute Depression, major, single episode, severe acute Expressive aphasia acute Hyponatremia acute Leukocytosis acute Lumbar back pain with radicu lopathy affecting lower extremity acute [facility] Work Phone: Evaluation note* Diagnosis Onset [...] with radicu lopathy affecting lower extremity acute [facility] Work Phone: Evaluation note* Diagnosis Onset Date Resolution Status [id number] acute Diabetic peripheral neuropathy acute Lumbar back pain with radicu lopathy affecting lower extremity acute [facility] Work Phone: Evaluation noteNo assessment information available [facility] Work Phone: History general Narrative - Reported* Type Description Date Medical History Hypertention Medical History Diabetes Medical History Neuropathy Medical History Heart Attack Surgical History Hysterectomy Surgical History Back surgery Surgical History Right CTR Surgical History Bilateral shoulder surgery Surgical History Heart Stents X2 Surgical History Left TKR [employer] Other History general Narrative - Reported* Type Description Date Medical History Hypertention Medical History Diabetes Medical History Neuropathy Medical History Heart Attack Medical History GERD Surgical History Hysterectomy Surgical History Back surgery Surgical History Right CTR Surgical History Bilateral shoulder surgery Surgical History Heart Stents X2 Surgical History Left TKR [employer] Other Reason for referral (narrative)No reason for referral information availableProm[facility] Work Phone: Reason for Referral Reason *Waiting for appt Get established, has stents, moved from [place]. Had ME in 2015 Diagnosis 1 Coronary artery dise ase involving inupiat coronary artery of inupiat heart without angina pectoris (I25.10) Referral Organization [facility] [place] Referring Provider First Name Vanessa Referring Provider Last Name Nicolasa Referring Provider Specialty [facility] Referred Organization [facility] Cardiology Referred Provider Christal Pacheco Referred Address [address] [place] [address],[place] [address],[place], [id number] Referred Provider Specialty Cardiovascul ar Disease Referral Priority Routine General Notes Radha Baker 02:31:53 PM >received today, sent P2P. pt may need to fill out a records release form to have old records sent to us Chief Complaint and Reason for Visit Chief Complaint weightloss 3 MONTH CHECK UP Reason for Visit Anxiety [id number] Chief Complaint foot exams for shoes [facility] follow up 3 month follow up Reason for Visit Anxiety Depression, major, single episode, severe Diabetic peripheral neuropathy Hammertoe of left foot Lumbar back pain with radiculopathy affecting lower extremity Anxiety Depression, major, single episode, severe Expressive aphasia Hyponatremia Leukocytosis Lumbar back pain with radiculopathy affecting lower extremity Chief Complaint [facility] follow up 3 month follow up [...] meds 3 month f/u Reason for Visit [id number] Diabetic peripheral neuropathy Lumbar back pain with radiculopathy affecting lower extremity Chief Complaint Admit Date 3 month f/u-HIGH RISK April 11, 2024 8:29am BH April 30, 2024 8 :39am HIGH risk, chest congestion May 31, 025 9:01am Reason for Visit Admit Date Controlled diabetes mellitus with hyperglycemia, without long-term current April 11, 2024 8:29am Diabetic peripheral neuropathy March 272024 8:29am Essential (primary) hypertension April 11, 2024 8:29am Lumbar back pain with radicu lopathy affecting lower extremity April 11, 2024 8:29am Chief Complaint Admit Date 3 month f/u-HIGH RISK April 11, 2024 8:29am BH April 30, 2024 8 :39am HIGH risk, chest congestion May 31 025 9:01am 3 month f/u-HIGH RISK July 02, 2024 8: 38am Reason for Visit Admit Date Controlled diabetes mellitus with hyperglycemia, without long-term current April 11, 2024 8:29am Diabetic peripheral neuropathy March 272024 8:29am Essential (primary) hypertension April 11, 2024 8:29am Lumbar back pain with radicu lopathy affecting lower extremity April 11, 2024 8:29am Bronchitis May 31, 2024 9:01 am Chief Complaint Admit Date September 10, 2024 8:18 am 3 month f/u-HIGH RISK October 08, 2024 8: 21am Family History Relationship Condition Age at Onset [...] Advance Directives No April 18, 2023 4:51pm Advance Directive Response Recorded Date/ Time Advance Directives No May 29 10:36am Summary Purpose Additional Source Comments REASON FOR VISIT (unrecogniz ed section and content) Check Up-Medsback painRefill RefillrefillRefill3 month Follow upcoughingCardio Referral Update Care Teams (unrecognized sec tion and content) Team Status: Active Member Role Status Dates Vanessa Baldwin MD Primary Care Provider Active Team Status: Active Member Role Status Abdias Baldwin MD Primary Care Provider Active Start: September 10, 2024 Richard Baker MD Attending Provider Active Start: September 10, 2024 Team Status: Inactive Member Role Status Dates Vanessa Baldwin MD Primary Care Provider Active Start: October 08, 2024 End: October 08, 2024 Vanessa Baldwin MD Attending Provider Active St art: October 08, 2024 End: October 08, 2024 Team Status: Active Member Role Status [...] 2023 End: July 27, 2023 Team Status: Inactive Member Role Status Abdias Baldwin MD Primary Care Provide r, Attending Provider Active Start: April 11, 2024 End: April 11, 2024 Team Status: Active Member Role Status Abdias Baldwin MD Primary Care Provider Active Start: April 30, 2024 Richard Baker MD Attending Provider Active Start: April 30, 2024 Team Status: Inactive Member Role Status Abdias Baldwin MD Primary Care Provide r, Attending Provider Active Start: May 31, 2024 End: May 31, 2024 Team Status: Inactive Member Role Status Abdias Baldwin MD Primary Care Provide r, Attending Provider Active Start: July 02, 2024 End: July 02, 2024 Team Status: Active Member Role Status Abdias Baldwin MD Primary Care Provider Active Start: September 10, 2024 Richard Baker MD Attending Provider Active Start: September 10, 2024 Team Status: Inactive Member Role Status Abdias Baldwin MD Primary Care Provider Active Start: October 08, 2024 End: October 08, 2024 Vanessa Baldwin MD Attending Provider Active St art: October 08, 2024 End: October 08, 2024 Goals (unrecognized section and content) Goals may be documented in a n alternate section INFORMATION SOURCE (unrecogn ized section and content) DATE CREATED AUTHOR 04/28/2024 [facility] DATE CREATED AUTHOR AUTHOR'S RENETTAIZ ATION 09/12/2024 [facility] FOR RECORDS PERTAINING TO PATIENTS WHO [...] BE BASED ON THE PRIMARY CLINICAL RECORDS. [facility]. provides no warranty or guarantee of the accuracy or completeness of information in this document.
[2024-10-21 09:02] LABS: Microalbum Creatinine Ratio Ur 47.8 mg/g (0.0-29.9)
[2024-10-21 09:06] LABS: Alanine Aminotransferase 38 U/L (14-59); Albumin Globulin Ratio 1.0; Albumin Level 4.0 g/dL (3.4-5.0); Alkaline Phosphatase 92 U/L (46-116); Anion Gap 14.8; Aspartate Amino Transferase 29 U/L (15-37); Blood Urea Nitrogen 8.0 mg/dL (7.0-18.0); Calcium 9.1 mg/dL (8.5-10.1); Carbon Dioxide 29.7 mmol/L (21.0-32.0); Chloride 98 mmol/L (98-107); Cholesterol 93 mg/dL (<=200); Estimated GFR (African America >60 (>=60 mL/min/1.73m^2); Estimated GFR (Non-African Ame >60 (>=60 mL/min/1.73m^2); Globulin 4.1 g/dL; Glucose 184 mg/dL (74-106); HDL Cholesterol 36 mg/dL (40-60); Potassium 4.5 mmol/L (3.5-5.1); Sodium 138 mmol/L (136-145); Total Protein 8.1 g/dL (6.4-8.2); Triglycerides 111 mg/dL (<=150); VLDL CHOLESTEROL 22.2 mg/dL
== END 2024-10-21 08:29 | disposition home or self-care (01) ==
LOC: LAB 08:29
PROVIDERS: Family Provider Internal Medicine; PCP Family Medicine; Visit Provider Family Medicine
DX: E11.42 Type 2 diabetes mellitus with diabetic polyneuropathy (principal); I10 Essential (primary) hypertension
CPT/HCPCS: 36415; 80053; 80061; 82043; 82570; 83036

== ENCOUNTER 2024-11-18 12:41 | Outpatient (OUT) | payer MEDICARE, SELFPAY ==
--- NOTE | 2024-11-18 13:26 | PM.CN ---
Consult Note: HPI Data of Consult Patient: known to practice within the last 3 years Consult date: 11/18/24 Requesting Physician: Maribell Malik MD Primary Care Provider: Vanessa Baldwin MD Family Provider: Shai Abdalla, Consult Narrative Reason for consult: low back, bilateral lower extremity pain Narrative: 68yof who presents for assessment. notes continued severe low back, bilateral lower extremity pain. fused from L3-5. continues using lyrica. denies adverse med side effects. cc:: CC: Maribell Malik MD Review of Systems ROS Status of ROS 10 or more systems reviewed and unremarkable except as noted in history and below PFSH PFSH Medical History Low back pain ?M54.50 - Low back pain, unspecified (ICD-10) Osteoarthritis ?M19.90 - Unspecified osteoarthritis, unspecified site (ICD-10) Heartburn ?R12 - Heartburn (ICD-10) Acid reflux ?K21.9 - Gastro-esophageal reflux disease without esophagitis (ICD-10) Diabetes ?E11.9 - Type 2 diabetes mellitus without complications (ICD-10) Past heart attack ?I25.2 - Old myocardial infarction (ICD-10) Hypertension ?I10 - Essential (primary) hypertension (ICD-10) High cholesterol ?E78.00 - Pure hypercholesterolemia, unspecified (ICD-10) Surgical History History of total knee replacement ?Z96.659 - Presence of unspecified artificial knee joint (ICD-10) H/O shoulder surgery ?Z98.890 - Other specified postprocedural states (ICD-10) History of lumbar surgery ?Z98.890 - Other specified postprocedural states (ICD-10) History of hysterectomy ?Z90.710 - Acquired absence of both cervix and uterus (ICD-10) Social History Little interest or pleasure in doing things: not at all Feeling down, depressed, or hopeless: not at all Meds Home Medications and Allergies Home Medications ?Medication ?Instructions ?Recorded ?Confirmed ?Type alprazolam 0.25 mg tablet (Xanax) 0.25 mg PO TID 07/24/23 04/22/24 History aripiprazole 2 mg tablet (Abilify) 2 mg PO DAILY 07/24/23 04/22/24 History aspirin 325 mg capsule 325 mg PO DAILY 07/24/23 04/22/24 History atorvastatin 20 mg tablet 20 mg PO DAILY 07/24/23 04/22/24 History carvedilol 3.125 mg tablet 3.125 mg PO BID 07/24/23 04/22/24 History escitalopram oxalate 20 mg tablet 20 mg PO BID 07/24/23 04/22/24 History (Lexapro) etodolac 400 mg tablet (Lodine) 400 mg PO Q12H PRN pain 07/24/23 04/22/24 History lisinopril 10 mg tablet 10 mg PO DAILY 07/24/23 04/22/24 History metformin 500 mg tablet 500 mg PO TID 07/24/23 04/22/24 History pantoprazole 40 mg granules 40 mg PO DAILY 07/24/23 04/22/24 History delayed-release for susp in packet (Protonix) potassium 20 mg chewable tablet 20 mg PO .QD 07/24/23 04/22/24 History spironolactone 25 mg tablet 25 mg PO DAILY 07/24/23 04/22/24 History acetaminophen 650 mg 650 mg PO Q8H PRN fever or pain 01/21/24 04/22/24 Rx tablet,extended release (Tylenol 8 #20 tabs Hour) albuterol sulfate 90 mcg/actuation 2 inh inhalation Q4H PRN shortness 02/03/24 04/22/24 Rx aerosol inhaler of breath or wheezing #8.5 grams baclofen 10 mg tablet 10 mg PO Q8H 04/16/24 04/16/24 History pregabalin 300 mg capsule (Lyrica) 300 mg PO BID #60 caps 05/20/24 Rx Allergies Allergy/AdvReac Type Severity Reaction Status Date / Time codeine Allergy Mild Unknown Verified 04/22/24 07:56 morphine Allergy Mild Unknown Verified 04/22/24 07:56 nalbuphine (From Nubain) AdvReac Mild Unknown Verified 04/22/24 07:56 Exam Narrative Exam Narrative: Psych-alert and oriented x 3. Attentive and appropriate, constitutionally normal, displays normal mood and affect per situation. There are no obvious deficits in memory, reasoning, or intellect.? Skin-no obvious rashes, bruising, erythema noted to the patient's area of pain.? Extremities- extremities are warm with minimal edema and palpable pulses. Lumbar-tenderness to palpation noted in the lumbar spine and paraspinal musculature. Pain is not elicited with flexion, extension, and lateral rotation of the lumbar spine. Range of motion is not diminished with these motions. Facet loading maneuvers are negative.? Strength-noted to be unremarkable with the exception of decreased strength rated at 4 out of 5 in bilateral quadriceps femoris, anterior tibialis. Sensory-no notable sensory deficits in the bilateral lower extremities to touch or pinprick in all dermatomal distributions with the exception to decreased sensation to the bilateral L4, 5 dermatomal distribution Coordination remains intact.? Gait remains non-antalgic. Assessment and Plan Assessment and Plan (1) Failed back syndrome: (2) Lumbar postlaminectomy syndrome: (3) Lumbar spondylosis: Plan 68yof who presents for assessment. failed conservative measures, as noted. had previously discussed possibility of spinal cord stimulation, but insurance requires another neurosurgery evaluation to rule out further surgery. she will discuss this with her family, as she does not drive and will need to travel to [place] for this. she has otherwise failed all other more conservative modalities. medications reviewed. agreed to refill her lyrica. follow up after neurosurgical evaluation.
== END 2024-11-18 12:42 | disposition home or self-care (01) ==
PROVIDERS: Family Provider Internal Medicine; PCP Family Medicine; Visit Provider Anesthesiology
DX: M96.1 Postlaminectomy syndrome, not elsewhere classified (principal); M47.816 Spondylosis without myelopathy or radiculopathy, lumbar region
CPT/HCPCS: G0463